=== PATIENT | male | born 1940 | race Caucasian/White ===

== ENCOUNTER 2017-11-29 20:28 | Emergency (ER) | payer MEDICARE ==
[2017-11-29 20:51] VITALS: O2SAT 98
[2017-11-29] MEDS ORDERED: Sodium Chloride 0.9% 1000 ML 1,000 ML IV SCH (21:15)
--- NOTE | 2017-11-29 21:23 | ERPHSYRPT ---
- History of Present Illness Time Seen by Provider: 11/29/17 20:55 Source: patient Exam Limitations: clinical condition Patient Subjective Stated Complaint: pt states he has been feeling weak for approx 2 weeks and gradually getting worse with time; pt seen family approx 12 days ago and dx with anemia; had second lab drawn after dx but has not heard from family dr the results nor treatment plan for anemia. Triage Nursing Assessment: pt a&o x3; skin p, w, & d; ambulated to room per self ; no obvious distess noted; family at bedside. Physician History: PATIENT WITH A HISTORY OF HYPERTENSION, TYPE 2 DIABETES, MYOCARDIAL INFARCTION , PACEMAKER INSERTION AND DEGENERATIVE DISC DISEASE, COMPLAINS OF GENERALIZED WEAKNESS FOR 2 WEEKS. RECENTLY DIAGNOSED WITH ANEMIA BY HIS PRIMARY CARE PROVIDER 2 WEEKS. PATIENT DENIES HEADACHE, DYSPNEA, CHEST PAIN, DYSPNEA, PALPITATIONS, NAUSEA EMESIS OR DIARRHEA. Timing/Duration: week(s) Severity: moderate Modifying Factors: Improves With: movement Associated Symptoms: denies symptoms Allergies/Adverse Reactions: doxazosin mesylate [From Cardura] Allergy (Verified 11/29/17 20:51) Itching prednisone Allergy (Verified 11/29/17 20:51) states "homicidal" Vyhdcqw-Ruc-Usw Reductase Inhibitor Allergy (Verified 11/29/17 20:51) Joint Aches duloxetine Adverse Reaction (Verified 11/29/17 20:51) milk Adverse Reaction (Verified 11/29/17 20:51) bananas Allergy (Uncoded 11/29/17 20:51) iv contrast Allergy (Uncoded 11/29/17 20:51) Hives Home Medications: Aspirin 81 gm Chew [Baby Aspirin 81 mg Chew] 81 mg PO DAILY 01/02/16 [ History] Clopidogrel Bisulfate 75 mg [PLAVIX 75 MG Tablet] 75 mg PO DAILY 01/02/16 [History] Diltiazem HCl 240 mg [Cardizem CD 240 MG] 240 mg PO DAILY 01/02/16 [ History] Guaifenesin/Dextromethorphan [Mucinex Dm ER 1,200-60 mg Tab] 1 each PO BID 01/01 [History] Lisinopril 20 mg [Zestril 20 MG] 20 mg PO DAILY 01/02/16 [History] Metformin HCl 500 mg [Glucophage 500 MG] 500 mg PO DAILY 01/02/16 [History ] PANTOPRAZOLE 40 mg Tablet [Protonix 40MG Tablet] 40 mg PO QAM 01/02/16 [ History] Doxycycline Hyclate 100 mg [Vibramycin 100 MG] 100 mg PO DAILY 02/09/16 [ History] Multivitamin [Daily Multivitamin] 1 each PO DAILY 02/09/16 [History] Zolpidem Tartrate [Ambien] 10 mg PO HS 02/09/16 [History] Hx Tetanus, Diphtheria Vaccination/Date Given: Yes Hx Influenza Vaccination/Date Given: Yes Hx Pneumococcal Vaccination/Date Given: Yes Immunizations Up to Date: Yes - Review of Systems Constitutional: Weakness Eyes: No Symptoms Ears, Nose, & Throat: No Symptoms Respiratory: No Symptoms, No Cough, No Dyspnea Cardiac: No Symptoms, No Chest Pain, No Edema, No Syncope Abdominal/Gastrointestinal: No Symptoms, No Abdominal Pain, No Nausea, No Vomiting, No Diarrhea Genitourinary Symptoms: No Symptoms, No Dysuria Musculoskeletal: No Symptoms, No Back Pain, No Neck Pain Skin: No Symptoms, No Rash Neurological: No Dizziness, No Focal Weakness, No Sensory Changes Psychological: No Symptoms Endocrine: No Symptoms All Other Systems: Reviewed and Negative - Past Medical History Pertinent Past Medical History: Yes Neurological History: TIA ENT History: No Pertinent History Cardiac History: Hypertension, Myocardial Infarction (DC), Other Respiratory History: No Pertinent History Endocrine Medical History: Diabetes Type II Musculoskeletal History: Degenerative Disk Disease, Osteoarthritis GI Medical History: GERD History: Other Psycho-Social History: No Pertinent History Male Reproductive Disorders: Prostate Cancer Other Medical History: heart stint in 2007, Pt has a pacemaker, past DC - Past Surgical History Past Surgical History: Yes Neuro Surgical History: No Pertinent History Cardiac: Angioplasty, Cardiac Stent Respiratory: Other Gastrointestinal: No Pertinent History Genitourinary: No Pertinent History Musculoskeletal: No Pertinent History Male Surgical History: Prostate Surgery, Vasectomy, Other Other Surgical History: states left lung collapsed, T&A, penile implant, pacemaker,back pain stimulator - Social History Smoking Status: Former smoker Exposure to second hand smoke: No Alcohol Use: None Drug Use: none Patient Lives Alone: No Significant Family History: no pertinent family hx - Nursing Vital Signs Nursing Vital Signs: Initial Vital Signs Temperature 97.8 F 09/23/18 20:43 Pulse Rate 62 11/29/17 20:43 Respiratory Rate 16 11/29/17 20:43 Blood Pressure 153/65 11/29/17 20:43 O2 Sat by Pulse Oximetry 98 11/29/17 20:43 Pain Scale Pain Intensity 2 - Physical Exam General Appearance: no apparent distress, alert Eye Exam: PERRL/EOMI, eyes nml inspection Ears, Nose, Throat Exam: normal ENT inspection, TMs normal, pharynx normal, moist mucous membranes Neck Exam: normal inspection, non-tender, supple, full range of motion Respiratory Exam: normal breath sounds, lungs clear, No respiratory distress Cardiovascular Exam: regular rate/rhythm, normal heart sounds, normal peripheral pulses Gastrointestinal/Abdomen Exam: soft, normal bowel sounds, No tenderness, No mass Back Exam: normal inspection, normal range of motion, No CVA tenderness, No vertebral tenderness Extremity Exam: normal inspection, normal range of motion, pelvis stable Neurologic Exam: alert, oriented x 3, cooperative, normal mood/affect, nml cerebellar function, nml station & gait, sensation nml, No motor deficits Skin Exam: normal color, warm, dry, No rash Lymphatic Exam: No adenopathy SpO2 Interpretation: normal SpO2: 98 Oxygen Delivery: Room Air Ordered Tests: Active Orders 24 hr Category Date Time Status Production Specialist STAT Care 11/29/17 21:12 Active EKG-ER Only STAT Care 11/29/17 21:11 Active Orthostatic Vital Signs STAT Care 11/29/17 21:13 Active CHEST 2 VIEWS (PA AND LAT) Stat Exams 11/29/17 21:12 Taken CBC W DIFF Stat Lab 11/29/17 21:41 Completed CMP Stat Lab 11/29/17 21:41 Completed TROPONIN Q3H Lab 11/29/17 21:41 Completed TROPONIN Q3H Lab 11/30/17 00:15 Ordered TROPONIN Q3H Lab 11/30/17 03:15 Ordered TROPONIN Q3H Lab 11/30/17 06:15 Ordered TROPONIN Q3H Lab 11/30/17 09:15 Ordered UA W/RFX UR CULTURE Stat Lab 11/29/17 22:22 Completed Medication Summary Generic Name Dose Route Start Last Admin Trade Name Freq PRN Reason Stop Dose Admin Sodium Chloride 1,000 mls @ 200 mls/hr 11/29/17 21:15 11/29/17 21:46 Sodium Chloride 0.9% 1000 Ml IV 12/29/17 21:14 200 mls/hr .Q5H VALERI Administration Lab/Rad Data: Laboratory Result Diagrams 11/29/17 21:41 11/29/17 21:41 Laboratory Results 11/29/17 11/29/17 11/29/17 Range/Units 22:22 21:41 21:41 WBC (4.0-10.5) K/mm3 RBC (4.1-5.6) M/mm3 Hgb (12.5-18.0) gm/dl Hct (42-50) % MCV (78-100) fl MCH (26-32) pg MCHC (32-36) g/dl RDW (11.5-14.0) % Plt Count (150-450) K/mm3 MPV (6-9.5) fl Gran % (36.0-66.0) % Eos # (Auto) (0-0.5) Absolute Lymphs (auto) (1.0-4.6) Absolute Monos (auto) (0.0-1.3) Lymphocytes % (24.0-44.0) % Monocytes % (0.0-12.0) % Eosinophils % (0.00-5.0) % Basophils % (0.0-0.4) % Absolute Granulocytes (1.4-6.9) Basophils # (0-0.4) Sodium 140 (137-145) mmol/L Potassium 3.9 (3.5-5.1) mmol/L Chloride 103 (98-107) mmol/L Carbon Dioxide 26 (22-30) mmol/L Anion Gap 14.6 (5-15) MEQ/L BUN 28 H (9-20) mg/dL Creatinine 1.79 H (0.66-1.25) mg/dL Estimated GFR 39.2 ML/MIN Glucose 119 H (74-106) mg/dL Calcium 9.9 (8.4-10.2) mg/dL Total Bilirubin 0.30 (0.2-1.3) mg/dL AST 19 (17-59) U/L ALT 16 (0-50) U/L Alkaline Phosphatase 84 (38-126) U/L Troponin I < 0.012 (0.000-0.034) ng/mL Serum Total Protein 6.8 (6.3-8.2) g/dL Albumin 4.3 (3.5-5.0) g/dL Ur Collection Type VOID Urine Color YELLOW (YELLOW) Urine Appearance CLEAR (CLEAR) Urine pH 5.0 (5-6) Ur Specific [place] 1.020 (1.005-1.025) Urine Protein NEGATIVE (Negative) Urine Ketones NEGATIVE (NEGATIVE) Urine Blood NEGATIVE (0-5) [place]/ul Urine Nitrite NEGATIVE (NEGATIVE) Urine Bilirubin NEGATIVE (NEGATIVE) Urine Urobilinogen NORMAL (0-1) mg/dL Ur Leukocyte Esterase NEGATIVE (NEGATIVE) Urine Culture Reflexed NO (NO) Urine Glucose NEGATIVE (NEGATIVE) mg/dL 11/29/17 Range/Units 21:41 WBC 7.1 (4.0-10.5) K/mm3 RBC 3.02 L (4.1-5.6) M/mm3 Hgb 10.2 L (12.5-18.0) gm/dl Hct 29.9 L (42-50) % MCV 99.0 (78-100) fl MCH 33.7 H (26-32) pg MCHC 34.1 (32-36) g/dl RDW 11.8 (11.5-14.0) % Plt Count 284 (150-450) K/mm3 MPV 9.5 (6-9.5) fl Gran % 62.2 (36.0-66.0) % Eos # (Auto) 0.25 (0-0.5) Absolute Lymphs (auto) 1.53 (1.0-4.6) Absolute Monos (auto) 0.85 (0.0-1.3) Lymphocytes % 21.5 L (24.0-44.0) % Monocytes % 12.0 (0.0-12.0) % Eosinophils % 3.5 (0.00-5.0) % Basophils % 0.8 (0.0-0.4) % Absolute Granulocytes 4.41 (1.4-6.9) Basophils # 0.06 (0-0.4) Sodium (137-145) mmol/L Potassium (3.5-5.1) mmol/L Chloride (98-107) mmol/L Carbon Dioxide (22-30) mmol/L Anion Gap (5-15) MEQ/L BUN (9-20) mg/dL Creatinine (0.66-1.25) mg/dL Estimated GFR ML/MIN Glucose (74-106) mg/dL Calcium (8.4-10.2) mg/dL Total Bilirubin (0.2-1.3) mg/dL AST (17-59) U/L ALT (0-50) U/L Alkaline Phosphatase (38-126) U/L Troponin I (0.000-0.034) ng/mL Serum Total Protein (6.3-8.2) g/dL Albumin (3.5-5.0) g/dL Ur Collection Type Urine Color (YELLOW) Urine Appearance (CLEAR) Urine pH (5-6) Ur Specific [place] (1.005-1.025) Urine Protein (Negative) Urine Ketones (NEGATIVE) Urine Blood (0-5) [place]/ul Urine Nitrite (NEGATIVE) Urine Bilirubin (NEGATIVE) Urine Urobilinogen (0-1) mg/dL Ur Leukocyte Esterase (NEGATIVE) Urine Culture Reflexed (NO) Urine Glucose (NEGATIVE) mg/dL - Progress Progress Note: 11/29/17 21:21 ADMINISTERED IV NORMAL SALINE 200ML/HR - Departure Time of Disposition: 23:50 Departure Disposition: Home Clinical Impression: DEHYDRATION Condition: Stable Critical Care Time: No Referrals: ARNOLD OLIVAS MD [Primary Care Provider] - Additional Instructions: DRINK PLENTY OF FLUIDS. CONTINUE ALL CURRENT MEDICATIONS DIRECTED. CONSULT YOUR PRIMARY CARE PROVIDER FOR EVALUATION AND REVIEW OF LABORATORY DATA.
[2017-11-29] MEDS ORDERED: Sodium Chloride 0.9% 1000 ML 1,000 ML ONE (21:44)
[2017-11-29 21:46] LABS: BASOPHIL % 0.8 % (0.0-0.4); Basophil (Absolute #) 0.06 (0-0.4); Eosinophil % 3.5 % (0.00-5.0); Eosinophil (Absolute #) 0.25 (0-0.5); Granulocyte Absolute (ANC) 4.41 (1.4-6.9); Granulocytes % 62.2 % (36.0-66.0); Hematocrit 29.9 % (42-50); Hemoglobin 10.2 gm/dl (12.5-18.0); Lymphocyte (Absolute #) 1.53 (1.0-4.6); Lymphocytes % 21.5 % (24.0-44.0); Mean Corpuscular Hgb Concent. 34.1 g/dl (32-36); Mean Platelet Volume 9.5 fl (6-9.5); Monocyte (Absolute #) 0.85 (0.0-1.3); Platelet Count 284 K/mm3 (150-450); Red Blood Count 3.02 M/mm3 (4.1-5.6); Red Cell Distribution Width 11.8 % (11.5-14.0); White Blood Count 7.1 K/mm3 (4.0-10.5)
[2017-11-29 21:48] LABS: Mean Corpuscular Hemoglobin 33.7 pg (26-32)
[2017-11-29 22:08] LABS: ALBUMIN 4.3 g/dL (3.5-5.0); ANION GAP 14.6 MEQ/L (5-15); BILIRUBIN,TOTAL 0.3 mg/dL (0.2-1.3); Calcium 9.9 mg/dL (8.4-10.2); Creatinine 1 1.79 mg/dL (0.66-1.25); Potassium 3.9 mmol/L (3.5-5.1); Total Protein 6.8 g/dL (6.3-8.2)
[2017-11-29 22:25] LABS: Appearance CLEAR (CLEAR); Bilirubin NEGATIVE (NEGATIVE); Blood NEGATIVE Ery/ul (0-5); Glucose NEGATIVE (NEGATIVE); Ketones NEGATIVE (NEGATIVE); Leukocyte Esterase NEGATIVE (NEGATIVE); Nitrite NEGATIVE (NEGATIVE); Protein,Urine Dip NEGATIVE (Negative); Urobilinogen NORMAL mg/dL (0-1)
[2017-11-29 23:51] VITALS: BP 138/65; PULSE 67
--- NOTE | 2017-11-30 08:44 | XRAY ---
Indication: Cough and weakness. Comparison: February 09, 2016. PA/lateral chest hyperinflated and clear again with incidental calcified granulomas. Heart and mediastinal structures within normal limits again with left-sided dual-lead pacemaker. Bony thorax intact again with spinal stimulator leads. Impression: Nonacute hyperinflated chest with chronic features.
== END 2017-11-30 00:01 | disposition home or self-care (01) ==
LOC: ED 20:28
DX: E86.0 Dehydration (principal); E11.9 Type 2 diabetes mellitus without complications; I10 Essential (primary) hypertension; Z79.01 Long term (current) use of anticoagulants; Z79.82 Long term (current) use of aspirin; Z79.899 Other long term (current) drug therapy; Z95.0 Presence of cardiac pacemaker; Z79.84 Long term (current) use of oral hypoglycemic drugs
CPT/HCPCS: 36415; 71046; 80053; 81003; 84484; 85025; 93005; 93041; 99284

== ENCOUNTER 2018-02-24 09:19 | Day surgery (SDC) | payer MEDICARE ==
[2012-01-16 01:09] VITALS: BP 143/73
[2018-02-24] MEDS ORDERED: DIPRIVAN 200 MG/20 ML IV ONE (09:20)
[2018-02-24] MEDS ORDERED: Xylocaine-Mpf 2% 5 Ml Vial IJ ONE (09:20)
[2018-02-24] MEDS ORDERED: Depo-Medrol 40 MG/ML IM ONE (09:20)
--- NOTE | 2018-02-24 12:40 | XRAY ---
Indication: Bilateral L4-S1 MBB. Intraoperative fluoroscopy was provided for 12 seconds. Single digital spot image submitted for interpretation demonstrates posterior spinal needle tips along the expected course of the left and right L4-S1 nerve roots. Correlate with intraoperative findings/report.
--- NOTE | 2018-02-24 12:48 | XRAY ---
12 seconds fluoroscopy time in surgery for bilateral L4-S1 MBB.
[2018-02-24] MEDS ORDERED: Lactated Ringers 1,000 ML IV ONE (14:46)
== END 2018-02-24 11:20 | disposition home or self-care (01) ==
LOC: SDC-PAIN 09:19
PROVIDERS: ATTEND Psychiatry & Neurology Pain Medicine
DX: M48.8X6 Other specified spondylopathies, lumbar region (principal)
CPT/HCPCS: 64493; 64494; 72020; 77003; 82962; 99100; J1030; J2704

== ENCOUNTER 2018-04-07 07:50 | Day surgery (SDC) | payer MEDICARE ==
[2012-01-16 01:09] VITALS: BP 143/73
[2018-04-07] MEDS ORDERED: DIPRIVAN 200 MG/20 ML IV ONE (07:51)
[2018-04-07] MEDS ORDERED: Depo-Medrol 40 MG/ML IM ONE (07:51)
[2018-04-07] MEDS ORDERED: Marcaine 0.5% SDV 10 ML IJ ONE (07:51)
[2018-04-07 08:47] LABS: Specific Gravity 1.019 (1.005-1.025)
[2018-04-07 10:01] LABS: Amphetamine,Urine NEGATIVE (NEGATIVE); Barbiturate,Urine NEGATIVE (NEGATIVE); Benzodiazepine,Urine NEGATIVE (NEGATIVE); Cocaine,Urine NEGATIVE (NEGATIVE); Methadone,Urine NEGATIVE (NEGATIVE); Opiate,Urine POSITIVE (NEGATIVE); PCP,Urine NEGATIVE (NEGATIVE); THC,Urine NEGATIVE (NEGATIVE)
[2018-04-07 10:05] LABS: CREATININE,URINE RANDOM 176.3 MG/DL
--- NOTE | 2018-04-07 14:54 | XRAY ---
Indication: Bilateral L4-S1 MBB. Intraoperative fluoroscopy was provided for 10 seconds. Single digital spot image submitted for interpretation demonstrates posterior spinal needle tips along the expected course of the left and right L4-S1 nerve roots. Correlate with intraoperative findings/report.
[2018-04-07] MEDS ORDERED: Lactated Ringers 1,000 ML IV ONE (14:57)
--- NOTE | 2018-04-12 08:36 | XRAY ---
10 seconds fluoroscopy time in surgery for bilateral L4-S1 MBB.
== END 2018-04-07 10:10 | disposition home or self-care (01) ==
LOC: SDC-PAIN 07:50
PROVIDERS: ATTEND Psychiatry & Neurology Pain Medicine
DX: M47.817 Spondylosis without myelopathy or radiculopathy, lumbosacral region (principal); M48.8X6 Other specified spondylopathies, lumbar region; E11.9 Type 2 diabetes mellitus without complications; Z86.73 Personal history of transient ischemic attack (TIA), and cerebral infarction without residual deficits; Z79.899 Other long term (current) drug therapy
CPT/HCPCS: 64493; 64494; 72020; 77002; 80307; 81002; 82570; 82962; 83986; 99100; J1030; J2704; Q9967

== ENCOUNTER 2018-05-26 07:43 | Day surgery (SDC) | payer MEDICARE ==
[2012-01-16 01:09] VITALS: BP 143/73
[2018-05-26] MEDS ORDERED: Marcaine 0.5% SDV 10 ML IJ ONE (07:44)
[2018-05-26] MEDS ORDERED: Ketamine HCl 50 MG/ML IJ ONE (07:44)
[2018-05-26] MEDS ORDERED: LIDOCAINE HCL 2% 100 MG/5 ML IJ ONE (07:44)
[2018-05-26] MEDS ORDERED: DIPRIVAN 200 MG/20 ML IV ONE (07:44)
[2018-05-26] MEDS ORDERED: Depo-Medrol 40 MG/ML IM ONE (07:44)
[2018-05-26] MEDS ORDERED: Xylocaine 1% Vial 30 ML PF IJ ONE (07:44)
[2018-05-26] MEDS ORDERED: Lactated Ringers 1,000 ML IV ONE (14:23)
--- NOTE | 2018-05-26 16:08 | XRAY ---
27 seconds of fluoroscopy was used in surgery for right L4-L5, L5-S1, and sacral ala RFA.
--- NOTE | 2018-05-26 16:12 | XRAY ---
Indication: Right L4-S1 and sacral RFA. Intraoperative fluoroscopy was provided for 27 seconds. 2 digital spot images submitted for interpretation demonstrates posterior needle tips in the expected region of the right L4-S1 nerve roots. Correlate with intraoperative findings/report.
== END 2018-05-26 10:07 | disposition home or self-care (01) ==
LOC: SDC-PAIN 07:43
PROVIDERS: ATTEND Psychiatry & Neurology Pain Medicine
DX: M47.816 Spondylosis without myelopathy or radiculopathy, lumbar region (principal); M48.8X6 Other specified spondylopathies, lumbar region; E11.9 Type 2 diabetes mellitus without complications; I10 Essential (primary) hypertension; J44.9 Chronic obstructive pulmonary disease, unspecified; C61 Malignant neoplasm of prostate; E78.00 Pure hypercholesterolemia, unspecified; D64.9 Anemia, unspecified; M19.90 Unspecified osteoarthritis, unspecified site; Z79.899 Other long term (current) drug therapy
CPT/HCPCS: 64635; 64636; 72100; 77002; 82962; 99100; J1030; J2001; J2704

== ENCOUNTER 2018-07-07 09:39 | Day surgery (SDC) | payer MEDICARE ==
[2012-01-16 01:09] VITALS: BP 143/73
[2018-07-07] MEDS ORDERED: Xylocaine 1% Vial 30 ML PF IJ ONE (09:40)
[2018-07-07] MEDS ORDERED: Ketamine HCl 50 MG/ML IJ ONE (09:40)
[2018-07-07] MEDS ORDERED: DIPRIVAN 200 MG/20 ML IV ONE (09:40)
[2018-07-07] MEDS ORDERED: Depo-Medrol 40 MG/ML IM ONE (09:40)
[2018-07-07] MEDS ORDERED: Marcaine 0.5% SDV 10 ML IJ ONE (09:40)
--- NOTE | 2018-07-07 13:28 | XRAY ---
19 seconds of fluoroscopy was used in surgery for a left L4-L5, L5-S1 RFA.
--- NOTE | 2018-07-07 13:38 | XRAY ---
Indication: Left L4-S1 RFA. Intraoperative fluoroscopy was provided for 19 seconds. 2 digital spot images submitted for interpretation demonstrates posterior needle tips projecting over the expected course of the left L4-S1 nerve roots. Correlate with intraoperative findings/report.
[2018-07-07] MEDS ORDERED: Lactated Ringers 1,000 ML IV ONE (14:53)
== END 2018-07-07 11:48 | disposition home or self-care (01) ==
LOC: SDC-PAIN 09:39
PROVIDERS: ATTEND Psychiatry & Neurology Pain Medicine
DX: M47.816 Spondylosis without myelopathy or radiculopathy, lumbar region (principal); E11.9 Type 2 diabetes mellitus without complications; E78.00 Pure hypercholesterolemia, unspecified; C61 Malignant neoplasm of prostate; D64.9 Anemia, unspecified; G47.00 Insomnia, unspecified; I10 Essential (primary) hypertension; J44.9 Chronic obstructive pulmonary disease, unspecified; I48.91 Unspecified atrial fibrillation; K21.9 Gastro-esophageal reflux disease without esophagitis; N18.3 Chronic kidney disease, stage 3 (moderate); G62.9 Polyneuropathy, unspecified; Z79.899 Other long term (current) drug therapy
CPT/HCPCS: 64635; 64636; 72100; 77002; 82962; 99100; J1030; J2001; J2704

== ENCOUNTER 2018-08-29 18:58 | Emergency (ER) | payer MEDICARE ==
[2018-08-29] MEDS ORDERED: Sodium Chloride 0.9% 500 ML 500 ML IV ONE ×2 (19:32→19:48)
[2018-08-29 20:01] LABS: Basophil (Absolute #) 0.06 (0-0.4); Eosinophil % 4.1 % (0.00-5.0); Eosinophil (Absolute #) 0.25 (0-0.5); Granulocyte Absolute (ANC) 3.59 (1.4-6.9); Granulocytes % 58.3 % (36.0-66.0); Hematocrit 28.3 % (42-50); Hemoglobin 9.6 gm/dl (12.5-18.0); Lymphocyte (Absolute #) 1.48 (1.0-4.6); Lymphocytes % 24.1 % (24.0-44.0); Mean Cell Volume 101.1 fl (78-100); Mean Corpuscular Hgb Concent. 33.9 g/dl (32-36); Mean Platelet Volume 9.3 fl (6-9.5); Monocytes % 12.5 % (0.0-12.0); Platelet Count 272 K/mm3 (150-450); Red Cell Distribution Width 12.6 % (11.5-14.0); White Blood Count 6.2 K/mm3 (4.0-10.5)
[2018-08-29 20:03] LABS: Mean Corpuscular Hemoglobin 34.2 pg (26-32)
[2018-08-29 20:13] LABS: ALBUMIN 3.8 g/dL (3.5-5.0); ANION GAP 12.9 MEQ/L (5-15); BILIRUBIN,TOTAL 0.3 mg/dL (0.2-1.3); Calcium 9.4 mg/dL (8.4-10.2); Creatinine 1 1.71 mg/dL (0.66-1.25); Potassium 4.4 mmol/L (3.5-5.1); Total Protein 6.3 g/dL (6.3-8.2)
--- NOTE | 2018-08-29 20:50 | ERPHSYRPT ---
- History of Present Illness Time Seen by Provider: 08/29/18 19:10 Source: patient, family Exam Limitations: no limitations Patient Subjective Stated Complaint: Hypotension Triage Nursing Assessment: Patient brought back to ED and transferred to bed with assist of 1. Patient A+O X 3. Patient complains of hypotension. Patient states he check his blood pressure at home with his automatic cuff at 1330 with results of 86/63 and pulse of 71, at 1830 blood pressure was 82/53 and pulse was 70. Patient complains of dizziness when first standing up. Patient denies pain of discomfort. Physician History: 77 y/o white male presents with low bp measurements at home. pt states maybe a little dizzy but not much. no cp, no soa, no abd pain. pt has a h/o htn. last bp meds last pm. no active bleeding. no new meds. pt does take asa and plavix. h /o mi, tia and diabetes. Timing/Duration: today Severity: mild Associated Symptoms: No nausea, No vomiting, No abdominal pain, No shortness of breath, No chest pain, No malaise, No weakness Allergies/Adverse Reactions: doxazosin mesylate [From Cardura] Allergy (Verified 08/29/18 19:07) Itching prednisone Allergy (Verified 08/29/18 19:07) states "homicidal" Miijmrd-Mjv-Ism Reductase Inhibitor Allergy (Verified 08/29/18 19:07) Joint Aches duloxetine Adverse Reaction (Verified 08/29/18 19:07) milk Adverse Reaction (Verified 08/29/18 19:07) bananas Allergy (Uncoded 08/29/18 19:07) iv contrast Allergy (Uncoded 08/29/18 19:07) Hives Home Medications: Aspirin 81 gm Chew [Baby Aspirin 81 mg Chew] 81 mg PO DAILY 01/02/16 [ History] Clopidogrel Bisulfate 75 mg [PLAVIX 75 MG Tablet] 75 mg PO DAILY 01/02/16 [History] Diltiazem HCl 240 mg [Cardizem CD 240 MG] 240 mg PO DAILY 01/02/16 [ History] Guaifenesin/Dextromethorphan [Mucinex Dm ER 1,200-60 mg Tab] 1 each PO BID 01/01 [History] Lisinopril 20 mg [Zestril 20 MG] 20 mg PO DAILY 01/02/16 [History] Metformin HCl 500 mg [Glucophage 500 MG] 500 mg PO DAILY 01/02/16 [History ] PANTOPRAZOLE 40 mg Tablet [Protonix 40MG Tablet] 40 mg PO QAM 01/02/16 [ History] Doxycycline Hyclate 100 mg [Vibramycin 100 MG] 100 mg PO DAILY 02/09/16 [ History] Multivitamin [Daily Multivitamin] 1 each PO DAILY 02/09/16 [History] Zolpidem Tartrate [Ambien] 10 mg PO HS 02/09/16 [History] Hx Tetanus, Diphtheria Vaccination/Date Given: Yes Hx Influenza Vaccination/Date Given: Yes Hx Pneumococcal Vaccination/Date Given: Yes Immunizations Up to Date: Yes - Review of Systems Constitutional: No Symptoms Eyes: No Symptoms Ears, Nose, & Throat: No Symptoms Respiratory: No Symptoms Cardiac: No Symptoms Abdominal/Gastrointestinal: No Symptoms Genitourinary Symptoms: No Symptoms Musculoskeletal: No Symptoms Skin: No Symptoms Neurological: No Symptoms Psychological: No Symptoms Endocrine: No Symptoms Hematologic/Lymphatic: No Symptoms Immunological/Allergic: No Symptoms All Other Systems: Reviewed and Negative - Past Medical History Pertinent Past Medical History: Yes Neurological History: TIA ENT History: No Pertinent History Cardiac History: Hypertension, Myocardial Infarction (MT), Other Respiratory History: No Pertinent History Endocrine Medical History: Diabetes Type II Musculoskeletal History: Degenerative Disk Disease GI Medical History: GERD History: Other Psycho-Social History: No Pertinent History Male Reproductive Disorders: Prostate Cancer Other Medical History: heart stint in 2007, Pt has a pacemaker, past [place] - Past Surgical History Past Surgical History: Yes Neuro Surgical History: No Pertinent History Cardiac: Angioplasty, Cardiac Stent Respiratory: Other Gastrointestinal: No Pertinent History Genitourinary: No Pertinent History Musculoskeletal: No Pertinent History Male Surgical History: Prostate Surgery, Vasectomy, Other Other Surgical History: states left lung collapsed, T&A, penile implant, pacemaker,back pain stimulator - Social History Smoking Status: Never smoker Exposure to second hand smoke: No Alcohol Use: None Drug Use: none Patient Lives Alone: No Significant Family History: no pertinent family hx - Nursing Vital Signs Nursing Vital Signs: Initial Vital Signs Temperature 98.0 F 08/29/18 19:08 Pulse Rate 61 08/29/18 19:08 Respiratory Rate 18 08/29/18 19:08 Blood Pressure 122/61 08/29/18 19:08 O2 Sat by Pulse Oximetry 96 08/29/18 19:08 Pain Scale Pain Intensity 0 - Physical Exam General Appearance: no apparent distress, alert Eye Exam: PERRL/EOMI, eyes nml inspection Ears, Nose, Throat Exam: normal ENT inspection, moist mucous membranes Neck Exam: normal inspection, non-tender, supple, full range of motion Respiratory Exam: normal breath sounds, lungs clear, airway intact, No chest tenderness, No respiratory distress Cardiovascular Exam: regular rate/rhythm, normal heart sounds, normal peripheral pulses Gastrointestinal/Abdomen Exam: soft, normal bowel sounds, No tenderness Back Exam: normal inspection, normal range of motion, No CVA tenderness, No vertebral tenderness Extremity Exam: normal inspection, normal range of motion, pelvis stable Neurologic Exam: alert, oriented x 3, cooperative, skip pitman II-XII nml as tested Skin Exam: normal color, warm, dry Lymphatic Exam: adenopathy SpO2 Interpretation: normal SpO2: 97 O2 Delivery: Room Air - Course EKG Interpreted by Me: RATE (62), NORMAL AXIS, NORMAL QRS, Other (atrial escape rhythm. no change comparison ekg dated 11/29/17) Ordered Tests: Active Orders 24 hr Category Date Time Status Relay Engineer STAT Care 08/29/18 19:32 Active EKG-ER Only STAT Care 08/29/18 19:31 Active IV Insertion STAT Care 08/29/18 19:31 Active Orthostatic Vital Signs STAT Care 08/29/18 19:32 Active CBC W DIFF Stat Lab 08/29/18 19:31 Completed CMP Stat Lab 08/29/18 20:17 Completed TROPONIN Q3H Lab 08/29/18 20:17 Completed TROPONIN Q3H Lab 08/29/18 22:45 Ordered TROPONIN Q3H Lab 08/30/18 01:45 Ordered TROPONIN Q3H Lab 08/30/18 04:45 Ordered TROPONIN Q3H Lab 08/30/18 07:45 Ordered Medication Summary Discontinued Medications Generic Name Dose Route Start Last Admin Trade Name Freq PRN Reason Stop Dose Admin Sodium Chloride 500 mls @ 500 mls/hr 08/29/18 19:32 08/29/18 20:12 Sodium Chloride 0.9% 500 Ml IV 08/29/18 20:31 500 mls/hr .Q1H ONE Administration Sodium Chloride Confirm 08/29/18 19:48 Sodium Chloride 0.9% 500 Ml Administered 08/29/18 19:49 Dose 500 mls @ ud IV .STK-MED ONE Lab/Rad Data: Laboratory Result Diagrams 08/29/18 19:31 08/29/18 20:17 Laboratory Results 08/29/18 08/29/18 08/29/18 Range/Units 20:17 20:17 19:31 WBC 6.2 (4.0-10.5) K/mm3 RBC 2.80 L (4.1-5.6) M/mm3 Hgb 9.6 L (12.5-18.0) gm/dl Hct 28.3 L (42-50) % MCV 101.1 H (78-100) fl MCH 34.2 H (26-32) pg MCHC 33.9 (32-36) g/dl RDW 12.6 (11.5-14.0) % Plt Count 272 (150-450) K/mm3 MPV 9.3 (6-9.5) fl Gran % 58.3 (36.0-66.0) % Eos # (Auto) 0.25 (0-0.5) Absolute Lymphs (auto) 1.48 (1.0-4.6) Absolute Monos (auto) 0.77 (0.0-1.3) Lymphocytes % 24.1 (24.0-44.0) % Monocytes % 12.5 H (0.0-12.0) % Eosinophils % 4.1 (0.00-5.0) % Basophils % 1.0 (0.0-0.4) % Absolute Granulocytes 3.59 (1.4-6.9) Basophils # 0.06 (0-0.4) Sodium 140 (137-145) mmol/L Potassium 4.4 (3.5-5.1) mmol/L Chloride 104 (98-107) mmol/L Carbon Dioxide 27 (22-30) mmol/L Anion Gap 12.9 (5-15) MEQ/L BUN 26 H (9-20) mg/dL Creatinine 1.71 H (0.66-1.25) mg/dL Estimated GFR 41.2 ML/MIN Glucose 89 (74-106) mg/dL Calcium 9.4 (8.4-10.2) mg/dL Total Bilirubin 0.30 (0.2-1.3) mg/dL AST 20 (17-59) U/L ALT 11 (0-50) U/L Alkaline Phosphatase 53 (38-126) U/L Troponin I < 0.012 (0.000-0.034) ng/mL Serum Total Protein 6.3 (6.3-8.2) g/dL Albumin 3.8 (3.5-5.0) g/dL - Progress Progress: unchanged Progress Note: 08/29/18 20:54 pt not orthostatic: lying 119/57, 61 sitting 114/58, 76 standing 112/56 Counseled pt/family regarding: lab results, diagnosis, need for follow-up - Departure Departure Disposition: Home Clinical Impression: Anemia Condition: Stable Critical Care Time: No Referrals: ARNOLD OLIVAS MD [Primary Care Provider] - Additional Instructions: stop all your blood pressure medications. stop your aspirin and plavix. call your primary doctor and all prescribing physicians tomorrow for further management. return to ED if symptoms occur.
[2018-08-29 21:22] VITALS: BP 127/68; PULSE 64; O2SAT 98
== END 2018-08-29 21:29 | disposition home or self-care (01) ==
LOC: ED 18:58
DX: D64.9 Anemia, unspecified (principal); I95.9 Hypotension, unspecified; Z79.899 Other long term (current) drug therapy; I10 Essential (primary) hypertension; I25.2 Old myocardial infarction; Z86.73 Personal history of transient ischemic attack (TIA), and cerebral infarction without residual deficits; E11.9 Type 2 diabetes mellitus without complications
CPT/HCPCS: 36000; 36415; 80053; 84484; 85025; 93005; 93041; 96360; 99284

== ENCOUNTER 2018-10-16 14:50 | Observation (INO) | payer MEDICARE ==
[2018-10-16] MEDS ORDERED: Sodium Chloride 0.9% 1000 ML 1,000 ML IV SCH (15:00)
--- NOTE | 2018-10-16 15:11 | ERPHSYRPT ---
- History of Present Illness Time Seen by Provider: 10/16/18 15:08 Source: patient Exam Limitations: no limitations Physician History: 77-year-old white male who is very hard of hearing with history of TIA, high blood pressure, myocardial infarction, diabetes type 2, degenerative disc disease, GERD, prostate cancer, heart stent in 2007, pacer, Brought by his family with complaint of the patient took multiple of his medications Patient's family states that he took his medications sometime between noon and 3 PM. the patient's family feels that he has been somewhat slow to respond otherwise is not having any problems. Past medical history includes TIA, high blood pressure, myocardial infarction, diabetes type 2, degenerative disc disease, GERD, prostate cancer, heart stent in 2007, pacer, myocardial infarction Past surgical history includes angioplasty, cardiac stent, prostate surgery, mastectomy, left lung collapse, tonsillectomy and adenoidectomy, penile implant , pacer, back pain stimulator Medications that patient possibly took includes As much as possible seven-day supply of Imdur 15 mg orally daily. Metformin 500 mg orally daily. Plavix 75 mg orally daily Fluvastatin 40 mg orally twice a day Protonix 40 mg orally daily Guaifenesin 1200 mg orally daily Hydrocodone 7.5 mg/325 mg orally daily Timing/Duration: today (somewhere between noon and 3 PM) Severity: moderate Modifying Factors: Improves With: medication (to 7 days worth of all of his medications) Associated Symptoms: No shortness of breath, No heartburn, No diaphoresis, No cough, No chills, No chest pain, No fever, No headaches, No loss of appetite, No malaise, No rash, No syncope, No seizure, No weakness Allergies/Adverse Reactions: doxazosin mesylate [From Cardura] Allergy (Verified 10/16/18 15:13) Itching prednisone Allergy (Verified 10/16/18 15:13) states "homicidal" Paczcig-Kvl-Dmi Reductase Inhibitor Allergy (Verified 10/16/18 15:13) Joint Aches duloxetine Adverse Reaction (Verified 10/16/18 15:13) milk Adverse Reaction (Verified 10/16/18 15:13) bananas Allergy (Uncoded 10/16/18 15:13) iv contrast Allergy (Uncoded 10/16/18 15:13) Hives Home Medications: Clopidogrel Bisulfate 75 mg [PLAVIX 75 MG Tablet] 75 mg PO DAILY 01/02/16 [History] Diltiazem HCl 240 mg [Cardizem CD 240 MG] 240 mg PO DAILY 01/02/16 [ History] Guaifenesin/Dextromethorphan [Mucinex Dm ER 1,200-60 mg Tab] 1 each PO BID 01/01 [History] Metformin HCl 500 mg [Glucophage 500 MG] 500 mg PO DAILY 01/02/16 [History ] PANTOPRAZOLE 40 mg Tablet [Protonix 40MG Tablet] 40 mg PO QAM 01/02/16 [ History] Multivitamin [Daily Multivitamin] 1 each PO DAILY 02/09/16 [History] Zolpidem Tartrate [Ambien] 10 mg PO HS 02/09/16 [History] Celecoxib 100 mg [celeBREX 100 MG] 200 mg PO BID 10/16/18 [History] Fluvastatin Sodium 40 mg PO BID 10/16/18 [History] Hydrocodone Bit/Acetaminophen [Hydrocodon-Acetaminoph 7.5-325] 1 each PO QID 12/25 [History] Isosorbide Mononitrate 30 mg [Imdur 30 MG] 15 mg PO DAILY 10/16/18 [History ] Timolol/Dorzolamide/Latanop/Pf [Sai 0.5%-Dorz 2%-Latan 0.005%] 5 ml OP DAILY [History] Zolpidem Tartrate 10 mg [Ambien 10 MG] 10 mg PO HS PRN 10/16/18 [History] Hx Tetanus, Diphtheria Vaccination/Date Given: Yes Hx Influenza Vaccination/Date Given: Yes Hx Pneumococcal Vaccination/Date Given: Yes - Review of Systems Constitutional: No Fever, No Chills Eyes: No Symptoms Ears, Nose, & Throat: No Symptoms Respiratory: No Cough, No Dyspnea Cardiac: No Chest Pain, No Edema, No Syncope Abdominal/Gastrointestinal: No Abdominal Pain, No Nausea, No Vomiting, No Diarrhea Genitourinary Symptoms: No Dysuria Musculoskeletal: No Back Pain, No Neck Pain Skin: No Rash Neurological: No Dizziness, No Focal Weakness, No Sensory Changes Psychological: No Symptoms Endocrine: No Symptoms All Other Systems: Reviewed and Negative - Past Medical History Pertinent Past Medical History: Yes Neurological History: TIA ENT History: No Pertinent History Cardiac History: Hypertension, Myocardial Infarction ([place]), Other Respiratory History: No Pertinent History Endocrine Medical History: Diabetes Type II Musculoskeletal History: Degenerative Disk Disease GI Medical History: GERD History: Other Psycho-Social History: No Pertinent History Male Reproductive Disorders: Prostate Cancer Other Medical History: heart stint in 2007, Pt has a pacemaker, past [place] - Past Surgical History Past Surgical History: Yes Neuro Surgical History: No Pertinent History Cardiac: Angioplasty, Cardiac Stent Respiratory: Other Gastrointestinal: No Pertinent History Genitourinary: No Pertinent History Musculoskeletal: No Pertinent History Male Surgical History: Prostate Surgery, Vasectomy, Other Other Surgical History: states left lung collapsed, T&A, penile implant, pacemaker,back pain stimulator - Social History Smoking Status: Never smoker Exposure to second hand smoke: No Alcohol Use: None Drug Use: none Patient Lives Alone: No Significant Family History: no pertinent family hx - Nursing Vital Signs Nursing Vital Signs: Initial Vital Signs Temperature 97.2 F 10/16/18 14:58 Pulse Rate 76 10/16/18 14:58 Respiratory Rate 16 10/16/18 14:58 Blood Pressure 173/102 10/16/18 14:58 O2 Sat by Pulse Oximetry 96 10/16/18 14:58 Pain Scale Pain Intensity 0 - Physical Exam General Appearance: no apparent distress, alert, other (very hard of hearing) Eye Exam: PERRL/EOMI, eyes nml inspection Ears, Nose, Throat Exam: normal ENT inspection, TMs normal, pharynx normal, moist mucous membranes Neck Exam: normal inspection, non-tender, supple, full range of motion Respiratory Exam: normal breath sounds, lungs clear, No respiratory distress Cardiovascular Exam: regular rate/rhythm, normal heart sounds, normal peripheral pulses, capillary refill <2 sec Gastrointestinal/Abdomen Exam: soft, normal bowel sounds, No tenderness, No mass Back Exam: normal inspection, normal range of motion, No CVA tenderness, No vertebral tenderness Extremity Exam: normal inspection, normal range of motion, pelvis stable Neurologic Exam: alert, oriented x 3, cooperative, senior 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 etl developer II-XII nml as tested, normal mood/affect, nml cerebellar function, nml station & gait, sensation nml, No motor deficits Skin Exam: normal color, warm, dry, No rash Lymphatic Exam: No adenopathy SpO2 Interpretation: normal - Course Nursing assessment & vital signs reviewed: Yes EKG Interpreted by Me: RATE (79 bpm), NORMAL AXIS, Other (EKG:, 79 beats per minute, normal axis, no acute ST or T wave changes, compared to August 29, 2018) Ordered Tests: Active Orders 24 hr Category Date Time Status Self Propelled Hot Mix Roller Operator STAT Care 10/16/18 15:50 Active EKG-ER Only STAT Care 10/16/18 14:59 Active Martinez [Catheter-[place] Martinez] STAT Care 10/16/18 15:35 Active IV Insertion STAT Care 10/16/18 14:59 Active IV Insertion-2nd Peripheral STAT Care 10/16/18 15:18 Active Pulse Oximetry (ED) STAT Care 10/16/18 14:59 Active ACETAMINOPHEN Stat Lab 10/16/18 15:16 Completed CBC W DIFF Stat Lab 10/16/18 15:16 Completed CMP Stat Lab 10/16/18 15:16 Completed CULTURE,URINE Stat Lab 10/16/18 15:30 Received ETHYL ALCOHOL Stat Lab 10/16/18 15:16 Completed Lactic Acid Stat Lab 10/16/18 15:07 Completed SALICYLATE Stat Lab 10/16/18 15:16 Completed UA W/RFX UR CULTURE Stat Lab 10/16/18 15:30 Completed Urine Triage Profile Stat Lab 10/16/18 15:30 Completed VENOUS BLOOD GAS Stat Lab 10/16/18 15:12 Completed Medication Summary Generic Name Dose Route Start Last Admin Trade Name Freq PRN Reason Stop Dose Admin Sodium Chloride 1,000 mls @ 100 mls/hr 10/16/18 15:00 10/16/18 15:46 Sodium Chloride 0.9% 1000 Ml IV 11/15/18 14:59 100 mls/hr .Q10H VALERI Administration Lab/Rad Data: Laboratory Result Diagrams 10/16/18 15:16 10/16/18 15:16 Laboratory Results 10/16/18 10/16/18 10/16/18 Range/Units 15:30 15:30 15:16 WBC (4.0-10.5) K/mm3 RBC (4.1-5.6) M/mm3 Hgb (12.5-18.0) gm/dl Hct (42-50) % MCV (78-100) fl MCH (26-32) pg MCHC (32-36) g/dl RDW (11.5-14.0) % Plt Count (150-450) K/mm3 MPV (6-9.5) fl Gran % (36.0-66.0) % Eos # (Auto) (0-0.5) Absolute Lymphs (auto) (1.0-4.6) Absolute Monos (auto) (0.0-1.3) Lymphocytes % (24.0-44.0) % Monocytes % (0.0-12.0) % Eosinophils % (0.00-5.0) % Basophils % (0.0-0.4) % Absolute Granulocytes (1.4-6.9) Basophils # (0-0.4) pO2/FiO2 Ratio % VBG pH (7.32-7.42) VBG pCO2 at Pat Temp (42-55) mm/Hg VBG pO2 at Pat Temp (25-40) mm/Hg VBG HCO3 (22-28) meq/L VBG O2 Sat (Karen) (95-100) VBG Base Excess (-2.0-2.0) VBG Hemoglobin VBG Carboxyhemoglobin (0.0-6.9) % T HGB POC Potassium (3.5-5.1) Sodium 145 (137-145) mmol/L Potassium 3.8 (3.5-5.1) mmol/L Chloride 109 H (98-107) mmol/L Carbon Dioxide 23 (22-30) mmol/L Anion Gap 16.9 H (5-15) MEQ/L BUN 23 H (9-20) mg/dL Creatinine 1.18 (0.66-1.25) mg/dL Estimated GFR > 60.0 ML/MIN Glucose 120 H (74-106) mg/dL Lactic Acid (0.4-2.0) Calcium 11.2 H (8.4-10.2) mg/dL Total Bilirubin 0.80 (0.2-1.3) mg/dL AST 38 (17-59) U/L ALT 16 (0-50) U/L Alkaline Phosphatase 80 (38-126) U/L Serum Total Protein 8.4 H (6.3-8.2) g/dL Albumin 5.0 (3.5-5.0) g/dL Urine Color DURGA (YELLOW) Urine Appearance CLOUDY (CLEAR) Urine pH 5.0 (5-6) Ur Specific [place] 1.025 (1.005-1.025) Urine Protein 100 (Negative) Urine Ketones TRACE (NEGATIVE) Urine Blood MODERATE (0-5) [place]/ul Urine Nitrite NEGATIVE (NEGATIVE) Urine Bilirubin NEGATIVE (NEGATIVE) Urine Urobilinogen NEGATIVE (0-1) mg/dL Ur Leukocyte Esterase NEGATIVE (NEGATIVE) Urine WBC (Auto) 11-15 (0-5) /HPF Urine RBC (Auto) 16-25 (0-2) /HPF U Hyaline Cast (Auto) 6-10 (0-2) /LPF U Epithel Cells (Auto) RARE (FEW) /HPF Urine Bacteria (Auto) MODERATE (NEGATIVE) /HPF Amorphous Crystals MODERATE (NEGATIVE) /HPF Urine Mucus (Auto) MANY (NEGATIVE) /HPF Urine Culture Reflexed YES (NO) Urine Glucose NEGATIVE (NEGATIVE) mg/dL Salicylates < 1.0 L (2-20) mg/dL Urine Opiates Level POSITIVE (NEGATIVE) Ur Methadone NEGATIVE (NEGATIVE) Acetaminophen < 10 L (10-30) ug/ml Urine Barbiturates NEGATIVE (NEGATIVE) Ur Phencyclidine (PCP) NEGATIVE (NEGATIVE) Urine Amphetamine NEGATIVE (NEGATIVE) U Benzodiazepine Level NEGATIVE (NEGATIVE) Urine Cocaine NEGATIVE (NEGATIVE) Urine Marijuana (THC) NEGATIVE (NEGATIVE) Ethyl Alcohol < 10 (0-10) mg/dL 10/16/18 10/16/18 10/16/18 Range/Units 15:16 15:12 15:07 WBC 12.7 H (4.0-10.5) K/mm3 RBC 3.85 L (4.1-5.6) M/mm3 Hgb 13.0 (12.5-18.0) gm/dl Hct 38.5 L (42-50) % MCV 100.0 (78-100) fl MCH 33.7 H (26-32) pg MCHC 33.8 (32-36) g/dl RDW 12.0 (11.5-14.0) % Plt Count 304 (150-450) K/mm3 MPV 10.4 H (6-9.5) fl Gran % 77.9 H (36.0-66.0) % Eos # (Auto) 0.02 (0-0.5) Absolute Lymphs (auto) 1.50 (1.0-4.6) Absolute Monos (auto) 1.26 (0.0-1.3) Lymphocytes % 11.8 L (24.0-44.0) % Monocytes % 9.9 (0.0-12.0) % Eosinophils % 0.2 (0.00-5.0) % Basophils % 0.2 (0.0-0.4) % Absolute Granulocytes 9.89 H (1.4-6.9) Basophils # 0.03 (0-0.4) pO2/FiO2 Ratio 21.0 % VBG pH 7.36 (7.32-7.42) VBG pCO2 at Pat Temp 39 L (42-55) mm/Hg VBG pO2 at Pat Temp 23 L (25-40) mm/Hg VBG HCO3 22.0 (22-28) meq/L VBG O2 Sat (Karen) 48.7 L (95-100) VBG Base Excess -3.2 L (-2.0-2.0) VBG Hemoglobin 12.7 VBG Carboxyhemoglobin 2.7 (0.0-6.9) % T HGB POC Potassium 3.6 (3.5-5.1) Sodium (137-145) mmol/L Potassium (3.5-5.1) mmol/L Chloride (98-107) mmol/L Carbon Dioxide (22-30) mmol/L Anion Gap (5-15) MEQ/L BUN (9-20) mg/dL Creatinine (0.66-1.25) mg/dL Estimated GFR ML/MIN Glucose (74-106) mg/dL Lactic Acid 1.7 (0.4-2.0) Calcium (8.4-10.2) mg/dL Total Bilirubin (0.2-1.3) mg/dL AST (17-59) U/L ALT (0-50) U/L Alkaline Phosphatase (38-126) U/L Serum Total Protein (6.3-8.2) g/dL Albumin (3.5-5.0) g/dL Urine Color (YELLOW) Urine Appearance (CLEAR) Urine pH (5-6) Ur Specific [place] (1.005-1.025) Urine Protein (Negative) Urine Ketones (NEGATIVE) Urine Blood (0-5) [place]/ul Urine Nitrite (NEGATIVE) Urine Bilirubin (NEGATIVE) Urine Urobilinogen (0-1) mg/dL Ur Leukocyte Esterase (NEGATIVE) Urine WBC (Auto) (0-5) /HPF Urine RBC (Auto) (0-2) /HPF U Hyaline Cast (Auto) (0-2) /LPF U Epithel Cells (Auto) (FEW) /HPF Urine Bacteria (Auto) (NEGATIVE) /HPF Amorphous Crystals (NEGATIVE) /HPF Urine Mucus (Auto) (NEGATIVE) /HPF Urine Culture Reflexed (NO) Urine Glucose (NEGATIVE) mg/dL Salicylates (2-20) mg/dL Urine Opiates Level (NEGATIVE) Ur Methadone (NEGATIVE) Acetaminophen (10-30) ug/ml Urine Barbiturates (NEGATIVE) Ur Phencyclidine (PCP) (NEGATIVE) Urine Amphetamine (NEGATIVE) U Benzodiazepine Level (NEGATIVE) Urine Cocaine (NEGATIVE) Urine Marijuana (THC) (NEGATIVE) Ethyl Alcohol (0-10) mg/dL - Progress Progress: improved Progress Note: 10/16/18 16:29 Poison control was contacted by the patient's nurse poison control recommended a repeat lactate level in 6 hours they recommended watching the patient's EKG for the QRS prolongation and bicarbonate if there is prolongation. They also recommended acetaminophen level at 4 hours. Patient was given normal saline 500 mg liter bolus followed by 100 mL per hour. I discussed the patient's case with Dr. Gutierrez. Will go ahead and place patient on observation telemetry. Will provide IV normal saline at 100 mL per hour. Continuous pulse oximetry. Will order a CBC CMP and lactate and EKG at 6 hours. Will order acetaminophen level at 4 hours. - Departure Departure Disposition: Observation Clinical Impression: Multiple drug overdose Qualifiers: Encounter type: initial encounter Injury intent: accidental or unintentional Qualified Code(s): T50.901A - Poisoning by unspecified drugs, medicaments and biological substances, accidental (unintentional), initial encounter Condition: Fair Critical Care Time: No Referrals: ARNOLD OLIVAS MD [Primary Care Provider] -
[2018-10-16 15:18] LABS: VBG BASE EXCESS -3.2 (-2.0-2.0); VBG CARBOXYHEMOGLOBIN 2.7 % T HGB (0.0-6.9); VBG HEMOGLOBIN 12.7; VBG O2 SATURATION 48.7 (95-100); VBG POTASSIUM 3.6 (3.5-5.1); VBG pH 7.36 (7.32-7.42)
[2018-10-16 15:37] LABS: BASOPHIL % 0.2 % (0.0-0.4); Basophil (Absolute #) 0.03 (0-0.4); Eosinophil % 0.2 % (0.00-5.0); Eosinophil (Absolute #) 0.02 (0-0.5); Granulocyte Absolute (ANC) 9.89 (1.4-6.9); Granulocytes % 77.9 % (36.0-66.0); Hematocrit 38.5 % (42-50); Lymphocytes % 11.8 % (24.0-44.0); Mean Corpuscular Hgb Concent. 33.8 g/dl (32-36); Mean Platelet Volume 10.4 fl (6-9.5); Monocyte (Absolute #) 1.26 (0.0-1.3); Monocytes % 9.9 % (0.0-12.0); Platelet Count 304 K/mm3 (150-450); Red Blood Count 3.85 M/mm3 (4.1-5.6); White Blood Count 12.7 K/mm3 (4.0-10.5)
[2018-10-16] MEDS ORDERED: Sodium Chloride 0.9% 1000 ML 1,000 ML ONE (15:37)
[2018-10-16 15:38] LABS: Mean Corpuscular Hemoglobin 33.7 pg (26-32)
[2018-10-16 15:39] LABS: ALKALINE PHOSPHATASE 80 U/L (38-126); ANION GAP 16.9 MEQ/L (5-15); BLOOD UREA NITROGEN 23 mg/dL (9-20); CHLORIDE 109 mmol/L (98-107); Calcium 11.2 mg/dL (8.4-10.2); Carbon Dioxide 23 mmol/L (22-30); Creatinine 1 1.18 mg/dL (0.66-1.25); Glucose 120 mg/dL (74-106); Potassium 3.8 mmol/L (3.5-5.1); SGOT/AST 38 U/L (17-59); SGPT/ALT 16 U/L (0-50); SODIUM 145 mmol/L (137-145); Total Protein 8.4 g/dL (6.3-8.2)
[2018-10-16 15:44] LABS: ACETAMINOPHEN < 10 ug/ml (10-30); ETHYL ALCOHOL < 10 mg/dL (0-10); SALICYLATE < 1.0 mg/dL (2-20)
[2018-10-16 15:47] LABS: Amourphous Crystal MODERATE /HPF (NEGATIVE); Appearance CLOUDY (CLEAR); Bilirubin NEGATIVE (NEGATIVE); Blood MODERATE Ery/ul (0-5); Glucose NEGATIVE (NEGATIVE); Ketones TRACE (NEGATIVE); Leukocyte Esterase NEGATIVE (NEGATIVE); Nitrite NEGATIVE (NEGATIVE); Protein,Urine Dip 100 (Negative); Specific Gravity 1.025 (1.005-1.025); Urobilinogen NEGATIVE mg/dL (0-1)
[2018-10-16 15:52] LABS: Bacteria MODERATE /HPF (NEGATIVE); Epithelial Cells RARE /HPF (FEW); Mucus MANY /HPF (NEGATIVE)
[2018-10-16 15:59] LABS: Amphetamine,Urine NEGATIVE (NEGATIVE); Barbiturate,Urine NEGATIVE (NEGATIVE); Benzodiazepine,Urine NEGATIVE (NEGATIVE); Cocaine,Urine NEGATIVE (NEGATIVE); Methadone,Urine NEGATIVE (NEGATIVE); Opiate,Urine POSITIVE (NEGATIVE); PCP,Urine NEGATIVE (NEGATIVE); THC,Urine NEGATIVE (NEGATIVE)
[2018-10-16] MEDS ORDERED: NovoLOG Insulin SQ PRN (17:18)
[2018-10-16] MEDS: ROCEPHIN 1 Gm-D5w 50 ml Bag** 1 G/50 ML IVPB IV SCH (17:56)
[2018-10-16] MEDS: APRESOLINE 20 MG/ML INJ IV PRN (20:03)
[2018-10-16] MEDS: Ativan 2 MG/1 ML VIAL IV PRN (21:04)
--- NOTE | 2018-10-16 21:49 | XRAY ---
Indication: Confusion. Multiple contiguous axial images obtained through the head without contrast. Comparison: September 20, 2018 Stable age-appropriate global atrophy and minimal periventricular degenerative micro-ischemia bilaterally. No acute intracranial hemorrhage, abnormal extra-axial fluid collection, or mass effect. Fourth ventricle is midline without hydrocephalus. Bony calvarium intact. Visualized paranasal sinuses and mastoid air cells are clear. Impression: Stable nonacute senile brain. Comment: Preliminary interpretation was made by [facility]. No critical discrepancy. CTDI 66.12
[2018-10-16 22:45] LABS: Hematocrit 36.4 % (42-50); Hemoglobin 12.3 gm/dl (12.5-18.0); Mean Cell Volume 100.3 fl (78-100); Mean Corpuscular Hgb Concent. 33.8 g/dl (32-36); Platelet Count 272 K/mm3 (150-450); Red Blood Count 3.63 M/mm3 (4.1-5.6); Red Cell Distribution Width 12.2 % (11.5-14.0)
[2018-10-16] MEDS ORDERED: Haldol 5 MG IM ONE (22:53)
[2018-10-16 22:54] LABS: Mean Corpuscular Hemoglobin 33.8 pg (26-32)
[2018-10-16] MEDS ORDERED: BENADRYL 50 MG/ML IV ONE (22:54)
[2018-10-16 22:58] LABS: ALBUMIN 4.6 g/dL (3.5-5.0); ALKALINE PHOSPHATASE 73 U/L (38-126); ANION GAP 15.4 MEQ/L (5-15); BLOOD UREA NITROGEN 25 mg/dL (9-20); CHLORIDE 113 mmol/L (98-107); Calcium 10.8 mg/dL (8.4-10.2); Carbon Dioxide 21 mmol/L (22-30); Creatinine 1 1.03 mg/dL (0.66-1.25); Glucose 107 mg/dL (74-106); Potassium 3.6 mmol/L (3.5-5.1); SGOT/AST 33 U/L (17-59); SGPT/ALT 14 U/L (0-50); SODIUM 146 mmol/L (137-145); Total Protein 7.7 g/dL (6.3-8.2)
[2018-10-16] MEDS: Sodium Chloride 0.9% 1000 ML 1,000 ML IV SCH (23:10)
[2018-10-17] MEDS: Ativan 2 MG/1 ML VIAL IV PRN (04:46)
[2018-10-17 06:24] LABS: BASOPHIL % 0.4 % (0.0-0.4); Basophil (Absolute #) 0.05 (0-0.4); Eosinophil % 0.2 % (0.00-5.0); Eosinophil (Absolute #) 0.03 (0-0.5); Granulocyte Absolute (ANC) 10.88 (1.4-6.9); Granulocytes % 76.3 % (36.0-66.0); Hematocrit 37.8 % (42-50); Hemoglobin 12.5 gm/dl (12.5-18.0); Lymphocyte (Absolute #) 1.66 (1.0-4.6); Lymphocytes % 11.6 % (24.0-44.0); Mean Cell Volume 100.8 fl (78-100); Mean Corpuscular Hemoglobin 33.3 pg (26-32); Mean Corpuscular Hgb Concent. 33.1 g/dl (32-36); Mean Platelet Volume 10.9 fl (6-9.5); Monocyte (Absolute #) 1.64 (0.0-1.3); Monocytes % 11.5 % (0.0-12.0); Platelet Count 255 K/mm3 (150-450); Red Blood Count 3.75 M/mm3 (4.1-5.6); Red Cell Distribution Width 12.3 % (11.5-14.0); White Blood Count 14.3 K/mm3 (4.0-10.5)
[2018-10-17 06:48] LABS: ALBUMIN 4.4 g/dL (3.5-5.0); ALKALINE PHOSPHATASE 68 U/L (38-126); ANION GAP 15.6 MEQ/L (5-15); BLOOD UREA NITROGEN 24 mg/dL (9-20); CHLORIDE 115 mmol/L (98-107); Calcium 10.7 mg/dL (8.4-10.2); Carbon Dioxide 19 mmol/L (22-30); Creatinine 1 0.95 mg/dL (0.66-1.25); Glucose 97 mg/dL (74-106); Potassium 3.7 mmol/L (3.5-5.1); SGOT/AST 44 U/L (17-59); SGPT/ALT 15 U/L (0-50); SODIUM 146 mmol/L (137-145); Total Protein 7.4 g/dL (6.3-8.2)
[2018-10-17 08:57] LABS: Slide Review 1 YES
[2018-10-17] MEDS: Sodium Chloride 0.9% 1000 ML 1,000 ML IV SCH (09:49)
[2018-10-17] MEDS: ROCEPHIN 1 Gm-D5w 50 ml Bag** 1 G/50 ML IVPB IV SCH (09:55)
[2018-10-17] MEDS ORDERED: Ativan 2 MG/1 ML VIAL IV PRN (12:07)
[2018-10-17] MEDS ORDERED: Sodium Chloride 0.9% 500 ML 500 ML IV ONE (12:14)
[2018-10-17] MEDS: APRESOLINE 20 MG/ML INJ IV PRN (12:18)
[2018-10-17] MEDS ORDERED: Ambien 10 MG PO PRN (14:39)
[2018-10-17 14:41] LABS: BLOOD UREA NITROGEN 24 mg/dL (9-20); CHLORIDE 116 mmol/L (98-107); Calcium 10.5 mg/dL (8.4-10.2); Carbon Dioxide 19 mmol/L (22-30); Creatinine 1 0.91 mg/dL (0.66-1.25); Glucose 164 mg/dL (74-106); Potassium 3.8 mmol/L (3.5-5.1); SODIUM 146 mmol/L (137-145)
[2018-10-17] MEDS ORDERED: Senokot-S Tablet PO SCH (15:00)
[2018-10-17] MEDS ORDERED: Cardizem CD 240 MG PO SCH (15:00)
--- NOTE | 2018-10-17 15:06 | PCM.HP ---
History of Present Illness - Chief Complaint Chief Complaint: multiple drug overdose History of Present Illness: is a 77 year old male pt of Dr. Baker with hx TIA, HTN, IN (with stent in ), pacemaker, DM II, GERD, dementia, and prostate ca (hx penile implant) who was admitted through ER with altered mental status and possible multi drug ingestion. I spoke with the pt's as the pt is still altered at the time of my interview. She is a poor historian. CT head without acute findings. Initial WBC 14.0, currently 14.3. UA with 11- 15 WBC and 16-25 RBC. UDS + opiates. Acetaminophen level neg x 2. LA neg x 2. Bicarb decreased from 21 at admission to 19 this morning. Poison control advised watch for QRS prolongation > 120 - his QRS segment has been around 80 since admission. Overnight he required ativan x 2 (for pulling on his lines) and hydralazine x 1 for BP > 180 systolic. Apparently the pt was slow to respond at home and he took up to 7d supply of the following pills at once: Imdur 15mg/d Metformin 500mg/d Plavix 75mg/d Fluvastatin 40mg po BID Protonix 40mg/d Guiafenasin 1200mg/d [place]y 7.5mg once daily However the pt's tells me that he had a bunch of pills in his mouth and his daughter scooped them out at home. said he had been feeling bad and sleeping a lot for the past 3d. He also had a worsening of his chronic lower back pain. On or Thu last week he worked on a large motorcycle then took it on a ride. initially denied any pre-existing memory loss for pt, but when I discussed the fact that Aricept is a memory drug and pt started it 2d ago (with Dr. Keating) , she did admit to some ongoing issues which have been worse lately. When I saw the pt he was quite somnolent; however now RN tells me he is awake and alert, very surprised that it's Thursday, still doesn't know where he is at, but would like to eat. - Review of Systems Constitutional: Fatigue, No No Symptoms (ROS from pt's ) Abdominal/Gastrointestinal: Diarrhea (started 2 d ago with mushy stools), Appetite Changes Musculoskeletal: Back Pain Neurological: Other (memory loss) Psychological: No Anxiety, No Depression, No Suicidal Ideations, No Homicidal Ideations Medications & Allergies Home Medications: Home Medication List Clopidogrel Bisulfate 75 mg [PLAVIX 75 MG Tablet] 75 mg PO DAILY 01/02/16 [History Confirmed 10/16/18] Diltiazem HCl 240 mg [Cardizem CD 240 MG] 240 mg PO DAILY 01/02/16 [ History Confirmed 10/16/18] Guaifenesin/Dextromethorphan [Mucinex Dm ER 1,200-60 mg Tab] 1 each PO BID 01/01 [History Confirmed 10/16/18] Metformin HCl 500 mg [Glucophage 500 MG] 500 mg PO DAILY 01/02/16 [ History Confirmed 10/16/18] PANTOPRAZOLE 40 mg Tablet [Protonix 40MG Tablet] 40 mg PO QAM 01/02/16 [ History Confirmed 10/16/18] Multivitamin [Daily Multivitamin] 1 each PO DAILY 02/09/16 [History Confirmed ] Celecoxib 100 mg [celeBREX 100 MG] 200 mg PO BID 10/16/18 [History Confirmed 10/16/18] Donepezil HCl [Aricept] 5 mg PO HS 10/16/18 [History Confirmed 10/16/18] Fluvastatin Sodium 40 mg PO BID 10/16/18 [History Confirmed 10/16/18] Hydrocodone Bit/Acetaminophen [Hydrocodon-Acetaminoph 7.5-325] 1 each PO QID 12/25 [History Confirmed 10/16/18] Isosorbide Mononitrate 30 mg [Imdur 30 MG] 15 mg PO DAILY 10/16/18 [ History Confirmed 10/16/18] Sennosides/Docusate Sodium [Stool Softener-Laxative Tablet] 1 each PO DAILY 12/25 [History Confirmed 10/16/18] Timolol/Dorzolamide/Latanop/Pf [Sai 0.5%-Dorz 2%-Latan 0.005%] 5 ml OP DAILY [History Confirmed 10/16/18] Zolpidem Tartrate 10 mg [Ambien 10 MG] 10 mg PO HS PRN 10/16/18 [History Confirmed 10/16/18] Allergies/Adverse Reactions: Allergies Allergy/AdvReac Type Severity Reaction Status Date / Time doxazosin mesylate Allergy Itching Verified 10/16/18 15:13 [From Radha] prednisone Allergy Verified 10/16/18 15:13 Fxmjiio-Pks-Fcx Reductase Allergy Joint Aches Verified 10/16/18 15:13 Inhibitor duloxetine AdvReac Verified 10/16/18 15:13 milk AdvReac Verified 10/16/18 15:13 bananas Allergy Uncoded 10/16/18 15:13 iv contrast Allergy Hives Uncoded 10/16/18 15:13 - Past Medical History Past Medical History: Yes Neurological History: TIA ENT History: No Pertinent History Cardiac History: Hypertension, Myocardial Infarction (IN), Other Respiratory History: No Pertinent History Endocrine Medical History: Diabetes Type II Musculoskelatal History: Degenerative Disk Disease GI Medical History: GERD History: Other Pyscho-Social History: No Pertinent History Male Reproductive Disorders: Prostate Cancer Comment: heart stint in 2007, Pt has a pacemaker, past IN - Past Surgical History Past Surgical History: Yes Neuro Surgical History: No Pertinent History Cardiac History: Angioplasty, Cardiac Stent Respiratory Surgery: Other GI Surgical History: No Pertinent History Genitourinary Surgical Hx: No Pertinent History Musculskeletal Surgical Hx: No Pertinent History Male Surgical History: Prostate Surgery, Vasectomy, Other Other Surgical History: states left lung collapsed, T&A, penile implant, pacemaker,back pain stimulator - Social History Smoking Status: Former smoker Exposure to second hand smoke: No Alcohol: None Drug Use: none Significant Family History: no pertinent family hx - Physical Exam Vital Signs: Vital Signs - 24 hr Temp Pulse Resp BP Pulse Ox 10/17/18 13:08 138/68 10/17/18 11:59 74 10/17/18 11:57 97.6 F 70 18 180/80 98 10/17/18 08:00 74 178/98 10/17/18 07:49 98.2 F 82 18 94 L 10/17/18 04:00 97.8 F 74 16 155/72 99 10/17/18 00:09 98.2 F 80 27 H 165/80 98 10/17/18 00:01 82 10/16/18 23:11 99 10/16/18 21:10 87 21 141/69 99 10/16/18 20:00 97.8 F 67 18 210/100 99 10/16/18 18:26 168/82 10/16/18 17:30 98 10/16/18 17:19 97.2 F 65 16 192/81 98 10/16/18 16:18 74 18 192/84 99 10/16/18 15:59 64 20 206/88 99 10/16/18 15:48 70 20 186/100 99 10/16/18 15:32 99 General Appearance: thin, other (somnolent; wakes fully to sternal rub. Cooperates only minimally. Does deny pain but won't say more than "no") Neurologic Exam: other (as above) Ears, Nose, Throat Exam: moist mucous membranes Neck Exam: normal inspection Respiratory Exam: lungs clear, diminished breath sounds, No crackles/rales, No rhonchi, No wheezing Cardiovascular Exam: normal heart sounds, irregular, No murmur Gastrointestinal/Abdomen Exam: soft, normal bowel sounds, tenderness ( generalized), No rebound Back Exam: normal inspection Extremity Exam: normal inspection, No pedal edema, No swelling Skin Exam: normal color, warm, dry Results - Labs Lab/Micro Results: Accuchecks Date 10/17/18 Date 10/17/18 Date 10/17/18 Date 10/16/18 Time 04:00 Time 00:00 Time 20:00 Accucheck Value: 88 Accucheck Value: 107 Accucheck Value: 103 Accucheck Value: 104 Lab Results-Last 24 Hours 10/16/18 10/16/18 10/16/18 Range/Units 15:07 15:12 15:16 WBC 12.7 H (4.0-10.5) K/mm3 RBC 3.85 L (4.1-5.6) M/mm3 Hgb 13.0 (12.5-18.0) gm/dl Hct 38.5 L (42-50) % MCV 100.0 (78-100) fl MCH 33.7 H (26-32) pg MCHC 33.8 (32-36) g/dl RDW 12.0 (11.5-14.0) % Plt Count 304 (150-450) K/mm3 MPV 10.4 H (6-9.5) fl Gran % 77.9 H (36.0-66.0) % Eos # (Auto) 0.02 (0-0.5) Absolute Lymphs (auto) 1.50 (1.0-4.6) Absolute Monos (auto) 1.26 (0.0-1.3) Lymphocytes % 11.8 L (24.0-44.0) % Monocytes % 9.9 (0.0-12.0) % Eosinophils % 0.2 (0.00-5.0) % Basophils % 0.2 (0.0-0.4) % Absolute Granulocytes 9.89 H (1.4-6.9) Basophils # 0.03 (0-0.4) pO2/FiO2 Ratio 21.0 % VBG pH 7.36 (7.32-7.42) VBG pCO2 at Pat Temp 39 L (42-55) mm/Hg VBG pO2 at Pat Temp 23 L (25-40) mm/Hg VBG HCO3 22.0 (22-28) meq/L VBG O2 Sat (Karen) 48.7 L (95-100) VBG Base Excess -3.2 L (-2.0-2.0) VBG Hemoglobin 12.7 VBG Carboxyhemoglobin 2.7 (0.0-6.9) % T HGB POC Potassium 3.6 (3.5-5.1) Sodium (137-145) mmol/L Potassium (3.5-5.1) mmol/L Chloride (98-107) mmol/L Carbon Dioxide (22-30) mmol/L Anion Gap (5-15) MEQ/L BUN (9-20) mg/dL Creatinine (0.66-1.25) mg/dL Estimated GFR ML/MIN Glucose (74-106) mg/dL Lactic Acid 1.7 (0.4-2.0) Calcium (8.4-10.2) mg/dL Total Bilirubin (0.2-1.3) mg/dL AST (17-59) U/L ALT (0-50) U/L Alkaline Phosphatase (38-126) U/L Serum Total Protein (6.3-8.2) g/dL Albumin (3.5-5.0) g/dL Urine Color (YELLOW) Urine Appearance (CLEAR) Urine pH (5-6) Ur Specific [employer] (1.005-1.025) Urine Protein (Negative) Urine Ketones (NEGATIVE) Urine Blood (0-5) Vernon/ul Urine Nitrite (NEGATIVE) Urine Bilirubin (NEGATIVE) Urine Urobilinogen (0-1) mg/dL Ur Leukocyte Esterase (NEGATIVE) Urine WBC (Auto) (0-5) /HPF Urine RBC (Auto) (0-2) /HPF U Hyaline Cast (Auto) (0-2) /LPF U Epithel Cells (Auto) (FEW) /HPF Urine Bacteria (Auto) (NEGATIVE) /HPF Amorphous Crystals (NEGATIVE) /HPF Urine Mucus (Auto) (NEGATIVE) /HPF Urine Culture Reflexed (NO) Urine Glucose (NEGATIVE) mg/dL Salicylates (2-20) mg/dL Urine Opiates Level (NEGATIVE) Ur Methadone (NEGATIVE) Acetaminophen (10-30) ug/ml Urine Barbiturates (NEGATIVE) Ur Phencyclidine (PCP) (NEGATIVE) Urine Amphetamine (NEGATIVE) U Benzodiazepine Level (NEGATIVE) Urine Cocaine (NEGATIVE) Urine Marijuana (THC) (NEGATIVE) Ethyl Alcohol (0-10) mg/dL Slides for Path Review 10/16/18 10/16/18 10/16/18 Range/Units 15:16 15:30 15:30 WBC (4.0-10.5) K/mm3 RBC (4.1-5.6) M/mm3 Hgb (12.5-18.0) gm/dl Hct (42-50) % MCV (78-100) fl MCH (26-32) pg MCHC (32-36) g/dl RDW (11.5-14.0) % Plt Count (150-450) K/mm3 MPV (6-9.5) fl Gran % (36.0-66.0) % Eos # (Auto) (0-0.5) Absolute Lymphs (auto) (1.0-4.6) Absolute Monos (auto) (0.0-1.3) Lymphocytes % (24.0-44.0) % Monocytes % (0.0-12.0) % Eosinophils % (0.00-5.0) % Basophils % (0.0-0.4) % Absolute Granulocytes (1.4-6.9) Basophils # (0-0.4) pO2/FiO2 Ratio % VBG pH (7.32-7.42) VBG pCO2 at Pat Temp (42-55) mm/Hg VBG pO2 at Pat Temp (25-40) mm/Hg VBG HCO3 (22-28) meq/L VBG O2 Sat (Karen) (95-100) VBG Base Excess (-2.0-2.0) VBG Hemoglobin VBG Carboxyhemoglobin (0.0-6.9) % T HGB POC Potassium (3.5-5.1) Sodium 145 (137-145) mmol/L Potassium 3.8 (3.5-5.1) mmol/L Chloride 109 H (98-107) mmol/L Carbon Dioxide 23 (22-30) mmol/L Anion Gap 16.9 H (5-15) MEQ/L BUN 23 H (9-20) mg/dL Creatinine 1.18 (0.66-1.25) mg/dL Estimated GFR > 60.0 ML/MIN Glucose 120 H (74-106) mg/dL Lactic Acid (0.4-2.0) Calcium 11.2 H (8.4-10.2) mg/dL Total Bilirubin 0.80 (0.2-1.3) mg/dL AST 38 (17-59) U/L ALT 16 (0-50) U/L Alkaline Phosphatase 80 (38-126) U/L Serum Total Protein 8.4 H (6.3-8.2) g/dL Albumin 5.0 (3.5-5.0) g/dL Urine Color DURGA (YELLOW) Urine Appearance CLOUDY (CLEAR) Urine pH 5.0 (5-6) Ur Specific [employer] 1.025 (1.005-1.025) Urine Protein 100 (Negative) Urine Ketones TRACE (NEGATIVE) Urine Blood MODERATE (0-5) Vernon/ul Urine Nitrite NEGATIVE (NEGATIVE) Urine Bilirubin NEGATIVE (NEGATIVE) Urine Urobilinogen NEGATIVE (0-1) mg/dL Ur Leukocyte Esterase NEGATIVE (NEGATIVE) Urine WBC (Auto) 11-15 (0-5) /HPF Urine RBC (Auto) 16-25 (0-2) /HPF U Hyaline Cast (Auto) 6-10 (0-2) /LPF U Epithel Cells (Auto) RARE (FEW) /HPF Urine Bacteria (Auto) MODERATE (NEGATIVE) /HPF Amorphous Crystals MODERATE (NEGATIVE) /HPF Urine Mucus (Auto) MANY (NEGATIVE) /HPF Urine Culture Reflexed YES (NO) Urine Glucose NEGATIVE (NEGATIVE) mg/dL Salicylates < 1.0 L (2-20) mg/dL Urine Opiates Level POSITIVE (NEGATIVE) Ur Methadone NEGATIVE (NEGATIVE) Acetaminophen < 10 L (10-30) ug/ml Urine Barbiturates NEGATIVE (NEGATIVE) Ur Phencyclidine (PCP) NEGATIVE (NEGATIVE) Urine Amphetamine NEGATIVE (NEGATIVE) U Benzodiazepine Level NEGATIVE (NEGATIVE) Urine Cocaine NEGATIVE (NEGATIVE) Urine Marijuana (THC) NEGATIVE (NEGATIVE) Ethyl Alcohol < 10 (0-10) mg/dL Slides for Path Review 10/16/18 10/16/18 10/16/18 Range/Units 22:40 22:42 22:42 WBC 14.0 H (4.0-10.5) K/mm3 RBC 3.63 L (4.1-5.6) M/mm3 Hgb 12.3 L (12.5-18.0) gm/dl Hct 36.4 L (42-50) % MCV 100.3 H (78-100) fl MCH 33.8 H (26-32) pg MCHC 33.8 (32-36) g/dl RDW 12.2 (11.5-14.0) % Plt Count 272 (150-450) K/mm3 MPV 10.0 H (6-9.5) fl Gran % (36.0-66.0) % Eos # (Auto) (0-0.5) Absolute Lymphs (auto) (1.0-4.6) Absolute Monos (auto) (0.0-1.3) Lymphocytes % (24.0-44.0) % Monocytes % (0.0-12.0) % Eosinophils % (0.00-5.0) % Basophils % (0.0-0.4) % Absolute Granulocytes (1.4-6.9) Basophils # (0-0.4) pO2/FiO2 Ratio % VBG pH (7.32-7.42) VBG pCO2 at Pat Temp (42-55) mm/Hg VBG pO2 at Pat Temp (25-40) mm/Hg VBG HCO3 (22-28) meq/L VBG O2 Sat (Karen) (95-100) VBG Base Excess (-2.0-2.0) VBG Hemoglobin VBG Carboxyhemoglobin (0.0-6.9) % T HGB POC Potassium (3.5-5.1) Sodium (137-145) mmol/L Potassium (3.5-5.1) mmol/L Chloride (98-107) mmol/L Carbon Dioxide (22-30) mmol/L Anion Gap (5-15) MEQ/L BUN (9-20) mg/dL Creatinine (0.66-1.25) mg/dL Estimated GFR ML/MIN Glucose (74-106) mg/dL Lactic Acid 1.5 (0.4-2.0) Calcium (8.4-10.2) mg/dL Total Bilirubin (0.2-1.3) mg/dL AST (17-59) U/L ALT (0-50) U/L Alkaline Phosphatase (38-126) U/L Serum Total Protein (6.3-8.2) g/dL Albumin (3.5-5.0) g/dL Urine Color (YELLOW) Urine Appearance (CLEAR) Urine pH (5-6) Ur Specific [employer] (1.005-1.025) Urine Protein (Negative) Urine Ketones (NEGATIVE) Urine Blood (0-5) Vernon/ul Urine Nitrite (NEGATIVE) Urine Bilirubin (NEGATIVE) Urine Urobilinogen (0-1) mg/dL Ur Leukocyte Esterase (NEGATIVE) Urine WBC (Auto) (0-5) /HPF Urine RBC (Auto) (0-2) /HPF U Hyaline Cast (Auto) (0-2) /LPF U Epithel Cells (Auto) (FEW) /HPF Urine Bacteria (Auto) (NEGATIVE) /HPF Amorphous Crystals (NEGATIVE) /HPF Urine Mucus (Auto) (NEGATIVE) /HPF Urine Culture Reflexed (NO) Urine Glucose (NEGATIVE) mg/dL Salicylates (2-20) mg/dL Urine Opiates Level (NEGATIVE) Ur Methadone (NEGATIVE) Acetaminophen < 10 L (10-30) ug/ml Urine Barbiturates (NEGATIVE) Ur Phencyclidine (PCP) (NEGATIVE) Urine Amphetamine (NEGATIVE) U Benzodiazepine Level (NEGATIVE) Urine Cocaine (NEGATIVE) Urine Marijuana (THC) (NEGATIVE) Ethyl Alcohol (0-10) mg/dL Slides for Path Review 10/16/18 10/17/18 10/17/18 Range/Units 22:42 05:33 05:33 WBC 14.3 H (4.0-10.5) K/mm3 RBC 3.75 L (4.1-5.6) M/mm3 Hgb 12.5 (12.5-18.0) gm/dl Hct 37.8 L (42-50) % MCV 100.8 H (78-100) fl MCH 33.3 H (26-32) pg MCHC 33.1 (32-36) g/dl RDW 12.3 (11.5-14.0) % Plt Count 255 (150-450) K/mm3 MPV 10.9 H (6-9.5) fl Gran % 76.3 H (36.0-66.0) % Eos # (Auto) 0.03 (0-0.5) Absolute Lymphs (auto) 1.66 (1.0-4.6) Absolute Monos (auto) 1.64 H (0.0-1.3) Lymphocytes % 11.6 L (24.0-44.0) % Monocytes % 11.5 (0.0-12.0) % Eosinophils % 0.2 (0.00-5.0) % Basophils % 0.4 (0.0-0.4) % Absolute Granulocytes 10.88 H (1.4-6.9) Basophils # 0.05 (0-0.4) pO2/FiO2 Ratio % VBG pH (7.32-7.42) VBG pCO2 at Pat Temp (42-55) mm/Hg VBG pO2 at Pat Temp (25-40) mm/Hg VBG HCO3 (22-28) meq/L VBG O2 Sat (Karen) (95-100) VBG Base Excess (-2.0-2.0) VBG Hemoglobin VBG Carboxyhemoglobin (0.0-6.9) % T HGB POC Potassium (3.5-5.1) Sodium 146 H 146 H (137-145) mmol/L Potassium 3.6 3.7 (3.5-5.1) mmol/L Chloride 113 H 115 H (98-107) mmol/L Carbon Dioxide 21 L 19 L (22-30) mmol/L Anion Gap 15.4 H 15.6 H (5-15) MEQ/L BUN 25 H 24 H (9-20) mg/dL Creatinine 1.03 0.95 (0.66-1.25) mg/dL Estimated GFR > 60.0 > 60.0 ML/MIN Glucose 107 H 97 (74-106) mg/dL Lactic Acid (0.4-2.0) Calcium 10.8 H 10.7 H (8.4-10.2) mg/dL Total Bilirubin 0.50 0.50 (0.2-1.3) mg/dL AST 33 44 (17-59) U/L ALT 14 15 (0-50) U/L Alkaline Phosphatase 73 68 (38-126) U/L Serum Total Protein 7.7 7.4 (6.3-8.2) g/dL Albumin 4.6 4.4 (3.5-5.0) g/dL Urine Color (YELLOW) Urine Appearance (CLEAR) Urine pH (5-6) Ur Specific [employer] (1.005-1.025) Urine Protein (Negative) Urine Ketones (NEGATIVE) Urine Blood (0-5) Vernon/ul Urine Nitrite (NEGATIVE) Urine Bilirubin (NEGATIVE) Urine Urobilinogen (0-1) mg/dL Ur Leukocyte Esterase (NEGATIVE) Urine WBC (Auto) (0-5) /HPF Urine RBC (Auto) (0-2) /HPF U Hyaline Cast (Auto) (0-2) /LPF U Epithel Cells (Auto) (FEW) /HPF Urine Bacteria (Auto) (NEGATIVE) /HPF Amorphous Crystals (NEGATIVE) /HPF Urine Mucus (Auto) (NEGATIVE) /HPF Urine Culture Reflexed (NO) Urine Glucose (NEGATIVE) mg/dL Salicylates (2-20) mg/dL Urine Opiates Level (NEGATIVE) Ur Methadone (NEGATIVE) Acetaminophen (10-30) ug/ml Urine Barbiturates (NEGATIVE) Ur Phencyclidine (PCP) (NEGATIVE) Urine Amphetamine (NEGATIVE) U Benzodiazepine Level (NEGATIVE) Urine Cocaine (NEGATIVE) Urine Marijuana (THC) (NEGATIVE) Ethyl Alcohol (0-10) mg/dL Slides for Path Review YES 10/17/18 Range/Units 14:07 WBC (4.0-10.5) K/mm3 RBC (4.1-5.6) M/mm3 Hgb (12.5-18.0) gm/dl Hct (42-50) % MCV (78-100) fl MCH (26-32) pg MCHC (32-36) g/dl RDW (11.5-14.0) % Plt Count (150-450) K/mm3 MPV (6-9.5) fl Gran % (36.0-66.0) % Eos # (Auto) (0-0.5) Absolute Lymphs (auto) (1.0-4.6) Absolute Monos (auto) (0.0-1.3) Lymphocytes % (24.0-44.0) % Monocytes % (0.0-12.0) % Eosinophils % (0.00-5.0) % Basophils % (0.0-0.4) % Absolute Granulocytes (1.4-6.9) Basophils # (0-0.4) pO2/FiO2 Ratio % VBG pH (7.32-7.42) VBG pCO2 at Pat Temp (42-55) mm/Hg VBG pO2 at Pat Temp (25-40) mm/Hg VBG HCO3 (22-28) meq/L VBG O2 Sat (Karen) (95-100) VBG Base Excess (-2.0-2.0) VBG Hemoglobin VBG Carboxyhemoglobin (0.0-6.9) % T HGB POC Potassium (3.5-5.1) Sodium 146 H (137-145) mmol/L Potassium 3.8 (3.5-5.1) mmol/L Chloride 116 H (98-107) mmol/L Carbon Dioxide 19 L (22-30) mmol/L Anion Gap 15.0 (5-15) MEQ/L BUN 24 H (9-20) mg/dL Creatinine 0.91 (0.66-1.25) mg/dL Estimated GFR > 60.0 ML/MIN Glucose 164 H (74-106) mg/dL Lactic Acid (0.4-2.0) Calcium 10.5 H (8.4-10.2) mg/dL Total Bilirubin (0.2-1.3) mg/dL AST (17-59) U/L ALT (0-50) U/L Alkaline Phosphatase (38-126) U/L Serum Total Protein (6.3-8.2) g/dL Albumin (3.5-5.0) g/dL Urine Color (YELLOW) Urine Appearance (CLEAR) Urine pH (5-6) Ur Specific [employer] (1.005-1.025) Urine Protein (Negative) Urine Ketones (NEGATIVE) Urine Blood (0-5) Vernon/ul Urine Nitrite (NEGATIVE) Urine Bilirubin (NEGATIVE) Urine Urobilinogen (0-1) mg/dL Ur Leukocyte Esterase (NEGATIVE) Urine WBC (Auto) (0-5) /HPF Urine RBC (Auto) (0-2) /HPF U Hyaline Cast (Auto) (0-2) /LPF U Epithel Cells (Auto) (FEW) /HPF Urine Bacteria (Auto) (NEGATIVE) /HPF Amorphous Crystals (NEGATIVE) /HPF Urine Mucus (Auto) (NEGATIVE) /HPF Urine Culture Reflexed (NO) Urine Glucose (NEGATIVE) mg/dL Salicylates (2-20) mg/dL Urine Opiates Level (NEGATIVE) Ur Methadone (NEGATIVE) Acetaminophen (10-30) ug/ml Urine Barbiturates (NEGATIVE) Ur Phencyclidine (PCP) (NEGATIVE) Urine Amphetamine (NEGATIVE) U Benzodiazepine Level (NEGATIVE) Urine Cocaine (NEGATIVE) Urine Marijuana (THC) (NEGATIVE) Ethyl Alcohol (0-10) mg/dL Slides for Path Review Microbiology 10/16/18 15:30 Urine Culture - Preliminary Catherized NO GROWTH TO DATE Accuchecks Date 10/17/18 Date 10/17/18 Date 10/17/18 Date 10/16/18 Time 04:00 Time 00:00 Time 20:00 Accucheck Value: 88 Accucheck Value: 107 Accucheck Value: 103 Accucheck Value: 104 - Radiology Impressions Radiology Exams & Impressions: Radiology Procedures Category Date Time Status HEAD WITHOUT CONTRAST [CT] Stat Exams 10/16/18 18:49 Completed Assessment/Plan (1) UTI (urinary tract infection) Current Visit: Yes Status: Acute Qualifiers: Urinary tract infection type: acute cystitis Hematuria presence: with hematuria Qualified Code(s): N30.01 - Acute cystitis with hematuria Assessment & Plan: started IV rocephin 1 g daily. Code(s): N39.0 - URINARY TRACT INFECTION, SITE NOT SPECIFIED (2) Multiple drug overdose Current Visit: Yes Status: Acute Qualifiers: Encounter type: initial encounter Injury intent: accidental or unintentional Qualified Code(s): T50.901A - Poisoning by unspecified drugs, medicaments and biological substances, accidental (unintentional), initial encounter Assessment & Plan: He is waking up. Will observe until at least tomorrow. Code(s): T50.901A - POISONING BY UNSP DRUG/MEDS/BIOL SUBST, ACCIDENTAL, INIT (3) Diarrhea Current Visit: No Status: Acute Qualifiers: Diarrhea type: unspecified type Qualified Code(s): R19.7 - Diarrhea, unspecified Assessment & Plan: GI panel to be collected. Code(s): R19.7 - DIARRHEA, UNSPECIFIED (4) HTN (hypertension) Current Visit: Yes Status: Acute Qualifiers: Hypertension type: essential hypertension Qualified Code(s): I10 - Essential (primary) hypertension Assessment & Plan: hydralazine prn; restarting his hydralazine and imdur as he has no signs of having overdosed on those! Code(s): I10 - ESSENTIAL (PRIMARY) HYPERTENSION
[2018-10-17] MEDS: Cardizem CD 120 MG PO SCH (15:24)
[2018-10-17] MEDS: Protonix 40MG Tablet PO SCH (15:25)
[2018-10-17] MEDS: Imdur 30 MG PO SCH (15:25)
[2018-10-17] MEDS: NORCO 7.5/325 MG TAB PO PRN (19:50)
[2018-10-17] MEDS: celeBREX 100 MG PO SCH ×2 (21:10→21:23)
[2018-10-18] MEDS: NORCO 7.5/325 MG TAB PO PRN ×2 (06:32→13:32)
--- NOTE | 2018-10-18 08:14 | PCM.NOTE ---
Date and Time: 10/18/18811 Subjective Assessment: patient is alert today, denies any complaints other than his chronic back pain. he does not remember specific events of taking too much medication etc Objective Exam General Appearance: no apparent distress Neurologic Exam: alert, oriented x 3, cooperative Skin Exam: normal color, warm, dry Respiratory Exam: normal breath sounds, lungs clear, No respiratory distress Cardiovascular Exam: regular rate/rhythm, normal heart sounds Gastrointestinal/Abdomen Exam: soft, No tenderness, No mass Extremity Exam: normal inspection, normal range of motion OBJECTIVE DATA Vital Signs: Vital Signs - 24 hr Temp Pulse Resp BP Pulse Ox 10/18/18 08:05 95 10/18/18 07:57 97.7 F 67 20 134/49 98 10/18/18 07:50 69 10/18/18 05:00 98.4 F 64 17 135/56 98 10/18/18 04:00 64 10/18/18 01:00 67 10/18/18 00:01 67 10/17/18 23:00 97 10/17/18 21:00 98.3 F 75 17 110/53 98 10/17/18 20:00 75 10/17/18 16:34 132/66 10/17/18 16:11 98.2 F 78 18 135/70 96 10/17/18 16:00 78 10/17/18 13:08 138/68 10/17/18 11:59 74 10/17/18 11:57 97.6 F 70 18 180/80 98 Pain Assessment - Last Documented Pain Intensity 7 Pain Scale Used 0-10 Pain Scale Intake and Output: Intake & Output 10/15/18 10/16/18 10/17/18 10/18/18 11:59 11:59 11:59 11:59 Intake Total 1145 2653 Output Total 10 300 Balance 1135 2353 Weight 52.9 kg 53.9 kg Lab Results: Accuchecks Date 10/18/18 Date 10/17/18 Time 07:55 Time 21:46 Accucheck Value: 100 Accucheck Value: 101 Accucheck Value: 100 Accucheck Value: 122 Accucheck Value: 88 Lab Results-Last 24 Hours 10/17/18 10/17/18 10/17/18 Range/Units 05:33 05:33 14:07 Sodium 146 H (137-145) mmol/L Potassium 3.8 (3.5-5.1) mmol/L Chloride 116 H (98-107) mmol/L Carbon Dioxide 19 L (22-30) mmol/L Anion Gap 15.0 (5-15) MEQ/L BUN 24 H (9-20) mg/dL Creatinine 0.91 (0.66-1.25) mg/dL Estimated GFR > 60.0 ML/MIN Glucose 164 H (74-106) mg/dL Hemoglobin A1c 5.02 (4.5-6.0) % Calcium 10.5 H (8.4-10.2) mg/dL Slides for Path Review YES Radiology Exams: Radiology Procedures Category Date Time Status CHEST 1 VIEW (PORTABLE) Urgent Exams 10/18/18 08:10 Ordered HEAD WITHOUT CONTRAST [CT] Stat Exams 10/16/18 18:49 Completed Assessment/Plan (1) Multiple drug overdose Current Visit: Yes Status: Acute Qualifiers: Encounter type: initial encounter Injury intent: accidental or unintentional Qualified Code(s): T50.901A - Poisoning by unspecified drugs, medicaments and biological substances, accidental (unintentional), initial encounter Code(s): T50.901A - POISONING BY UNSP DRUG/MEDS/BIOL SUBST, ACCIDENTAL, INIT (2) Altered mental status Current Visit: Yes Status: Acute Assessment & Plan: seeing Dr Keating for dementia, has had workup including brain imaging and b12/ folate etc to r/o metabolic causes Code(s): R41.82 - ALTERED MENTAL STATUS, UNSPECIFIED (3) HTN (hypertension) Current Visit: Yes Status: Acute Qualifiers: Hypertension type: essential hypertension Qualified Code(s): I10 - Essential (primary) hypertension Code(s): I10 - ESSENTIAL (PRIMARY) HYPERTENSION
[2018-10-18] MEDS: Sodium Chloride 0.9% 1000 ML 1,000 ML IV SCH ×3 (08:22→08:41)
[2018-10-18] MEDS: Cardizem CD 120 MG PO SCH (09:24)
[2018-10-18] MEDS: celeBREX 100 MG PO SCH ×2 (09:25→21:39)
[2018-10-18] MEDS: ROCEPHIN 1 Gm-D5w 50 ml Bag** 1 G/50 ML IVPB IV SCH (09:25)
[2018-10-18] MEDS: Protonix 40MG Tablet PO SCH (09:25)
[2018-10-18] MEDS: Imdur 30 MG PO SCH (09:27)
--- NOTE | 2018-10-18 09:34 | XRAY ---
Indication: Altered mental status. Possible pneumonia. Comparison: September 17, 2018. Portable chest less inflated and remains clear again with incidental calcified granulomas. Heart is not enlarged again with left pacemaker. Bony thorax intact. No new/acute findings.
[2018-10-18] MEDS ORDERED: TIMOLOL OP SCH (10:00)
[2018-10-18] MEDS ORDERED: [UNRECOGNIZED DRUG - OTHER] OP SCH (10:00)
[2018-10-18] MEDS ORDERED: DORZOLAMIDE OP SCH (10:00)
[2018-10-18] MEDS ORDERED: LATANOPROST OP SCH (10:00)
[2018-10-18 20:40] VITALS: BP 139/65; PULSE 60
--- NOTE | 2018-10-19 08:19 | PCM.DS ---
Discharge Summary Date of Admission: 10/16/18 17:10 Admitting Physician: CECILIA VILLAGOMEZ Primary Care Provider: ARNOLD OLIVAS VICENTE Allergies Allergies doxazosin mesylate [From Cardura] Allergy (Verified 10/16/18 15:13) Itching prednisone Allergy (Verified 10/16/18 15:13) states "homicidal" Qrljony-Jay-Qho Reductase Inhibitor Allergy (Verified 10/16/18 15:13) Joint Aches duloxetine Adverse Reaction (Verified 10/16/18 15:13) milk Adverse Reaction (Verified 10/16/18 15:13) bananas Allergy (Uncoded 10/16/18 15:13) iv contrast Allergy (Uncoded 10/16/18 15:13) [facility] Summary - Hospital Course Hospital Course: patient was admitted following uninentional overdose, apparently tried to take 1 week's worth of meds all at once, he has been stable since admission. has some underlying dementia and seeing neurologist for this. plan to return home, daughter is a nurse and lives nearby and plans to manage his meds for him at this time. discussed with his and she is comfortable taking him home to care for him at this time. - Vitals & Intake/Output Vital Signs: Vital Signs Temperature 98.7 F 10/18/18 20:00 Pulse Rate 60 10/18/18 20:00 Respiratory Rate 18 10/18/18 20:00 Blood Pressure 139/65 10/18/18 20:00 O2 Sat by Pulse Oximetry 98 10/18/18 20:00 Intake & Output: Intake & Output 10/16/18 10/17/18 10/18/18 10/19/18 11:59 11:59 11:59 11:59 Intake Total 1145 2893 360 Output Total 10 300 Balance 1131 6813 360 Weight 52.9 kg 53.9 kg 56.5 kg - Lab Result Diagrams: 10/17/18 05:33 10/17/18 14:07 Lab Results-Last 24 Hrs: Accuchecks Date 10/18/18 Date 10/18/18 Date 10/18/18 Time 21:36 Time 16:37 Time 12:00 Accucheck Value: 104 Accucheck Value: 139 Accucheck Value: 102 Micro Results-Entire Visit: Microbiology 10/16/18 15:30 Urine Culture - Final Catherized <10K NORMAL SKIN KELSEY PROBABLE SKIN CONTAMINANT Accuchecks Date 10/18/18 Date 10/18/18 Date 10/18/18 Time 21:36 Time 16:37 Time 12:00 Accucheck Value: 104 Accucheck Value: 139 Accucheck Value: 102 - Radiology Exams Ordered Rad Exams-Entire Visit: Radiology Procedures Category Date Time Status CHEST 1 VIEW (PORTABLE) Urgent Exams 10/18/18 08:10 Completed - Procedures and Test Procedures and Tests throughout Hospitalization: Therapy Orders & Screens 10/16/18 18:01 OT Screen per Nursing Assess Comment: Protocol Order Physician Instructions: Greater than 3 points order OT Admission Screening Reason For Exam: Triggered on Admission Diagnosis: multiple drug overdose Open Wound/Cellutlitis/Pressure Ulcers: No Acute Fx/ORIF/Change in wt bearing status: Yes Severe MUSCULOSKELETAL pain: No ADL Dysfunction: Yes Acute CVA w/Hemiparesis/Hemiplegia: No Decreased Functional Mobility/Strength: Yes Sprain/Strain: No Acute Post-op Mobility Dysfunction: No Total Points: 9 PT Screen per Nursing Assess ONCE Comment: Protocol Order Physician Instructions: Greater than 3 points order PT Admission Screenin Reason For Exam: Triggered on Admission Diagnosis: multiple drug overdose Open Wound/Cellutlitis/Pressure Ulcers: No Acute Fx/ORIF/Change in wt bearing status: Yes Severe MUSCULOSKELETAL pain: No ADL Dysfunction: Yes Acute CVA w/Hemiparesis/Hemiplegia: No Decreased Functional Mobility/Strength: Yes Sprain/Strain: No Acute Post-op Mobility Dysfunction: No Total Points: 9 10/16/18 22:30 EKG ROUTINE Comment: Diagnosis: multiple drug overdose 10/17/18 12:07 EKG ROUTINE Comment: Diagnosis: multiple drug overdose Discharge Exam General Appearance: no apparent distress, alert Neurologic Exam: alert, oriented x 3, cooperative, normal mood/affect, nml cerebellar function, sensation nml, No motor deficits Respiratory Exam: normal breath sounds, lungs clear, No respiratory distress Cardiovascular Exam: regular rate/rhythm, normal heart sounds Gastrointestinal/Abdomen Exam: soft, No tenderness, No mass Extremity Exam: normal inspection, normal range of motion Skin Exam: normal color, warm, dry Final Diagnosis/Problem List - Final Discharge Diagnosis/Problem (1) Multiple drug overdose Current Visit: Yes Status: Acute Code(s): T50.901A - POISONING BY UNSP DRUG/ MEDS/BIOL SUBST, ACCIDENTAL, INIT (2) Altered mental status Current Visit: Yes Status: Acute Code(s): R41.82 - ALTERED MENTAL STATUS, UNSPECIFIED (3) HTN (hypertension) Current Visit: Yes Status: Acute Code(s): I10 - ESSENTIAL (PRIMARY) HYPERTENSION - Discharge Disposition: Home, Self-Care Condition: Good Prescriptions: Continue PANTOPRAZOLE 40 mg Tablet [Protonix 40MG Tablet] 40 mg PO QAM Clopidogrel Bisulfate 75 mg [PLAVIX 75 MG Tablet] 75 mg PO DAILY Diltiazem HCl 240 mg [Cardizem CD 240 MG] 240 mg PO DAILY Metformin HCl 500 mg [Glucophage 500 MG] 500 mg PO DAILY Guaifenesin/Dextromethorphan [Mucinex Dm ER 1,200-60 mg Tab] 1 each PO BID Multivitamin [Daily Multivitamin] 1 each PO DAILY Fluvastatin Sodium 40 mg PO BID Isosorbide Mononitrate 30 mg [Imdur 30 MG] 15 mg PO DAILY Timolol/Dorzolamide/Latanop/Pf [Sai 0.5%-Dorz 2%-Latan 0.005%] 5 ml OP DAILY Hydrocodone Bit/Acetaminophen [Hydrocodon-Acetaminoph 7.5-325] 1 each PO QID Zolpidem Tartrate 10 mg [Ambien 10 MG] 10 mg PO HS PRN PRN Reason: Insomnia Celecoxib 100 mg [celeBREX 100 MG] 200 mg PO BID Sennosides/Docusate Sodium [Stool Softener-Laxative Tablet] 1 each PO DAILY Donepezil HCl [Aricept] 5 mg PO HS Follow up with: ARNOLD OLIVAS MD [Primary Care Provider] - 1 Week
[2018-10-19 08:48] VITALS: O2SAT 99
== END 2018-10-19 09:40 | disposition home or self-care (01) ==
LOC: ED 14:50 → ICU 17:10
PROVIDERS: ADMIT Family Medicine; ATTEND Family Medicine
DX: T50.901A Poisoning by unspecified drugs, medicaments and biological substances, accidental (unintentional), initial encounter (principal); R41.82 Altered mental status, unspecified; N39.0 Urinary tract infection, site not specified; I10 Essential (primary) hypertension; F03.90 Unspecified dementia, unspecified severity, without behavioral disturbance, psychotic disturbance, mood disturbance, and anxiety; Z79.01 Long term (current) use of anticoagulants; Z79.899 Other long term (current) drug therapy; Z86.73 Personal history of transient ischemic attack (TIA), and cerebral infarction without residual deficits; E11.9 Type 2 diabetes mellitus without complications; K21.9 Gastro-esophageal reflux disease without esophagitis; Z85.46 Personal history of malignant neoplasm of prostate; R19.7 Diarrhea, unspecified; M54.9 Dorsalgia, unspecified; G89.29 Other chronic pain
CPT/HCPCS: 36000; 36415; 51702; 70450; 71045; 80048; 80053; 80307; 81001; 82805; 82962; 83036; 83605; 85025; 85027; 87086; 93005; 93041; 93268; 94760; 94762; 96360; 96361; 99285; G0378; G0480; G0481; 96374; J0360; J0696; J1200; J1630; J2060; A9270-GY

== ENCOUNTER 2018-10-20 18:39 | Emergency (ER) | payer MEDICARE ==
--- NOTE | 2018-10-20 19:21 | ERPHSYRPT ---
- History of Present Illness Time Seen by Provider: 10/20/18 19:05 Source: family (Spouse shows medication list - pt alternates between Ultram and Harrison - patient is not able to elaborate why he is here other than (chronic) back pain) Exam Limitations: other (Rambling slurred speach; has apparent dementia and difficult to understand the history of his request tonight other than needs medicine for back pain; "no injury" is confirmed by .) Patient Subjective Stated Complaint: WORSENING BACK PAIN SINCE THIS AFTERNOON. CHRONIC PAIN, WORSE THIS EVENING, COULD NOT GET INTO DR OFFICE TODAY. Triage Nursing Assessment: ABLE TO AMBULATE TO ROOM WITHOUT DIFFICULTY. ABLET TO STATE NAME AND YEAR. FORGETFUL. Physician History: Apparently out of pain medication - either Ultram or Harrison for chronic Low back pain. Patient shows area of lower back with pain patch in place; denies radiation Method of Injury: other (Nop injury - chronic LBP - out of RX) Back Pain Location: lumbar spine Severity of Pain-Max: moderate Severity of Pain-Current: moderate (resting apparently comfortably Left lateral) Associated Symptoms: denies symptoms Previous symptoms: other (Out of meds) Allergies/Adverse Reactions: doxazosin mesylate [From Cardura] Allergy (Verified 10/16/18 15:13) Itching iodine Allergy (Verified 10/20/18 18:58) Hives prednisone Allergy (Verified 10/16/18 15:13) states "homicidal" Aizxycs-Agt-Xjv Reductase Inhibitor Allergy (Verified 10/16/18 15:13) Joint Aches duloxetine Adverse Reaction (Verified 10/16/18 15:13) milk Adverse Reaction (Verified 10/16/18 15:13) bananas Allergy (Uncoded 10/16/18 15:13) iv contrast Allergy (Uncoded 10/16/18 15:13) Hives Home Medications: Clopidogrel Bisulfate 75 mg [PLAVIX 75 MG Tablet] 75 mg PO DAILY 01/02/16 [History] Diltiazem HCl 240 mg [Cardizem CD 240 MG] 240 mg PO DAILY 01/02/16 [ History] Guaifenesin/Dextromethorphan [Mucinex Dm ER 1,200-60 mg Tab] 1 each PO BID 01/01 [History] Metformin HCl 500 mg [Glucophage 500 MG] 500 mg PO DAILY 01/02/16 [History ] PANTOPRAZOLE 40 mg Tablet [Protonix 40MG Tablet] 40 mg PO QAM 01/02/16 [ History] Multivitamin [Daily Multivitamin] 1 each PO DAILY 02/09/16 [History] Celecoxib 100 mg [celeBREX 100 MG] 200 mg PO BID 10/16/18 [History] Donepezil HCl [Aricept] 5 mg PO HS 10/16/18 [History] Fluvastatin Sodium 40 mg PO BID 10/16/18 [History] Hydrocodone Bit/Acetaminophen [Hydrocodon-Acetaminoph 7.5-325] 1 each PO QID 12/25 [History] Isosorbide Mononitrate 30 mg [Imdur 30 MG] 15 mg PO DAILY 10/16/18 [History ] Sennosides/Docusate Sodium [Stool Softener-Laxative Tablet] 1 each PO DAILY 12/25 [History] Timolol/Dorzolamide/Latanop/Pf [Sai 0.5%-Dorz 2%-Latan 0.005%] 5 ml OP DAILY [History] Zolpidem Tartrate 10 mg [Ambien 10 MG] 10 mg PO HS PRN 10/16/18 [History] Hx Tetanus, Diphtheria Vaccination/Date Given: Yes Hx Influenza Vaccination/Date Given: Yes Hx Pneumococcal Vaccination/Date Given: Yes - Review of Systems Constitutional: No Symptoms Respiratory: No Symptoms Cardiac: No Symptoms Musculoskeletal: Back Pain (No recent injury - chronic LBP) Skin: No Symptoms All Other Systems: Reviewed and Negative - Past Medical History Pertinent Past Medical History: Yes Neurological History: TIA ENT History: No Pertinent History Cardiac History: Hypertension, Myocardial Infarction ([place]), Other Respiratory History: No Pertinent History Endocrine Medical History: Diabetes Type II Musculoskeletal History: Degenerative Disk Disease GI Medical History: GERD History: Other Psycho-Social History: No Pertinent History Male Reproductive Disorders: Prostate Cancer Other Medical History: heart stint in 2007, Pt has a pacemaker, past [place] - Past Surgical History Past Surgical History: Yes Neuro Surgical History: No Pertinent History Cardiac: Angioplasty, Cardiac Stent Respiratory: Other Gastrointestinal: No Pertinent History Genitourinary: No Pertinent History Musculoskeletal: No Pertinent History Male Surgical History: Prostate Surgery, Vasectomy, Other Other Surgical History: states left lung collapsed, T&A, penile implant, pacemaker,back pain stimulator AND REMOVAL 2017 - Social History Smoking Status: Former smoker Exposure to second hand smoke: No Alcohol Use: None Drug Use: none Patient Lives Alone: No Significant Family History: no pertinent family hx - Nursing Vital Signs Nursing Vital Signs: Initial Vital Signs Temperature 98.7 F 10/20/18 18:53 Pulse Rate 83 10/20/18 18:53 Respiratory Rate 20 10/20/18 18:53 Blood Pressure 176/91 10/20/18 18:53 O2 Sat by Pulse Oximetry 99 10/20/18 18:53 Pain Scale Pain Intensity [Posterior Back 10 ] Pain Intensity 5 - Physical Exam General Appearance: no apparent distress (Laying apparently comfortable Left lateral) Respiratory Exam: normal breath sounds, airway intact Cardiovascular Exam: regular rate/rhythm, normal heart sounds, No edema Back Exam: normal inspection (Has pain patch in place centerline lower back) Extremity Exam: normal inspection, No pedal edema, No swelling Neurologic Exam: alert (Rambling speech), slurred speech (Rambling speech - has to help out explaining why he is in (apparently out of Harrison or Ultram) ) Skin Exam: normal color, warm, dry SpO2 Interpretation: normal SpO2: 99 O2 Delivery: Room Air - Course Nursing assessment & vital signs reviewed: Yes - Progress Progress Note: 10/20/18 19:27 Per discussion with spouse patient is out of one or both of the pain medications for chronic back pain -either Ultram of Harrison. Apparently dr contacted for refil today was not the prescribing doctor. - Departure Departure Disposition: Home Clinical Impression: Chronic low back pain Qualifiers: Back pain laterality: midline Sciatica presence: without sciatica Qualified Code(s): M54.5 - Low back pain Condition: Stable Critical Care Time: No Referrals: ARNOLD OLIVAS MD [Primary Care Provider] - Instructions: Low Back Pain (DC) Additional Instructions: Use Ultram; must follow up with primary care for further refils of chronic pain medications. Referral to Pain Management is preferred for future management. Prescriptions: Tramadol HCl 50 mg [Ultram 50 mg] 50 mg PO Q6H PRN PRN #10 tablet PRN Reason: Pain
[2018-10-20 19:41] VITALS: BP 178/73; PULSE 79
[2018-10-21 02:22] VITALS: O2SAT 99
== END 2018-10-20 19:54 | disposition home or self-care (01) ==
LOC: ED 18:39
DX: M54.5 Low back pain (principal)
CPT/HCPCS: 99283

== ENCOUNTER 2018-10-22 20:34 | Observation (INO) | payer MEDICARE | END 2018-10-23 17:10 | disposition home or self-care (01) | LOC: MED SURG 10-23 02:20 → ED 20:34 ==

== ENCOUNTER 2018-11-07 06:19 | Emergency (ER) | payer MEDICARE ==
--- NOTE | 2018-11-07 06:56 | ERPHSYRPT ---
- History of Present Illness Source: patient, family Exam Limitations: no limitations Patient Subjective Stated Complaint: pt states, "I was in the hospital 3 weeks ago for UTI but I feel like I still have it". Triage Nursing Assessment: pt awake but confused, Pt states, "I have a uti but informs me that he hasn't been urinating very much". Obtained u/a. lungs clear , heart tones reg, abd soft with active bs x4 quad, lbm 11/06/18 very small amt. Timing/Duration: hour(s) Activites at Onset: none Quality: aching, burning Onset Location: urethral, scrotal Pain Radiation: groin, scrotal Severity of Pain-Max: moderate Severity of Pain-Current: moderate Modifying Factors: Improves With: nothing Associated Symptoms: diaphoresis, dysuria, urinary frequency Prior abdominal problems: none Sexual intercourse history: non-contributory Hx Tetanus, Diphtheria Vaccination/Date Given: Yes Hx Influenza Vaccination/Date Given: Yes Hx Pneumococcal Vaccination/Date Given: Yes Immunizations Up to Date: Yes <ANA BENITEZ - Last Filed: 11/07/18 07:04> <ANH RAY - Last Filed: 11/07/18 08:30> - History of Present Illness Time Seen by Provider: 11/07/18 06:51 Physician History: pt is 77 year old male SP prostate cancer with also some dementia chronically, requiring caregivers, now with urinary symptoms - denies abd pain , has erythematous indurated scrotum but nontender and some penile edema - no hx trauma - hx of penile implant; abd nontender; (ANA BENITEZ) Allergies/Adverse Reactions: doxazosin mesylate [From Cardura] Allergy (Verified 10/22/18 22:15) Itching iodine Allergy (Verified 10/22/18 22:15) Hives prednisone Allergy (Verified 10/22/18 22:15) states "homicidal" Kpghisk-Huy-Jce Reductase Inhibitor Allergy (Verified 10/22/18 22:15) Joint Aches duloxetine Adverse Reaction (Verified 10/22/18 22:15) milk Adverse Reaction (Verified 10/22/18 22:15) bananas Allergy (Uncoded 10/22/18 22:15) iv contrast Allergy (Uncoded 10/22/18 22:15) Hives Home Medications: Clopidogrel Bisulfate 75 mg [PLAVIX 75 MG Tablet] 75 mg PO DAILY 01/02/16 [History] Diltiazem HCl 240 mg [Cardizem CD 240 MG] 240 mg PO DAILY 01/02/16 [ History] Guaifenesin/Dextromethorphan [Mucinex Dm ER 1,200-60 mg Tab] 1 each PO DAILY PRN PRN 01/02/16 [History] Metformin HCl 500 mg [Glucophage 500 MG] 500 mg PO DAILY 01/02/16 [History ] PANTOPRAZOLE 40 mg Tablet [Protonix 40MG Tablet] 40 mg PO QAM 01/02/16 [ History] Multivitamin [Daily Multivitamin] 1 each PO DAILY 02/09/16 [History] Fluvastatin Sodium 40 mg PO BID 10/16/18 [History] Isosorbide Mononitrate 30 mg [Imdur 30 MG] 30 mg PO DAILY 10/16/18 [History ] Sennosides/Docusate Sodium [Stool Softener-Laxative Tablet] 1 each PO DAILY PRN PRN 10/16/18 [History] Timolol/Dorzolamide/Latanop/Pf [Sai 0.5%-Dorz 2%-Latan 0.005%] 5 ml OP DAILY [History] Zolpidem Tartrate 10 mg [Ambien 10 MG] 10 mg PO HS PRN 10/16/18 [History] Hydrocodone/Acetaminophen [Hydrocodone-Acetamin 10-300 mg] 1 tab PO Q4HPRN PRN 10/22/18 [History] Tramadol HCl 50 mg [Ultram 50 mg] 50 mg PO TID PRN 10/22/18 [History] Aspirin 81 gm Chew [Baby Aspirin 81 mg Chew] 81 mg PO DAILY 11/07/18 [ History] Lisinopril 10 mg [Zestril 10 MG] 10 mg PO DAILY 11/07/18 [History] - Past Medical History Pertinent Past Medical History: Yes Neurological History: TIA ENT History: No Pertinent History Cardiac History: Coronary Artery Disease, Hypertension, Myocardial Infarction ( [place]), Other Respiratory History: No Pertinent History Endocrine Medical History: Diabetes Type II Musculoskeletal History: Degenerative Disk Disease GI Medical History: GERD History: Other Psycho-Social History: No Pertinent History Male Reproductive Disorders: Prostate Cancer Other Medical History: heart stent in 2007, Pt has a pacemaker, past [place] - Past Surgical History Past Surgical History: Yes Neuro Surgical History: No Pertinent History Cardiac: Angioplasty, Cardiac Stent, Pacemaker Respiratory: Other Gastrointestinal: No Pertinent History Genitourinary: No Pertinent History Musculoskeletal: No Pertinent History Male Surgical History: Prostate Surgery, Vasectomy, Other Other Surgical History: states left lung collapsed, penile implant, back pain stimulator AND REMOVAL 2018 - Social History Smoking Status: Former smoker Exposure to second hand smoke: No Alcohol Use: None Drug Use: none Patient Lives Alone: No Significant Family History: no pertinent family hx <ANA BENITEZ - Last Filed: 11/07/18 07:04> - Review of Systems Constitutional: No Fever, No Chills Eyes: No Symptoms Ears, Nose, & Throat: No Symptoms Respiratory: No Cough, No Dyspnea Cardiac: No Chest Pain, No Edema, No Syncope Abdominal/Gastrointestinal: No Abdominal Pain, No Nausea, No Vomiting, No Diarrhea Genitourinary Symptoms: Dysuria, Frequency, Hesitancy, Other (penile swelling) Musculoskeletal: No Back Pain, No Neck Pain Skin: No Rash Neurological: No Dizziness, No Focal Weakness, No Sensory Changes Psychological: No Symptoms Endocrine: No Symptoms All Other Systems: Reviewed and Negative <ANA BENITEZ - Last Filed: 11/07/18 07:04> - Physical Exam General Appearance: no apparent distress, alert Eye Exam: PERRL/EOMI Ears, Nose, Throat Exam: pharynx normal, moist mucous membranes Neck Exam: normal inspection, supple Respiratory Exam: normal breath sounds, lungs clear Cardiovascular Exam: regular rate/rhythm, No edema Gastrointestinal/Abdomen Exam: soft, No tenderness Male Genital Exam: scrotum tenderness (R), scrotum tenderness (L), scrotal swellling Back Exam: normal inspection, No CVA tenderness Extremity Exam: normal inspection, normal range of motion, No pedal edema Neurologic Exam: alert, oriented x 3, cooperative, sensation nml, No motor deficits Skin Exam: normal color, warm, dry, No rash SpO2 Interpretation: normal SpO2: 99 <ANA BENITEZ - Last Filed: 11/07/18 07:04> - Nursing Vital Signs Nursing Vital Signs: Initial Vital Signs Temperature 98.1 F 11/07/18 06:32 Pulse Rate 90 11/07/18 06:32 Respiratory Rate 18 11/07/18 06:32 Blood Pressure 155/98 11/07/18 06:32 O2 Sat by Pulse Oximetry 99 11/07/18 06:32 Pain Scale Pain Intensity 0 - Course Nursing assessment & vital signs reviewed: Yes <BENITEZAGAANA VERONICA - Last Filed: 11/07/18 07:04> - Course EKG Interpreted by Me: RATE (60), Sinus Rhythm, NORMAL AXIS, NORMAL INTERVALS, NORMAL QRS, Other (comparison ekg 10/22/[address] segment changes. ) <ANH RAY - Last Filed: 11/07/18 08:30> Ordered Tests: Active Orders 24 hr Category Date Time Status EKG-ER Only STAT Care 11/07/18 07:00 Active IV Insertion STAT Care 11/07/18 07:00 Active ABDOMEN AND PELVIS W/0 CONTRAS [CT] Stat Exams 11/07/18 07:00 Ordered CBC W DIFF Stat Lab 11/07/18 07:15 Completed CMP Stat Lab 11/07/18 07:15 Completed Lactic Acid Stat Lab 11/07/18 07:00 Completed UA W/RFX UR CULTURE Stat Lab 11/07/18 07:15 Completed Medication Summary Generic Name Dose Route Start Last Admin Trade Name Freq PRN Reason Stop Dose Admin Sodium Chloride 1,000 mls @ 50 mls/hr 11/07/18 07:00 11/07/18 08:23 Sodium Chloride 0.9% 1000 Ml IV 12/07/18 06:59 500 mls/hr .Q20H VALERI Infusion Discontinued Medications Generic Name Dose Route Start Last Admin Trade Name Freq PRN Reason Stop Dose Admin Ceftriaxone Sodium/Dextrose 1 g in 50 mls @ 100 mls/hr 11/07/18 07:02 07:47 Rocephin 1 Gm-D5w 50 Ml Bag IV 11/07/18 07:31 Infused STAT STA Infusion Ceftriaxone Sodium/Dextrose Confirm 11/07/18 07:04 Rocephin 1 Gm-D5w 50 Ml Bag Administered 11/07/18 07:05 Dose 1 g in 50 mls @ ud IV .STK-MED ONE Lab/Rad Data: Laboratory Result Diagrams 11/07/18 07:15 11/07/18 07:15 Laboratory Results 11/07/18 11/07/18 11/07/18 Range/Units 07:15 07:15 07:15 WBC 7.6 (4.0-10.5) K/mm3 RBC 2.71 L (4.1-5.6) M/mm3 Hgb 9.0 L (12.5-18.0) gm/dl Hct 28.2 L (42-50) % MCV 104.1 H (78-100) fl MCH 33.2 H (26-32) pg MCHC 31.9 L (32-36) g/dl RDW 12.1 (11.5-14.0) % Plt Count 247 (150-450) K/mm3 MPV 11.2 H (6-9.5) fl Gran % 56.1 (36.0-66.0) % Eos # (Auto) 0.33 (0-0.5) Absolute Lymphs (auto) 2.04 (1.0-4.6) Absolute Monos (auto) 0.92 (0.0-1.3) Lymphocytes % 26.8 (24.0-44.0) % Monocytes % 12.1 H (0.0-12.0) % Eosinophils % 4.3 (0.00-5.0) % Basophils % 0.7 (0.0-0.4) % Absolute Granulocytes 4.26 (1.4-6.9) Basophils # 0.05 (0-0.4) Sodium 140 (137-145) mmol/L Potassium 3.7 (3.5-5.1) mmol/L Chloride 104 (98-107) mmol/L Carbon Dioxide 26 (22-30) mmol/L Anion Gap 13.1 (5-15) MEQ/L BUN 35 H (9-20) mg/dL Creatinine 1.75 H (0.66-1.25) mg/dL Estimated GFR 40.2 ML/MIN Glucose 88 (74-106) mg/dL Lactic Acid (0.4-2.0) Calcium 9.2 (8.4-10.2) mg/dL Total Bilirubin 0.20 (0.2-1.3) mg/dL AST 24 (17-59) U/L ALT 14 (0-50) U/L Alkaline Phosphatase 111 (38-126) U/L Serum Total Protein 6.0 L (6.3-8.2) g/dL Albumin 3.6 (3.5-5.0) g/dL Urine Color STRAW (YELLOW) Urine Appearance CLEAR (CLEAR) Urine pH 5.0 (5-6) Ur Specific [place] 1.008 (1.005-1.025) Urine Protein NEGATIVE (Negative) Urine Ketones NEGATIVE (NEGATIVE) Urine Blood NEGATIVE (0-5) Vernon/ul Urine Nitrite NEGATIVE (NEGATIVE) Urine Bilirubin NEGATIVE (NEGATIVE) Urine Urobilinogen NEGATIVE (0-1) mg/dL Ur Leukocyte Esterase NEGATIVE (NEGATIVE) Urine WBC (Auto) NONE (0-5) /HPF Urine RBC (Auto) Not Reportable U Epithel Cells (Auto) NONE (FEW) /HPF Urine Mucus (Auto) SLIGHT (NEGATIVE) /HPF Urine Culture Reflexed NO (NO) Urine Glucose NEGATIVE (NEGATIVE) mg/dL 11/07/18 Range/Units 07:00 WBC (4.0-10.5) K/mm3 RBC (4.1-5.6) M/mm3 Hgb (12.5-18.0) gm/dl Hct (42-50) % MCV (78-100) fl MCH (26-32) pg MCHC (32-36) g/dl RDW (11.5-14.0) % Plt Count (150-450) K/mm3 MPV (6-9.5) fl Gran % (36.0-66.0) % Eos # (Auto) (0-0.5) Absolute Lymphs (auto) (1.0-4.6) Absolute Monos (auto) (0.0-1.3) Lymphocytes % (24.0-44.0) % Monocytes % (0.0-12.0) % Eosinophils % (0.00-5.0) % Basophils % (0.0-0.4) % Absolute Granulocytes (1.4-6.9) Basophils # (0-0.4) Sodium (137-145) mmol/L Potassium (3.5-5.1) mmol/L Chloride (98-107) mmol/L Carbon Dioxide (22-30) mmol/L Anion Gap (5-15) MEQ/L BUN (9-20) mg/dL Creatinine (0.66-1.25) mg/dL Estimated GFR ML/MIN Glucose (74-106) mg/dL Lactic Acid 1.5 (0.4-2.0) Calcium (8.4-10.2) mg/dL Total Bilirubin (0.2-1.3) mg/dL AST (17-59) U/L ALT (0-50) U/L Alkaline Phosphatase (38-126) U/L Serum Total Protein (6.3-8.2) g/dL Albumin (3.5-5.0) g/dL Urine Color (YELLOW) Urine Appearance (CLEAR) Urine pH (5-6) Ur Specific Dr[place] (1.005-1.025) Urine Protein (Negative) Urine Ketones (NEGATIVE) Urine Blood (0-5) Vernon/ul Urine Nitrite (NEGATIVE) Urine Bilirubin (NEGATIVE) Urine Urobilinogen (0-1) mg/dL Ur Leukocyte Esterase (NEGATIVE) Urine WBC (Auto) (0-5) /HPF Urine RBC (Auto) U Epithel Cells (Auto) (FEW) /HPF Urine Mucus (Auto) (NEGATIVE) /HPF Urine Culture Reflexed (NO) Urine Glucose (NEGATIVE) mg/dL - Progress Counseled pt/family regarding: lab results, diagnosis, need for follow-up, rad results <ANA BENITEZ - Last Filed: 11/07/18 07:04> - Progress Progress: unchanged <ANH RAY - Last Filed: 11/07/18 08:30> - Progress Progress Note: 11/07/18 06:[address] Ray at 0700 after discussion of pending studies and explanation to pt; he will interpret and make final disposition and treatment. (ANA BENITEZ) 11/07/18 08:17 ct abd/pelvis-no acute intra abd/intra pelvic process. (ANH RAY) <ANA BENITEZ - Last Filed: 11/07/18 07:04> - Departure Departure Disposition: Home Critical Care Time: No <ANH RAY - Last Filed: 11/07/18 08:30> - Departure Clinical Impression: Scrotal edema, Edema of penis Condition: Stable Referrals: ARNOLD OLIVAS MD [Primary Care Provider] - Additional Instructions: drink plenty of fluids. folllow up with urologist ThursdayNov 09 for further management Prescriptions: Ciprofloxacin [Cipro 500 MG] 500 mg PO BID #14 tablet
[2018-11-07] MEDS ORDERED: Sodium Chloride 0.9% 1000 ML 1,000 ML IV SCH (07:00)
[2018-11-07] MEDS ORDERED: ROCEPHIN 1 Gm-D5w 50 ml Bag** 1 G/50 ML IVPB IV STA (07:02)
[2018-11-07] MEDS ORDERED: Sodium Chloride 0.9% 1000 ML 1,000 ML ONE (07:04)
[2018-11-07] MEDS ORDERED: ROCEPHIN 1 Gm-D5w 50 ml Bag** 1 G/50 ML IVPB IV ONE (07:04)
[2018-11-07 07:51] LABS: BASOPHIL % 0.7 % (0.0-0.4); Basophil (Absolute #) 0.05 (0-0.4); Eosinophil % 4.3 % (0.00-5.0); Eosinophil (Absolute #) 0.33 (0-0.5); Granulocyte Absolute (ANC) 4.26 (1.4-6.9); Granulocytes % 56.1 % (36.0-66.0); Hematocrit 28.2 % (42-50); Lymphocyte (Absolute #) 2.04 (1.0-4.6); Lymphocytes % 26.8 % (24.0-44.0); Mean Cell Volume 104.1 fl (78-100); Mean Corpuscular Hemoglobin 33.2 pg (26-32); Mean Corpuscular Hgb Concent. 31.9 g/dl (32-36); Mean Platelet Volume 11.2 fl (6-9.5); Monocyte (Absolute #) 0.92 (0.0-1.3); Monocytes % 12.1 % (0.0-12.0); Platelet Count 247 K/mm3 (150-450); Red Blood Count 2.71 M/mm3 (4.1-5.6); Red Cell Distribution Width 12.1 % (11.5-14.0); White Blood Count 7.6 K/mm3 (4.0-10.5)
[2018-11-07 07:54] LABS: Appearance CLEAR (CLEAR); Bilirubin NEGATIVE (NEGATIVE); Blood NEGATIVE Ery/ul (0-5); Glucose NEGATIVE (NEGATIVE); Ketones NEGATIVE (NEGATIVE); Leukocyte Esterase NEGATIVE (NEGATIVE); Mucus SLIGHT /HPF (NEGATIVE); Nitrite NEGATIVE (NEGATIVE); Protein,Urine Dip NEGATIVE (Negative); Specific Gravity 1.008 (1.005-1.025); Urobilinogen NEGATIVE mg/dL (0-1)
[2018-11-07 08:02] LABS: ALBUMIN 3.6 g/dL (3.5-5.0); ANION GAP 13.1 MEQ/L (5-15); BILIRUBIN,TOTAL 0.2 mg/dL (0.2-1.3); Calcium 9.2 mg/dL (8.4-10.2); Creatinine 1 1.75 mg/dL (0.66-1.25); Potassium 3.7 mmol/L (3.5-5.1)
[2018-11-07 09:29] VITALS: BP 134/65; PULSE 56; O2SAT 97
--- NOTE | 2018-11-09 15:15 | XRAY ---
Indication: Scrotal swelling. UTI. History of prostate cancer. Multiple contiguous axial images obtained through the abdomen and pelvis without contrast as ordered. Comparison: January 12, 2018. Lung bases demonstrates new left lower lobe calcified granuloma not previously imaged. No infiltrate or effusion. Heart is not enlarged. Noncontrasted stomach and bowel loops appear nonobstructed. Again mild diffuse scattered colonic fecal debris throughout including rectum. Stable minimal sigmoid diverticulosis, prostatectomy, and penile implant with reservoir. No free fluid/air. Remaining liver, gallbladder, pancreas, spleen, adrenal glands, kidneys, ureters, and bladder appear unremarkable for noncontrast exam. Stable moderate aortoiliac calcifications without AAA. Osseous structures intact again with mild/moderate degenerative changes throughout the spine and mild levorotoscoliosis. No suspicious bony lesions. Impression: 1. Again mild fecal stasis without obstruction, sigmoid diverticulosis, and postsurgical changes. 2. Remaining CT abdomen/pelvis without contrast exam is negative. 3. Scrotal sonogram may yield further information if there remains further clinical concern. Comment: Preliminary interpretation was made by C. No critical discrepancy. CTDI 12.98
== END 2018-11-07 09:41 | disposition home or self-care (01) ==
LOC: ED 06:19
DX: N50.89 Other specified disorders of the male genital organs (principal); N48.89 Other specified disorders of penis
CPT/HCPCS: 36000; 36415; 74176; 80053; 81001; 83605; 85025; 93005; 96360; 96361; 96365; 99284; J0696

== ENCOUNTER 2018-12-28 14:03 | Observation (INO) | payer MEDICARE ==
--- NOTE | 2018-12-28 14:20 | ERPHSYRPT ---
- History of Present Illness Time Seen by Provider: 12/28/18 14:10 Source: patient, family Exam Limitations: no limitations Physician History: 78 y/o white male presents with weakness that began this am. pt went to bed normal per spouse. pt denies pain of any kind. no new meds. pts daughter came by to check in on them. father was very weak. pt denies any other sx. has been dehydrated in the past. Timing/Duration: today Severity: mild Modifying Factors: Improves With: movement Associated Symptoms: weakness, No nausea, No vomiting, No abdominal pain, No shortness of breath, No chest pain Allergies/Adverse Reactions: doxazosin mesylate [From Cardura] Allergy (Verified 12/28/18 14:08) Itching iodine Allergy (Verified 12/28/18 14:08) Hives prednisone Allergy (Verified 12/28/18 14:08) states "homicidal" Mqaychq-Jvc-Eug Reductase Inhibitor Allergy (Verified 12/28/18 14:08) Joint Aches duloxetine Adverse Reaction (Verified 12/28/18 14:08) milk Adverse Reaction (Verified 12/28/18 14:08) bananas Allergy (Uncoded 12/28/18 14:08) iv contrast Allergy (Uncoded 12/28/18 14:08) Hives Home Medications: Clopidogrel Bisulfate 75 mg [PLAVIX 75 MG Tablet] 75 mg PO DAILY 01/02/16 [History] Diltiazem HCl 240 mg [Cardizem CD 240 MG] 240 mg PO DAILY 01/02/16 [ History] Metformin HCl 500 mg [Glucophage 500 MG] 500 mg PO DAILY 01/02/16 [History ] PANTOPRAZOLE 40 mg Tablet [Protonix 40MG Tablet] 40 mg PO QAM 01/02/16 [ History] Multivitamin [Daily Multivitamin] 1 each PO DAILY 02/09/16 [History] Fluvastatin Sodium 40 mg PO BID 10/16/18 [History] Isosorbide Mononitrate 30 mg [Imdur 30 MG] 60 mg PO DAILY 10/16/18 [History ] Sennosides/Docusate Sodium [Stool Softener-Laxative Tablet] 1 each PO DAILY PRN PRN 10/16/18 [History] Timolol/Dorzolamide/Latanop/Pf [Sai 0.5%-Dorz 2%-Latan 0.005%] 5 ml OP DAILY [History] Zolpidem Tartrate 10 mg [Ambien 10 MG] 10 mg PO HS PRN 10/16/18 [History] Hydrocodone/Acetaminophen [Hydrocodone-Acetamin 10-300 mg] 1 tab PO Q4HPRN PRN 10/22/18 [History] Tramadol HCl 50 mg [Ultram 50 mg] 100 mg PO TID PRN 10/22/18 [History] Aspirin 81 gm Chew [Baby Aspirin 81 mg Chew] 81 mg PO DAILY 11/07/18 [ History] Lisinopril 10 mg [Zestril 10 MG] 20 mg PO DAILY 11/07/18 [History] Guaifenesin [Humibid] 1,200 mg PO DAILY 12/28/18 [History] Hx Tetanus, Diphtheria Vaccination/Date Given: Yes Hx Influenza Vaccination/Date Given: Yes Hx Pneumococcal Vaccination/Date Given: Yes - Review of Systems Constitutional: Weakness Eyes: No Symptoms Ears, Nose, & Throat: No Symptoms Respiratory: No Symptoms Cardiac: No Symptoms Abdominal/Gastrointestinal: No Symptoms Genitourinary Symptoms: No Symptoms Musculoskeletal: No Symptoms Skin: No Symptoms Neurological: No Symptoms Psychological: No Symptoms Endocrine: No Symptoms Hematologic/Lymphatic: No Symptoms Immunological/Allergic: No Symptoms All Other Systems: Reviewed and Negative - Past Medical History Pertinent Past Medical History: Yes Neurological History: TIA ENT History: No Pertinent History Cardiac History: Coronary Artery Disease, Hypertension, Myocardial Infarction ( [place]), Other Respiratory History: No Pertinent History Endocrine Medical History: Diabetes Type II Musculoskeletal History: Degenerative Disk Disease GI Medical History: GERD History: Other Psycho-Social History: No Pertinent History Male Reproductive Disorders: Prostate Cancer Other Medical History: heart stent in 2007, Pt has a pacemaker, past IA - Past Surgical History Past Surgical History: Yes Neuro Surgical History: No Pertinent History Cardiac: Angioplasty, Cardiac Stent, Pacemaker Respiratory: Other Gastrointestinal: No Pertinent History Genitourinary: No Pertinent History Musculoskeletal: No Pertinent History Male Surgical History: Prostate Surgery, Vasectomy, Other Other Surgical History: states left lung collapsed, penile implant, back pain stimulator AND REMOVAL 2018 - Social History Smoking Status: Former smoker Exposure to second hand smoke: No Alcohol Use: None Drug Use: none Patient Lives Alone: No Significant Family History: no pertinent family hx - Nursing Vital Signs Nursing Vital Signs: Initial Vital Signs Temperature 97.5 F 12/28/18 14:11 Pulse Rate 65 12/28/18 14:11 Respiratory Rate 16 12/28/18 14:11 Blood Pressure 194/79 12/28/18 14:11 O2 Sat by Pulse Oximetry 98 12/28/18 14:11 Pain Scale Pain Intensity 0 - Physical Exam General Appearance: no apparent distress, alert, other (weakness) Eye Exam: PERRL/EOMI, eyes nml inspection Ears, Nose, Throat Exam: normal ENT inspection, moist mucous membranes Neck Exam: normal inspection, non-tender, supple, full range of motion Respiratory Exam: normal breath sounds, lungs clear, airway intact, No chest tenderness, No respiratory distress Cardiovascular Exam: regular rate/rhythm, normal heart sounds, normal peripheral pulses Gastrointestinal/Abdomen Exam: soft, normal bowel sounds, No tenderness, No guarding Rectal Exam: not done Back Exam: normal inspection, normal range of motion, No CVA tenderness, No vertebral tenderness Extremity Exam: normal inspection, normal range of motion, pelvis stable Neurologic Exam: alert, oriented x 3, cooperative, motivational speaker II-XII nml as tested, nml station & gait (moves slowly), No slurred speech, No aphasia Skin Exam: normal color, warm, dry Lymphatic Exam: No adenopathy SpO2 Interpretation: normal O2 Delivery: Room Air - Course Nursing assessment & vital signs reviewed: Yes EKG Interpreted by Me: RATE (61), Sinus Rhythm, NORMAL AXIS, NORMAL INTERVALS, NORMAL QRS, Other (no change from comparison ekg dated 11/07/18. no acute ischemic changes. ) Ordered Tests: Active Orders 24 hr Category Date Time Status EKG-ER Only STAT Care 12/28/18 14:20 Active IV Insertion STAT Care 12/28/18 14:20 Active HEAD WITHOUT CONTRAST [CT] Stat Exams 12/28/18 16:50 Taken CBC W DIFF Stat Lab 12/28/18 14:28 Completed CMP Stat Lab 12/28/18 14:28 Completed NT PRO BNP Stat Lab 12/28/18 14:28 Completed TROPONIN Q3H Lab 12/28/18 14:28 Completed TROPONIN Q3H Lab 12/28/18 17:35 Completed TROPONIN Q3H Lab 12/28/18 20:30 Ordered TROPONIN Q3H Lab 12/28/18 23:30 Ordered TROPONIN Q3H Lab 12/29/18 02:30 Ordered UA W/RFX UR CULTURE Stat Lab 12/28/18 16:01 Completed Transfer Order Routine Transfer 12/28/18 Ordered Medication Summary Generic Name Dose Route Start Last Admin Trade Name Freq PRN Reason Stop Dose Admin Sodium Chloride 1,000 mls @ 100 mls/hr 12/28/18 15:15 12/28/18 15:41 Sodium Chloride 0.9% 1000 Ml IV 01/27/19 15:14 100 mls/hr .Q10H VALERI Administration Discontinued Medications Generic Name Dose Route Start Last Admin Trade Name Freq PRN Reason Stop Dose Admin Enalaprilat 1.25 mg 12/28/18 17:05 12/28/18 17:12 Vasotec I.V. 2.5 Mg IV 12/28/18 17:06 Not Given STAT ONE Enalaprilat Confirm 12/28/18 17:07 Vasotec I.V. 2.5 Mg Administered 12/28/18 17:08 Dose 2.5 mg IV .STK-MED ONE Enalaprilat 0.625 mg 12/28/18 17:16 12/28/18 17:18 Vasotec I.V. 2.5 Mg IV 12/28/18 17:17 0.625 mg STAT ONE Administration Enalaprilat 0.625 mg 12/28/18 19:11 12/28/18 19:15 Vasotec I.V. 2.5 Mg IV 12/28/18 19:12 0.625 mg STAT ONE Administration Enalaprilat Confirm 12/28/18 19:12 Vasotec I.V. 2.5 Mg Administered 12/28/18 19:13 Dose 2.5 mg IV .STK-MED ONE Sodium Chloride 500 mls @ 500 mls/hr 12/28/18 14:21 12/28/18 15:32 Sodium Chloride 0.9% 500 Ml IV 12/28/18 15:20 Infused .Q1H ONE Infusion Sodium Chloride Confirm 12/28/18 14:25 Sodium Chloride 0.9% 500 Ml Administered 12/28/18 14:26 Dose 500 mls @ ud IV .STK-MED ONE Lab/Rad Data: Laboratory Result Diagrams 12/28/18 14:28 12/28/18 14:28 Laboratory Results 12/28/18 12/28/18 12/28/18 Range/Units 17:35 16:01 14:28 WBC (4.0-10.5) K/mm3 RBC (4.1-5.6) M/mm3 Hgb (12.5-18.0) gm/dl Hct (42-50) % MCV (78-100) fl MCH (26-32) pg MCHC (32-36) g/dl RDW (11.5-14.0) % Plt Count (150-450) K/mm3 MPV (6-9.5) fl Gran % (36.0-66.0) % Eos # (Auto) (0-0.5) Absolute Lymphs (auto) (1.0-4.6) Absolute Monos (auto) (0.0-1.3) Lymphocytes % (24.0-44.0) % Monocytes % (0.0-12.0) % Eosinophils % (0.00-5.0) % Basophils % (0.0-0.4) % Absolute Granulocytes (1.4-6.9) Basophils # (0-0.4) Sodium (137-145) mmol/L Potassium (3.5-5.1) mmol/L Chloride (98-107) mmol/L Carbon Dioxide (22-30) mmol/L Anion Gap (5-15) MEQ/L BUN (9-20) mg/dL Creatinine (0.66-1.25) mg/dL Estimated GFR ML/MIN Glucose (74-106) mg/dL Calcium (8.4-10.2) mg/dL Total Bilirubin (0.2-1.3) mg/dL AST (17-59) U/L ALT (0-50) U/L Alkaline Phosphatase (38-126) U/L Troponin I < 0.012 < 0.012 (0.000-0.034) ng/mL NT-Pro-B Natriuret Pep (0-1800) pg/mL Serum Total Protein (6.3-8.2) g/dL Albumin (3.5-5.0) g/dL Urine Color YELLOW (YELLOW) Urine Appearance CLEAR (CLEAR) Urine pH 7.0 (5-6) Ur Specific [place] 1.017 (1.005-1.025) Urine Protein NEGATIVE (Negative) Urine Ketones NEGATIVE (NEGATIVE) Urine Blood NEGATIVE (0-5) [place]/ul Urine Nitrite NEGATIVE (NEGATIVE) Urine Bilirubin NEGATIVE (NEGATIVE) Urine Urobilinogen NEGATIVE (0-1) mg/dL Ur Leukocyte Esterase NEGATIVE (NEGATIVE) Urine WBC (Auto) NONE (0-5) /HPF Urine RBC (Auto) NONE (0-2) /HPF U Epithel Cells (Auto) NONE (FEW) /HPF Urine Bacteria (Auto) NONE (NEGATIVE) /HPF Urine Mucus (Auto) SLIGHT (NEGATIVE) /HPF Urine Culture Reflexed NO (NO) Urine Glucose NEGATIVE (NEGATIVE) mg/dL 12/28/18 12/28/18 Range/Units 14:28 14:28 WBC 7.0 (4.0-10.5) K/mm3 RBC 3.27 L (4.1-5.6) M/mm3 Hgb 10.7 L (12.5-18.0) gm/dl Hct 32.5 L (42-50) % MCV 99.4 (78-100) fl MCH 32.7 H (26-32) pg MCHC 32.9 (32-36) g/dl RDW 12.4 (11.5-14.0) % Plt Count 267 (150-450) K/mm3 MPV 9.9 H (6-9.5) fl Gran % 70.6 H (36.0-66.0) % Eos # (Auto) 0.16 (0-0.5) Absolute Lymphs (auto) 1.11 (1.0-4.6) Absolute Monos (auto) 0.69 (0.0-1.3) Lymphocytes % 16.0 L (24.0-44.0) % Monocytes % 9.9 (0.0-12.0) % Eosinophils % 2.3 (0.00-5.0) % Basophils % 1.2 (0.0-0.4) % Absolute Granulocytes 4.91 (1.4-6.9) Basophils # 0.08 (0-0.4) Sodium 147 H (137-145) mmol/L Potassium 4.4 (3.5-5.1) mmol/L Chloride 108 H (98-107) mmol/L Carbon Dioxide 29 (22-30) mmol/L Anion Gap 13.3 (5-15) MEQ/L BUN 26 H (9-20) mg/dL Creatinine 1.29 H (0.66-1.25) mg/dL Estimated GFR 57.0 ML/MIN Glucose 137 H (74-106) mg/dL Calcium 10.0 (8.4-10.2) mg/dL Total Bilirubin 0.30 (0.2-1.3) mg/dL AST 22 (17-59) U/L ALT 12 (0-50) U/L Alkaline Phosphatase 72 (38-126) U/L Troponin I (0.000-0.034) ng/mL NT-Pro-B Natriuret Pep 659 (0-1800) pg/mL Serum Total Protein 7.3 (6.3-8.2) g/dL Albumin 4.3 (3.5-5.0) g/dL Urine Color (YELLOW) Urine Appearance (CLEAR) Urine pH (5-6) Ur Specific [place] (1.005-1.025) Urine Protein (Negative) Urine Ketones (NEGATIVE) Urine Blood (0-5) [place]/ul Urine Nitrite (NEGATIVE) Urine Bilirubin (NEGATIVE) Urine Urobilinogen (0-1) mg/dL Ur Leukocyte Esterase (NEGATIVE) Urine WBC (Auto) (0-5) /HPF Urine RBC (Auto) (0-2) /HPF U Epithel Cells (Auto) (FEW) /HPF Urine Bacteria (Auto) (NEGATIVE) /HPF Urine Mucus (Auto) (NEGATIVE) /HPF Urine Culture Reflexed (NO) Urine Glucose (NEGATIVE) mg/dL - Progress Progress: improved Progress Note: 12/28/18 19:00 ct head-no acute process Counseled pt/family regarding: lab results, diagnosis, need for follow-up, rad results - Departure Departure Disposition: Observation Clinical Impression: Hypertensive urgency, Confusion Condition: Fair Critical Care Time: Yes Critical Care Time(excluding separately billable procedures): Critical 30-74 mins Referrals: ARNOLD OLIVAS MD [Primary Care Provider] -
[2018-12-28] MEDS ORDERED: Sodium Chloride 0.9% 500 ML 500 ML IV ONE ×2 (14:21→14:25)
[2018-12-28 14:38] LABS: Absolute Neutrophil Ct (ANC) 4.91 (1.4-6.9); BASOPHIL % 1.2 % (0.0-0.4); Basophil (Absolute #) 0.08 (0-0.4); Eosinophil % 2.3 % (0.00-5.0); Eosinophil (Absolute #) 0.16 (0-0.5); Hematocrit 32.5 % (42-50); Hemoglobin 10.7 gm/dl (12.5-18.0); Lymphocyte (Absolute #) 1.11 (1.0-4.6); Mean Cell Volume 99.4 fl (78-100); Mean Corpuscular Hemoglobin 32.7 pg (26-32); Mean Corpuscular Hgb Concent. 32.9 g/dl (32-36); Mean Platelet Volume 9.9 fl (6-9.5); Monocyte (Absolute #) 0.69 (0.0-1.3); Monocytes % 9.9 % (0.0-12.0); Neutrophil % 70.6 % (36.0-66.0); Platelet Count 267 K/mm3 (150-450); Red Blood Count 3.27 M/mm3 (4.1-5.6); Red Cell Distribution Width 12.4 % (11.5-14.0)
[2018-12-28 14:55] LABS: ALBUMIN 4.3 g/dL (3.5-5.0); ANION GAP 13.3 MEQ/L (5-15); BILIRUBIN,TOTAL 0.3 mg/dL (0.2-1.3); Creatinine 1 1.29 mg/dL (0.66-1.25); Potassium 4.4 mmol/L (3.5-5.1); Total Protein 7.3 g/dL (6.3-8.2)
[2018-12-28] MEDS ORDERED: Sodium Chloride 0.9% 1000 ML 1,000 ML IV SCH ×2 (15:15→20:42)
[2018-12-28] MEDS ORDERED: Sodium Chloride 0.9% 1000 ML 1,000 ML ONE (15:41)
[2018-12-28 16:13] LABS: Appearance CLEAR (CLEAR); Bilirubin NEGATIVE (NEGATIVE); Blood NEGATIVE Ery/ul (0-5); Glucose NEGATIVE (NEGATIVE); Ketones NEGATIVE (NEGATIVE); Leukocyte Esterase NEGATIVE (NEGATIVE); Mucus SLIGHT /HPF (NEGATIVE); Nitrite NEGATIVE (NEGATIVE); Protein,Urine Dip NEGATIVE (Negative); Specific Gravity 1.017 (1.005-1.025); Urobilinogen NEGATIVE mg/dL (0-1)
[2018-12-28] MEDS ORDERED: VASOTEC I.V. 2.5 MG IV ONE ×5 (17:05→19:12)
[2018-12-28] MEDS ORDERED: TYLENOL 325 MG PO PRN (20:42)
[2018-12-28] MEDS ORDERED: Zofran 4 MG/2 ML VIAL IV PRN (20:42)
[2018-12-28] MEDS: VASOTEC I.V. 2.5 MG IV SCH (21:29)
[2018-12-29] MEDS: VASOTEC I.V. 2.5 MG IV SCH ×2 (02:07→09:47)
[2018-12-29 02:50] LABS: Absolute Neutrophil Ct (ANC) 4.93 (1.4-6.9); BASOPHIL % 0.8 % (0.0-0.4); Basophil (Absolute #) 0.06 (0-0.4); Eosinophil % 3.1 % (0.00-5.0); Eosinophil (Absolute #) 0.23 (0-0.5); Hematocrit 29.5 % (42-50); Lymphocyte (Absolute #) 1.24 (1.0-4.6); Lymphocytes % 16.9 % (24.0-44.0); Mean Corpuscular Hgb Concent. 33.9 g/dl (32-36); Mean Platelet Volume 9.5 fl (6-9.5); Monocyte (Absolute #) 0.87 (0.0-1.3); Monocytes % 11.9 % (0.0-12.0); Neutrophil % 67.3 % (36.0-66.0); Platelet Count 247 K/mm3 (150-450); Red Blood Count 2.98 M/mm3 (4.1-5.6); Red Cell Distribution Width 12.5 % (11.5-14.0); White Blood Count 7.3 K/mm3 (4.0-10.5)
[2018-12-29 02:54] LABS: Mean Corpuscular Hemoglobin 33.5 pg (26-32)
[2018-12-29 03:23] LABS: ALBUMIN 3.6 g/dL (3.5-5.0); ALKALINE PHOSPHATASE 65 U/L (38-126); ANION GAP 12.1 MEQ/L (5-15); BLOOD UREA NITROGEN 18 mg/dL (9-20); CHLORIDE 112 mmol/L (98-107); Calcium 9.8 mg/dL (8.4-10.2); Carbon Dioxide 24 mmol/L (22-30); Creatinine 1 0.94 mg/dL (0.66-1.25); Glucose 90 mg/dL (74-106); SGOT/AST 21 U/L (17-59); SGPT/ALT 12 U/L (0-50); SODIUM 144 mmol/L (137-145); Total Protein 6.1 g/dL (6.3-8.2)
[2018-12-29 07:40] VITALS: BP 193/86; PULSE 60; O2SAT 94
--- NOTE | 2018-12-29 08:48 | XRAY ---
Indication: Weakness and confusion. Multiple contiguous axial images obtained through the head without contrast. Comparison: October 22, 2018. Stable age-appropriate global atrophy, minimal periventricular degenerative micro-ischemia bilaterally, and tiny left caudate head/right basal ganglia remote lacunar infarcts. No acute intracranial hemorrhage, abnormal extra-axial fluid collection, or mass effect. Fourth ventricle is midline without hydrocephalus. Bony calvarium intact. Visualized paranasal sinuses and mastoid air cells are clear. Impression: Stable nonacute senile brain with remote lacunar infarcts as detailed. No new/acute findings. CT DI 57.98
--- NOTE | 2018-12-29 09:48 | PCM.SSS ---
History of Present Illness - Chief Complaint Chief Complaint: hypertensive emergency, confusion History of Present Illness: is a 78 year old male with underlying dementia, he is a very poor historian and when I ask what made him come to the hospital yesterday he tells me he expects me to tell him what is wrong with him, he talks at length about his back pain and his being in the process of getting a stimulator for his back pain in [place], according to his he was very confused and weak feeling yesterday but seems to be back to his baseline today, he requests to return home at this time and states he has back pain which is chronic but denies any other symptoms at present. - Review of Systems Constitutional: Weakness (resolved), No Fever, No Chills Respiratory: No Cough, No Short Of Breath Cardiac: No Chest Pain, No Edema, No Syncope Abdominal/Gastrointestinal: No Abdominal Pain, No Nausea, No Vomiting, No Diarrhea Genitourinary Symptoms: No Dysuria Skin: No Rash All Other Systems: Reviewed and Negative Medications & Allergies Home Medications: Home Medication List Clopidogrel Bisulfate 75 mg [PLAVIX 75 MG Tablet] 75 mg PO DAILY 01/02/16 [History Confirmed 12/28/18] Diltiazem HCl 240 mg [Cardizem CD 240 MG] 240 mg PO DAILY 01/02/16 [ History Confirmed 12/28/18] Metformin HCl 500 mg [Glucophage 500 MG] 500 mg PO DAILY 01/02/16 [ History Confirmed 12/28/18] PANTOPRAZOLE 40 mg Tablet [Protonix 40MG Tablet] 40 mg PO QAM 01/02/16 [ History Confirmed 12/28/18] Multivitamin [Daily Multivitamin] 1 each PO DAILY 02/09/16 [History Confirmed ] Fluvastatin Sodium 40 mg PO BID 10/16/18 [History Confirmed 12/28/18] Isosorbide Mononitrate 30 mg [Imdur 30 MG] 60 mg PO DAILY 10/16/18 [ History Confirmed 12/28/18] Sennosides/Docusate Sodium [Stool Softener-Laxative Tablet] 1 each PO DAILY PRN PRN 10/16/18 [History Confirmed 12/28/18] Timolol/Dorzolamide/Latanop/Pf [Sai 0.5%-Dorz 2%-Latan 0.005%] 5 ml OP DAILY [History Confirmed 12/28/18] Zolpidem Tartrate 10 mg [Ambien 10 MG] 10 mg PO HS PRN 10/16/18 [History Confirmed 12/28/18] Hydrocodone/Acetaminophen [Hydrocodone-Acetamin 10-300 mg] 1 tab PO Q4HPRN PRN 10/22/18 [History Confirmed 12/28/18] Tramadol HCl 50 mg [Ultram 50 mg] 100 mg PO TID PRN 10/22/18 [History Confirmed 12/28/18] Aspirin 81 gm Chew [Baby Aspirin 81 mg Chew] 81 mg PO DAILY 11/07/18 [ History Confirmed 12/28/18] Guaifenesin [Humibid] 1,200 mg PO DAILY 12/28/18 [History Confirmed 12/28/18] Lisinopril 20 mg [Zestril 20 MG] 20 mg PO BID #60 tablet 12/29/18 [Rx] Allergies/Adverse Reactions: Allergies Allergy/AdvReac Type Severity Reaction Status Date / Time doxazosin mesylate Allergy Itching Verified 12/28/18 14:08 [From Radha] iodine Allergy Hives Verified 12/28/18 14:08 prednisone Allergy Verified 12/28/18 14:08 Byleagb-Lel-Moo Reductase Allergy Joint Aches Verified 12/28/18 14:08 Inhibitor duloxetine AdvReac Verified 12/28/18 14:08 milk AdvReac Verified 12/28/18 14:08 bananas Allergy Uncoded 12/28/18 14:08 iv contrast Allergy Hives Uncoded 12/28/18 14:08 - Past Medical History Past Medical History: Yes Neurological History: TIA ENT History: No Pertinent History Cardiac History: Coronary Artery Disease, Hypertension, Myocardial Infarction ( [place]), Other Respiratory History: No Pertinent History Endocrine Medical History: Diabetes Type II Musculoskelatal History: Degenerative Disk Disease GI Medical History: GERD History: Other Pyscho-Social History: No Pertinent History Male Reproductive Disorders: Prostate Cancer Comment: heart stent in 2007, Pt has a pacemaker, past [place] - Past Surgical History Past Surgical History: Yes Neuro Surgical History: No Pertinent History Cardiac History: Angioplasty, Cardiac Stent, Pacemaker Respiratory Surgery: Other GI Surgical History: No Pertinent History Genitourinary Surgical Hx: No Pertinent History Musculskeletal Surgical Hx: No Pertinent History Male Surgical History: Prostate Surgery, Vasectomy, Other Other Surgical History: states left lung collapsed, penile implant, back pain stimulator AND REMOVAL 2017 - Social History Smoking Status: Former smoker Exposure to second hand smoke: No Alcohol: None Drug Use: none Significant Family History: no pertinent family hx - Physical Exam Vital Signs: Vital Signs - 24 hr Temp Pulse Resp BP Pulse Ox 12/29/18 07:40 98.3 F 60 17 193/86 94 L 12/29/18 04:00 97.7 F 62 18 180/85 97 12/29/18 00:00 97.6 F 62 18 178/78 96 12/28/18 20:54 98.7 F 64 16 12/28/18 17:59 65 16 195/99 98 12/28/18 17:19 62 18 196/94 95 12/28/18 16:08 61 16 192/117 99 12/28/18 15:44 63 16 167/88 98 12/28/18 14:11 97.5 F 65 16 194/79 98 General Appearance: no apparent distress Neurologic Exam: alert, cooperative, touch up edger II-XII nml as tested, normal mood/ affect, confusion (does not answer questions directly and relates most things back to his back pain), No motor deficits, No sensory deficit Respiratory Exam: normal breath sounds, lungs clear, No respiratory distress Cardiovascular Exam: regular rate/rhythm, normal heart sounds, normal peripheral pulses Gastrointestinal/Abdomen Exam: soft, normal bowel sounds, No tenderness, No mass Extremity Exam: normal inspection, normal range of motion, pelvis stable Skin Exam: normal color, warm, dry, No rash Results - Labs Lab/Micro Results: Lab Results-Last 24 Hours 12/28/18 12/28/18 12/28/18 Range/Units 14:28 14:28 14:28 WBC 7.0 (4.0-10.5) K/mm3 RBC 3.27 L (4.1-5.6) M/mm3 Hgb 10.7 L (12.5-18.0) gm/dl Hct 32.5 L (42-50) % MCV 99.4 (78-100) fl MCH 32.7 H (26-32) pg MCHC 32.9 (32-36) g/dl RDW 12.4 (11.5-14.0) % Plt Count 267 (150-450) K/mm3 MPV 9.9 H (6-9.5) fl Gran % 70.6 H (36.0-66.0) % Eos # (Auto) 0.16 (0-0.5) Absolute Lymphs (auto) 1.11 (1.0-4.6) Absolute Monos (auto) 0.69 (0.0-1.3) Lymphocytes % 16.0 L (24.0-44.0) % Monocytes % 9.9 (0.0-12.0) % Eosinophils % 2.3 (0.00-5.0) % Basophils % 1.2 (0.0-0.4) % Absolute Granulocytes 4.91 (1.4-6.9) Basophils # 0.08 (0-0.4) Sodium 147 H (137-145) mmol/L Potassium 4.4 (3.5-5.1) mmol/L Chloride 108 H (98-107) mmol/L Carbon Dioxide 29 (22-30) mmol/L Anion Gap 13.3 (5-15) MEQ/L BUN 26 H (9-20) mg/dL Creatinine 1.29 H (0.66-1.25) mg/dL Estimated GFR 57.0 ML/MIN Glucose 137 H (74-106) mg/dL Calcium 10.0 (8.4-10.2) mg/dL Total Bilirubin 0.30 (0.2-1.3) mg/dL AST 22 (17-59) U/L ALT 12 (0-50) U/L Alkaline Phosphatase 72 (38-126) U/L Troponin I < 0.012 (0.000-0.034) ng/mL NT-Pro-B Natriuret Pep 659 (0-1800) pg/mL Serum Total Protein 7.3 (6.3-8.2) g/dL Albumin 4.3 (3.5-5.0) g/dL Urine Color (YELLOW) Urine Appearance (CLEAR) Urine pH (5-6) Ur Specific Lena (1.005-1.025) Urine Protein (Negative) Urine Ketones (NEGATIVE) Urine Blood (0-5) Vernon/ul Urine Nitrite (NEGATIVE) Urine Bilirubin (NEGATIVE) Urine Urobilinogen (0-1) mg/dL Ur Leukocyte Esterase (NEGATIVE) Urine WBC (Auto) (0-5) /HPF Urine RBC (Auto) (0-2) /HPF U Epithel Cells (Auto) (FEW) /HPF Urine Bacteria (Auto) (NEGATIVE) /HPF Urine Mucus (Auto) (NEGATIVE) /HPF Urine Culture Reflexed (NO) Urine Glucose (NEGATIVE) mg/dL 12/28/18 12/28/18 12/28/18 Range/Units 16:01 17:35 20:53 WBC (4.0-10.5) K/mm3 RBC (4.1-5.6) M/mm3 Hgb (12.5-18.0) gm/dl Hct (42-50) % MCV (78-100) fl MCH (26-32) pg MCHC (32-36) g/dl RDW (11.5-14.0) % Plt Count (150-450) K/mm3 MPV (6-9.5) fl Gran % (36.0-66.0) % Eos # (Auto) (0-0.5) Absolute Lymphs (auto) (1.0-4.6) Absolute Monos (auto) (0.0-1.3) Lymphocytes % (24.0-44.0) % Monocytes % (0.0-12.0) % Eosinophils % (0.00-5.0) % Basophils % (0.0-0.4) % Absolute Granulocytes (1.4-6.9) Basophils # (0-0.4) Sodium (137-145) mmol/L Potassium (3.5-5.1) mmol/L Chloride (98-107) mmol/L Carbon Dioxide (22-30) mmol/L Anion Gap (5-15) MEQ/L BUN (9-20) mg/dL Creatinine (0.66-1.25) mg/dL Estimated GFR ML/MIN Glucose (74-106) mg/dL Calcium (8.4-10.2) mg/dL Total Bilirubin (0.2-1.3) mg/dL AST (17-59) U/L ALT (0-50) U/L Alkaline Phosphatase (38-126) U/L Troponin I < 0.012 < 0.012 (0.000-0.034) ng/mL NT-Pro-B Natriuret Pep (0-1800) pg/mL Serum Total Protein (6.3-8.2) g/dL Albumin (3.5-5.0) g/dL Urine Color YELLOW (YELLOW) Urine Appearance CLEAR (CLEAR) Urine pH 7.0 (5-6) Ur Specific Lena 1.017 (1.005-1.025) Urine Protein NEGATIVE (Negative) Urine Ketones NEGATIVE (NEGATIVE) Urine Blood NEGATIVE (0-5) Vernon/ul Urine Nitrite NEGATIVE (NEGATIVE) Urine Bilirubin NEGATIVE (NEGATIVE) Urine Urobilinogen NEGATIVE (0-1) mg/dL Ur Leukocyte Esterase NEGATIVE (NEGATIVE) Urine WBC (Auto) NONE (0-5) /HPF Urine RBC (Auto) NONE (0-2) /HPF U Epithel Cells (Auto) NONE (FEW) /HPF Urine Bacteria (Auto) NONE (NEGATIVE) /HPF Urine Mucus (Auto) SLIGHT (NEGATIVE) /HPF Urine Culture Reflexed NO (NO) Urine Glucose NEGATIVE (NEGATIVE) mg/dL 12/28/18 12/29/18 12/29/18 Range/Units 23:29 02:47 02:47 WBC 7.3 (4.0-10.5) K/mm3 RBC 2.98 L (4.1-5.6) M/mm3 Hgb 10.0 L (12.5-18.0) gm/dl Hct 29.5 L (42-50) % MCV 99.0 (78-100) fl MCH 33.5 H (26-32) pg MCHC 33.9 (32-36) g/dl RDW 12.5 (11.5-14.0) % Plt Count 247 (150-450) K/mm3 MPV 9.5 (6-9.5) fl Gran % 67.3 H (36.0-66.0) % Eos # (Auto) 0.23 (0-0.5) Absolute Lymphs (auto) 1.24 (1.0-4.6) Absolute Monos (auto) 0.87 (0.0-1.3) Lymphocytes % 16.9 L (24.0-44.0) % Monocytes % 11.9 (0.0-12.0) % Eosinophils % 3.1 (0.00-5.0) % Basophils % 0.8 (0.0-0.4) % Absolute Granulocytes 4.93 (1.4-6.9) Basophils # 0.06 (0-0.4) Sodium (137-145) mmol/L Potassium (3.5-5.1) mmol/L Chloride (98-107) mmol/L Carbon Dioxide (22-30) mmol/L Anion Gap (5-15) MEQ/L BUN (9-20) mg/dL Creatinine (0.66-1.25) mg/dL Estimated GFR ML/MIN Glucose (74-106) mg/dL Calcium (8.4-10.2) mg/dL Total Bilirubin (0.2-1.3) mg/dL AST (17-59) U/L ALT (0-50) U/L Alkaline Phosphatase (38-126) U/L Troponin I < 0.012 < 0.012 (0.000-0.034) ng/mL NT-Pro-B Natriuret Pep (0-1800) pg/mL Serum Total Protein (6.3-8.2) g/dL Albumin (3.5-5.0) g/dL Urine Color (YELLOW) Urine Appearance (CLEAR) Urine pH (5-6) Ur Specific Lena (1.005-1.025) Urine Protein (Negative) Urine Ketones (NEGATIVE) Urine Blood (0-5) Vernon/ul Urine Nitrite (NEGATIVE) Urine Bilirubin (NEGATIVE) Urine Urobilinogen (0-1) mg/dL Ur Leukocyte Esterase (NEGATIVE) Urine WBC (Auto) (0-5) /HPF Urine RBC (Auto) (0-2) /HPF U Epithel Cells (Auto) (FEW) /HPF Urine Bacteria (Auto) (NEGATIVE) /HPF Urine Mucus (Auto) (NEGATIVE) /HPF Urine Culture Reflexed (NO) Urine Glucose (NEGATIVE) mg/dL 12/29/18 Range/Units 02:47 WBC (4.0-10.5) K/mm3 RBC (4.1-5.6) M/mm3 Hgb (12.5-18.0) gm/dl Hct (42-50) % MCV (78-100) fl MCH (26-32) pg MCHC (32-36) g/dl RDW (11.5-14.0) % Plt Count (150-450) K/mm3 MPV (6-9.5) fl Gran % (36.0-66.0) % Eos # (Auto) (0-0.5) Absolute Lymphs (auto) (1.0-4.6) Absolute Monos (auto) (0.0-1.3) Lymphocytes % (24.0-44.0) % Monocytes % (0.0-12.0) % Eosinophils % (0.00-5.0) % Basophils % (0.0-0.4) % Absolute Granulocytes (1.4-6.9) Basophils # (0-0.4) Sodium 144 (137-145) mmol/L Potassium 4.0 (3.5-5.1) mmol/L Chloride 112 H (98-107) mmol/L Carbon Dioxide 24 (22-30) mmol/L Anion Gap 12.1 (5-15) MEQ/L BUN 18 (9-20) mg/dL Creatinine 0.94 (0.66-1.25) mg/dL Estimated GFR > 60.0 ML/MIN Glucose 90 (74-106) mg/dL Calcium 9.8 (8.4-10.2) mg/dL Total Bilirubin 0.40 (0.2-1.3) mg/dL AST 21 (17-59) U/L ALT 12 (0-50) U/L Alkaline Phosphatase 65 (38-126) U/L Troponin I (0.000-0.034) ng/mL NT-Pro-B Natriuret Pep (0-1800) pg/mL Serum Total Protein 6.1 L (6.3-8.2) g/dL Albumin 3.6 (3.5-5.0) g/dL Urine Color (YELLOW) Urine Appearance (CLEAR) Urine pH (5-6) Ur Specific Lena (1.005-1.025) Urine Protein (Negative) Urine Ketones (NEGATIVE) Urine Blood (0-5) Vernon/ul Urine Nitrite (NEGATIVE) Urine Bilirubin (NEGATIVE) Urine Urobilinogen (0-1) mg/dL Ur Leukocyte Esterase (NEGATIVE) Urine WBC (Auto) (0-5) /HPF Urine RBC (Auto) (0-2) /HPF U Epithel Cells (Auto) (FEW) /HPF Urine Bacteria (Auto) (NEGATIVE) /HPF Urine Mucus (Auto) (NEGATIVE) /HPF Urine Culture Reflexed (NO) Urine Glucose (NEGATIVE) mg/dL - Radiology Impressions Radiology Exams & Impressions: Radiology Procedures Category Date Time Status HEAD WITHOUT CONTRAST [CT] Stat Exams 12/28/18 16:50 Completed - Other Procedures and Tests Respiratory Therapy 12/28/18 20:42 EKG REPEAT IN AM Assessment/Plan (1) Dementia Current Visit: Yes Status: Acute Assessment & Plan: patient is very argumentative and resistent to this diagnosis, he has been evaluated by Dr Rishabh Villalta but has refused to return to see him, states I told him I did not agree with his evaluation which I did not do. 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 I advised he and his that he should not be driving a car and that he needs to see a neurologist, they agree to be referred for another opinion. Code(s): F03.90 - UNSPECIFIED DEMENTIA WITHOUT BEHAVIORAL DISTURBANCE (2) Confusion Current Visit: Yes Status: Acute Assessment & Plan: labs are stable, no evidence of infectious etiology etc. seems to be at his mental baseline today Code(s): R41.0 - DISORIENTATION, UNSPECIFIED (3) Hypertensive urgency Current Visit: Yes Status: Acute Assessment & Plan: nothing new on CT scan, hx of CVA and has no focal neurological deficits etc. will increase lisinopril upon discharge and have him f/u in 1 week Code(s): I16.0 - HYPERTENSIVE URGENCY (4) Anemia Current Visit: No Status: Acute Code(s): D64.9 - ANEMIA, UNSPECIFIED (5) Chronic low back pain Current Visit: No Status: Acute Qualifiers: Back pain laterality: midline Sciatica presence: without sciatica Qualified Code(s): M54.5 - Low back pain; G89.29 - Other chronic pain Assessment & Plan: will follow with pain management at Code(s): M54.5 - LOW BACK PAIN; G89.29 - OTHER CHRONIC PAIN Hospital Summary - Vitals & Intake/Output Vital Signs: Vital Signs Temperature 98.3 F 12/29/18 07:40 Pulse Rate 60 12/29/18 07:40 Respiratory Rate 17 12/29/18 07:40 Blood Pressure 193/86 12/29/18 07:40 O2 Sat by Pulse Oximetry 94 L 12/29/18 07:40 Intake & Output: Intake & Output 12/26/18 12/27/18 12/28/18 12/29/18 11:59 11:59 11:59 11:59 Intake Total 1047 Output Total 325 Balance 722 Weight 59.8 kg - Lab Result Diagrams: 12/29/18 02:47 12/29/18 02:47 Lab Results-Last 24 Hrs: Lab Results-Last 24 Hours 12/28/18 12/28/18 12/28/18 Range/Units 14:28 14:28 14:28 WBC 7.0 (4.0-10.5) K/mm3 RBC 3.27 L (4.1-5.6) M/mm3 Hgb 10.7 L (12.5-18.0) gm/dl Hct 32.5 L (42-50) % MCV 99.4 (78-100) fl MCH 32.7 H (26-32) pg MCHC 32.9 (32-36) g/dl RDW 12.4 (11.5-14.0) % Plt Count 267 (150-450) K/mm3 MPV 9.9 H (6-9.5) fl Gran % 70.6 H (36.0-66.0) % Eos # (Auto) 0.16 (0-0.5) Absolute Lymphs (auto) 1.11 (1.0-4.6) Absolute Monos (auto) 0.69 (0.0-1.3) Lymphocytes % 16.0 L (24.0-44.0) % Monocytes % 9.9 (0.0-12.0) % Eosinophils % 2.3 (0.00-5.0) % Basophils % 1.2 (0.0-0.4) % Absolute Granulocytes 4.91 (1.4-6.9) Basophils # 0.08 (0-0.4) Sodium 147 H (137-145) mmol/L Potassium 4.4 (3.5-5.1) mmol/L Chloride 108 H (98-107) mmol/L Carbon Dioxide 29 (22-30) mmol/L Anion Gap 13.3 (5-15) MEQ/L BUN 26 H (9-20) mg/dL Creatinine 1.29 H (0.66-1.25) mg/dL Estimated GFR 57.0 ML/MIN Glucose 137 H (74-106) mg/dL Calcium 10.0 (8.4-10.2) mg/dL Total Bilirubin 0.30 (0.2-1.3) mg/dL AST 22 (17-59) U/L ALT 12 (0-50) U/L Alkaline Phosphatase 72 (38-126) U/L Troponin I < 0.012 (0.000-0.034) ng/mL NT-Pro-B Natriuret Pep 659 (0-1800) pg/mL Serum Total Protein 7.3 (6.3-8.2) g/dL Albumin 4.3 (3.5-5.0) g/dL Urine Color (YELLOW) Urine Appearance (CLEAR) Urine pH (5-6) Ur Specific Lena (1.005-1.025) Urine Protein (Negative) Urine Ketones (NEGATIVE) Urine Blood (0-5) Vernon/ul Urine Nitrite (NEGATIVE) Urine Bilirubin (NEGATIVE) Urine Urobilinogen (0-1) mg/dL Ur Leukocyte Esterase (NEGATIVE) Urine WBC (Auto) (0-5) /HPF Urine RBC (Auto) (0-2) /HPF U Epithel Cells (Auto) (FEW) /HPF Urine Bacteria (Auto) (NEGATIVE) /HPF Urine Mucus (Auto) (NEGATIVE) /HPF Urine Culture Reflexed (NO) Urine Glucose (NEGATIVE) mg/dL 12/28/18 12/28/18 12/28/18 Range/Units 16:01 17:35 20:53 WBC (4.0-10.5) K/mm3 RBC (4.1-5.6) M/mm3 Hgb (12.5-18.0) gm/dl Hct (42-50) % MCV (78-100) fl MCH (26-32) pg MCHC (32-36) g/dl RDW (11.5-14.0) % Plt Count (150-450) K/mm3 MPV (6-9.5) fl Gran % (36.0-66.0) % Eos # (Auto) (0-0.5) Absolute Lymphs (auto) (1.0-4.6) Absolute Monos (auto) (0.0-1.3) Lymphocytes % (24.0-44.0) % Monocytes % (0.0-12.0) % Eosinophils % (0.00-5.0) % Basophils % (0.0-0.4) % Absolute Granulocytes (1.4-6.9) Basophils # (0-0.4) Sodium (137-145) mmol/L Potassium (3.5-5.1) mmol/L Chloride (98-107) mmol/L Carbon Dioxide (22-30) mmol/L Anion Gap (5-15) MEQ/L BUN (9-20) mg/dL Creatinine (0.66-1.25) mg/dL Estimated GFR ML/MIN Glucose (74-106) mg/dL Calcium (8.4-10.2) mg/dL Total Bilirubin (0.2-1.3) mg/dL AST (17-59) U/L ALT (0-50) U/L Alkaline Phosphatase (38-126) U/L Troponin I < 0.012 < 0.012 (0.000-0.034) ng/mL NT-Pro-B Natriuret Pep (0-1800) pg/mL Serum Total Protein (6.3-8.2) g/dL Albumin (3.5-5.0) g/dL Urine Color YELLOW (YELLOW) Urine Appearance CLEAR (CLEAR) Urine pH 7.0 (5-6) Ur Specific Lena 1.017 (1.005-1.025) Urine Protein NEGATIVE (Negative) Urine Ketones NEGATIVE (NEGATIVE) Urine Blood NEGATIVE (0-5) Vernon/ul Urine Nitrite NEGATIVE (NEGATIVE) Urine Bilirubin NEGATIVE (NEGATIVE) Urine Urobilinogen NEGATIVE (0-1) mg/dL Ur Leukocyte Esterase NEGATIVE (NEGATIVE) Urine WBC (Auto) NONE (0-5) /HPF Urine RBC (Auto) NONE (0-2) /HPF U Epithel Cells (Auto) NONE (FEW) /HPF Urine Bacteria (Auto) NONE (NEGATIVE) /HPF Urine Mucus (Auto) SLIGHT (NEGATIVE) /HPF Urine Culture Reflexed NO (NO) Urine Glucose NEGATIVE (NEGATIVE) mg/dL 12/28/18 12/29/18 12/29/18 Range/Units 23:29 02:47 02:47 WBC 7.3 (4.0-10.5) K/mm3 RBC 2.98 L (4.1-5.6) M/mm3 Hgb 10.0 L (12.5-18.0) gm/dl Hct 29.5 L (42-50) % MCV 99.0 (78-100) fl MCH 33.5 H (26-32) pg MCHC 33.9 (32-36) g/dl RDW 12.5 (11.5-14.0) % Plt Count 247 (150-450) K/mm3 MPV 9.5 (6-9.5) fl Gran % 67.3 H (36.0-66.0) % Eos # (Auto) 0.23 (0-0.5) Absolute Lymphs (auto) 1.24 (1.0-4.6) Absolute Monos (auto) 0.87 (0.0-1.3) Lymphocytes % 16.9 L (24.0-44.0) % Monocytes % 11.9 (0.0-12.0) % Eosinophils % 3.1 (0.00-5.0) % Basophils % 0.8 (0.0-0.4) % Absolute Granulocytes 4.93 (1.4-6.9) Basophils # 0.06 (0-0.4) Sodium (137-145) mmol/L Potassium (3.5-5.1) mmol/L Chloride (98-107) mmol/L Carbon Dioxide (22-30) mmol/L Anion Gap (5-15) MEQ/L BUN (9-20) mg/dL Creatinine (0.66-1.25) mg/dL Estimated GFR ML/MIN Glucose (74-106) mg/dL Calcium (8.4-10.2) mg/dL Total Bilirubin (0.2-1.3) mg/dL AST (17-59) U/L ALT (0-50) U/L Alkaline Phosphatase (38-126) U/L Troponin I < 0.012 < 0.012 (0.000-0.034) ng/mL NT-Pro-B Natriuret Pep (0-1800) pg/mL Serum Total Protein (6.3-8.2) g/dL Albumin (3.5-5.0) g/dL Urine Color (YELLOW) Urine Appearance (CLEAR) Urine pH (5-6) Ur Specific Lena (1.005-1.025) Urine Protein (Negative) Urine Ketones (NEGATIVE) Urine Blood (0-5) Vernon/ul Urine Nitrite (NEGATIVE) Urine Bilirubin (NEGATIVE) Urine Urobilinogen (0-1) mg/dL Ur Leukocyte Esterase (NEGATIVE) Urine WBC (Auto) (0-5) /HPF Urine RBC (Auto) (0-2) /HPF U Epithel Cells (Auto) (FEW) /HPF Urine Bacteria (Auto) (NEGATIVE) /HPF Urine Mucus (Auto) (NEGATIVE) /HPF Urine Culture Reflexed (NO) Urine Glucose (NEGATIVE) mg/dL 12/29/18 Range/Units 02:47 WBC (4.0-10.5) K/mm3 RBC (4.1-5.6) M/mm3 Hgb (12.5-18.0) gm/dl Hct (42-50) % MCV (78-100) fl MCH (26-32) pg MCHC (32-36) g/dl RDW (11.5-14.0) % Plt Count (150-450) K/mm3 MPV (6-9.5) fl Gran % (36.0-66.0) % Eos # (Auto) (0-0.5) Absolute Lymphs (auto) (1.0-4.6) Absolute Monos (auto) (0.0-1.3) Lymphocytes % (24.0-44.0) % Monocytes % (0.0-12.0) % Eosinophils % (0.00-5.0) % Basophils % (0.0-0.4) % Absolute Granulocytes (1.4-6.9) Basophils # (0-0.4) Sodium 144 (137-145) mmol/L Potassium 4.0 (3.5-5.1) mmol/L Chloride 112 H (98-107) mmol/L Carbon Dioxide 24 (22-30) mmol/L Anion Gap 12.1 (5-15) MEQ/L BUN 18 (9-20) mg/dL Creatinine 0.94 (0.66-1.25) mg/dL Estimated GFR > 60.0 ML/MIN Glucose 90 (74-106) mg/dL Calcium 9.8 (8.4-10.2) mg/dL Total Bilirubin 0.40 (0.2-1.3) mg/dL AST 21 (17-59) U/L ALT 12 (0-50) U/L Alkaline Phosphatase 65 (38-126) U/L Troponin I (0.000-0.034) ng/mL NT-Pro-B Natriuret Pep (0-1800) pg/mL Serum Total Protein 6.1 L (6.3-8.2) g/dL Albumin 3.6 (3.5-5.0) g/dL Urine Color (YELLOW) Urine Appearance (CLEAR) Urine pH (5-6) Ur Specific Lena (1.005-1.025) Urine Protein (Negative) Urine Ketones (NEGATIVE) Urine Blood (0-5) Vernon/ul Urine Nitrite (NEGATIVE) Urine Bilirubin (NEGATIVE) Urine Urobilinogen (0-1) mg/dL Ur Leukocyte Esterase (NEGATIVE) Urine WBC (Auto) (0-5) /HPF Urine RBC (Auto) (0-2) /HPF U Epithel Cells (Auto) (FEW) /HPF Urine Bacteria (Auto) (NEGATIVE) /HPF Urine Mucus (Auto) (NEGATIVE) /HPF Urine Culture Reflexed (NO) Urine Glucose (NEGATIVE) mg/dL - Radiology Exams Ordered Rad Exams-Entire Visit: Radiology Procedures Category Date Time Status HEAD WITHOUT CONTRAST [CT] Stat Exams 12/28/18 16:50 Completed - Procedures and Test Procedures and Tests throughout Hospitalization: Therapy Orders & Screens 12/28/18 20:42 EKG REPEAT IN AM Comment: - Discharge Disposition: Home, Self-Care Condition: Fair Prescriptions: New Lisinopril 20 mg [Zestril 20 MG] 20 mg PO BID #60 tablet Continue PANTOPRAZOLE 40 mg Tablet [Protonix 40MG Tablet] 40 mg PO QAM Clopidogrel Bisulfate 75 mg [PLAVIX 75 MG Tablet] 75 mg PO DAILY Diltiazem HCl 240 mg [Cardizem CD 240 MG] 240 mg PO DAILY Metformin HCl 500 mg [Glucophage 500 MG] 500 mg PO DAILY Multivitamin [Daily Multivitamin] 1 each PO DAILY Fluvastatin Sodium 40 mg PO BID Isosorbide Mononitrate 30 mg [Imdur 30 MG] 60 mg PO DAILY Timolol/Dorzolamide/Latanop/Pf [Sai 0.5%-Dorz 2%-Latan 0.005%] 5 ml OP DAILY Zolpidem Tartrate 10 mg [Ambien 10 MG] 10 mg PO HS PRN PRN Reason: Insomnia Sennosides/Docusate Sodium [Stool Softener-Laxative Tablet] 1 each PO DAILY PRN PRN PRN Reason: Constipation Tramadol HCl 50 mg [Ultram 50 mg] 100 mg PO TID PRN PRN Reason: Pain And/Or Fever Hydrocodone/Acetaminophen [Hydrocodone-Acetamin 10-300 mg] 1 tab PO Q4HPRN PRN PRN Reason: Pain Aspirin 81 gm Chew [Baby Aspirin 81 mg Chew] 81 mg PO DAILY Guaifenesin [Humibid] 1,200 mg PO DAILY Discontinued Lisinopril 10 mg [Zestril 10 MG] 20 mg PO DAILY Additional Instructions: do not drive a motor vehicle, take medications as prescribed and follow up with Dr Baker in 1 week and for new neurology evaluation as advised Follow up with: ARNOLD BAKER MD [Primary Care Provider] - 1 Week MARCOS NAVARRO [CONSULTING PHYSICIAN] - 1 Week (patient will be a new patient , needs evaluation for dementia and history of CVA. he has seen Dr Keating x 1 but family is requesting a second opinion from [facility] neurology, ok to schedule with first available provider)
[2018-12-29] MEDS ORDERED: FLUZONE HIGH-DOSE 2019-20 SYR IM ONE (10:00)
[2018-12-29] MEDS ORDERED: ZOCOR 20MG PO SCH ×2 (10:00→22:00)
[2018-12-29] MEDS ORDERED: Norco 10/325 MG Tablet PO PRN (10:40)
[2018-12-29] MEDS ORDERED: Ambien 10 MG PO PRN (11:12)
[2018-12-29] MEDS ORDERED: ACETAMINOPHEN PO PRN (11:12)
[2018-12-29] MEDS ORDERED: HYDROCODONE PO PRN (11:12)
[2018-12-29] MEDS ORDERED: Senokot-S Tablet PO PRN (11:12)
[2018-12-29] MEDS ORDERED: ULTRAM 50 MG PO PRN (11:12)
[2018-12-29] MEDS ORDERED: Glucophage 500 MG PO SCH (12:00)
[2018-12-29] MEDS ORDERED: Imdur 60MG PO SCH (12:00)
[2018-12-29] MEDS ORDERED: PLAVIX 75 MG Tablet PO SCH (12:00)
[2018-12-29] MEDS ORDERED: ECOTRIN 81 MG PO SCH (12:00)
[2018-12-29] MEDS ORDERED: Protonix 40MG Tablet PO SCH (12:00)
[2018-12-30] MEDS ORDERED: [UNRECOGNIZED DRUG - OTHER] OP SCH (10:00)
[2018-12-30] MEDS ORDERED: TIMOLOL OP SCH (10:00)
[2018-12-30] MEDS ORDERED: LATANOPROST OP SCH (10:00)
[2018-12-30] MEDS ORDERED: DORZOLAMIDE OP SCH (10:00)
[2018-12-30] MEDS ORDERED: NON-FORMULARY ITEM (Multivitamin [Daily Multivitamin] 1 EACH) PO SCH (10:00)
[2018-12-30] MEDS ORDERED: DILTIAZEM HCL 240 MG PO SCH (10:00)
== END 2018-12-29 10:40 | disposition home or self-care (01) ==
LOC: ED 14:03 → MED SURG 20:38
PROVIDERS: ADMIT Family Medicine; ATTEND Family Medicine
DX: F03.90 Unspecified dementia, unspecified severity, without behavioral disturbance, psychotic disturbance, mood disturbance, and anxiety (principal); I16.0 Hypertensive urgency; R41.0 Disorientation, unspecified; E11.9 Type 2 diabetes mellitus without complications; D64.9 Anemia, unspecified; M54.5 Low back pain; G89.29 Other chronic pain; I25.10 Atherosclerotic heart disease of native coronary artery without angina pectoris; Z95.0 Presence of cardiac pacemaker; Z79.01 Long term (current) use of anticoagulants; Z79.899 Other long term (current) drug therapy
CPT/HCPCS: 36415; 70450; 80053; 81001; 83880; 84484; 85025; 93005; 96374; 96376; 99291; G0378; 36000; 90662; 99285; A9270-GY

== ENCOUNTER 2019-01-14 16:57 | Emergency (ER) | payer MEDICARE ==
[2019-01-14 17:19] LABS: Absolute Neutrophil Ct (ANC) 5.93 (1.4-6.9); BASOPHIL % 0.6 % (0.0-0.4); Basophil (Absolute #) 0.05 (0-0.4); Eosinophil % 2.1 % (0.00-5.0); Eosinophil (Absolute #) 0.18 (0-0.5); Hematocrit 31.9 % (42-50); Hemoglobin 10.5 gm/dl (12.5-18.0); Lymphocyte (Absolute #) 1.58 (1.0-4.6); Lymphocytes % 18.4 % (24.0-44.0); Mean Cell Volume 100.3 fl (78-100); Mean Corpuscular Hgb Concent. 32.9 g/dl (32-36); Monocyte (Absolute #) 0.83 (0.0-1.3); Monocytes % 9.7 % (0.0-12.0); Neutrophil % 69.2 % (36.0-66.0); Platelet Count 315 K/mm3 (150-450); Red Blood Count 3.18 M/mm3 (4.1-5.6); White Blood Count 8.6 K/mm3 (4.0-10.5)
[2019-01-14 17:22] LABS: INR 1.05 (0.8-3.0); PROTIME 11.9 SECONDS (8.83-12.87)
[2019-01-14 17:24] LABS: PTT 30.9 SECONDS (24.1-36.1)
[2019-01-14 17:25] LABS: VBG BASE EXCESS -0.6 (-2.0-2.0); VBG CARBOXYHEMOGLOBIN 3.2 % T HGB (0.0-6.9); VBG HCO3- 27.1 meq/L (22-28); VBG HEMOGLOBIN 10.8; VBG O2 SATURATION 40.8 (95-100); VBG POTASSIUM 4.3 (3.5-5.1); VBG pH 7.27 (7.32-7.42)
[2019-01-14 17:26] LABS: ALBUMIN 4.5 g/dL (3.5-5.0); ANION GAP 15.3 MEQ/L (5-15); BILIRUBIN,TOTAL 0.4 mg/dL (0.2-1.3); Calcium 10.2 mg/dL (8.4-10.2); Creatinine 1 1.67 mg/dL (0.66-1.25); Direct Bilirubin 0.4 mg/dL (0.0-0.4); Potassium 4.7 mmol/L (3.5-5.1); Total Protein 7.6 g/dL (6.3-8.2)
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
[2019-01-14 18:57] LABS: Appearance SLIGHTLY CLOUDY (CLEAR); Bacteria FEW /HPF (NEGATIVE); Bilirubin NEGATIVE (NEGATIVE); Blood NEGATIVE Ery/ul (0-5); Glucose NEGATIVE (NEGATIVE); Hyaline Casts >50 /LPF (0-2); Ketones TRACE (NEGATIVE); Leukocyte Esterase NEGATIVE (NEGATIVE); Mucus SLIGHT /HPF (NEGATIVE); Nitrite NEGATIVE (NEGATIVE); Protein,Urine Dip NEGATIVE (Negative); Urobilinogen NEGATIVE mg/dL (0-1)
[2019-01-14] MEDS ORDERED: ROCEPHIN 1 Gm-D5w 50 ml Bag** 1 G/50 ML IVPB IV ONE (19:15)
[2019-01-14] MEDS: ROCEPHIN 1 Gm-D5w 50 ml Bag** 1 G/50 ML IVPB IV STA (19:19)
[2019-01-14 21:15] VITALS: O2SAT 96
[2019-01-14 21:27] VITALS: BP 165/79; PULSE 74
--- NOTE | 2019-01-14 22:46 | XRAY ---
Indication: Possible stroke. Comparison: October 22, 2018. Portable chest remains clear again with left base calcified granuloma. Heart is not enlarged again with left sided pacemaker. Bony thorax intact. No new/acute findings. Impression: Stable nonacute chest with chronic features.
--- NOTE | 2019-01-14 22:46 | XRAY ---
Indication: Aphasia and weakness. Possible stroke. Multiple contiguous axial images obtained through the head without contrast. Comparison: December 28, 2018. Stable age-appropriate global atrophy, mild periventricular degenerative micro-ischemia bilaterally, and remote appearing right basal ganglia/left caudate head lacunar infarcts. No acute intracranial hemorrhage, abnormal extra-axial fluid collection, or mass effect. Fourth ventricle is midline without hydrocephalus. Bony calvarium remains intact. Visualized paranasal sinuses and mastoid air cells are clear. Impression: Stable nonacute senile brain including remote lacunar infarcts. Comment: Preliminary interpretation was made by [facility]. No critical discrepancy. CTDI 61.64
== END 2019-01-14 21:18 | disposition home or self-care (01) ==
LOC: ED 16:57
DX: R41.0 Disorientation, unspecified (principal); I25.10 Atherosclerotic heart disease of native coronary artery without angina pectoris; I10 Essential (primary) hypertension; I25.2 Old myocardial infarction; E11.9 Type 2 diabetes mellitus without complications; R41.82 Altered mental status, unspecified; K21.9 Gastro-esophageal reflux disease without esophagitis; Z79.4 Long term (current) use of insulin; Z95.0 Presence of cardiac pacemaker
CPT/HCPCS: 36000; 36415; 70450; 71045; 80048; 80076; 81001; 82805; 82962; 83605; 84484; 85025; 85610; 85730; 87086; 93005; 93041; 96365; 99284; Q3014; 96374; J0696

== ENCOUNTER 2019-02-26 15:50 | Emergency (ER) | payer MEDICARE ==
[2019-02-26] MEDS ORDERED: Zofran 4 MG/2 ML VIAL IV ONE (16:13)
[2019-02-26] MEDS ORDERED: TORAdol 30 mg Injection IV ONE (16:13)
[2019-02-26] MEDS ORDERED: Zofran 4 MG/2 ML VIAL ONE (16:24)
[2019-02-26] MEDS ORDERED: Sodium Chloride 0.9% 1000 ML 1,000 ML ONE (16:24)
[2019-02-26] MEDS ORDERED: TORAdol 30 mg Injection ONE (16:24)
--- NOTE | 2019-02-26 16:24 | ERPHSYRPT ---
- History of Present Illness Time Seen by Provider: 02/26/19 16:05 Historian: patient Exam Limitations: no limitations Patient Subjective Stated Complaint: Pt states "I am having trouble urinating and when I do pee, it lazo like crazy" Triage Nursing Assessment: Pt presentd alert and oriented X 3, skin pwd Pt ambulates with an uprigth steady gait, able to speak in clear full sentences. PT in no apparent respiratory distress. Physician History: Patient states he having UTI like symptoms for several days. Patient states he' s having dysuria, discomfort, and frequency over several days. He has no falls or trauma. Patient has a h/o prostate cancer, penile implant, and testicle removal. He also has DM. Patient denies any falls or traumas. Location: lower abdomen, genital area radiation: none type: sharp, dysuria, discomfort duration: several days frequency: constant modifying symptoms: none tried Allergies/Adverse Reactions: doxazosin mesylate [From Cardura] Allergy (Verified 12/28/18 14:08) Itching iodine Allergy (Verified 12/28/18 14:08) Hives prednisone Allergy (Verified 12/28/18 14:08) states "homicidal" [id number] Reductase Inhibitor Allergy (Verified 12/28/18 14:08) Joint Aches duloxetine Adverse Reaction (Verified 12/28/18 14:08) milk Adverse Reaction (Verified 12/28/18 14:08) bananas Allergy (Uncoded 12/28/18 14:08) iv contrast Allergy (Uncoded 12/28/18 14:08) Hives Home Medications: Diltiazem HCl 240 mg [Cardizem CD 240 MG] 240 mg PO DAILY 01/02/16 [ History] Metformin HCl 500 mg [Glucophage 500 MG] 500 mg PO DAILY 01/02/16 [History ] PANTOPRAZOLE 40 mg Tablet [Protonix 40MG Tablet] 40 mg PO QAM 01/02/16 [ History] Multivitamin [Daily Multivitamin] 1 each PO DAILY 02/09/16 [History] Fluvastatin Sodium 40 mg PO BID 10/16/18 [History] Isosorbide Mononitrate 30 mg [Imdur 30 MG] 60 mg PO DAILY 10/16/18 [History ] Sennosides/Docusate Sodium [Stool Softener-Laxative Tablet] 1 each PO DAILY PRN PRN 10/16/18 [History] Timolol/Dorzolamide/Latanop/Pf [Sai 0.5%-Dorz 2%-Latan 0.005%] 5 ml OP DAILY [History] Zolpidem Tartrate 10 mg [Ambien 10 MG] 10 mg PO HS PRN 10/16/18 [History] Guaifenesin [Humibid] 1,200 mg PO DAILY 12/28/18 [History] Hx Tetanus, Diphtheria Vaccination/Date Given: No Hx Influenza Vaccination/Date Given: Yes Hx Pneumococcal Vaccination/Date Given: No Immunizations Up to Date: Yes - Review of Systems Constitutional: No Fever, No Chills Eyes: No Symptoms Ears, Nose, & Throat: No Symptoms Respiratory: No Cough, No Dyspnea Cardiac: No Chest Pain, No Edema, No Syncope Abdominal/Gastrointestinal: No Abdominal Pain, No Nausea, No Vomiting, No Diarrhea Genitourinary Symptoms: Dysuria, Frequency, Other (reddeness and inflmmation around penis and testicles ) Musculoskeletal: No Back Pain, No Neck Pain Skin: No Rash Neurological: No Dizziness, No Focal Weakness, No Sensory Changes Psychological: No Symptoms Endocrine: No Symptoms All Other Systems: Reviewed and Negative - Past Medical History Pertinent Past Medical History: Yes Neurological History: TIA ENT History: No Pertinent History Cardiac History: Coronary Artery Disease, Hypertension, Myocardial Infarction ( [place]), Other Respiratory History: No Pertinent History Endocrine Medical History: Diabetes Type II Musculoskeletal History: Degenerative Disk Disease GI Medical History: GERD History: Other Psycho-Social History: No Pertinent History Male Reproductive Disorders: Prostate Cancer Other Medical History: heart stent in 2007, Pt has a pacemaker, past [place] - Past Surgical History Past Surgical History: Yes Neuro Surgical History: No Pertinent History Cardiac: Angioplasty, Cardiac Stent, Pacemaker Respiratory: Other Gastrointestinal: No Pertinent History Genitourinary: No Pertinent History Musculoskeletal: No Pertinent History Male Surgical History: Prostate Surgery, Vasectomy, Other Other Surgical History: states left lung collapsed, penile implant, back pain stimulator AND REMOVAL 2018 - Social History Smoking Status: Former smoker Exposure to second hand smoke: Yes Alcohol Use: None Drug Use: none Patient Lives Alone: No Significant Family History: no pertinent family hx - Nursing Vital Signs Nursing Vital Signs: Initial Vital Signs Temperature 97.7 F 02/26/19 15:56 Pulse Rate 60 02/26/19 15:56 Respiratory Rate 16 02/26/19 15:56 Blood Pressure 225/85 02/26/19 15:56 O2 Sat by Pulse Oximetry 100 02/26/19 15:56 Pain Scale Pain Intensity 4 - Physical Exam General Appearance: no apparent distress, alert Eye Exam: PERRL/EOMI, eyes nml inspection Ears, Nose, Throat Exam: normal ENT inspection, pharynx normal, moist mucous membranes Neck Exam: normal inspection, non-tender, supple, full range of motion Respiratory Exam: normal breath sounds, lungs clear, No respiratory distress Cardiovascular Exam: regular rate/rhythm, normal heart sounds Gastrointestinal/Abdomen Exam: soft, No tenderness, No mass Male Genitalia Exam: other (Penis shows some reddness around lower shaft, testicles also have some reddness without swelling or definite abscess. ) Back Exam: normal inspection, normal range of motion, No CVA tenderness, No vertebral tenderness Extremity Exam: normal inspection, normal range of motion, pelvis stable Neurologic Exam: alert, oriented x 3, cooperative, normal mood/affect, nml cerebellar function, sensation nml, No motor deficits Skin Exam: normal color, warm, dry SpO2: 100 - Course Nursing assessment & vital signs reviewed: Yes Ordered Tests: Active Orders 24 hr Category Date Time Status IV Insertion STAT Care 02/26/19 16:13 Active ABDOMEN AND PELVIS W/0 CONTRAS [CT] Stat Exams 02/26/19 16:13 Taken CBC W DIFF Stat Lab 02/26/19 16:20 Completed CMP Stat Lab 02/26/19 16:20 Completed LIPASE Stat Lab 02/26/19 16:20 Completed Lactic Acid Stat Lab 02/26/19 16:13 Completed UA W/RFX UR CULTURE Stat Lab 02/26/19 16:58 Completed Medication Summary Discontinued Medications Generic Name Dose Route Start Last Admin Trade Name Freq PRN Reason Stop Dose Admin Sodium Chloride 500 mls @ 999 mls/hr 02/26/19 16:13 02/26/19 17:16 Sodium Chloride 0.9% 1000 Ml IV 02/26/19 16:43 Infused .Q31M STA Infusion Sodium Chloride Confirm 02/26/19 16:24 Sodium Chloride 0.9% 1000 Ml Administered 02/26/19 16:25 Dose 1,000 mls @ ud .ROUTE .STK-MED ONE Ketorolac Tromethamine 30 mg 02/26/19 16:13 02/26/19 16:27 Toradol 30 Mg Injection IV 02/26/19 16:14 30 mg STAT ONE Administration Ketorolac Tromethamine Confirm 02/26/19 16:24 Toradol 30 Mg Injection Administered 02/26/19 16:25 Dose 30 mg .ROUTE .STK-MED ONE Ondansetron HCl 4 mg 02/26/19 16:13 02/26/19 16:27 Zofran 4 Mg/2 Ml Vial IV 02/26/19 16:14 4 mg STAT ONE Administration Ondansetron HCl Confirm 02/26/19 16:24 Zofran 4 Mg/2 Ml Vial Administered 02/26/19 16:25 Dose 4 mg .ROUTE .STK-MED ONE Lab/Rad Data: Laboratory Result Diagrams 02/26/19 16:20 02/26/19 16:20 Laboratory Results 02/26/19 02/26/19 02/26/19 Range/Units 16:58 16:20 16:20 WBC 12.3 H (4.0-10.5) K/mm3 RBC 3.15 L (4.1-5.6) M/mm3 Hgb 10.5 L (12.5-18.0) gm/dl Hct 31.6 L (42-50) % MCV 100.3 H (78-100) fl MCH 33.3 H (26-32) pg MCHC 33.2 (32-36) g/dl RDW 13.5 (11.5-14.0) % Plt Count 302 (150-450) K/mm3 MPV 10.3 H (6-9.5) fl Gran % 75.9 H (36.0-66.0) % Eos # (Auto) 0.18 (0-0.5) Absolute Lymphs (auto) 1.73 (1.0-4.6) Absolute Monos (auto) 0.99 (0.0-1.3) Lymphocytes % 14.0 L (24.0-44.0) % Monocytes % 8.0 (0.0-12.0) % Eosinophils % 1.5 (0.00-5.0) % Basophils % 0.6 (0.0-0.4) % Absolute Granulocytes 9.37 H (1.4-6.9) Basophils # 0.07 (0-0.4) Sodium 143 (137-145) mmol/L Potassium 3.6 (3.5-5.1) mmol/L Chloride 108 H (98-107) mmol/L Carbon Dioxide 26 (22-30) mmol/L Anion Gap 12.0 (5-15) MEQ/L BUN 24 H (9-20) mg/dL Creatinine 1.10 (0.66-1.25) mg/dL Estimated GFR > 60.0 ML/MIN Glucose 107 H (74-106) mg/dL Lactic Acid (0.4-2.0) Calcium 10.2 (8.4-10.2) mg/dL Total Bilirubin 0.30 (0.2-1.3) mg/dL AST 21 (17-59) U/L ALT 10 (0-50) U/L Alkaline Phosphatase 106 (38-126) U/L Serum Total Protein 8.0 (6.3-8.2) g/dL Albumin 4.5 (3.5-5.0) g/dL Lipase 257 (23-300) U/L Urine Color YELLOW (YELLOW) Urine Appearance CLEAR (CLEAR) Urine pH 5.0 (5-6) Ur Specific [place] 1.013 (1.005-1.025) Urine Protein NEGATIVE (Negative) Urine Ketones NEGATIVE (NEGATIVE) Urine Blood SMALL (0-5) [place]/ul Urine Nitrite NEGATIVE (NEGATIVE) Urine Bilirubin NEGATIVE (NEGATIVE) Urine Urobilinogen NEGATIVE (0-1) mg/dL Ur Leukocyte Esterase NEGATIVE (NEGATIVE) Urine WBC (Auto) NONE (0-5) /HPF Urine RBC (Auto) 0-2 (0-2) /HPF U Epithel Cells (Auto) NONE (FEW) /HPF Urine Bacteria (Auto) NONE (NEGATIVE) /HPF Urine Mucus (Auto) SLIGHT (NEGATIVE) /HPF Urine Culture Reflexed NO (NO) Urine Glucose NEGATIVE (NEGATIVE) mg/dL 02/26/19 Range/Units 16:13 WBC (4.0-10.5) K/mm3 RBC (4.1-5.6) M/mm3 Hgb (12.5-18.0) gm/dl Hct (42-50) % MCV (78-100) fl MCH (26-32) pg MCHC (32-36) g/dl RDW (11.5-14.0) % Plt Count (150-450) K/mm3 MPV (6-9.5) fl Gran % (36.0-66.0) % Eos # (Auto) (0-0.5) Absolute Lymphs (auto) (1.0-4.6) Absolute Monos (auto) (0.0-1.3) Lymphocytes % (24.0-44.0) % Monocytes % (0.0-12.0) % Eosinophils % (0.00-5.0) % Basophils % (0.0-0.4) % Absolute Granulocytes (1.4-6.9) Basophils # (0-0.4) Sodium (137-145) mmol/L Potassium (3.5-5.1) mmol/L Chloride (98-107) mmol/L Carbon Dioxide (22-30) mmol/L Anion Gap (5-15) MEQ/L BUN (9-20) mg/dL Creatinine (0.66-1.25) mg/dL Estimated GFR ML/MIN Glucose (74-106) mg/dL Lactic Acid 1.3 (0.4-2.0) Calcium (8.4-10.2) mg/dL Total Bilirubin (0.2-1.3) mg/dL AST (17-59) U/L ALT (0-50) U/L Alkaline Phosphatase (38-126) U/L Serum Total Protein (6.3-8.2) g/dL Albumin (3.5-5.0) g/dL Lipase (23-300) U/L Urine Color (YELLOW) Urine Appearance (CLEAR) Urine pH (5-6) Ur Specific [place] (1.005-1.025) Urine Protein (Negative) Urine Ketones (NEGATIVE) Urine Blood (0-5) [place]/ul Urine Nitrite (NEGATIVE) Urine Bilirubin (NEGATIVE) Urine Urobilinogen (0-1) mg/dL Ur Leukocyte Esterase (NEGATIVE) Urine WBC (Auto) (0-5) /HPF Urine RBC (Auto) (0-2) /HPF U Epithel Cells (Auto) (FEW) /HPF Urine Bacteria (Auto) (NEGATIVE) /HPF Urine Mucus (Auto) (NEGATIVE) /HPF Urine Culture Reflexed (NO) Urine Glucose (NEGATIVE) mg/dL - Progress Progress Note: 02/26/19 16:25 differential diagnosis includes kidney stone, compression fracture, infection, UTI, triple AAA - basic labs including: CBC, lipase, CMP, UA - insert IV for fluids, pain meds, nausea control - consider imaging: CT ab/pelvis Patient feels improved with medication. 02/26/19 19:25 Work up largely unremarkable. The patient's rash on his penis appears to be balanitis/yeast infection. I do not believe patient has Fourier's gangrene or cellulitis on exam. We will treat with diflucan for yeast infection at this point in time. But, they will need to keep a close eye on it for secondary infection. He will need a reexam with his PCP in 24-48 hours. He should return here immediately should anything change. I discussed this with the patient's adult daughter. She states her understanding. Counseled pt/family regarding: lab results, diagnosis, need for follow-up - Departure Departure Disposition: Home Clinical Impression: Yeast infection of the skin Condition: Good Critical Care Time: No Referrals: ARNOLD OLIVAS MD [Primary Care Provider] - Instructions: Urinary Tract Infection, Adult (DC) Additional Instructions: Reexam in 24-48 hours with PCP. return here immediately for new or different changes. Prescriptions: Fluconazole 100 mg [Diflucan 100 MG] 100 mg PO DAILY 3 Days #3 tablet
[2019-02-26 16:27] LABS: Absolute Neutrophil Ct (ANC) 9.37 (1.4-6.9); BASOPHIL % 0.6 % (0.0-0.4); Basophil (Absolute #) 0.07 (0-0.4); Eosinophil % 1.5 % (0.00-5.0); Eosinophil (Absolute #) 0.18 (0-0.5); Hematocrit 31.6 % (42-50); Hemoglobin 10.5 gm/dl (12.5-18.0); Lymphocyte (Absolute #) 1.73 (1.0-4.6); Mean Cell Volume 100.3 fl (78-100); Mean Corpuscular Hemoglobin 33.3 pg (26-32); Mean Corpuscular Hgb Concent. 33.2 g/dl (32-36); Mean Platelet Volume 10.3 fl (6-9.5); Monocyte (Absolute #) 0.99 (0.0-1.3); Neutrophil % 75.9 % (36.0-66.0); Platelet Count 302 K/mm3 (150-450); Red Blood Count 3.15 M/mm3 (4.1-5.6); Red Cell Distribution Width 13.5 % (11.5-14.0); White Blood Count 12.3 K/mm3 (4.0-10.5)
[2019-02-26 16:37] LABS: ALBUMIN 4.5 g/dL (3.5-5.0); ALKALINE PHOSPHATASE 106 U/L (38-126); BLOOD UREA NITROGEN 24 mg/dL (9-20); CHLORIDE 108 mmol/L (98-107); Calcium 10.2 mg/dL (8.4-10.2); Carbon Dioxide 26 mmol/L (22-30); Glucose 107 mg/dL (74-106); LIPASE 257 U/L (23-300); Potassium 3.6 mmol/L (3.5-5.1); SGOT/AST 21 U/L (17-59); SGPT/ALT 10 U/L (0-50); SODIUM 143 mmol/L (137-145)
[2019-02-26 17:02] LABS: Appearance CLEAR (CLEAR); Bilirubin NEGATIVE (NEGATIVE); Blood SMALL Ery/ul (0-5); Glucose NEGATIVE (NEGATIVE); Ketones NEGATIVE (NEGATIVE); Leukocyte Esterase NEGATIVE (NEGATIVE); Mucus SLIGHT /HPF (NEGATIVE); Nitrite NEGATIVE (NEGATIVE); Protein,Urine Dip NEGATIVE (Negative); RBC 0-2 /HPF (0-2); Specific Gravity 1.013 (1.005-1.025); Urobilinogen NEGATIVE mg/dL (0-1)
[2019-02-26 17:44] VITALS: BP 174/64; PULSE 80
[2019-02-26 18:29] VITALS: O2SAT 100
--- NOTE | 2019-02-26 20:51 | XRAY ---
Indication: Lower abdominal/testicular pain. Multiple contiguous axial images obtained through the abdomen and pelvis without contrast as ordered. Comparison: November 07, 2018. Lung bases demonstrate minimal bilateral dependent atelectasis. No infiltrate or effusion. Heart is not enlarged. New left mid abdomen pain pump produces beam artifact. Noncontrasted stomach and bowel loops appear nonobstructed. Stable minimal sigmoid diverticulosis, prostatectomy, and penile implant with reservoir. No free fluid/air. Remaining liver, gallbladder, pancreas, spleen, adrenal glands, kidneys, ureters, and bladder appear unremarkable for noncontrast exam. Stable scattered aortoiliac calcifications without AAA. Osseous structures intact again with degenerative changes throughout the spine and mild levoscoliosis. New subacute to chronic appearing T12 superior endplate fracture with less than 25% height loss. Impression: 1. Stable sigmoid diverticulosis, chronic bony findings, and postsurgical changes. 2. New subacute to chronic-appearing T12 superior endplate fracture. Comment: Preliminary interpretation was made by [facility]. No critical discrepancy. CTDI 3.95
== END 2019-02-26 18:50 | disposition home or self-care (01) ==
LOC: ED 15:50
DX: B37.2 Candidiasis of skin and nail (principal)
CPT/HCPCS: 36000; 36415; 74176; 80053; 81001; 83605; 83690; 85025; 96374; 96375; 99284; J1885; J2405

== ENCOUNTER 2020-02-09 20:41 | Emergency (ER) | payer MEDICARE ==
--- NOTE | 2020-02-09 20:47 | ERPHSYRPT ---
- History of Present Illness Time Seen by Provider: 02/09/20 20:43 Source: patient, family, EMS Exam Limitations: clinical condition Physician History: This is an 79-year-old white male with dementia and hypertension who was brought in by EMS service from home because of urinary retention. The patient lives alone during the day but his children alternate nights to stay with him at night. Patient has a penile implant. Patient had a Martinez catheter in place but the family removed the catheter because he felt that the Martinez catheter was causing muscle spasms/bladder spasms. In the last 6 hours or so the patient has not urinated and needs the Martinez catheter replaced. Patient has a urologist in [facility]. Patient has taken and completed Bactrim recently and started on Cipro 2 days ago. Timing/Duration: today Activites at Onset: none Quality: pressure (Pubic), tightness Onset Location: suprapubic Pain Radiation: none Severity of Pain-Max: moderate Severity of Pain-Current: moderate Prior abdominal problems: none Allergies/Adverse Reactions: doxazosin mesylate [From Cardura] Allergy (Verified 02/09/20 21:20) Itching iodine Allergy (Verified 02/09/20 21:20) Hives prednisone Allergy (Verified 02/09/20 21:20) states "homicidal" Sfnnjhc-Msj-Zho Reductase Inhibitor Allergy (Verified 02/09/20 21:20) Joint Aches duloxetine Adverse Reaction (Verified 02/09/20 21:20) milk Adverse Reaction (Verified 02/09/20 21:20) bananas Allergy (Uncoded 02/09/20 21:20) iv contrast Allergy (Uncoded 12/28/18 14:08) Hives Home Medications: Diltiazem HCl 240 mg [Cardizem CD 240 MG] 240 mg PO DAILY 01/02/16 [History] Metformin HCl 500 mg [Glucophage 500 MG] 500 mg PO DAILY 01/02/16 [History] Isosorbide Mononitrate 30 mg [Imdur 30 MG] 30 mg PO DAILY 10/16/18 [History] Sennosides/Docusate Sodium [Stool Softener-Laxative Tablet] 1 each PO DAILY PRN PRN 10/16/18 [History] Timolol/Dorzolamide/Latanop/Pf [Sai 0.5%-Dorz 2%-Latan 0.005%] 5 ml OP DAILY 10/16/18 [History] Guaifenesin [Humibid] 1,200 mg PO DAILY PRN PRN 12/28/18 [History] Aspirin 81 gm Chew [Baby Aspirin 81 mg Chew] 81 mg PO DAILY 02/09/20 [History] Ciprofloxacin [Cipro 500 MG] 500 mg PO BID 02/09/20 [History] Omeprazole 40 mg PO DAILY 02/09/20 [History] Trazodone HCl 100 mg PO HS PRN PRN 02/09/20 [History] Hx Tetanus, Diphtheria Vaccination/Date Given: No Hx Influenza Vaccination/Date Given: Yes Hx Pneumococcal Vaccination/Date Given: No Travel Risk - International Travel Have you traveled outside of the country in past 3 weeks: No - Coronavirus Screening Are you exhibiting any of the following symptoms?: No Close contact with a COVID-19 positive Pt in past 14-21 Days: No - Past Medical History Pertinent Past Medical History: Yes Neurological History: TIA ENT History: No Pertinent History Cardiac History: Coronary Artery Disease, Hypertension, Myocardial Infarction ([place]), Other Respiratory History: No Pertinent History Endocrine Medical History: Diabetes Type II Musculoskeletal History: Degenerative Disk Disease GI Medical History: GERD History: Other Psycho-Social History: No Pertinent History Male Reproductive Disorders: Prostate Cancer Other Medical History: heart stent in 2007, Pt has a pacemaker, past [place] - Past Surgical History Past Surgical History: Yes Neuro Surgical History: No Pertinent History Cardiac: Angioplasty, Cardiac Stent, Pacemaker Respiratory: Other Gastrointestinal: No Pertinent History Genitourinary: No Pertinent History Musculoskeletal: No Pertinent History Male Surgical History: Prostate Surgery, Vasectomy, Other Other Surgical History: states left lung collapsed, penile implant, back pain stimulator AND REMOVAL 2018 - Social History Smoking Status: Former smoker Exposure to second hand smoke: Yes Alcohol Use: None Drug Use: none Patient Lives Alone: No Significant Family History: no pertinent family hx - Review of Systems Constitutional: No Symptoms Eyes: No Symptoms Ears, Nose, & Throat: No Symptoms Respiratory: No Symptoms Cardiac: No Symptoms Abdominal/Gastrointestinal: Abdominal Pain (Pubic pressure) Genitourinary Symptoms: Urinary Retention Musculoskeletal: No Symptoms Skin: No Symptoms Psychological: No Symptoms Endocrine: No Symptoms Hematologic/Lymphatic: No Symptoms Immunological/Allergic: No Symptoms All Other Systems: Reviewed and Negative - Nursing Vital Signs Nursing Vital Signs: Initial Vital Signs Temperature 98.5 F 02/09/20 20:43 Pulse Rate 95 H 02/09/20 20:43 Respiratory Rate 18 02/09/20 20:43 Blood Pressure 150/83 02/09/20 20:43 O2 Sat by Pulse Oximetry 94 L 02/09/20 20:43 Pain Scale Pain Intensity 10 - Physical Exam General Appearance: mild distress, alert, anxiety Eye Exam: PERRL/EOMI, eyes nml inspection Ears, Nose, Throat Exam: normal ENT inspection, moist mucous membranes Neck Exam: normal inspection, non-tender, supple, full range of motion Respiratory Exam: normal breath sounds, lungs clear, airway intact, No chest tenderness, No respiratory distress Cardiovascular Exam: regular rate/rhythm, normal heart sounds, normal peripheral pulses Gastrointestinal/Abdomen Exam: soft, normal bowel sounds, tenderness (Mild suprapubic), distention (Mild suprapubic), No guarding Rectal Exam: not done Back Exam: normal inspection, normal range of motion, No CVA tenderness, No vertebral tenderness Extremity Exam: normal inspection, normal range of motion, pelvis stable Neurologic Exam: alert, oriented x 3, cooperative, executive casino host II-XII nml as tested, normal mood/affect Skin Exam: normal color, warm, dry Lymphatic Exam: No adenopathy SpO2 Interpretation: normal O2 Delivery: Room Air - Course Nursing assessment & vital signs reviewed: Yes Ordered Tests: Active Orders 24 hr Category Date Time Status Bladder Irrigation STAT Care 02/09/20 22:13 Active Martinez [Catheter-Pavillion Martinez] STAT Care 02/09/20 20:47 Active BMP Stat Lab 02/09/20 21:20 Completed CBC W DIFF Stat Lab 02/09/20 21:20 Completed Manual Differential NC Stat Lab 02/09/20 21:20 Completed Medication Summary Discontinued Medications Generic Name Dose Route Start Last Admin Trade Name Freq PRN Reason Stop Dose Admin Sodium Chloride 500 mls @ 500 mls/hr 02/09/20 21:17 02/09/20 22:50 Sodium Chloride 0.9% 500 Ml IV 02/09/20 22:16 Infused .Q1H ONE Infusion Ceftriaxone Sodium/Dextrose 1 g in 50 mls @ 100 mls/hr 02/09/20 21:29 02/09/20 22:49 Rocephin 1 Gm-D5w 50 Ml Bag IV 02/09/20 21:58 Infused STAT STA Infusion Ceftriaxone Sodium/Dextrose Confirm 02/09/20 21:43 Rocephin 1 Gm-D5w 50 Ml Bag Administered 02/09/20 21:44 Dose 1 g in 50 mls @ ud IV .STK-MED ONE Sodium Chloride Confirm 02/09/20 21:43 Sodium Chloride 0.9% 500 Ml Administered 02/09/20 21:44 Dose 500 mls @ ud IV .STK-MED ONE Morphine Sulfate 2 mg 02/09/20 21:33 02/09/20 21:49 Morphine Sulfate 2 Mg Inj IV 02/09/20 21:34 2 mg STAT ONE Administration Morphine Sulfate Confirm 02/09/20 21:43 Morphine Sulfate 2 Mg Inj Administered 02/09/20 21:44 Dose 2 mg .ROUTE .STK-MED ONE Ondansetron HCl 4 mg 02/09/20 21:33 02/09/20 21:49 Zofran 4 Mg/2 Ml Vial IV 02/09/20 21:34 4 mg STAT ONE Administration Ondansetron HCl Confirm 02/09/20 21:43 Zofran 4 Mg/2 Ml Vial Administered 02/09/20 21:44 Dose 4 mg .ROUTE .STK-MED ONE Lab/Rad Data: Laboratory Result Diagrams 02/09/20 21:20 02/09/20 21:20 Laboratory Results 02/09/20 02/09/20 Range/Units 21:20 21:20 WBC 14.1 H (4.0-10.5) K/mm3 RBC 1.90 L (4.1-5.6) M/mm3 Hgb 6.3 L* (12.5-18.0) gm/dl Hct 20.4 L (42-50) % MCV 107.4 H (78-100) fl MCH 33.2 H (26-32) pg MCHC 30.9 L (32-36) g/dl RDW 14.0 (11.5-14.0) % Plt Count 444 (150-450) K/mm3 MPV 8.4 (7.5-11.0) fl Sodium 131 L (137-145) mmol/L Potassium 4.8 (3.5-5.1) mmol/L Chloride 98 (98-107) mmol/L Carbon Dioxide 22 (22-30) mmol/L Anion Gap 15.9 H (5-15) MEQ/L BUN 31 H (9-20) mg/dL Creatinine 1.66 H (0.66-1.25) mg/dL Estimated GFR 42.5 ML/MIN Glucose 123 H (74-106) mg/dL Calcium 9.5 (8.4-10.2) mg/dL - Progress Progress: improved, re-examined Progress Note: 02/09/20 22:24 Medical decision making: I spoke with Dr. Berry who is covering for the patient's primary care doctor, Dr. Baker. Dr. Berry recommends that we transfer the patient to [facility] in [facility]. Patient's urologist is at that facility. Dr. White is the patient's urologist. I agree with Dr. Berry in that the patient would be best served where his urologist can perform an intervention if necessary. We will start packed red blood cell transfusions here in the emergency department. Since hemoglobin on 01/30/2020 was 11.6 02/09/20 22:33 02/09/20 22:53 I discussed the patient condition, history, laboratory results, and physical findings with Dr. Yeny Moore. He is the hospitalist on-call for [facility] in [facility]. He accepts the patient in transfer. He wanted to make sure that the patient and family were aware that he might not see a urologist until 02/13/2020. We discussed these issues with the patient's daughter Karli who is a nurse. She is now aware and she feels this is an acceptable plan for the patient. We will begin transfusion of packed red blood cells in transfer port the patient to [facility]. Discussed with : Liliya Counseled pt/family regarding: lab results, diagnosis - Departure Departure Disposition: Transfer Clinical Impression: Anemia, Hematuria, Urinary retention Condition: Fair Critical Care Time: Yes Critical Care Time(excluding separately billable procedures): Critical 30-74 mins Referrals: ARNOLD BAKER MD [Primary Care Provider] -
[2020-02-09] MEDS ORDERED: Sodium Chloride 0.9% 500 ML 500 ML IV ONE ×3 (21:17→23:46)
[2020-02-09 21:28] LABS: Hematocrit 20.4 % (42-50); Mean Cell Volume 107.4 fl (78-100); Mean Corpuscular Hemoglobin 33.2 pg (26-32); Mean Corpuscular Hgb Concent. 30.9 g/dl (32-36); Mean Platelet Volume 8.4 fl (7.5-11.0); Platelet Count 444 K/mm3 (150-450); White Blood Count 14.1 K/mm3 (4.0-10.5)
[2020-02-09] MEDS ORDERED: ROCEPHIN 1 Gm-D5w 50 ml Bag** 1 G/50 ML IVPB IV STA (21:29)
[2020-02-09] MEDS ORDERED: Zofran 4 MG/2 ML VIAL IV ONE (21:33)
[2020-02-09] MEDS ORDERED: MORPHINE SULFATE 2 MG INJ IV ONE (21:33)
[2020-02-09 21:40] LABS: Hemoglobin 6.3 gm/dl (12.5-18.0)
[2020-02-09 21:42] LABS: ANION GAP 15.9 MEQ/L (5-15); Calcium 9.5 mg/dL (8.4-10.2); Creatinine 1 1.66 mg/dL (0.66-1.25); EST GLOMERULAR FILTRATION RATE 42.5 ML/MIN; Potassium 4.8 mmol/L (3.5-5.1)
[2020-02-09] MEDS ORDERED: MORPHINE SULFATE 2 MG INJ ONE (21:43)
[2020-02-09] MEDS ORDERED: ROCEPHIN 1 Gm-D5w 50 ml Bag** 1 G/50 ML IVPB IV ONE (21:43)
[2020-02-09] MEDS ORDERED: Zofran 4 MG/2 ML VIAL ONE (21:43)
[2020-02-09 23:31] LABS: ABO TYPING O; Antibody Screen NEGATIVE (NEGATIVE); RH TYPING POSITIVE
[2020-02-09 23:33] LABS: CROSS MATCH (PRBC) COMPATIBLE (COMPATIBLE)
[2020-02-09] MEDS ORDERED: Sodium Chloride 0.9% 500 ML 500 ML IV SCH (23:45)
[2020-02-09 23:55] LABS: BAND 2 % (0.0-2.0); Eosinophil 2 % (0.00-3.0); Lymphocytes 13 % (24-44); Monocyte 10 % (0.0-12.0); Neutrophils 73 % (36.-66.); Total Cells Counted 100
[2020-02-09 23:56] LABS: Platelet Estimate NORMAL (NORMAL); Polychromasia 1+
[2020-02-10] MEDS ORDERED: TYLENOL 325 MG PO STA (00:49)
[2020-02-10] MEDS ORDERED: TYLENOL 325 MG ONE (00:58)
[2020-02-10 02:11] VITALS: BP 117/76; PULSE 72; O2SAT 95
== END 2020-02-10 02:45 | disposition short-term general hospital (02) ==
LOC: ED 20:41
DX: D64.9 Anemia, unspecified (principal); R31.9 Hematuria, unspecified; R33.9 Retention of urine, unspecified; I10 Essential (primary) hypertension; F03.90 Unspecified dementia, unspecified severity, without behavioral disturbance, psychotic disturbance, mood disturbance, and anxiety; Z79.899 Other long term (current) drug therapy; Z86.73 Personal history of transient ischemic attack (TIA), and cerebral infarction without residual deficits; I25.10 Atherosclerotic heart disease of native coronary artery without angina pectoris; E11.9 Type 2 diabetes mellitus without complications; I25.2 Old myocardial infarction; Z85.46 Personal history of malignant neoplasm of prostate; K21.9 Gastro-esophageal reflux disease without esophagitis; Z95.0 Presence of cardiac pacemaker
CPT/HCPCS: 36415; 36430; 51702; 80048; 85025; 86850; 86900; 86901; 86922; 96360; 96365; 96374; 96375; 99285; 99291; P9016; J0696; J2270; J2405; A9270-GY

== ENCOUNTER 2020-02-25 15:45 | Observation (INO) | payer MEDICARE ==
[2020-02-25 16:45] LABS: Absolute Neutrophil Ct (ANC) 9.33 (1.4-6.9); BASOPHIL % 0.6 % (0.0-0.4); Basophil (Absolute #) 0.07 (0-0.4); Eosinophil (Absolute #) 0.36 (0-0.5); Hematocrit 26.9 % (42-50); Hemoglobin 8.3 gm/dl (12.5-18.0); Lymphocyte (Absolute #) 1.14 (1.0-4.6); Lymphocytes % 9.6 % (24.0-44.0); Mean Cell Volume 103.9 fl (78-100); Mean Corpuscular Hgb Concent. 30.9 g/dl (32-36); Mean Platelet Volume 8.8 fl (7.5-11.0); Monocyte (Absolute #) 0.96 (0.0-1.3); Monocytes % 8.1 % (0.0-12.0); Neutrophil % 78.7 % (36.0-66.0); Platelet Count 450 K/mm3 (150-450); Red Blood Count 2.59 M/mm3 (4.1-5.6); Red Cell Distribution Width 14.8 % (11.5-14.0); White Blood Count 11.9 K/mm3 (4.0-10.5)
[2020-02-25 16:57] LABS: INR 1.22 (0.8-3.0); PROTIME 13.8 SECONDS (8.83-12.87)
[2020-02-25 17:00] LABS: PTT 32.1 SECONDS (24.1-36.1)
[2020-02-25 17:03] LABS: ALBUMIN 3.5 g/dL (3.5-5.0); ANION GAP 11.2 MEQ/L (5-15); BILIRUBIN,TOTAL 0.3 mg/dL (0.2-1.3); Calcium 9.4 mg/dL (8.4-10.2); Creatinine 1 2.09 mg/dL (0.66-1.25); EST GLOMERULAR FILTRATION RATE 32.6 ML/MIN; Potassium 4.7 mmol/L (3.5-5.1); Total Protein 6.5 g/dL (6.3-8.2)
[2020-02-25 17:48] LABS: Amourphous Crystal FEW /HPF (NEGATIVE); Appearance CLOUDY (CLEAR); Bilirubin NEGATIVE (NEGATIVE); Blood LARGE Ery/ul (0-5); Glucose NEGATIVE (NEGATIVE); Ketones NEGATIVE (NEGATIVE); Leukocyte Esterase MODERATE (NEGATIVE); Mucus SLIGHT /HPF (NEGATIVE); Nitrite NEGATIVE (NEGATIVE); Protein,Urine Dip 100 (Negative); Specific Gravity 1.011 (1.005-1.025); Urobilinogen NEGATIVE mg/dL (0-1); WBC >100 /HPF (0-5)
[2020-02-25 17:55] LABS: RBC >101 /HPF (0-2)
[2020-02-25] MEDS ORDERED: ROCEPHIN 1 Gm-D5w 50 ml Bag** 1 G/50 ML IVPB IV STA (18:36)
[2020-02-25] MEDS ORDERED: Sodium Chloride 0.9% 1000 ML 1,000 ML IV STA (18:37)
--- NOTE | 2020-02-25 19:22 | ERPHSYRPT ---
- History of Present Illness Time Seen by Provider: 02/25/20 16:02 Source: patient, family Exam Limitations: no limitations Patient Subjective Stated Complaint: Hematuria Triage Nursing Assessment: Patient brought back to ED via w/c and transferred to bed with assist of 1. Patient A+O X3. Patient complains of hematuria in his orozco bag. Patient has penile implant with orozco cath placed. Patient has been having this issue of bloody urine with clots for the past month. Patient complains of penile discomfort 5/10. Orozco bag noted to have dark, red blood Physician History: 79 years old male with history of penile implant, Orozco catheter placed by [facility] as patient is having off-and-on hematuria complaint for almost 1 month presented in the ER with worsening hematuria since morning. Patient report he was admitted initially at [facility] and later was transferred to [facility] last month where he stayed for 2 weeks and was discharged few days ago after getting catheter placement and blood transfusion as his hemoglobin was dropping. Patient also was positive for COVID-19 and does not have any cystoscopy or intervention done over there. Patient reports dull aching pain in the suprapubic area but no flank pain. Patient is not sure what is the cause of his hematuria. Does not want to go back to [facility] or [facility]. Baseline hemoglobin around 8. Timing/Duration: today, sudden, worse Activites at Onset: none Quality: burning Onset Location: suprapubic Pain Radiation: none Severity of Pain-Max: mild Severity of Pain-Current: mild Modifying Factors: Improves With: nothing Associated Symptoms: denies symptoms Prior abdominal problems: similar symptoms Sexual intercourse history: non-contributory Allergies/Adverse Reactions: doxazosin mesylate [From Cardura] Allergy (Verified 02/25/20 15:56) Itching iodine Allergy (Verified 02/25/20 15:56) Hives latex Allergy (Verified 02/25/20 20:58) prednisone Allergy (Verified 02/25/20 15:56) states "homicidal" Wychkvk-Pbo-Szi Reductase Inhibitor Allergy (Verified 02/25/20 15:56) Joint Aches duloxetine Adverse Reaction (Verified 02/25/20 15:56) milk Adverse Reaction (Verified 02/25/20 15:56) bananas Allergy (Uncoded 02/25/20 15:56) iv contrast Allergy (Uncoded 02/25/20 15:56) Hives Home Medications: Diltiazem HCl 240 mg [Cardizem CD 240 MG] 240 mg PO DAILY 01/02/16 [ History] Metformin HCl 500 mg [Glucophage 500 MG] 500 mg PO DAILY 01/02/16 [History] Isosorbide Mononitrate 30 mg [Imdur 30 MG] 30 mg PO DAILY 10/16/18 [History] Sennosides/Docusate Sodium [Stool Softener-Laxative Tablet] 1 each PO DAILY PRN PRN 10/16/18 [History] Timolol/Dorzolamide/Latanop/Pf [Sai 0.5%-Dorz 2%-Latan 0.005%] 5 ml OP DAILY 10/16/18 [History] Guaifenesin [Humibid] 1,200 mg PO DAILY PRN PRN 12/28/18 [History] Aspirin 81 gm Chew [Baby Aspirin 81 mg Chew] 81 mg PO DAILY 02/09/20 [History] Ciprofloxacin [Cipro 500 MG] 500 mg PO BID 02/09/20 [History] Omeprazole 40 mg PO DAILY 02/09/20 [History] Trazodone HCl 100 mg PO HS PRN PRN 02/09/20 [History] Hx Tetanus, Diphtheria Vaccination/Date Given: No Hx Influenza Vaccination/Date Given: Yes Hx Pneumococcal Vaccination/Date Given: No Immunizations Up to Date: Yes Travel Risk - International Travel Have you traveled outside of the country in past 3 weeks: No - Coronavirus Screening Are you exhibiting any of the following symptoms?: No Close contact with a COVID-19 positive Pt in past 14-21 Days: No - Past Medical History Pertinent Past Medical History: Yes Neurological History: TIA ENT History: No Pertinent History Cardiac History: Coronary Artery Disease, Hypertension, Myocardial Infarction ([place]), Other Respiratory History: No Pertinent History Endocrine Medical History: Diabetes Type II Musculoskeletal History: Degenerative Disk Disease GI Medical History: GERD History: Other Psycho-Social History: No Pertinent History Male Reproductive Disorders: Prostate Cancer Other Medical History: heart stent in 2007, Pt has a pacemaker, past [place] - Past Surgical History Past Surgical History: Yes Neuro Surgical History: No Pertinent History Cardiac: Angioplasty, Cardiac Stent, Pacemaker Respiratory: Other Gastrointestinal: No Pertinent History Genitourinary: No Pertinent History Musculoskeletal: No Pertinent History Male Surgical History: Prostate Surgery, Vasectomy, Other Other Surgical History: states left lung collapsed, penile implant, back pain stimulator AND REMOVAL 2017 - Social History Smoking Status: Former smoker Exposure to second hand smoke: Yes Alcohol Use: None Drug Use: none Patient Lives Alone: No Significant Family History: no pertinent family hx - Review of Systems Constitutional: Weakness Eyes: No Symptoms Ears, Nose, & Throat: No Symptoms Respiratory: No Symptoms Cardiac: No Symptoms Abdominal/Gastrointestinal: Abdominal Pain Genitourinary Symptoms: Hematuria Musculoskeletal: No Symptoms Skin: No Symptoms Neurological: No Symptoms Psychological: No Symptoms Endocrine: No Symptoms Hematologic/Lymphatic: No Symptoms - Nursing Vital Signs Nursing Vital Signs: Initial Vital Signs Temperature 97.6 F 02/25/20 15:56 Pulse Rate 71 02/25/20 15:56 Respiratory Rate 18 02/25/20 15:56 Blood Pressure 149/83 02/25/20 15:56 O2 Sat by Pulse Oximetry 96 02/25/20 15:56 Pain Scale Pain Intensity 5 - Physical Exam General Appearance: no apparent distress Eye Exam: eyes nml inspection Ears, Nose, Throat Exam: normal ENT inspection, pharynx normal Neck Exam: normal inspection, supple, full range of motion Respiratory Exam: normal breath sounds, lungs clear Cardiovascular Exam: regular rate/rhythm, normal heart sounds Gastrointestinal/Abdomen Exam: soft, normal bowel sounds, No tenderness Male Genital Exam: normal genitalia (Orozco catheter in place. Penile implant in place. No swelling of penis/scrotum) Back Exam: normal inspection, normal range of motion Extremity Exam: normal inspection, normal range of motion, pelvis stable Neurologic Exam: alert, oriented x 3, cooperative Skin Exam: normal color, warm SpO2 Interpretation: normal SpO2: 97 O2 Delivery: Room Air Ordered Tests: Active Orders 24 hr Category Date Time Status Bedrest ROUTINE Activity 02/25/20 20:20 Active Up With Assistance Q1H Activity 02/25/20 20:20 Active Code Status Order ROUTINE Care 02/25/20 20:20 Active Fall Protocol ROUTINE Care 02/25/20 20:20 Active IV Care Q6H Care 02/25/20 20:20 Active POCT Glucose Check ACHS Care 02/25/20 20:[address] in Observation ROUTINE Care 02/25/20 20:20 Active Christiane Blandon ROUTINE Care 02/25/20 20:20 Active Weight,Daily 0600 Care 02/25/20 20:20 Active ABDOMEN AND PELVIS W/0 CONTRAS [CT] Stat Exams 02/25/20 19:01 Taken CBC W DIFF AM.LAB Lab 02/26/20 04:00 Ordered CBC W DIFF Stat Lab 02/25/20 16:30 Completed CMP AM.LAB Lab 02/26/20 04:00 Ordered CMP Stat Lab 02/25/20 16:30 Completed CULTURE,URINE Stat Lab 02/25/20 17:32 Received PROTIME WITH INR Stat Lab 02/25/20 16:30 Completed PTT Stat Lab 02/25/20 16:30 Completed UA W/RFX UR CULTURE Stat Lab 02/25/20 17:32 Completed Transfer Order Routine Transfer 02/25/20 Completed Medication Summary Generic Name Dose Route Start Last Admin Trade Name Freq PRN Reason Stop Dose Admin Acetaminophen 650 mg 02/25/20 20:20 Tylenol 325 Mg PO 03/26/20 20:19 Q4H PRN PRN PAIN AND/OR FEVER Hydrocodone Bitart/Acetaminophen 1 tab 02/25/20 21:06 [place] 5/325 Mg PO 03/01/20 21:05 Q6H PRN PAIN Famotidine 20 mg 02/25/20 22:00 Pepcid 20 Mg Vial IV 03/26/20 21:59 Q12HT VALERI Sodium Chloride 1,000 mls @ 75 mls/hr 02/25/20 20:20 Sodium Chloride 0.9% 1000 Ml IV 03/26/20 20:19 .[id number] VALERI Ceftriaxone Sodium/Dextrose 1 g in 50 mls @ 100 mls/hr 02/26/20 10:00 Rocephin 1 Gm-D5w 50 Ml Bag IV 03/27/20 09:59 Q24H10 VALERI Insulin Human Lispro 0 unit 02/25/20 20:20 Humalog SQ 03/26/20 20:19 UD PRN HYPERGLYCEMIA Ondansetron HCl 4 mg 02/25/20 20:20 Zofran 4 Mg/2 Ml Vial IV 03/26/20 20:19 Q6H PRN PRN NAUSEA/VOMITING Trazodone HCl 100 mg 02/25/20 22:00 Desyrel 50 Mg PO 03/26/20 21:59 QHS VALERI Discontinued Medications Generic Name Dose Route Start Last Admin Trade Name Artur PRN Reason Stop Dose Admin Hydrocodone Bitart/Acetaminophen Confirm 02/25/20 21:06 [place] 5/325 Mg Administered 02/25/20 21:07 Dose 1 tab .ROUTE .STK-MED ONE Ceftriaxone Sodium/Dextrose 1 g in 50 mls @ 100 mls/hr 02/25/20 18:36 02/25/20 19:52 Rocephin 1 Gm-D5w 50 Ml Bag IV 02/25/20 19:05 100 ml/hr STAT STA 100 mls/hr Administration Sodium Chloride 1,000 mls @ 499 mls/hr 02/25/20 18:37 02/25/20 19:49 Sodium Chloride 0.9% 1000 Ml IV 02/25/20 20:37 499 mls/hr .Q2H1M STA Administration Sodium Chloride Confirm 02/25/20 19:45 Sodium Chloride 0.9% 1000 Ml Administered 02/25/20 19:46 Dose 1,000 mls @ ud .ROUTE .STK-MED ONE Ceftriaxone Sodium/Dextrose Confirm 02/25/20 19:45 Rocephin 1 Gm-D5w 50 Ml Bag Administered 02/25/20 19:46 Dose 1 g in 50 mls @ ud IV .STK-MED ONE Trazodone HCl Confirm 02/25/20 21:05 Desyrel 50 Mg Administered 02/25/20 21:06 Dose 100 mg .ROUTE .STK-MED ONE Lab/Rad Data: Laboratory Result Diagrams 02/25/20 16:30 02/25/20 16:30 Laboratory Results 02/25/20 02/25/20 02/25/20 Range/Units 17:32 16:30 16:30 WBC (4.0-10.5) K/mm3 RBC (4.1-5.6) M/mm3 Hgb (12.5-18.0) gm/dl Hct (42-50) % MCV (78-100) fl MCH (26-32) pg MCHC (32-36) g/dl RDW (11.5-14.0) % Plt Count (150-450) K/mm3 MPV (7.5-11.0) fl Gran % (36.0-66.0) % Eos # (Auto) (0-0.5) Absolute Lymphs (auto) (1.0-4.6) Absolute Monos (auto) (0.0-1.3) Lymphocytes % (24.0-44.0) % Monocytes % (0.0-12.0) % Eosinophils % (0.00-5.0) % Basophils % (0.0-0.4) % Absolute Granulocytes (1.4-6.9) Basophils # (0-0.4) PT 13.8 H (8.83-12.87) SECONDS INR 1.22 (0.8-3.0) APTT 32.1 (24.1-36.1) SECONDS Sodium 133 L (137-145) mmol/L Potassium 4.7 (3.5-5.1) mmol/L Chloride 103 (98-107) mmol/L Carbon Dioxide 24 (22-30) mmol/L Anion Gap 11.2 (5-15) MEQ/L BUN 30 H (9-20) mg/dL Creatinine 2.09 H (0.66-1.25) mg/dL Estimated GFR 32.6 ML/MIN Glucose 113 H (74-106) mg/dL Calcium 9.4 (8.4-10.2) mg/dL Total Bilirubin 0.30 (0.2-1.3) mg/dL AST 25 (17-59) U/L ALT 14 (0-50) U/L Alkaline Phosphatase 72 (38-126) U/L Serum Total Protein 6.5 (6.3-8.2) g/dL Albumin 3.5 (3.5-5.0) g/dL Urine Color RED (YELLOW) Urine Appearance CLOUDY (CLEAR) Urine pH 6.0 (5-6) Ur Specific [place] 1.011 (1.005-1.025) Urine Protein 100 (Negative) Urine Ketones NEGATIVE (NEGATIVE) Urine Blood LARGE (0-5) [place]/ul Urine Nitrite NEGATIVE (NEGATIVE) Urine Bilirubin NEGATIVE (NEGATIVE) Urine Urobilinogen NEGATIVE (0-1) mg/dL Ur Leukocyte Esterase MODERATE (NEGATIVE) Urine WBC (Auto) >100 (0-5) /HPF Urine RBC (Auto) >101 (0-2) /HPF U Epithel Cells (Auto) NONE (FEW) /HPF Urine Bacteria (Auto) NONE (NEGATIVE) /HPF Amorphous Crystals FEW (NEGATIVE) /HPF Urine Mucus (Auto) SLIGHT (NEGATIVE) /HPF Urine Culture Reflexed YES (NO) Urine Glucose NEGATIVE (NEGATIVE) mg/dL 02/25/20 Range/Units 16:30 WBC 11.9 H (4.0-10.5) K/mm3 RBC 2.59 L (4.1-5.6) M/mm3 Hgb 8.3 L (12.5-18.0) gm/dl Hct 26.9 L (42-50) % MCV 103.9 H (78-100) fl MCH 32.0 (26-32) pg MCHC 30.9 L (32-36) g/dl RDW 14.8 H (11.5-14.0) % Plt Count 450 (150-450) K/mm3 MPV 8.8 (7.5-11.0) fl Gran % 78.7 H (36.0-66.0) % Eos # (Auto) 0.36 (0-0.5) Absolute Lymphs (auto) 1.14 (1.0-4.6) Absolute Monos (auto) 0.96 (0.0-1.3) Lymphocytes % 9.6 L (24.0-44.0) % Monocytes % 8.1 (0.0-12.0) % Eosinophils % 3.0 (0.00-5.0) % Basophils % 0.6 (0.0-0.4) % Absolute Granulocytes 9.33 H (1.4-6.9) Basophils # 0.07 (0-0.4) PT (8.83-12.87) SECONDS INR (0.8-3.0) APTT (24.1-36.1) SECONDS Sodium (137-145) mmol/L Potassium (3.5-5.1) mmol/L Chloride (98-107) mmol/L Carbon Dioxide (22-30) mmol/L Anion Gap (5-15) MEQ/L BUN (9-20) mg/dL Creatinine (0.66-1.25) mg/dL Estimated GFR ML/MIN Glucose (74-106) mg/dL Calcium (8.4-10.2) mg/dL Total Bilirubin (0.2-1.3) mg/dL AST (17-59) U/L ALT (0-50) U/L Alkaline Phosphatase (38-126) U/L Serum Total Protein (6.3-8.2) g/dL Albumin (3.5-5.0) g/dL Urine Color (YELLOW) Urine Appearance (CLEAR) Urine pH (5-6) Ur Specific [place] (1.005-1.025) Urine Protein (Negative) Urine Ketones (NEGATIVE) Urine Blood (0-5) [place]/ul Urine Nitrite (NEGATIVE) Urine Bilirubin (NEGATIVE) Urine Urobilinogen (0-1) mg/dL Ur Leukocyte Esterase (NEGATIVE) Urine WBC (Auto) (0-5) /HPF Urine RBC (Auto) (0-2) /HPF U Epithel Cells (Auto) (FEW) /HPF Urine Bacteria (Auto) (NEGATIVE) /HPF Amorphous Crystals (NEGATIVE) /HPF Urine Mucus (Auto) (NEGATIVE) /HPF Urine Culture Reflexed (NO) Urine Glucose (NEGATIVE) mg/dL - Progress Progress: improved Progress Note: 02/25/20 19:31 79 years old is evaluated for hematuria. He is given a small fluid bolus and is urine is gradually clearing up. Work-up showed normal white count, hemoglobin of 8.3 and a creatinine of 2.0. I have obtained records from [facility] and patient hemoglobin is stable but his renal functions are getting worse at his creatinine it was 1.1 upon discharge. Patient does have history of decreased oral intake recently. Does have UTI and given a dose of Rocephin. I have discussed with Dr. Baker and patient is being admitted here to monitor his hemoglobin/hematuria/UTI. Recommended obtaining a CT without contrast to rule out any obstruction. CT abdomen pelvis without contrast is grossly negative. Plan discussed with patient and family who understand and agree with admission and here keeping in mind the fact that we do not have urology services and no intervention can be done over here. Discussed with : Jose A Will see patient in: hospital (observation) Counseled pt/family regarding: lab results, diagnosis, rad results, smoking cessation - Departure Departure Disposition: Observation Clinical Impression: Hemorrhagic cystitis, Blood loss anemia, Dehydration Acute renal failure Qualifiers: Acute renal failure type: unspecified Qualified Code(s): N17.9 - Acute kidney failure, unspecified Condition: Good Critical Care Time: Yes Critical Care Time(excluding separately billable procedures): Critical 30-74 mins
[2020-02-25] MEDS ORDERED: Sodium Chloride 0.9% 1000 ML 1,000 ML ONE (19:45)
[2020-02-25] MEDS ORDERED: ROCEPHIN 1 Gm-D5w 50 ml Bag** 1 G/50 ML IVPB IV ONE (19:45)
[2020-02-25] MEDS ORDERED: HUMALOG SQ PRN (20:20)
[2020-02-25] MEDS ORDERED: TYLENOL 325 MG PO PRN (20:20)
[2020-02-25] MEDS ORDERED: Sodium Chloride 0.9% 1000 ML 1,000 ML IV SCH (20:20)
[2020-02-25] MEDS ORDERED: Zofran 4 MG/2 ML VIAL IV PRN (20:20)
[2020-02-25] MEDS ORDERED: DESYREL 50 MG ONE (21:05)
[2020-02-25] MEDS ORDERED: NORCO 5/325 MG ONE (21:06)
[2020-02-25] MEDS: NORCO 5/325 MG PO PRN (21:11)
--- NOTE | 2020-02-25 21:30 | XRAY ---
Indication: Gross hematuria. Abdomen pain. Elevated WBC. Multiple contiguous axial images obtained through the abdomen and pelvis without contrast as ordered. Comparison: February 26, 2019. Lung bases demonstrates new posterior medial right lower lobe subsegmental atelectasis/scarring. No infiltrate or effusion. Heart is not enlarged. Left abdomen pain pump again produces beam artifact. Noncontrast stomach and bowel loops remain nonobstructed. Stable sigmoid diverticulosis, prostatectomy, and penile implants with reservoir. New [place] balloon catheter empties the urinary bladder. No free fluid/air. Remaining liver, gallbladder, pancreas, spleen, adrenal glands, kidneys, and ureters appear unremarkable for noncontrast exam. Stable moderate aortoiliac calcifications without AAA. 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 Impression: 1. New [place] balloon catheter in situ. 2. Stable sigmoid diverticulosis, chronic bony findings, and postsurgical changes. 3. Remaining CT abdomen/pelvis without contrast exam is negative. Comment: Preliminary interpretation was made by [facility]. No critical discrepancy.
[2020-02-25] MEDS ORDERED: DESYREL 50 MG PO SCH (22:00)
[2020-02-25] MEDS: Pepcid 20 MG VIAL IV SCH (22:51)
[2020-02-26] MEDS: NORCO 5/325 MG PO PRN (03:54)
[2020-02-26 07:10] LABS: Absolute Neutrophil Ct (ANC) 6.44 (1.4-6.9); BASOPHIL % 0.5 % (0.0-0.4); Basophil (Absolute #) 0.04 (0-0.4); Eosinophil % 4.5 % (0.00-5.0); Eosinophil (Absolute #) 0.39 (0-0.5); Hematocrit 25.3 % (42-50); Hemoglobin 7.7 gm/dl (12.5-18.0); Lymphocytes % 11.7 % (24.0-44.0); Mean Corpuscular Hgb Concent. 30.4 g/dl (32-36); Mean Platelet Volume 9.2 fl (7.5-11.0); Monocyte (Absolute #) 0.71 (0.0-1.3); Monocytes % 8.3 % (0.0-12.0); Platelet Count 394 K/mm3 (150-450); Red Blood Count 2.41 M/mm3 (4.1-5.6); Red Cell Distribution Width 14.7 % (11.5-14.0); White Blood Count 8.6 K/mm3 (4.0-10.5)
[2020-02-26 07:19] LABS: ALBUMIN 3.1 g/dL (3.5-5.0); ANION GAP 8.4 MEQ/L (5-15); BILIRUBIN,TOTAL 0.3 mg/dL (0.2-1.3); Calcium 9.2 mg/dL (8.4-10.2); Creatinine 1 1.62 mg/dL (0.66-1.25); EST GLOMERULAR FILTRATION RATE 43.7 ML/MIN; Potassium 4.5 mmol/L (3.5-5.1)
[2020-02-26] MEDS ORDERED: AFRIN NASAL SPRAY NS PRN (07:20)
[2020-02-26] MEDS ORDERED: [UNRECOGNIZED DRUG - OTHER] PO PRN (07:20)
[2020-02-26] MEDS ORDERED: Mylicon 80MG PO PRN (07:20)
[2020-02-26] MEDS ORDERED: Senokot-S Tablet PO PRN (07:20)
[2020-02-26] MEDS ORDERED: TYLENOL EXTRA STRENGTH 500 MG PO PRN (07:20)
[2020-02-26] MEDS ORDERED: NORCO 5/325 MG PO PRN (07:30)
[2020-02-26] MEDS ORDERED: Nitrostat 0.4 MG Tablet SL PRN (07:30)
--- NOTE | 2020-02-26 07:51 | PCM.HP ---
History of Present Illness - Chief Complaint Chief Complaint: blood in urine for 2-3 days History of Present Illness: is a 79 years old male with history of penile implant, Martinez catheter placed by [facility] as patient is having off-and-on hematuria complaint for almost 1 month presented in the ER with worsening hematuria since morning. Patient report he was admitted initially at [facility] and later was transferred to [facility] last month where he stayed for 2 weeks and was discharged few days ago after getting catheter placement and blood transfusion as his hemoglobin was dropping. Patient also was positive for COVID-19 and does not have any cystoscopy or intervention done over there. Patient reports dull aching pain in the suprapubic area but no flank pain. Patient is not sure what is the cause of his hematuria. Does not want to go back to [facility] or [facility]. Baseline hemoglobin around 8. Timing/Duration: today, sudden, worse Activites at Onset: none Quality: burning Onset Location: suprapubic Pain Radiation: none Severity of Pain-Max: mild Severity of Pain-Current: mild Modifying Factors: Improves With: nothing Associated Symptoms: denies symptoms Prior abdominal problems: similar symptoms Sexual intercourse history: non-contributory Is not showing any sign or symptoms of Covid related disease - Review of Systems Constitutional: No Fever, No Chills Eyes: No Symptoms Ears, Nose, & Throat: No Symptoms Respiratory: No Cough, No Short Of Breath Cardiac: No Chest Pain, No Edema, No Syncope Abdominal/Gastrointestinal: No Abdominal Pain, No Nausea, No Vomiting, No Diarrhea Genitourinary Symptoms: Dysuria, Hematuria Musculoskeletal: No Back Pain, No Neck Pain Skin: No Rash Neurological: No Dizziness, No Focal Weakness, No Sensory Changes Psychological: No Symptoms Endocrine: No Symptoms Hematologic/Lymphatic: No Symptoms Immunological/Allergic: No Symptoms Medications & Allergies Home Medications: Home Medication List Diltiazem HCl 240 mg [Cardizem CD 240 MG] 240 mg PO DAILY 01/02/16 [History Confirmed 02/25/20] Metformin HCl 500 mg [Glucophage 500 MG] 500 mg PO DAILY 01/02/16 [History Confirmed 02/25/20] Sennosides/Docusate Sodium [Stool Softener-Laxative Tablet] 25 mg PO BID PRN 10/16/18 [History Confirmed 02/25/20] Lisinopril 20 mg [Zestril 20 MG] 20 mg PO BID #60 tablet 12/29/18 [Rx Confirmed 02/25/20] Trazodone HCl 100 mg PO QHS 02/09/20 [History Confirmed 02/25/20] Acetaminophen 1,000 mg PO Q6H PRN 02/25/20 [History Confirmed 02/25/20] Cyanocobalamin (Vitamin B-12) [Vitamin B-12] 1 tablet PO DAILY 02/25/20 [History Confirmed 02/25/20] Docusate Sodium 100 mg PO BID 02/25/20 [History Confirmed 02/25/20] Guaifenesin 600 mg ER [Mucinex 600MG ER Tabs] 600 mg PO QHS 02/25/20 [History Confirmed 02/25/20] Hydrocodone/Acetaminophen [Hydrocodone-Acetamin 5-325 mg] 1 tab PO Q6H PRN 02/25/20 [History Confirmed 02/25/20] Isosorbide Mononitrate 30 mg [Imdur 30 MG] 30 mg PO DAILY 02/25/20 [History Confirmed 02/25/20] Multivitamin 1 tab PO DAILY 02/25/20 [History Confirmed 02/25/20] Nitroglycerin 0.4 mg Tablet [Nitrostat 0.4 MG Tablet] 1 tab SL UD 02/25/20 [History Confirmed 02/25/20] Omeprazole 20 mg PO DAILY 02/25/20 [History Confirmed 02/25/20] Oxybutynin Chloride Xl 5 mg [Ditropan XL 5 MG] 1 tab PO TID 02/25/20 [History Confirmed 02/25/20] Oxymetazoline HCl Nasal [Afrin Nasal [place]] 2 spray NS BID PRN 02/25/20 [History Confirmed 02/25/20] Phenylephrine/Dm/Acetaminop/GG [Mucinex Fast-Max Cold-Flu Liq] 20 ml PO Q4H PRN 02/25/20 [History Confirmed 02/25/20] Simethicone 80 mg [Mylicon 80MG] 80 mg PO QID PRN 02/25/20 [History Confirmed 02/25/20] Timolol [Betimol] 1 drop OP BID 02/25/20 [History Confirmed 02/25/20] Allergies/Adverse Reactions: Allergies Allergy/AdvReac Type Severity Reaction Status Date / Time doxazosin mesylate Allergy Itching Verified 02/25/20 15:56 [From Cardura] iodine Allergy Hives Verified 02/25/20 15:56 latex Allergy Verified 02/25/20 20:58 prednisone Allergy Verified 02/25/20 15:56 Kurbzda-Fva-Seq Reductase Allergy Joint Aches Verified 02/25/20 15:56 Inhibitor duloxetine AdvReac Verified 02/25/20 15:56 milk AdvReac Verified 02/25/20 15:56 bananas Allergy Uncoded 02/25/20 15:56 iv contrast Allergy Hives Uncoded 02/25/20 15:56 - Past Medical History Past Medical History: Yes Neurological History: TIA ENT History: No Pertinent History Cardiac History: Coronary Artery Disease, Hypertension, Myocardial Infarction ([place]), Other Respiratory History: No Pertinent History Endocrine Medical History: Diabetes Type II Musculoskelatal History: Degenerative Disk Disease GI Medical History: GERD History: Other Pyscho-Social History: No Pertinent History Male Reproductive Disorders: Prostate Cancer Comment: heart stent in 2007, Pt has a pacemaker, past [place], COVID-19 DX February 2020 - Past Surgical History Past Surgical History: Yes Neuro Surgical History: No Pertinent History Cardiac History: Angioplasty, Cardiac Stent, Pacemaker Respiratory Surgery: Other GI Surgical History: No Pertinent History Genitourinary Surgical Hx: No Pertinent History Musculskeletal Surgical Hx: No Pertinent History Male Surgical History: Prostate Surgery, Vasectomy, Other Other Surgical History: states left lung collapsed, penile implant, back pain stimulator AND REMOVAL 2017 - Social History Smoking Status: Former smoker Exposure to second hand smoke: Yes Alcohol: None Drug Use: none Significant Family History: no pertinent family hx - Physical Exam Vital Signs: Vital Signs - 24 hr Temp Pulse Resp BP Pulse Ox 02/26/20 03:51 96.7 F 79 16 159/66 94 L 02/25/20 23:24 98.2 F 73 18 173/97 95 02/25/20 21:35 97 02/25/20 19:07 77 18 159/79 96 02/25/20 18:20 78 18 133/67 97 02/25/20 15:56 97.6 F 71 18 149/83 96 General Appearance: no apparent distress, alert Neurologic Exam: alert, oriented x 3, cooperative, normal mood/affect, nml cerebellar function, nml station & gait, sensation nml, No motor deficits Eye Exam: PERRL/EOMI, eyes nml inspection Ears, Nose, Throat Exam: normal ENT inspection, TMs normal, pharynx normal, moist mucous membranes Neck Exam: normal inspection, non-tender, supple, full range of motion Respiratory Exam: normal breath sounds, lungs clear, No respiratory distress Cardiovascular Exam: regular rate/rhythm, normal heart sounds, normal peripheral pulses Gastrointestinal/Abdomen Exam: soft, normal bowel sounds, No tenderness, No mass Male Genitalia Exam: normal genitalia, No prostate tenderness, No penile discharge Rectal Exam: deferred Back Exam: normal inspection, normal range of motion, No CVA tenderness, No vertebral tenderness Extremity Exam: normal inspection, normal range of motion, pelvis stable Skin Exam: normal color, warm, dry, No rash Wound Assessment: Skin/Wound Assessment Wound/Incision Assessment Start: 02/25/20 23:50 Text: Status: Active Freq: Q6H Protocol: Document 02/26/20 06:00 MS (Rec: 02/26/20 06:59 MS [id number]) Wound/Incision Assessment Right Index Finger Wound Assessment Shift Assessment Wound Type reddened Drainage Amount None General Appearance Reddened Surrounding Tissue [place] Wound Photo Photo Taken No Lymphatic Exam: No adenopathy Results - Labs Lab/Micro Results: Lab Results-Last 24 Hours 02/25/20 02/25/20 02/25/20 Range/Units 16:30 16:30 16:30 WBC 11.9 H (4.0-10.5) K/mm3 RBC 2.59 L (4.1-5.6) M/mm3 Hgb 8.3 L (12.5-18.0) gm/dl Hct 26.9 L (42-50) % MCV 103.9 H (78-100) fl MCH 32.0 (26-32) pg MCHC 30.9 L (32-36) g/dl RDW 14.8 H (11.5-14.0) % Plt Count 450 (150-450) K/mm3 MPV 8.8 (7.5-11.0) fl Gran % 78.7 H (36.0-66.0) % Eos # (Auto) 0.36 (0-0.5) Absolute Lymphs (auto) 1.14 (1.0-4.6) Absolute Monos (auto) 0.96 (0.0-1.3) Lymphocytes % 9.6 L (24.0-44.0) % Monocytes % 8.1 (0.0-12.0) % Eosinophils % 3.0 (0.00-5.0) % Basophils % 0.6 (0.0-0.4) % Absolute Granulocytes 9.33 H (1.4-6.9) Basophils # 0.07 (0-0.4) PT 13.8 H (8.83-12.87) SECONDS INR 1.22 (0.8-3.0) APTT 32.1 (24.1-36.1) SECONDS Sodium 133 L (137-145) mmol/L Potassium 4.7 (3.5-5.1) mmol/L Chloride 103 (98-107) mmol/L Carbon Dioxide 24 (22-30) mmol/L Anion Gap 11.2 (5-15) MEQ/L BUN 30 H (9-20) mg/dL Creatinine 2.09 H (0.66-1.25) mg/dL Estimated GFR 32.6 ML/MIN Glucose 113 H (74-106) mg/dL POC Glucometer (74 to 106) mg/dL Calcium 9.4 (8.4-10.2) mg/dL Total Bilirubin 0.30 (0.2-1.3) mg/dL AST 25 (17-59) U/L ALT 14 (0-50) U/L Alkaline Phosphatase 72 (38-126) U/L Serum Total Protein 6.5 (6.3-8.2) g/dL Albumin 3.5 (3.5-5.0) g/dL Urine Color (YELLOW) Urine Appearance (CLEAR) Urine pH (5-6) Ur Specific [place] (1.005-1.025) Urine Protein (Negative) Urine Ketones (NEGATIVE) Urine Blood (0-5) [place]/ul Urine Nitrite (NEGATIVE) Urine Bilirubin (NEGATIVE) Urine Urobilinogen (0-1) mg/dL Ur Leukocyte Esterase (NEGATIVE) Urine WBC (Auto) (0-5) /HPF Urine RBC (Auto) (0-2) /HPF U Epithel Cells (Auto) (FEW) /HPF Urine Bacteria (Auto) (NEGATIVE) /HPF Amorphous Crystals (NEGATIVE) /HPF Urine Mucus (Auto) (NEGATIVE) /HPF Urine Culture Reflexed (NO) Urine Glucose (NEGATIVE) mg/dL 02/25/20 02/25/20 02/26/20 Range/Units 17:32 21:19 06:25 WBC 8.6 (4.0-10.5) K/mm3 RBC 2.41 L (4.1-5.6) M/mm3 Hgb 7.7 L (12.5-18.0) gm/dl Hct 25.3 L (42-50) % MCV 105.0 H (78-100) fl MCH 32.0 (26-32) pg MCHC 30.4 L (32-36) g/dl RDW 14.7 H (11.5-14.0) % Plt Count 394 (150-450) K/mm3 MPV 9.2 (7.5-11.0) fl Gran % 75.0 H (36.0-66.0) % Eos # (Auto) 0.39 (0-0.5) Absolute Lymphs (auto) 1.00 (1.0-4.6) Absolute Monos (auto) 0.71 (0.0-1.3) Lymphocytes % 11.7 L (24.0-44.0) % Monocytes % 8.3 (0.0-12.0) % Eosinophils % 4.5 (0.00-5.0) % Basophils % 0.5 (0.0-0.4) % Absolute Granulocytes 6.44 (1.4-6.9) Basophils # 0.04 (0-0.4) PT (8.83-12.87) SECONDS INR (0.8-3.0) APTT (24.1-36.1) SECONDS Sodium (137-145) mmol/L Potassium (3.5-5.1) mmol/L Chloride (98-107) mmol/L Carbon Dioxide (22-30) mmol/L Anion Gap (5-15) MEQ/L BUN (9-20) mg/dL Creatinine (0.66-1.25) mg/dL Estimated GFR ML/MIN Glucose (74-106) mg/dL POC Glucometer 97 (74 to 106) mg/dL Calcium (8.4-10.2) mg/dL Total Bilirubin (0.2-1.3) mg/dL AST (17-59) U/L ALT (0-50) U/L Alkaline Phosphatase (38-126) U/L Serum Total Protein (6.3-8.2) g/dL Albumin (3.5-5.0) g/dL Urine Color RED (YELLOW) Urine Appearance CLOUDY (CLEAR) Urine pH 6.0 (5-6) Ur Specific [place] 1.011 (1.005-1.025) Urine Protein 100 (Negative) Urine Ketones NEGATIVE (NEGATIVE) Urine Blood LARGE (0-5) [place]/ul Urine Nitrite NEGATIVE (NEGATIVE) Urine Bilirubin NEGATIVE (NEGATIVE) Urine Urobilinogen NEGATIVE (0-1) mg/dL Ur Leukocyte Esterase MODERATE (NEGATIVE) Urine WBC (Auto) >100 (0-5) /HPF Urine RBC (Auto) >101 (0-2) /HPF U Epithel Cells (Auto) NONE (FEW) /HPF Urine Bacteria (Auto) NONE (NEGATIVE) /HPF Amorphous Crystals FEW (NEGATIVE) /HPF Urine Mucus (Auto) SLIGHT (NEGATIVE) /HPF Urine Culture Reflexed YES (NO) Urine Glucose NEGATIVE (NEGATIVE) mg/dL 02/26/20 02/26/20 Range/Units 06:25 07:32 WBC (4.0-10.5) K/mm3 RBC (4.1-5.6) M/mm3 Hgb (12.5-18.0) gm/dl Hct (42-50) % MCV (78-100) fl MCH (26-32) pg MCHC (32-36) g/dl RDW (11.5-14.0) % Plt Count (150-450) K/mm3 MPV (7.5-11.0) fl Gran % (36.0-66.0) % Eos # (Auto) (0-0.5) Absolute Lymphs (auto) (1.0-4.6) Absolute Monos (auto) (0.0-1.3) Lymphocytes % (24.0-44.0) % Monocytes % (0.0-12.0) % Eosinophils % (0.00-5.0) % Basophils % (0.0-0.4) % Absolute Granulocytes (1.4-6.9) Basophils # (0-0.4) PT (8.83-12.87) SECONDS INR (0.8-3.0) APTT (24.1-36.1) SECONDS Sodium 135 L (137-145) mmol/L Potassium 4.5 (3.5-5.1) mmol/L Chloride 106 (98-107) mmol/L Carbon Dioxide 25 (22-30) mmol/L Anion Gap 8.4 (5-15) MEQ/L BUN 25 H (9-20) mg/dL Creatinine 1.62 H (0.66-1.25) mg/dL Estimated GFR 43.7 ML/MIN Glucose 105 (74-106) mg/dL POC Glucometer 95 (74 to 106) mg/dL Calcium 9.2 (8.4-10.2) mg/dL Total Bilirubin 0.30 (0.2-1.3) mg/dL AST 21 (17-59) U/L ALT 10 (0-50) U/L Alkaline Phosphatase 61 (38-126) U/L Serum Total Protein 6.0 L (6.3-8.2) g/dL Albumin 3.1 L (3.5-5.0) g/dL Urine Color (YELLOW) Urine Appearance (CLEAR) Urine pH (5-6) Ur Specific [place] (1.005-1.025) Urine Protein (Negative) Urine Ketones (NEGATIVE) Urine Blood (0-5) [place]/ul Urine Nitrite (NEGATIVE) Urine Bilirubin (NEGATIVE) Urine Urobilinogen (0-1) mg/dL Ur Leukocyte Esterase (NEGATIVE) Urine WBC (Auto) (0-5) /HPF Urine RBC (Auto) (0-2) /HPF U Epithel Cells (Auto) (FEW) /HPF Urine Bacteria (Auto) (NEGATIVE) /HPF Amorphous Crystals (NEGATIVE) /HPF Urine Mucus (Auto) (NEGATIVE) /HPF Urine Culture Reflexed (NO) Urine Glucose (NEGATIVE) mg/dL - Radiology Impressions Radiology Exams & Impressions: Radiology Procedures Category Date Time Status ABDOMEN AND PELVIS W/0 CONTRAS [CT] Stat Exams 02/25/20 19:01 Completed Assessment/Plan (1) COVID-19 virus detected Current Visit: Yes Status: Acute Assessment & Plan: Chief Complaint Diagnosis HEMORRHAGIC CYSTITIS Allergies Allergy/AdvReac Type Severity Reaction Status Date / Time doxazosin mesylate Allergy Itching Verified 02/25/20 15:56 [From Radha] iodine Allergy Hives Verified 02/25/20 15:56 latex Allergy Verified 02/25/20 20:58 prednisone Allergy Verified 02/25/20 15:56 [id number] Reductase Allergy Joint Aches Verified 02/25/20 15:56 Inhibitor duloxetine AdvReac Verified 02/25/20 15:56 milk AdvReac Verified 02/25/20 15:56 bananas Allergy Uncoded 02/25/20 15:56 iv contrast Allergy Hives Uncoded 02/25/20 15:56 Vital Signs (Last 24 hours) Temp Pulse Resp BP Pulse Ox 02/26/20 03:51 96.7 F 79 16 159/66 94 L 02/25/20 23:24 98.2 F 73 18 173/97 95 02/25/20 21:35 97 02/25/20 19:07 77 18 159/79 96 02/25/20 18:20 78 18 133/67 97 02/25/20 15:56 97.6 F 71 18 149/83 96 Home Medications Medication Instructions Recorded Confirmed Last Taken Type Acetaminophen 1,000 mg PO Q6H PRN 02/25/20 02/25/20 Unknown History Cyanocobalamin (Vitamin B-12) 1 tablet PO DAILY 02/25/20 02/25/20 02/25/20 History [Vitamin B-12] Docusate Sodium 100 mg PO BID 02/25/20 02/25/20 02/25/20 History Guaifenesin 600 mg ER [Mucinex 600 mg PO QHS 02/25/20 02/25/20 02/25/20 History 600MG ER Tabs] Hydrocodone/Acetaminophen 1 tab PO Q6H PRN 02/25/20 02/25/20 Unknown History [Hydrocodone-Acetamin 5-325 mg] Isosorbide Mononitrate 30 mg 30 mg PO DAILY 02/25/20 02/25/20 02/25/20 10:00 History [Imdur 30 MG] Multivitamin 1 tab PO DAILY 02/25/20 02/25/20 02/25/20 History Nitroglycerin 0.4 mg Tablet 1 tab SL UD 02/25/20 02/25/20 Unknown History [Nitrostat 0.4 MG Tablet] Omeprazole 20 mg PO DAILY 02/25/20 02/25/20 02/25/20 History Oxybutynin Chloride Xl 5 mg 1 tab PO TID 02/25/20 02/25/20 Unknown History [Ditropan XL 5 MG] Oxymetazoline HCl Nasal [Afrin 2 spray NS BID PRN 02/25/20 02/25/20 Unknown History Nasal [place]] Phenylephrine/Dm/Acetaminop/GG 20 ml PO Q4H PRN 02/25/20 02/25/20 Unknown History [Mucinex Fast-Max Cold-Flu Liq] Simethicone 80 mg [Mylicon 80 mg PO QID PRN 02/25/20 02/25/20 Unknown History 80MG] Timolol [Betimol] 1 drop OP BID 02/25/20 02/25/20 Unknown History Current Medications Generic Name Dose Route Start Last Admin Trade Name Freq PRN Reason Stop Dose Admin Acetaminophen 1,000 mg 02/26/20 07:20 Tylenol Extra Strength 500 Mg PO 03/27/20 07:19 Q6H/PRN PRN FEVER Hydrocodone Bitart/Acetaminophen 1 tab 02/26/20 07:30 [place] 5/325 Mg PO 03/01/20 21:05 Q6H/PRN PRN MODERATE TO SEVERE PAIN Cyanocobalamin 2,500 mcg 02/26/20 10:00 Vitamin B-12 500 Mcg PO 03/27/20 09:59 DAILY VALERI Diltiazem HCl 240 mg 02/26/20 10:00 Cardizem Cd 120 Mg PO 03/27/20 09:59 DAILY VALERI Docusate Sodium 100 mg 02/26/20 10:00 Colace 100 Mg PO 03/27/20 09:59 BID VALERI Famotidine 20 mg 02/25/20 22:00 02/25/20 22:51 Pepcid 20 Mg Vial IV 03/26/20 21:59 20 mg Q12HT VALERI Administration Guaifenesin 600 mg 02/26/20 22:00 Mucinex 600mg Er Tabs PO 03/27/20 21:59 QHS [facility] Sodium Chloride 1,000 mls @ 75 mls/hr 02/25/20 20:20 02/25/20 22:50 Sodium Chloride 0.9% 1000 Ml IV 03/26/20 20:19 Not Given .[id number] [facility] Ceftriaxone Sodium/Dextrose 1 g in 50 mls @ 100 mls/hr 02/26/20 22:00 Rocephin 1 Gm-D5w 50 Ml Bag IV 03/27/20 21:59 QPM [facility] Insulin Human Lispro 0 unit 02/25/20 20:20 Humalog SQ 03/26/20 20:19 UD PRN HYPERGLYCEMIA Isosorbide Mononitrate 30 mg 02/26/20 10:00 Imdur 30 Mg PO 03/27/20 09:59 DAILY [facility] Lisinopril 20 mg 02/26/20 10:00 Zestril 20 Mg PO 03/27/20 09:59 BID [facility] Metformin HCl 500 mg 02/26/20 10:00 Glucophage 500 Mg PO 03/27/20 09:59 DAILY [facility] Multivitamins Therapeutic 1 tab 02/26/20 10:00 Theragran Multivitamin PO 03/27/20 09:59 DAILY [facility] Nitroglycerin 0.4 mg 02/26/20 07:30 Nitrostat 0.4 Mg Tablet SL 03/27/20 07:29 UD PRN Non-Formulary Medication 1 drop 02/26/20 10:00 Timolol [Betimol] OP 03/27/20 09:59 BID [facility] Ondansetron HCl 4 mg 02/25/20 20:20 Zofran 4 Mg/2 Ml Vial IV 03/26/20 20:19 Q6H PRN PRN NAUSEA/VOMITING Oxybutynin Chloride 5 mg 02/26/20 10:00 Ditropan Xl 5 Mg PO 03/27/20 09:59 TID [facility] Oxymetazoline HCl 0 ml 02/26/20 07:20 Afrin Nasal [place] NS 03/27/20 07:19 BID PRN PRN SINUS CONGESTION Pantoprazole Sodium 40 mg 02/26/20 10:00 Protonix 40mg Tablet PO 03/27/20 09:59 DAILY VALERI Senna/Docusate Sodium 1 udtab 02/26/20 07:20 Senokot-S Tablet PO 03/27/20 07:19 BID PRN PRN CONSTIPATION Simethicone 80 mg 02/26/20 07:20 Mylicon 80mg PO 03/27/20 07:19 QID PRN PRN GAS Trazodone HCl 100 mg 02/25/20 22:00 02/25/20 21:11 Desyrel 50 Mg PO 03/26/20 21:59 100 mg QHS VALERI Administration Discontinued Medications Generic Name Dose Route Start Last Admin Trade Name Freq PRN Reason Stop Dose Admin Acetaminophen 650 mg 02/25/20 20:20 Tylenol 325 Mg PO 03/26/20 20:19 Q4H PRN PRN PAIN AND/OR FEVER Hydrocodone Bitart/Acetaminophen Confirm 02/25/20 21:06 [place] 5/325 Mg Administered 02/25/20 21:07 Dose 1 tab .ROUTE .STK-MED ONE Hydrocodone Bitart/Acetaminophen 1 tab 02/25/20 21:06 02/26/20 03:54 [place] 5/325 Mg PO 03/01/20 21:05 1 tab Q6H PRN Administration PAIN Ceftriaxone Sodium/Dextrose 1 g in 50 mls @ 100 mls/hr 02/25/20 18:36 02/25/20 19:52 Rocephin 1 Gm-D5w 50 Ml Bag IV 02/25/20 19:05 100 ml/hr STAT STA 100 mls/hr Administration Sodium Chloride 1,000 mls @ 499 mls/hr 02/25/20 18:37 02/25/20 19:49 Sodium Chloride 0.9% 1000 Ml IV 02/25/20 20:37 499 mls/hr .Q2H1M STA Administration Sodium Chloride Confirm 02/25/20 19:45 Sodium Chloride 0.9% 1000 Ml Administered 02/25/20 19:46 Dose 1,000 mls @ ud .ROUTE .STK-MED ONE Ceftriaxone Sodium/Dextrose Confirm 02/25/20 19:45 Rocephin 1 Gm-D5w 50 Ml Bag Administered 02/25/20 19:46 Dose 1 g in 50 mls @ ud IV .STK-MED ONE Trazodone HCl Confirm 02/25/20 21:05 Desyrel 50 Mg Administered 02/25/20 21:06 Dose 100 mg .ROUTE .STK-MED ONE Intake & Output (Last 24 hours) 02/23/20 02/24/20 02/25/20 02/26/20 11:59 11:59 11:59 11:59 Intake Total 567 Output Total 1200 Balance -633 Weight 64 kg Microbiology Results (Last 24 hours) 02/25/20 17:32 Urine, Void Urine Culture - Pending Laboratory Results (Last 24 hours) 02/26/20 02/26/20 02/26/20 07:32 06:25 06:25 WBC 8.6 RBC 2.41 L Hgb 7.7 L Hct 25.3 L MCV 105.0 H MCH 32.0 MCHC 30.4 L RDW 14.7 H Plt Count 394 MPV 9.2 Gran % 75.0 H Eos # (Auto) 0.39 Absolute Lymphs (auto) 1.00 Absolute Monos (auto) 0.71 Lymphocytes % 11.7 L Monocytes % 8.3 Eosinophils % 4.5 Basophils % 0.5 Absolute Granulocytes 6.44 Basophils # 0.04 PT INR APTT Sodium 135 L Potassium 4.5 Chloride 106 Carbon Dioxide 25 Anion Gap 8.4 BUN 25 H Creatinine 1.62 H Estimated GFR 43.7 Glucose 105 POC Glucometer 95 Calcium 9.2 Total Bilirubin 0.30 AST 21 ALT 10 Alkaline Phosphatase 61 Serum Total Protein 6.0 L Albumin 3.1 L Urine Color Urine Appearance Urine pH Ur Specific [place] Urine Protein Urine Ketones Urine Blood Urine Nitrite Urine Bilirubin Urine Urobilinogen Ur Leukocyte Esterase Urine WBC (Auto) Urine RBC (Auto) U Epithel Cells (Auto) Urine Bacteria (Auto) Amorphous Crystals Urine Mucus (Auto) Urine Culture Reflexed Urine Glucose 02/25/20 02/25/20 02/25/20 21:19 17:32 16:30 WBC RBC Hgb Hct MCV MCH MCHC RDW Plt Count MPV Gran % Eos # (Auto) Absolute Lymphs (auto) Absolute Monos (auto) Lymphocytes % Monocytes % Eosinophils % Basophils % Absolute Granulocytes Basophils # PT 13.8 H INR 1.22 APTT 32.1 Sodium Potassium Chloride Carbon Dioxide Anion Gap BUN Creatinine Estimated GFR Glucose POC Glucometer 97 Calcium Total Bilirubin AST ALT Alkaline Phosphatase Serum Total Protein Albumin Urine Color RED Urine Appearance CLOUDY Urine pH 6.0 Ur Specific [place] 1.011 Urine Protein 100 Urine Ketones NEGATIVE Urine Blood LARGE Urine Nitrite NEGATIVE Urine Bilirubin NEGATIVE Urine Urobilinogen NEGATIVE Ur Leukocyte Esterase MODERATE Urine WBC (Auto) >100 Urine RBC (Auto) >101 U Epithel Cells (Auto) NONE Urine Bacteria (Auto) NONE Amorphous Crystals FEW Urine Mucus (Auto) SLIGHT Urine Culture Reflexed YES Urine Glucose NEGATIVE 02/25/20 02/25/20 16:30 16:30 WBC 11.9 H RBC 2.59 L Hgb 8.3 L Hct 26.9 L MCV 103.9 H MCH 32.0 MCHC 30.9 L RDW 14.8 H Plt Count 450 MPV 8.8 Gran % 78.7 H Eos # (Auto) 0.36 Absolute Lymphs (auto) 1.14 Absolute Monos (auto) 0.96 Lymphocytes % 9.6 L Monocytes % 8.1 Eosinophils % 3.0 Basophils % 0.6 Absolute Granulocytes 9.33 H Basophils # 0.07 PT INR APTT Sodium 133 L Potassium 4.7 Chloride 103 Carbon Dioxide 24 Anion Gap 11.2 BUN 30 H Creatinine 2.09 H Estimated GFR 32.6 Glucose 113 H POC Glucometer Calcium 9.4 Total Bilirubin 0.30 AST 25 ALT 14 Alkaline Phosphatase 72 Serum Total Protein 6.5 Albumin 3.5 Urine Color Urine Appearance Urine pH Ur Specific [place] Urine Protein Urine Ketones Urine Blood Urine Nitrite Urine Bilirubin Urine Urobilinogen Ur Leukocyte Esterase Urine WBC (Auto) Urine RBC (Auto) U Epithel Cells (Auto) Urine Bacteria (Auto) Amorphous Crystals Urine Mucus (Auto) Urine Culture Reflexed Urine Glucose Orders (Last 24 hours) Category Date Time Status Bedrest ROUTINE Activity 02/25/20 20:20 Active Up With Assistance Q1H Activity 02/25/20 20:20 Active Code Status Order ROUTINE Care 02/25/20 20:20 Active Fall Protocol ROUTINE Care 02/25/20 20:20 Active IV Care Q6H Care 02/25/20 20:20 Active POCT Glucose Check ACHS Care 02/25/20 20:[address] in Observation ROUTINE Care 02/25/20 20:20 Active [place], Apply ROUTINE Care 02/25/20 20:20 Active Weight,Daily 0600 Care 02/25/20 20:20 Active Heart-Healthy Diet Diet 02/26/20 Breakfast Active ABDOMEN AND PELVIS W/0 CONTRAS [CT] Stat Exams 02/25/20 19:01 Completed CBC W DIFF AM.LAB Lab 02/26/20 06:25 Completed CBC W DIFF Stat Lab 02/25/20 16:30 Completed CMP AM.LAB Lab 02/26/20 06:25 Completed CMP Stat Lab 02/25/20 16:30 Completed CULTURE,URINE Stat Lab 02/25/20 17:32 Received POCT GLUCOSE Stat Lab 02/25/20 21:19 Completed POCT GLUCOSE Stat Lab 02/26/20 07:32 Completed PROTIME WITH INR Stat Lab 02/25/20 16:30 Completed PTT Stat Lab 02/25/20 16:30 Completed UA W/RFX UR CULTURE Stat Lab 02/25/20 17:32 Completed Acetaminophen 325 mg [Tylenol 325 mg] Med 02/25/20 20:20 Discontinued 650 mg PO Q4H PRN PRN Acetaminophen 500 mg [Tylenol Extra Strength 500 mg* Med 02/26/20 07:20 Active ] 1,000 mg PO Q6H/PRN PRN Ceftriaxone 1 GM/50 ML PREMIX* [ROCEPHIN 1 Gm-D5w 50 ml Med 02/26/20 22:00 Active Bag] 1 g in 50 ml IV QPM Ceftriaxone 1 GM/50 ML PREMIX* [ROCEPHIN 1 Gm-D5w 50 ml Med 02/25/20 18:36 Discontinued Bag] 1 g in 50 ml IV STAT Ceftriaxone 1 GM/50 ML PREMIX* [ROCEPHIN 1 Gm-D5w 50 ml Med 02/25/20 19:45 Discontinued Bag] 1 g in 50 ml IV UD Cyanocobalamin 500 Mcg [Vitamin B-12 500 MCG] Med 02/26/20 10:00 Active 2,500 mcg PO DAILY Diltiazem HCl 120 mg [Cardizem CD 120 MG] Med 02/26/20 10:00 Active 240 mg PO DAILY Docusate Sodium 100 mg [Colace 100 MG] Med 02/26/20 10:00 Active 100 mg PO BID Famotidine 20 mg Vial [Pepcid 20 MG VIAL] Med 02/25/20 22:00 Active 20 mg IV Q12HT Guaifenesin 600 mg ER [Mucinex 600MG ER Tabs] Med 02/26/20 22:00 Active 600 mg PO QHS Hydrocodone/APAP 5/325 [[place] 5/325 mg] Med 02/25/20 21:06 Discontinued 1 tab .ROUTE .STK-MED ONE Hydrocodone/APAP 5/325 [[place] 5/325 mg] Med 02/25/20 21:06 Discontinued 1 tab PO Q6H PRN Hydrocodone/APAP 5/325 [[place] 5/325 mg] Med 02/26/20 07:30 Active 1 tab PO Q6H/PRN PRN Insulin Lispro [Humalog] Med 02/25/20 20:20 Active See Dose Instructions SQ UD PRN Isosorbide Mononitrate 30 mg [Imdur 30 MG] Med 02/26/20 10:00 Active 30 mg PO DAILY Lisinopril 20 mg [Zestril 20 MG] Med 02/26/20 10:00 Active 20 mg PO BID Metformin HCl 500 mg [Glucophage 500 MG] Med 02/26/20 10:00 Active 500 mg PO DAILY Multivitamins,Therapeutic Tab* [Theragran Multivitamin* Med 02/26/20 10:00 Active ] 1 tab PO DAILY NaCl 0.9% 1000 ml [Sodium Chloride 0.9% 1000 ML] 1,000 Med 02/25/20 19:45 Discontinued ml .ROUTE UD NaCl 0.9% 1000 ml [Sodium Chloride 0.9% 1000 ML] 1,000 Med 02/25/20 18:37 Discontinued ml IV 499 mls/hr NaCl 0.9% 1000 ml [Sodium Chloride 0.9% 1000 ML] ,000 Med 02/25/20 20:20 Active ml IV 75 mls/hr Nitroglycerin 0.4 mg Tablet [Nitrostat 0.4 MG Tablet Med 02/26/20 07:30 Active ] 0.4 mg SL UD PRN Ondansetron HCl 4 mg/2 ml [Zofran 4 MG/2 ML VIAL] Med 02/25/20 20:20 Active 4 mg IV Q6H PRN PRN Oxybutynin Chloride Xl 5 mg [Ditropan XL 5 MG] Med 02/26/20 10:00 Active 5 mg PO TID Oxymetazoline HCl Nasal [Afrin Nasal [place]] Med 02/26/20 07:20 Active 0 ml NS BID PRN PRN PANTOPRAZOLE 40 mg Tablet [Protonix 40MG Tablet] Med 02/26/20 10:00 Active 40 mg PO DAILY Senna/Docusate Sodium Tab [Senokot-S Tablet] Med 02/26/20 07:20 Active 1 udtab PO BID PRN PRN Simethicone 80 mg [Mylicon 80MG] Med 02/26/20 07:20 Active 80 mg PO QID PRN PRN Timolol [Betimol] Med 02/26/20 10:00 Ordered 1 drop OP BID Trazodone HCl 50 mg [Desyrel 50 mg] Med 02/25/20 21:05 Discontinued 100 mg .ROUTE .STK-MED ONE Trazodone HCl 50 mg [Desyrel 50 mg] Med 02/25/20 22:00 Active 100 mg PO QHS Patient Care Notes (Last 24 hours) 02/25/20 21:29 SBAR Note by Trinity White SITUATION I am calling about CARLEY MCCOLLUM the patient's code status is Full Code The problem I am calling about is: Patient reported having covid about 2 weeks ago. Daughter states he never had any symptoms. Pt transferred to covid unit under the care of Dr. Shay. Dr. Shay notified at this time of admission. ASSESSMENT RECOMMENDATION Physician notified at 2028 New Orders received: Ok for admission to [facility] under observation. Continue current orders. May continue home medications. Vital Signs (Last 4 hours) Pulse Resp BP Pulse Ox 02/25/20 19:29 97 02/25/20 19:07 77 18 159/79 96 02/25/20 18:20 78 18 133/67 97 Ray, Code Status Diagnosis hemorrhagic cystitis Resucitation Status Full Code Intake and Output 24 Hours 02/25/20 02/26/20 06:59 06:59 Weight 65.771 kg Physical Assessment Date Martinez Cath Inserted 02/09/20 Urine Appearance Hematuria Urine Color Dark Red Skin Temperature Warm Pain Scale (Last 24 Hours) Pain Intensity 5 Pain Intensity 5 Pain Intensity 5 Pain Intensity 5 Pain Intensity 5 Pain Intensity 5 PAST MEDICAL HISTORY Neurological History TIA ENT History No Pertinent History Endocrine Medical History Diabetes Type II Respiratory History No Pertinent History Cardiac History Coronary Artery Disease,Hypertension,Myocardial Infarction ([facility],Other GI Medical History GERD History Other Pyscho-Social History No Pertinent History Communicable Disease No Pertinent History Comment heart stent in 2007, Pt has a pacemaker, past [facility] Lab Results (Last 24 Hours) 02/25/20 02/25/20 02/25/20 Range/Units 21:19 17:32 16:30 WBC (4.0-10.5) K/mm3 RBC (4.1-5.6) M/mm3 Hgb (12.5-18.0) gm/dl Hct (42-50) % MCV (78-100) fl MCH (26-32) pg MCHC (32-36) g/dl RDW (11.5-14.0) % Plt Count (150-450) K/mm3 MPV (7.5-11.0) fl Gran % (36.0-66.0) % Eos # (Auto) (0-0.5) Absolute Lymphs (auto) (1.0-4.6) Absolute Monos (auto) (0.0-1.3) Lymphocytes % (24.0-44.0) % Monocytes % (0.0-12.0) % Eosinophils % (0.00-5.0) % Basophils % (0.0-0.4) % Absolute Granulocytes (1.4-6.9) Basophils # (0-0.4) PT 13.8 H (8.83-12.87) SECONDS INR 1.22 (0.8-3.0) APTT 32.1 (24.1-36.1) SECONDS Sodium (137-145) mmol/L Potassium (3.5-5.1) mmol/L Chloride (98-107) mmol/L Carbon Dioxide (22-30) mmol/L Anion Gap (5-15) MEQ/L BUN (9-20) mg/dL Creatinine (0.66-1.25) mg/dL Estimated GFR ML/MIN Glucose (74-106) mg/dL POC Glucometer 97 (74 to 106) mg/dL Calcium (8.4-10.2) mg/dL Total Bilirubin (0.2-1.3) mg/dL AST (17-59) U/L ALT (0-50) U/L Alkaline Phosphatase (38-126) U/L Serum Total Protein (6.3-8.2) g/dL Albumin (3.5-5.0) g/dL Urine Color RED (YELLOW) Urine Appearance CLOUDY (CLEAR) Urine pH 6.0 (5-6) Ur Specific [place] 1.011 (1.005-1.025) Urine Protein 100 (Negative) Urine Ketones NEGATIVE (NEGATIVE) Urine Blood LARGE (0-5) [place]/ul Urine Nitrite NEGATIVE (NEGATIVE) Urine Bilirubin NEGATIVE (NEGATIVE) Urine Urobilinogen NEGATIVE (0-1) mg/dL Ur Leukocyte Esterase MODERATE (NEGATIVE) Urine WBC (Auto) >100 (0-5) /HPF Urine RBC (Auto) >101 (0-2) /HPF U Epithel Cells (Auto) NONE (FEW) /HPF Urine Bacteria (Auto) NONE (NEGATIVE) /HPF Amorphous Crystals FEW (NEGATIVE) /HPF Urine Mucus (Auto) SLIGHT (NEGATIVE) /HPF Urine Culture Reflexed YES (NO) Urine Glucose NEGATIVE (NEGATIVE) mg/dL 02/25/20 02/25/20 Range/Units 16:30 16:30 WBC 11.9 H (4.0-10.5) K/mm3 RBC 2.59 L (4.1-5.6) M/mm3 Hgb 8.3 L (12.5-18.0) gm/dl Hct 26.9 L (42-50) % MCV 103.9 H (78-100) fl MCH 32.0 (26-32) pg MCHC 30.9 L (32-36) g/dl RDW 14.8 H (11.5-14.0) % Plt Count 450 (150-450) K/mm3 MPV 8.8 (7.5-11.0) fl Gran % 78.7 H (36.0-66.0) % Eos # (Auto) 0.36 (0-0.5) Absolute Lymphs (auto) 1.14 (1.0-4.6) Absolute Monos (auto) 0.96 (0.0-1.3) Lymphocytes % 9.6 L (24.0-44.0) % Monocytes % 8.1 (0.0-12.0) % Eosinophils % 3.0 (0.00-5.0) % Basophils % 0.6 (0.0-0.4) % Absolute Granulocytes 9.33 H (1.4-6.9) Basophils # 0.07 (0-0.4) PT (8.83-12.87) SECONDS INR (0.8-3.0) APTT (24.1-36.1) SECONDS Sodium 133 L (137-145) mmol/L Potassium 4.7 (3.5-5.1) mmol/L Chloride 103 (98-107) mmol/L Carbon Dioxide 24 (22-30) mmol/L Anion Gap 11.2 (5-15) MEQ/L BUN 30 H (9-20) mg/dL Creatinine 2.09 H (0.66-1.25) mg/dL Estimated GFR 32.6 ML/MIN Glucose 113 H (74-106) mg/dL POC Glucometer (74 to 106) mg/dL Calcium 9.4 (8.4-10.2) mg/dL Total Bilirubin 0.30 (0.2-1.3) mg/dL AST 25 (17-59) U/L ALT 14 (0-50) U/L Alkaline Phosphatase 72 (38-126) U/L Serum Total Protein 6.5 (6.3-8.2) g/dL Albumin 3.5 (3.5-5.0) g/dL Urine Color (YELLOW) Urine Appearance (CLEAR) Urine pH (5-6) Ur Specific [place] (1.005-1.025) Urine Protein (Negative) Urine Ketones (NEGATIVE) Urine Blood (0-5) [place]/ul Urine Nitrite (NEGATIVE) Urine Bilirubin (NEGATIVE) Urine Urobilinogen (0-1) mg/dL Ur Leukocyte Esterase (NEGATIVE) Urine WBC (Auto) (0-5) /HPF Urine RBC (Auto) (0-2) /HPF U Epithel Cells (Auto) (FEW) /HPF Urine Bacteria (Auto) (NEGATIVE) /HPF Amorphous Crystals (NEGATIVE) /HPF Urine Mucus (Auto) (NEGATIVE) /HPF Urine Culture Reflexed (NO) Urine Glucose (NEGATIVE) mg/dL Microbiology Results (Last 24 Hours) 02/25/20 17:32 Urine Culture - Pending Urine, Void Orders (Last 24 Hours) Category Date Time Status Bedrest ROUTINE Activity 02/25/20 20:20 Active Up With Assistance Q1H Activity 02/25/20 20:20 Active Code Status Order ROUTINE Care 02/25/20 20:20 Active Fall Protocol ROUTINE Care 02/25/20 20:20 Active IV Care Q6H Care 02/25/20 20:20 Active POCT Glucose Check ACHS Care 02/25/20 20:[address] in Observation ROUTINE Care 02/25/20 20:20 Active [place], Apply ROUTINE Care 02/25/20 20:20 Active Weight,Daily 0600 Care 02/25/20 20:20 Active ABDOMEN AND PELVIS W/0 CONTRAS [CT] Stat Exams 02/25/20 19:01 Taken CBC W DIFF AM.LAB Lab 02/26/20 04:00 Ordered CMP AM.LAB Lab 02/26/20 04:00 Ordered CULTURE,URINE Stat Lab 02/25/20 17:32 Received Acetaminophen 325 mg [Tylenol 325 mg] Med 02/25/20 20:20 Ordered 650 mg PO Q4H PRN PRN Ceftriaxone 1 GM/50 ML PREMIX* [ROCEPHIN 1 Gm-D5w 50 ml Med 02/26/20 10:00 Ordered Bag] 1 g in 50 ml IV Q24H10 Famotidine 20 mg Vial [Pepcid 20 MG VIAL] Med 02/25/20 22:00 Ordered 20 mg IV Q12HT Hydrocodone/APAP 5/325 [[place] 5/325 mg] Med 02/25/20 21:06 Ordered 1 tab PO Q6H PRN Insulin Lispro [Humalog] Med 02/25/20 20:20 Ordered See Dose Instructions SQ UD PRN NaCl 0.9% 1000 ml [Sodium Chloride 0.9% 1000 ML] 1,000 Med 02/25/20 20:20 Ordered ml IV 75 mls/hr Ondansetron HCl 4 mg/2 ml [Zofran 4 MG/2 ML VIAL] Med 02/25/20 20:20 Ordered 4 mg IV Q6H PRN PRN Trazodone HCl 50 mg [Desyrel 50 mg] Med 02/25/20 22:00 Ordered 100 mg PO QHS Active Visit Medications Generic Name Dose Route Start Last Admin Trade Name Freq PRN Reason Stop Dose Admin Acetaminophen 650 mg 02/25/20 20:20 Tylenol 325 Mg PO 03/26/20 20:19 Q4H PRN PRN PAIN AND/OR FEVER Hydrocodone Bitart/Acetaminophen 1 tab 02/25/20 21:06 [place] 5/325 Mg PO 03/01/20 21:05 Q6H PRN PAIN Famotidine 20 mg 02/25/20 22:00 Pepcid 20 Mg Vial IV 03/26/20 21:59 Q12HT [facility] Sodium Chloride 1,000 mls @ 75 mls/hr 02/25/20 20:20 Sodium Chloride 0.9% 1000 Ml IV 03/26/20 20:19 .[id number] [facility] Ceftriaxone Sodium/Dextrose 1 g in 50 mls @ 100 mls/hr 02/26/20 10:00 Rocephin 1 Gm-D5w 50 Ml Bag IV 03/27/20 09:59 Q24H10 [facility] Insulin Human Lispro 0 unit 02/25/20 20:20 Humalog SQ 03/26/20 20:19 UD PRN HYPERGLYCEMIA Ondansetron HCl 4 mg 02/25/20 20:20 Zofran 4 Mg/2 Ml Vial IV 03/26/20 20:19 Q6H PRN PRN NAUSEA/VOMITING Trazodone HCl 100 mg 02/25/20 22:00 Desyrel 50 Mg PO 03/26/20 21:59 QHS VALERI Initialized on 02/25/20 21:29 - END OF NOTE Code(s): U07.1 - COVID-19 (2) Hemorrhagic cystitis Current Visit: Yes Status: Acute Code(s): N30.91 - CYSTITIS, UNSPECIFIED WITH HEMATURIA (3) Blood loss anemia Current Visit: Yes Status: Acute Code(s): D50.0 - IRON DEFICIENCY ANEMIA SECONDARY TO BLOOD LOSS (CHRONIC) (4) Hematuria Current Visit: Yes Status: Acute Qualifiers: Hematuria type: gross Qualified Code(s): R31.0 - Gross hematuria Code(s): R31.9 - HEMATURIA, UNSPECIFIED (5) Diabetes Current Visit: Yes Status: Chronic Qualifiers: Diabetes mellitus type: type 2 Diabetes mellitus complication status: with hyperglycemia Code(s): E11.9 - TYPE 2 DIABETES MELLITUS WITHOUT COMPLICATIONS (6) HTN (hypertension) Current Visit: Yes Status: Chronic Qualifiers: Hypertension type: essential hypertension Qualified Code(s): I10 - Essential (primary) hypertension Code(s): I10 - ESSENTIAL (PRIMARY) HYPERTENSION
[2020-02-26 08:06] VITALS: BP 143/65; PULSE 68; O2SAT 93
[2020-02-26] MEDS ORDERED: MEDICATION INTERVENTION PO SCH (08:15)
[2020-02-26] MEDS ORDERED: Colace 100 MG PO SCH (10:00)
[2020-02-26] MEDS ORDERED: NON-FORMULARY ITEM (Omeprazole [Omeprazole] 20 MG) PO SCH (10:00)
[2020-02-26] MEDS ORDERED: NON-FORMULARY ITEM (Docusate Sodium 100 MG) PO SCH (10:00)
[2020-02-26] MEDS ORDERED: Imdur 30 MG PO SCH (10:00)
[2020-02-26] MEDS ORDERED: Glucophage 500 MG PO SCH (10:00)
[2020-02-26] MEDS ORDERED: Zestril 20 MG PO SCH (10:00)
[2020-02-26] MEDS ORDERED: NON-FORMULARY ITEM (Multivitamin [Multivitamin] 1 TAB) PO SCH (10:00)
[2020-02-26] MEDS ORDERED: Protonix 40MG Tablet PO SCH (10:00)
[2020-02-26] MEDS ORDERED: Ditropan XL 5 MG PO SCH (10:00)
[2020-02-26] MEDS ORDERED: CYANOCOBALAMIN PO SCH (10:00)
[2020-02-26] MEDS ORDERED: Vitamin B-12 500 MCG PO SCH (10:00)
[2020-02-26] MEDS ORDERED: THERAGRAN MULTIVITAMIN PO SCH (10:00)
[2020-02-26] MEDS ORDERED: Cardizem CD 120 MG PO SCH (10:00)
[2020-02-26] MEDS ORDERED: NON-FORMULARY ITEM (Timolol [Betimol] 1 DROP) OP SCH (10:00)
[2020-02-26] MEDS ORDERED: DILTIAZEM HCL 240 MG PO SCH (10:00)
--- NOTE | 2020-02-26 10:15 | PCM.DS ---
Discharge Summary Date of Admission: 02/25/20 20:10 Admitting Physician: ARNOLD OLIVAS Primary Care Provider: ARNOLD OLIVAS Allergies Allergies doxazosin mesylate [From Cardura] Allergy (Verified 02/25/20 15:56) Itching iodine Allergy (Verified 02/25/20 15:56) Hives latex Allergy (Verified 02/25/20 20:58) prednisone Allergy (Verified 02/25/20 15:56) states "homicidal" [id number]-[id number] Reductase Inhibitor Allergy (Verified 02/25/20 15:56) Joint Aches duloxetine Adverse Reaction (Verified 02/25/20 15:56) milk Adverse Reaction (Verified 02/25/20 15:56) bananas Allergy (Uncoded 02/25/20 15:56) iv contrast Allergy (Uncoded 02/25/20 15:56) [facility] Summary - Hospital Course Hospital Course: And has a persistence hematuria and hemoglobin dropped to 7.2 which was 8.2 yesterday. Urology service at [facility] was contacted they advised us to admit patient under hospitalist service at their hospital. I talked to hospitalist Dr. Guerra and she accepted patient. - Vitals & Intake/Output Vital Signs: Vital Signs Temperature 98.9 F 02/26/20 08:00 Pulse Rate 68 02/26/20 08:00 Respiratory Rate 18 02/26/20 08:00 Blood Pressure 143/65 02/26/20 08:00 O2 Sat by Pulse Oximetry 93 L 02/26/20 08:00 Intake & Output: Intake & Output 02/23/20 02/24/20 02/25/20 02/26/20 11:59 11:59 11:59 11:59 Intake Total 567 Output Total 1200 Balance -633 Weight 64 kg - Lab Result Diagrams: 02/26/20 06:25 02/26/20 06:25 Lab Results-Last 24 Hrs: Lab Results-Last 24 Hours 02/25/20 02/25/20 02/25/20 Range/Units 16:30 16:30 16:30 WBC 11.9 H (4.0-10.5) K/mm3 RBC 2.59 L (4.1-5.6) M/mm3 Hgb 8.3 L (12.5-18.0) gm/dl Hct 26.9 L (42-50) % MCV 103.9 H (78-100) fl MCH 32.0 (26-32) pg MCHC 30.9 L (32-36) g/dl RDW 14.8 H (11.5-14.0) % Plt Count 450 (150-450) K/mm3 MPV 8.8 (7.5-11.0) fl Gran % 78.7 H (36.0-66.0) % Eos # (Auto) 0.36 (0-0.5) Absolute Lymphs (auto) 1.14 (1.0-4.6) Absolute Monos (auto) 0.96 (0.0-1.3) Lymphocytes % 9.6 L (24.0-44.0) % Monocytes % 8.1 (0.0-12.0) % Eosinophils % 3.0 (0.00-5.0) % Basophils % 0.6 (0.0-0.4) % Absolute Granulocytes 9.33 H (1.4-6.9) Basophils # 0.07 (0-0.4) PT 13.8 H (8.83-12.87) SECONDS INR 1.22 (0.8-3.0) APTT 32.1 (24.1-36.1) SECONDS Sodium 133 L (137-145) mmol/L Potassium 4.7 (3.5-5.1) mmol/L Chloride 103 (98-107) mmol/L Carbon Dioxide 24 (22-30) mmol/L Anion Gap 11.2 (5-15) MEQ/L BUN 30 H (9-20) mg/dL Creatinine 2.09 H (0.66-1.25) mg/dL Estimated GFR 32.6 ML/MIN Glucose 113 H (74-106) mg/dL POC Glucometer (74 to 106) mg/dL Hemoglobin A1c (4.5-6.0) % Calcium 9.4 (8.4-10.2) mg/dL Total Bilirubin 0.30 (0.2-1.3) mg/dL AST 25 (17-59) U/L ALT 14 (0-50) U/L Alkaline Phosphatase 72 (38-126) U/L Serum Total Protein 6.5 (6.3-8.2) g/dL Albumin 3.5 (3.5-5.0) g/dL Urine Color (YELLOW) Urine Appearance (CLEAR) Urine pH (5-6) Ur Specific [place] (1.005-1.025) Urine Protein (Negative) Urine Ketones (NEGATIVE) Urine Blood (0-5) [place]/ul Urine Nitrite (NEGATIVE) Urine Bilirubin (NEGATIVE) Urine Urobilinogen (0-1) mg/dL Ur Leukocyte Esterase (NEGATIVE) Urine WBC (Auto) (0-5) /HPF Urine RBC (Auto) (0-2) /HPF U Epithel Cells (Auto) (FEW) /HPF Urine Bacteria (Auto) (NEGATIVE) /HPF Amorphous Crystals (NEGATIVE) /HPF Urine Mucus (Auto) (NEGATIVE) /HPF Urine Culture Reflexed (NO) Urine Glucose (NEGATIVE) mg/dL 02/25/20 02/25/20 02/26/20 Range/Units 17:32 21:19 05:50 WBC (4.0-10.5) K/mm3 RBC (4.1-5.6) M/mm3 Hgb (12.5-18.0) gm/dl Hct (42-50) % MCV (78-100) fl MCH (26-32) pg MCHC (32-36) g/dl RDW (11.5-14.0) % Plt Count (150-450) K/mm3 MPV (7.5-11.0) fl Gran % (36.0-66.0) % Eos # (Auto) (0-0.5) Absolute Lymphs (auto) (1.0-4.6) Absolute Monos (auto) (0.0-1.3) Lymphocytes % (24.0-44.0) % Monocytes % (0.0-12.0) % Eosinophils % (0.00-5.0) % Basophils % (0.0-0.4) % Absolute Granulocytes (1.4-6.9) Basophils # (0-0.4) PT (8.83-12.87) SECONDS INR (0.8-3.0) APTT (24.1-36.1) SECONDS Sodium (137-145) mmol/L Potassium (3.5-5.1) mmol/L Chloride (98-107) mmol/L Carbon Dioxide (22-30) mmol/L Anion Gap (5-15) MEQ/L BUN (9-20) mg/dL Creatinine (0.66-1.25) mg/dL Estimated GFR ML/MIN Glucose (74-106) mg/dL POC Glucometer 97 (74 to 106) mg/dL Hemoglobin A1c 4.33 L (4.5-6.0) % Calcium (8.4-10.2) mg/dL Total Bilirubin (0.2-1.3) mg/dL AST (17-59) U/L ALT (0-50) U/L Alkaline Phosphatase (38-126) U/L Serum Total Protein (6.3-8.2) g/dL Albumin (3.5-5.0) g/dL Urine Color RED (YELLOW) Urine Appearance CLOUDY (CLEAR) Urine pH 6.0 (5-6) Ur Specific [place] 1.011 (1.005-1.025) Urine Protein 100 (Negative) Urine Ketones NEGATIVE (NEGATIVE) Urine Blood LARGE (0-5) [place]/ul Urine Nitrite NEGATIVE (NEGATIVE) Urine Bilirubin NEGATIVE (NEGATIVE) Urine Urobilinogen NEGATIVE (0-1) mg/dL Ur Leukocyte Esterase MODERATE (NEGATIVE) Urine WBC (Auto) >100 (0-5) /HPF Urine RBC (Auto) >101 (0-2) /HPF U Epithel Cells (Auto) NONE (FEW) /HPF Urine Bacteria (Auto) NONE (NEGATIVE) /HPF Amorphous Crystals FEW (NEGATIVE) /HPF Urine Mucus (Auto) SLIGHT (NEGATIVE) /HPF Urine Culture Reflexed YES (NO) Urine Glucose NEGATIVE (NEGATIVE) mg/dL 02/26/20 02/26/20 02/26/20 Range/Units 06:25 06:25 07:32 WBC 8.6 (4.0-10.5) K/mm3 RBC 2.41 L (4.1-5.6) M/mm3 Hgb 7.7 L (12.5-18.0) gm/dl Hct 25.3 L (42-50) % MCV 105.0 H (78-100) fl MCH 32.0 (26-32) pg MCHC 30.4 L (32-36) g/dl RDW 14.7 H (11.5-14.0) % Plt Count 394 (150-450) K/mm3 MPV 9.2 (7.5-11.0) fl Gran % 75.0 H (36.0-66.0) % Eos # (Auto) 0.39 (0-0.5) Absolute Lymphs (auto) 1.00 (1.0-4.6) Absolute Monos (auto) 0.71 (0.0-1.3) Lymphocytes % 11.7 L (24.0-44.0) % Monocytes % 8.3 (0.0-12.0) % Eosinophils % 4.5 (0.00-5.0) % Basophils % 0.5 (0.0-0.4) % Absolute Granulocytes 6.44 (1.4-6.9) Basophils # 0.04 (0-0.4) PT (8.83-12.87) SECONDS INR (0.8-3.0) APTT (24.1-36.1) SECONDS Sodium 135 L (137-145) mmol/L Potassium 4.5 (3.5-5.1) mmol/L Chloride 106 (98-107) mmol/L Carbon Dioxide 25 (22-30) mmol/L Anion Gap 8.4 (5-15) MEQ/L BUN 25 H (9-20) mg/dL Creatinine 1.62 H (0.66-1.25) mg/dL Estimated GFR 43.7 ML/MIN Glucose 105 (74-106) mg/dL POC Glucometer 95 (74 to 106) mg/dL Hemoglobin A1c (4.5-6.0) % Calcium 9.2 (8.4-10.2) mg/dL Total Bilirubin 0.30 (0.2-1.3) mg/dL AST 21 (17-59) U/L ALT 10 (0-50) U/L Alkaline Phosphatase 61 (38-126) U/L Serum Total Protein 6.0 L (6.3-8.2) g/dL Albumin 3.1 L (3.5-5.0) g/dL Urine Color (YELLOW) Urine Appearance (CLEAR) Urine pH (5-6) Ur Specific [place] (1.005-1.025) Urine Protein (Negative) Urine Ketones (NEGATIVE) Urine Blood (0-5) [place]/ul Urine Nitrite (NEGATIVE) Urine Bilirubin (NEGATIVE) Urine Urobilinogen (0-1) mg/dL Ur Leukocyte Esterase (NEGATIVE) Urine WBC (Auto) (0-5) /HPF Urine RBC (Auto) (0-2) /HPF U Epithel Cells (Auto) (FEW) /HPF Urine Bacteria (Auto) (NEGATIVE) /HPF Amorphous Crystals (NEGATIVE) /HPF Urine Mucus (Auto) (NEGATIVE) /HPF Urine Culture Reflexed (NO) Urine Glucose (NEGATIVE) mg/dL Micro Results-Entire Visit: Microbiology 02/25/20 17:32 Urine Culture - Preliminary Urine, Void NO GROWTH TO DATE Accuchecks Date 02/26/20 - Radiology Exams Ordered Rad Exams-Entire Visit: Radiology Procedures Category Date Time Status ABDOMEN AND PELVIS W/0 CONTRAS [CT] Stat Exams 02/25/20 19:01 Completed Discharge Exam General Appearance: no apparent distress, alert Neurologic Exam: alert, oriented x 3, cooperative, normal mood/affect, nml cerebellar function, sensation nml, No motor deficits Eye Exam: PERRL, EOMI, eyes nml inspection Ears, Nose, Throat Exam: normal ENT inspection, pharynx normal, moist mucous membranes Neck Exam: normal inspection, non-tender, supple, full range of motion Respiratory Exam: normal breath sounds, lungs clear, No respiratory distress Cardiovascular Exam: regular rate/rhythm, normal heart sounds Gastrointestinal/Abdomen Exam: soft, No tenderness, No mass Male Genitalia Exam: deferred Rectal Exam: deferred Back Exam: normal inspection, normal range of motion, No CVA tenderness, No vertebral tenderness Extremity Exam: normal inspection, normal range of motion Skin Exam: normal color, warm, dry Wound Assessment: Skin/Wound Assessment Wound/Incision Assessment Start: 02/25/20 23:50 Text: Status: Active Freq: Q6H Protocol: Document 02/26/20 06:00 MS (Rec: 02/26/20 06:59 MS [id number]) Wound/Incision Assessment Right Index Finger Wound Assessment Shift Assessment Wound Type reddened Drainage Amount None General Appearance Reddened Surrounding Tissue [place] Wound Photo Photo Taken No Final Diagnosis/Problem List - Final Discharge Diagnosis/Problem (1) Hemorrhagic cystitis Current Visit: Yes Status: Acute Assessment & Plan: Is being transferred to [facility]. Code(s): N30.91 - CYSTITIS, UNSPECIFIED WITH HEMATURIA (2) COVID-19 virus detected Current Visit: Yes Status: Acute Code(s): U07.1 - COVID-19 (3) Blood loss anemia Current Visit: Yes Status: Acute Code(s): D50.0 - IRON DEFICIENCY ANEMIA SECONDARY TO BLOOD LOSS (CHRONIC) (4) Hematuria Current Visit: Yes Status: Acute Code(s): R31.9 - HEMATURIA, UNSPECIFIED (5) Diabetes Current Visit: Yes Status: Chronic Code(s): E11.9 - TYPE 2 DIABETES MELLITUS WITHOUT COMPLICATIONS (6) HTN (hypertension) Current Visit: Yes Status: Chronic Code(s): I10 - ESSENTIAL (PRIMARY) HYPERTENSION - Discharge Discharge Date: 02/26/20 Disposition: XFER OTHER Condition: Stable Prescriptions: No Action Diltiazem HCl 240 mg [Cardizem CD 240 MG] 240 mg PO DAILY Metformin HCl 500 mg [Glucophage 500 MG] 500 mg PO DAILY Sennosides/Docusate Sodium [Stool Softener-Laxative Tablet] 25 mg PO BID PRN PRN Reason: Constipation Lisinopril 20 mg [Zestril 20 MG] 20 mg PO BID #60 tablet Trazodone HCl 100 mg PO QHS Oxybutynin Chloride Xl 5 mg [Ditropan XL 5 MG] 1 tab PO TID Omeprazole 20 mg PO DAILY Nitroglycerin 0.4 mg Tablet [Nitrostat 0.4 MG Tablet] 1 tab SL UD Multivitamin 1 tab PO DAILY Phenylephrine/Dm/Acetaminop/GG [Mucinex Fast-Max Cold-Flu Liq] 20 ml PO Q4H PRN PRN Reason: Cough Guaifenesin 600 mg ER [Mucinex 600MG ER Tabs] 600 mg PO QHS Isosorbide Mononitrate 30 mg [Imdur 30 MG] 30 mg PO DAILY Hydrocodone/Acetaminophen [Hydrocodone-Acetamin 5-325 mg] 1 tab PO Q6H PRN PRN Reason: Moderate To Severe Pain Simethicone 80 mg [Mylicon 80MG] 80 mg PO QID PRN PRN Reason: Gas Docusate Sodium 100 mg PO BID Timolol [Betimol] 1 drop OP BID Oxymetazoline HCl Nasal [Afrin Nasal [place]] 2 spray NS BID PRN PRN Reason: Sinus Congestion Acetaminophen 1,000 mg PO Q6H PRN PRN Reason: Fever Cyanocobalamin (Vitamin B-12) [Vitamin B-12] 1 tablet PO DAILY Additional Instructions: Transfer to [facility] Follow up with: ARNOLD OLIVAS MD [Primary Care Provider] -
[2020-02-26] MEDS: Pepcid 20 MG VIAL IV SCH (10:21)
[2020-02-26] MEDS ORDERED: ROCEPHIN 1 Gm-D5w 50 ml Bag** 1 G/50 ML IVPB IV SCH (22:00)
[2020-02-26] MEDS ORDERED: Mucinex 600MG ER Tabs PO SCH (22:00)
== END 2020-02-26 12:05 ==
LOC: ED 15:45 → MED SURG 20:10
PROVIDERS: ADMIT Family Medicine; ATTEND General Practice
DX: N30.91 Cystitis, unspecified with hematuria (principal); U07.1 COVID-19; D50.0 Iron deficiency anemia secondary to blood loss (chronic); N17.9 Acute kidney failure, unspecified; R31.9 Hematuria, unspecified; E11.9 Type 2 diabetes mellitus without complications; Z79.899 Other long term (current) drug therapy; I10 Essential (primary) hypertension; I25.10 Atherosclerotic heart disease of native coronary artery without angina pectoris
CPT/HCPCS: 36000; 36415; 74176; 80053; 81001; 82947; 83036; 85025; 85610; 85730; 87086; 93268; 96360; 96361; 96365; 99284; 99291; G0378; 96374; J0696; A9270-GY

== ENCOUNTER 2020-03-01 15:26 | Emergency (ER) | payer MEDICARE ==
[2020-03-01 15:58] LABS: Absolute Neutrophil Ct (ANC) 16.59 (1.4-6.9); BASOPHIL % 0.3 % (0.0-0.4); Basophil (Absolute #) 0.05 (0-0.4); Eosinophil % 0.1 % (0.00-5.0); Eosinophil (Absolute #) 0.01 (0-0.5); Hematocrit 25.3 % (42-50); Hemoglobin 7.9 gm/dl (12.5-18.0); Lymphocyte (Absolute #) 1.06 (1.0-4.6); Lymphocytes % 5.6 % (24.0-44.0); Mean Cell Volume 103.7 fl (78-100); Mean Corpuscular Hemoglobin 32.4 pg (26-32); Mean Corpuscular Hgb Concent. 31.2 g/dl (32-36); Monocyte (Absolute #) 1.21 (0.0-1.3); Monocytes % 6.4 % (0.0-12.0); Neutrophil % 87.6 % (36.0-66.0); Platelet Count 387 K/mm3 (150-450); Red Blood Count 2.44 M/mm3 (4.1-5.6); Red Cell Distribution Width 14.5 % (11.5-14.0); White Blood Count 18.9 K/mm3 (4.0-10.5)
[2020-03-01 16:03] LABS: ALBUMIN 3.3 g/dL (3.5-5.0); BILIRUBIN,TOTAL 0.3 mg/dL (0.2-1.3); Calcium 9.3 mg/dL (8.4-10.2); Creatinine 1 2.97 mg/dL (0.66-1.25); EST GLOMERULAR FILTRATION RATE 21.7 ML/MIN; Potassium 5.1 mmol/L (3.5-5.1); Total Protein 6.3 g/dL (6.3-8.2)
[2020-03-01 17:02] LABS: Appearance TURBID (CLEAR); Bacteria MODERATE /HPF (NEGATIVE); Bilirubin NEGATIVE (NEGATIVE); Blood LARGE Ery/ul (0-5); Glucose NEGATIVE (NEGATIVE); Ketones NEGATIVE (NEGATIVE); Leukocyte Esterase SMALL (NEGATIVE); Mucus SLIGHT /HPF (NEGATIVE); Nitrite NEGATIVE (NEGATIVE); Protein,Urine Dip 100 (Negative); RBC >101 /HPF (0-2); Specific Gravity 1.024 (1.005-1.025); Urobilinogen NEGATIVE mg/dL (0-1); WBC >100 /HPF (0-5)
[2020-03-01] MEDS ORDERED: MORPHINE SULFATE 4 MG INJ IV ONE (17:20)
[2020-03-01] MEDS ORDERED: Zofran 4 MG/2 ML VIAL IV ONE (17:20)
[2020-03-01] MEDS ORDERED: Sodium Chloride 0.9% 1000 ML 1,000 ML IV STA (17:21)
[2020-03-01] MEDS ORDERED: ROCEPHIN 1 Gm-D5w 50 ml Bag** 1 G/50 ML IVPB IV STA (17:23)
[2020-03-01] MEDS ORDERED: MORPHINE SULFATE 4 MG INJ ONE (17:42)
[2020-03-01] MEDS ORDERED: Zofran 4 MG/2 ML VIAL ONE (17:42)
[2020-03-01] MEDS ORDERED: Sodium Chloride 0.9% 1000 ML 0 ML ONE (17:43)
[2020-03-01] MEDS ORDERED: ROCEPHIN 1 Gm-D5w 50 ml Bag** 1 G/50 ML IVPB IV ONE (17:43)
--- NOTE | 2020-03-01 18:28 | ERPHSYRPT ---
<ANH RAY - Last Filed: 03/01/20 20:57> - History of Present Illness Source: patient Exam Limitations: other (Hearing impairment) Patient Subjective Stated Complaint: penile pain, hematuria, "lethargy" Triage Nursing Assessment: pt to ED by EMS c/o penile pain 10/16, hematuria and lethargic at home today. pt has hematuria often and for some time now, unusre of onset. pt daughter reports to EMS that pt was more confused than normal today and lethargic. pt more alert on arrival to ED per EMS. hematuria noted in FC that is from home. pt is extremely RINCON and does not want to turn on hearing aids making communication more difficult. Timing/Duration: day(s) (1) Activites at Onset: rest Quality: sharpness Onset Location: suprapubic, generalized flank Pain Radiation: none Severity of Pain-Max: severe Severity of Pain-Current: moderate Modifying Factors: Improves With: lying down, rest. Worsens With: movement Associated Symptoms: denies symptoms Prior abdominal problems: similar symptoms Sexual intercourse history: non-contributory Hx Tetanus, Diphtheria Vaccination/Date Given: No Hx Influenza Vaccination/Date Given: Yes Hx Pneumococcal Vaccination/Date Given: No <SHAKIR BAUER - Last Filed: 03/02/20 15:47> - History of Present Illness Time Seen by Provider: 03/01/20 15:43 Physician History: 79 years old male with multiple medical problems who has penile implant, indwelling catheter placed in by [facility] on last month admission having intermittent hematuria presented in the ER with decreased urine output and suprapubic/flank pain moderate to severe intensity sharp in nature. Patient denies any nausea vomiting or fever/chills associated with it. On his previous admission at [facility] patient contracted COVID-19 so would not have any procedure done. Patient was admitted last week with similar symptoms with worsening of renal functions and hematuria. Had UTI but urine culture did not grow any specific organisms. (SHAKIR BAUER) Allergies/Adverse Reactions: doxazosin mesylate [From Cardura] Allergy (Verified 03/01/20 15:41) Itching iodine Allergy (Verified 03/01/20 15:41) Hives latex Allergy (Verified 03/01/20 15:41) prednisone Allergy (Verified 12/24/20 15:41) states "homicidal" [id number] Reductase Inhibitor Allergy (Verified 03/01/20 15:41) Joint Aches duloxetine Adverse Reaction (Verified 03/01/20 15:41) milk Adverse Reaction (Verified 03/01/20 15:41) bananas Allergy (Uncoded 03/01/20 15:41) iv contrast Allergy (Uncoded 03/01/20 15:41) Hives Home Medications: Diltiazem HCl 240 mg [Cardizem CD 240 MG] 240 mg PO DAILY 01/02/16 [History] Metformin HCl 500 mg [Glucophage 500 MG] 500 mg PO DAILY 01/02/16 [History] Sennosides/Docusate Sodium [Stool Softener-Laxative Tablet] 25 mg PO BID PRN 10/16/18 [History] Trazodone HCl 100 mg PO QHS 02/09/20 [History] Acetaminophen 1,000 mg PO Q6H PRN 02/25/20 [History] Cyanocobalamin (Vitamin B-12) [Vitamin B-12] 1 tablet PO DAILY 02/25/20 [History] Docusate Sodium 100 mg PO BID 02/25/20 [History] Guaifenesin 600 mg ER [Mucinex 600MG ER Tabs] 600 mg PO QHS 02/25/20 [History] Hydrocodone/Acetaminophen [Hydrocodone-Acetamin 5-325 mg] 1 tab PO Q6H PRN 02/25/20 [History] Isosorbide Mononitrate 30 mg [Imdur 30 MG] 30 mg PO DAILY 02/25/20 [History] Multivitamin 1 tab PO DAILY 02/25/20 [History] Nitroglycerin 0.4 mg Tablet [Nitrostat 0.4 MG Tablet] 1 tab SL UD 02/25/20 [History] Omeprazole 20 mg PO DAILY 02/25/20 [History] Oxybutynin Chloride Xl 5 mg [Ditropan XL 5 MG] 1 tab PO TID 02/25/20 [History] Oxymetazoline HCl Nasal [Afrin Nasal [place]] 2 spray NS BID PRN 02/25/20 [History] Phenylephrine/Dm/Acetaminop/GG [Mucinex Fast-Max Cold-Flu Liq] 20 ml PO Q4H PRN 02/25/20 [History] Simethicone 80 mg [Mylicon 80MG] 80 mg PO QID PRN 02/25/20 [History] Timolol [Betimol] 1 drop OP BID 02/25/20 [History] Travel Risk - International Travel Have you traveled outside of the country in past 3 weeks: No - Coronavirus Screening Are you exhibiting any of the following symptoms?: No Close contact with a COVID-19 positive Pt in past 14-21 Days: No <SHAKIR BAUER - Last Filed: 03/02/20 15:47> - Past Medical History Pertinent Past Medical History: Yes Neurological History: TIA ENT History: No Pertinent History Cardiac History: Coronary Artery Disease, Hypertension, Myocardial Infarction (PA), Other Respiratory History: No Pertinent History Endocrine Medical History: Diabetes Type II Musculoskeletal History: Degenerative Disk Disease GI Medical History: GERD History: Other Psycho-Social History: No Pertinent History Male Reproductive Disorders: Prostate Cancer Other Medical History: heart stent in 2007, Pt has a pacemaker, past PA, COVID- 19 DX February 2020 - Past Surgical History Past Surgical History: Yes Neuro Surgical History: No Pertinent History Cardiac: Angioplasty, Cardiac Stent, Pacemaker Respiratory: Other Gastrointestinal: No Pertinent History Genitourinary: No Pertinent History Musculoskeletal: No Pertinent History Male Surgical History: Prostate Surgery, Vasectomy, Other Other Surgical History: states left lung collapsed, penile implant, back pain stimulator AND REMOVAL 2017 - Social History Smoking Status: Former smoker Exposure to second hand smoke: Yes Alcohol Use: None Drug Use: none Patient Lives Alone: Yes Significant Family History: no pertinent family hx <SHAKIR BAUER - Last Filed: 03/02/20 15:47> - Review of Systems Constitutional: Fatigue Eyes: No Symptoms Ears, Nose, & Throat: No Symptoms Respiratory: No Symptoms Cardiac: No Symptoms Abdominal/Gastrointestinal: Abdominal Pain Genitourinary Symptoms: Dysuria, Hematuria Musculoskeletal: No Symptoms Skin: No Symptoms Neurological: No Symptoms Psychological: Anxiety Endocrine: No Symptoms Immunological/Allergic: No Symptoms <SHAKIR BAUER Last Filed: 03/02/20 15:47> - Physical Exam General Appearance: no apparent distress Eye Exam: eyes nml inspection Ears, Nose, Throat Exam: normal ENT inspection, pharynx normal Neck Exam: normal inspection, supple, full range of motion Respiratory Exam: normal breath sounds, lungs clear Cardiovascular Exam: regular rate/rhythm, normal heart sounds Gastrointestinal/Abdomen Exam: soft, tenderness (Suprapubic area) Male Genital Exam: circumcised (Minimal tenderness penis), No scrotum tenderness (R), No scrotum tenderness (L) Back Exam: normal inspection, normal range of motion Extremity Exam: normal inspection, normal range of motion Neurologic Exam: alert, oriented x 3, cooperative Skin Exam: normal color SpO2 Interpretation: normal SpO2: 96 O2 Delivery: Room Air <SHAKIR BAUER - Last Filed: 03/02/20 15:47> - Nursing Vital Signs Nursing Vital Signs: Initial Vital Signs Temperature 98.5 F 03/01/20 15:29 Pulse Rate 78 03/01/20 15:29 Respiratory Rate 18 03/01/20 15:29 Blood Pressure 97/68 03/01/20 15:29 O2 Sat by Pulse Oximetry 93 L 03/01/20 15:29 Pain Scale Pain Intensity 0 Ordered Tests: Active Orders 24 hr Category Date Time Status AMA [Release AMA] OM.NOW Care 03/01/20 21:03 Completed ABDOMEN AND PELVIS W/0 CONTRAS [CT] Stat Exams 03/01/20 17:20 Completed CBC W DIFF Stat Lab 03/01/20 15:50 Completed CMP Stat Lab 03/01/20 15:50 Completed CULTURE,URINE Stat Lab 03/01/20 16:50 Results UA W/RFX UR CULTURE Stat Lab 03/01/20 15:44 Completed Medication Summary Discontinued Medications Generic Name Dose Route Start Last Admin Trade Name Freq PRN Reason Stop Dose Admin Sodium Chloride 1,000 mls @ 500 mls/hr 03/01/20 17:21 03/01/20 20:51 Sodium Chloride 0.9% 1000 Ml IV 03/01/20 19:20 Infused .Q2H STA Infusion Ceftriaxone Sodium/Dextrose 1 g in 50 mls @ 100 mls/hr 03/01/20 17:23 03/01/20 19:34 Rocephin 1 Gm-D5w 50 Ml Bag IV 03/01/20 17:52 Infused STAT STA Infusion Sodium Chloride Confirm 03/01/20 17:43 Sodium Chloride 0.9% 1000 Ml Administered 03/01/20 17:44 Dose 1,000 mls @ ud .ROUTE .STK-MED ONE Ceftriaxone Sodium/Dextrose Confirm 03/01/20 17:43 Rocephin 1 Gm-D5w 50 Ml Bag Administered 03/01/20 17:44 Dose 1 g in 50 mls @ ud IV .STK-MED ONE Morphine Sulfate 4 mg 03/01/20 17:20 03/01/20 17:48 Morphine Sulfate 4 Mg Inj IV 03/01/20 17:21 4 mg STAT ONE Administration Morphine Sulfate Confirm 03/01/20 17:42 Morphine Sulfate 4 Mg Inj Administered 03/01/20 17:43 Dose 4 mg .ROUTE .STK-MED ONE Ondansetron HCl 4 mg 03/01/20 17:20 03/01/20 18:08 Zofran 4 Mg/2 Ml Vial IV 03/01/20 17:21 4 mg STAT ONE Administration Ondansetron HCl Confirm 03/01/20 17:42 Zofran 4 Mg/2 Ml Vial Administered 03/01/20 17:43 Dose 4 mg .ROUTE .STK-MED ONE Lab/Rad Data: Laboratory Result Diagrams 03/01/20 15:50 03/01/20 15:50 Laboratory Results 03/01/20 03/01/20 03/01/20 Range/Units 15:50 15:50 15:44 WBC 18.9 H (4.0-10.5) K/mm3 RBC 2.44 L (4.1-5.6) M/mm3 Hgb 7.9 L (12.5-18.0) gm/dl Hct 25.3 L (42-50) % MCV 103.7 H (78-100) fl MCH 32.4 H (26-32) pg MCHC 31.2 L (32-36) g/dl RDW 14.5 H (11.5-14.0) % Plt Count 387 (150-450) K/mm3 MPV 10.0 (7.5-11.0) fl Gran % 87.6 H (36.0-66.0) % Eos # (Auto) 0.01 (0-0.5) Absolute Lymphs (auto) 1.06 (1.0-4.6) Absolute Monos (auto) 1.21 (0.0-1.3) Lymphocytes % 5.6 L (24.0-44.0) % Monocytes % 6.4 (0.0-12.0) % Eosinophils % 0.1 (0.00-5.0) % Basophils % 0.3 (0.0-0.4) % Absolute Granulocytes 16.59 H (1.4-6.9) Basophils # 0.05 (0-0.4) Sodium 130 L (137-145) mmol/L Potassium 5.1 (3.5-5.1) mmol/L Chloride 101 (98-107) mmol/L Carbon Dioxide 19 L (22-30) mmol/L Anion Gap 15.0 (5-15) MEQ/L BUN 26 H (9-20) mg/dL Creatinine 2.97 H (0.66-1.25) mg/dL Estimated GFR 21.7 ML/MIN Glucose 128 H (74-106) mg/dL Calcium 9.3 (8.4-10.2) mg/dL Total Bilirubin 0.30 (0.2-1.3) mg/dL AST 291 H (17-59) U/L ALT 215 H (0-50) U/L Alkaline Phosphatase 70 (38-126) U/L Serum Total Protein 6.3 (6.3-8.2) g/dL Albumin 3.3 L (3.5-5.0) g/dL Urine Color BROWN (YELLOW) Urine Appearance TURBID (CLEAR) Urine pH 6.0 (5-6) Ur Specific [place] 1.024 (1.005-1.025) Urine Protein 100 (Negative) Urine Ketones NEGATIVE (NEGATIVE) Urine Blood LARGE (0-5) Vernon/ul Urine Nitrite NEGATIVE (NEGATIVE) Urine Bilirubin NEGATIVE (NEGATIVE) Urine Urobilinogen NEGATIVE (0-1) mg/dL Ur Leukocyte Esterase SMALL (NEGATIVE) Urine WBC (Auto) >100 (0-5) /HPF Urine RBC (Auto) >101 (0-2) /HPF U Epithel Cells (Auto) NONE (FEW) /HPF Urine Bacteria (Auto) MODERATE (NEGATIVE) /HPF Urine Mucus (Auto) SLIGHT (NEGATIVE) /HPF Urine Culture Reflexed ORDERED SEPARATELY (NO) Urine Glucose NEGATIVE (NEGATIVE) mg/dL <ANH RAY Filed: 03/01/20 20:57> - Progress Progress: improved, pain not gone completely, re-examined Discussed with Dr.: Liliya Counseled pt/family regarding: lab results, diagnosis, need for follow-up, rad results <SHAKIR BAUER - Last Filed: 03/02/20 15:47> - Progress Progress Note: 03/01/20 19:35 I reviewed this patient's chart. I reexamined and interviewed the patient myself. The patient is not wanting to be admitted to any hospital or transferred to any hospital at this time. He absolutely refuses to be transferred to [facility]. Patient is alert and oriented x4. He is answering questions appropriately. He states that all his children know what his wishes are. I reviewed, with the patient, his results. I told him that he was anemic, he has hematuria, and he also has evidence of acute cholecystitis and elevated liver function test. I told him that these latter diagnoses are new when compared to his last work-up here. He states he does not have as much pain in the right upper quadrant as he does in the suprapubic region. He states that the suprapubic region pain is there often. Patient's daughter is to arrive here and have a discussion with this patient regarding the disposition. I did discuss with the patient his options in terms of hospitalization at that is still open in terms of finding him the inpatient beds. We recommended that he allow us to transfer him to an inpatient facility. I told him that his si tuation could get worse and he could from this. He told me this was fine from his standpoint and all his kids understand. He will sign an AMA form. However, I will have him speak with his daughter first. 03/01/20 20:57 Medical decision making: The patient is adamant he does not want to be tra nsferred to an inpatient facility or to be admitted into any hospital. He spoke with his daughter and son. The plan is for him to stop his Keflex and we will change his antibiotics to cefdinir. He is to stop his hydrocodone medication and I will change him to Dilaudid short-term for 2 days. I will write a prescription for repeat CBC and CMP to be performed on 02/22/2020. If those labs are worse or the patient becomes more symptomatic they will take him to the emergency department and most likely where there is urology and gastroenterology services available. (ANH RAY) 03/01/20 18:46 79 years old is evaluated for abdominal pain with hematuria. He is given fluids and pain medication. Patient work-up showed hemoglobin 7.9 which is around his baseline but has marked elevation in white count of 18. He also has a worsening of transaminases and renal functions with a creatinine of 2.9. I have obtained another CT abdomen pelvis without contrast. Showed some hyperdense material within the bladder which I believe is some hemorrhage or hematoma but it also showed gallbladder wall thickening with pericholecystic edema suggesting acute cholecystitis. Patient does have tenderness in the right upper quadrant as well. I have discussed with Dr. Constance Salguero, recommended transfer to facility with ERCP services. Since patient was seen in the [facility] before, will call [facility] I have called patient's daughter who is the POA, informed that patient does not want to go to [facility] but would rather prefer to leave AMA. Discussed with daughter about the risk of leaving without full work-up and treatment which could be life-threatening which he understands and also discussed with patient who understands as well but still wants to leave AGAINST MEDICAL ADVICE. Daughter reported that she is on her way to the hospital and will talk to father and will try to convince him to go for further treatment. At this point care is transferred to Dr. Ray at shift change. (SHAKIR BAUER) - Departure Departure Disposition: AMA Critical Care Time: No <ANH RAY - Last Filed: 03/01/20 20:57> <SHAKIR BAUER - Last Filed: 03/02/20 15:47> - Departure Clinical Impression: Hematuria, Acute cholecystitis, Anemia Condition: Stable Referrals: ARNOLD OLIVAS MD [Primary Care Provider] - Instructions: Blood in the Urine (Hematuria) in Adults Additional Instructions: Drink plenty of fluids. Stop Keflex medication. Stop the hydrocodone while taking the Dilaudid pain medication. Start the cefdinir antibiotic. Return to the hospital to repeat labs on 03/03/2020. Return to emergency department if symptoms worsen. Prescriptions: Cefdinir 300 mg PO BID 7 Days #14 capsule
[2020-03-01 21:03] VITALS: BP 150/86; PULSE 92
--- NOTE | 2020-03-02 08:41 | XRAY ---
Indication: Hematuria. Stone. Multiple contiguous axial images obtained through the abdomen and pelvis without contrast using renal stone protocol. Comparison: February 25, 2020. Lung bases demonstrates improving posterior right lower lobe subsegmental atelectasis/scarring with incidental left lower lobe calcified granuloma. No infiltrate or effusion. Heart is not enlarged. Left abdomen pain pump again produces beam artifact. Again no renal calculus or evidence for obstructive uropathy in either system. Stable Martinez catheter, penile implant with reservoir, and prostatectomy. Urinary bladder demonstrates new intraluminal contrast like radiopacity. Gallbladder is now moderately distended with abnormal wall thickening and mild biliary prominence. No gallstones. Noncontrasted stomach and bowel loops remain nonobstructed with stable sigmoid diverticulosis. No free fluid/air. Remaining liver, pancreas, spleen, adrenal glands, kidneys, and ureters are unremarkable for noncontrast exam. Stable moderate aortoiliac calcifications without AAA. Impression: 1. Continued negative for renal calculus or evidence for obstructive uropathy. 2. New distended gallbladder with wall thickening and biliary prominence. Rule out cholecystitis. 3. New urinary bladder intraluminal contrast like opacity versus blood. 4. Stable sigmoid diverticulosis and postsurgical changes. Comment: Preliminary interpretation was made by C. No critical discrepancy.
[2020-03-02 15:48] VITALS: O2SAT 96
== END 2020-03-01 21:23 | disposition home or self-care (01) ==
LOC: ED 15:26
DX: R31.9 Hematuria, unspecified (principal); K81.9 Cholecystitis, unspecified; D64.9 Anemia, unspecified; N48.89 Other specified disorders of penis; Z79.899 Other long term (current) drug therapy; Z79.84 Long term (current) use of oral hypoglycemic drugs; Z79.891 Long term (current) use of opiate analgesic; I25.10 Atherosclerotic heart disease of native coronary artery without angina pectoris; I10 Essential (primary) hypertension; I25.2 Old myocardial infarction; E11.9 Type 2 diabetes mellitus without complications
CPT/HCPCS: 36415; 74176; 80053; 81001; 85025; 87077; 87086; 96360; 96361; 96365; 96374; 96375; 99284; J0696; J2270; J2405

== ENCOUNTER 2020-03-05 13:56 | Inpatient (IN) | payer MEDICARE ==
[2020-03-05] MEDS ORDERED: Sodium Chloride 0.9% 1000 ML 1,000 ML IV SCH ×2 (14:30→23:30)
[2020-03-05] MEDS ORDERED: HUMALOG SQ PRN (14:45)
[2020-03-05] MEDS ORDERED: BENADRYL 25 MG CAPSULE PO SCH (14:45)
[2020-03-05] MEDS: Hydromorphone 1 mg/ml Injection IV PRN (14:45)
[2020-03-05] MEDS: Ditropan 5 MG PO SCH ×2 (14:48→22:51)
[2020-03-05] MEDS: Diflucan 100 MG PO SCH (14:48)
[2020-03-05] MEDS ORDERED: Diflucan 100 MG PO SCH (15:00)
[2020-03-05 15:13] LABS: Hematocrit 24.5 % (42-50); Hemoglobin 7.4 gm/dl (12.5-18.0); Mean Cell Volume 104.3 fl (78-100); Mean Corpuscular Hemoglobin 31.5 pg (26-32); Mean Corpuscular Hgb Concent. 30.2 g/dl (32-36); Mean Platelet Volume 10.2 fl (7.5-11.0); Platelet Count 411 K/mm3 (150-450); Red Blood Count 2.35 M/mm3 (4.1-5.6); Red Cell Distribution Width 15.1 % (11.5-14.0); White Blood Count 15.2 K/mm3 (4.0-10.5)
[2020-03-05 15:43] LABS: ALBUMIN 3.3 g/dL (3.5-5.0); ANION GAP 19.2 MEQ/L (5-15); BILIRUBIN,TOTAL 0.7 mg/dL (0.2-1.3); Calcium 9.7 mg/dL (8.4-10.2); Creatinine 1 2.67 mg/dL (0.66-1.25); EST GLOMERULAR FILTRATION RATE 24.5 ML/MIN; MAGNESIUM 1.8 mg/dL (1.6-2.3); Potassium 5.3 mmol/L (3.5-5.1); Total Protein 6.3 g/dL (6.3-8.2)
[2020-03-05 16:03] LABS: ABO TYPING O; Antibody Screen NEGATIVE (NEGATIVE); RH TYPING POSITIVE
[2020-03-05 16:06] LABS: CROSS MATCH (PRBC) COMPATIBLE (COMPATIBLE)
[2020-03-05] MEDS ORDERED: Ativan 2 MG/1 ML VIAL IV PRN (16:21)
[2020-03-05] MEDS ORDERED: Zestril 20 MG PO SCH (22:00)
[2020-03-05] MEDS ORDERED: NON-FORMULARY ITEM (Docusate Sodium 100 MG) PO SCH (22:00)
[2020-03-05] MEDS ORDERED: NON-FORMULARY ITEM (Timolol [Betimol] 1 DROP) OP SCH (22:00)
[2020-03-05] MEDS: Colace 100 MG PO SCH (22:52)
[2020-03-05] MEDS: TIMOPTIC 0.5% 5 ML OPHTHALMIC OP SCH (22:55)
[2020-03-05] MEDS ORDERED: Dextrose 5%/Water IV Soln. 1000 ML 1,000 ML IV ONE (22:57)
[2020-03-05] MEDS ORDERED: Sodium Bicarbonate 50 MEQ/50 ML VIAL ONE (23:06)
[2020-03-06 01:41] LABS: Appearance CLOUDY (CLEAR); Bacteria FEW /HPF (NEGATIVE); Bilirubin NEGATIVE (NEGATIVE); Blood LARGE Ery/ul (0-5); Glucose 50 mg/dL (NEGATIVE); Ketones TRACE (NEGATIVE); Leukocyte Esterase SMALL (NEGATIVE); Mucus SLIGHT /HPF (NEGATIVE); Nitrite NEGATIVE (NEGATIVE); Protein,Urine Dip 100 (Negative); RBC >101 /HPF (0-2); Specific Gravity 1.016 (1.005-1.025); Urobilinogen NEGATIVE mg/dL (0-1); WBC >100 /HPF (0-5)
[2020-03-06] MEDS: ROCEPHIN 1 Gm-D5w 50 ml Bag** 1 G/50 ML IVPB IV SCH ×2 (01:56→10:31)
[2020-03-06 03:18] LABS: Hematocrit 30.5 % (42-50); Hemoglobin 9.5 gm/dl (12.5-18.0)
[2020-03-06] MEDS: Sodium Bicarbonate 50 MEQ/50 ML VIAL*** 150 MEQ in Dextrose 5%/Water IV Soln. 1000 ML 1... IV SCH ×3 (03:38→23:26)
[2020-03-06 05:40] LABS: Hematocrit 29.3 % (42-50); Hemoglobin 9.3 gm/dl (12.5-18.0); Mean Cell Volume 98.7 fl (78-100); Mean Corpuscular Hemoglobin 31.3 pg (26-32); Mean Corpuscular Hgb Concent. 31.7 g/dl (32-36); Mean Platelet Volume 9.4 fl (7.5-11.0); Platelet Count 340 K/mm3 (150-450); Red Blood Count 2.97 M/mm3 (4.1-5.6); White Blood Count 13.6 K/mm3 (4.0-10.5)
[2020-03-06 05:59] LABS: ALBUMIN 2.7 g/dL (3.5-5.0); ANION GAP 17.1 MEQ/L (5-15); BILIRUBIN,TOTAL 0.6 mg/dL (0.2-1.3); Calcium 9.4 mg/dL (8.4-10.2); Creatinine 1 2.54 mg/dL (0.66-1.25); MAGNESIUM 1.9 mg/dL (1.6-2.3); Potassium 5.8 mmol/L (3.5-5.1); Total Protein 5.4 g/dL (6.3-8.2)
[2020-03-06] MEDS ORDERED: Sodium Chloride 0.9% 1000 ML 1,000 ML IV PRN (07:15)
[2020-03-06] MEDS: Hydromorphone 1 mg/ml Injection IV PRN ×3 (07:48→23:00)
--- NOTE | 2020-03-06 09:35 | XRAY ---
Indication: Hematuria. Two-dimensional renal sonogram performed. Comparison: None Both kidneys normal in reniform shape with normal color perfusion. Right kidney measures 10.1 x 5.7 x 5.3 cm and the left measures 11.2 x 5.4 x 4.6 cm. No focal solid/cystic renal mass or hydronephrosis. Cortical medullary differentiation preserved. Images of the minimally distended urinary bladder demonstrates Martinez balloon catheter in situ with echogenic intraluminal debris. [employer] notes a fluid collection right of the urinary bladder felt to correspond to CT proven penile implant reservoir. Impression: 1. Urinary bladder intraluminal echogenic debris and Martinez balloon catheter. 2. Remaining renal sonogram is negative.
[2020-03-06] MEDS ORDERED: NON-FORMULARY ITEM (Omeprazole [Omeprazole] 20 MG) PO SCH (10:00)
[2020-03-06] MEDS ORDERED: NON-FORMULARY ITEM (Multivitamin [Multivitamin] 1 TAB) PO SCH (10:00)
[2020-03-06] MEDS ORDERED: CYANOCOBALAMIN PO SCH (10:00)
--- NOTE | 2020-03-06 10:15 | CONS ---
CONSULT DATE: 03/05/2020 REASON FOR CONSULT: Acute kidney disease. HISTORY: The patient is an 79 year old gentleman who apparently has a known history of prostate cancer. The patient apparently was having large blood clots in the Martinez catheter which he has a chronic Martinez indwelling catheter in place. He was trying to pull it out. He has been complaining of some discomfort. He was in Dr. Baker' office and was admitted to the hospital for evaluation and management. On evaluation he was suspected to have urinary tract infection, blood in the urine, hemorrhagic cystitis, and was also noted to have increased BUN and creatinine so nephrology service was consulted. The patient apparently has been confused, has not been acting himself for the last week or so. He has been on pain medications. He has not been sleeping much. He has been complaining of some constipation. It is unclear how long the patient has had the indwelling catheter or how long his history of prostate cancer is. It is unclear if he has ever seen nephrology. I checked our office records and he did not have any baseline labs and he had not seen anybody in our office. REVIEW OF SYSTEMS: As per records in history, the patient has not been having any active vomiting or diarrhea, no fever. The patient is confused. Review of systems otherwise unobtainable except listed above. PAST MEDICAL HISTORY: Diabetes mellitus type II, hyperlipidemia, chronic anemia, insomnia, neuropathy, peripheral vascular disease, hypertension, coronary artery disease with stent placement, atrial fibrillation, transient ischemic attack, chronic obstructive pulmonary disease, gastroesophageal reflux disease, chronic kidney disease unspecified stage, osteoarthritis, spinal stenosis, degenerative disc disease. PAST SURGICAL HISTORY: Pacemaker placement. Prostate surgery. TURP. Tonsillectomy. MEDICATIONS: Home medications and medicines in the hospital were reviewed per the medication sheet. His home medicines included metformin. ALLERGIES: DULOXETINE. CARDURA. PREDNISONE. STATIN. RED DYE. LATEX. IODINATED CONTRAST. BANANA. SOCIAL HISTORY: As per record, no history of tobacco, alcohol or substance abuse. FAMILY HISTORY: Hypertension in father. Urinary bladder tumor in brother. Lung cancer in sister. PHYSICAL EXAMINATION: The patient is awake, alert but confused, not in any acute distress. VITAL SIGNS: Temperature 98.9F, pulse rate 70, blood pressure 138/70, height of 5' 6". HEENT: Head atraumatic, normocephalic. Eyes nonicteric, positive pallor. ENT mucosa moist. NECK: No JVD. Trachea midline. CHEST: Bilateral clear to auscultation bilaterally. No respiratory distress. CVS: Appears regular. EXTREMITIES: No peripheral edema. ABDOMEN: Soft, nontender, positive bowel sounds. No palpable edema. NEUROLOGIC: The patient is confused, is awake and alert, trying to answer questions, trying to follow commands. PSYCHIATRIC: Unable to assess patient as he is confused. SKIN: Warm and dry. LAB DATA AND TESTS: Sodium 130, potassium 5.3, bicarb 15, BUN 47, creatinine 2.6. Hemoglobin 7.4, white blood cells 15.2. UA and x-ray are not available to me right now. ASSESSMENT AND PLAN: An 79 year old gentleman with medical problems: 1) Acute kidney injury likely secondary to dehydration, unclear baseline renal function. He may have chronic kidney disease stage III related to underlying chronic medical problems. His baseline labs in the hospital system are not available. At this time I will order IV fluids. I agree with indwelling Martinez. He may need bladder irrigation but for right now just try IV fluids, monitor input and output, bladder ultrasound to rule out obstructive process, will avoid nephrotoxic agents, recommend continuation of all medications, will continue to follow his fluids, electrolytes closely. 2) Anion gap metabolic acidosis likely secondary to poor renal function from metformin use likely possibility. I recommend stopping and avoiding Metformin. I will check lactic acid level, will order bicarb drip. Will monitor input and output status closely. 3) Hyponatremia likely secondary to dehydration. Will add IV fluids and monitor. 4) Anemia could be related to acute and chronic medical problems, possible contribution from blood loss, hemorrhagic cystitis. I will order iron, B12, folic acid, monitor hemoglobin as he has had 2 units of blood transfusion as per the nurses. Get hemoglobin and hematocrit, use alternative agents as needed. 5) Hypertension. Continue medications, stop Lisinopril. 6) Diabetes mellitus type II. I recommend avoiding Metformin and using alternative agents. Further management per primary team. 7) Urinary tract infection. I will order ceftriaxone and repeat the urine culture. 8) Atrial fibrillation. 9) Transient ischemic attack. 10) Coronary artery disease. 11) Pain related issues per primary team. 12) History of prostate cancer. Chronic indwelling Martinez at this time. I recommend IV fluids. He may need bladder irrigation, will treat the urinary tract infection. I will follow him closely. Thank you for this consultation.
[2020-03-06 10:21] LABS: Ferritin 155 ng/mL (17.9-464); Folate (Folic Acid) 10.5 ng/mL (2.76 - >20)
[2020-03-06 10:22] LABS: Vitamin B12 > 1000 pg/mL (239-931)
[2020-03-06] MEDS: Diflucan 100 MG PO SCH (10:30)
[2020-03-06] MEDS: Protonix 40MG Tablet PO SCH (10:30)
[2020-03-06] MEDS: Imdur 30 MG PO SCH (10:30)
[2020-03-06] MEDS: Ditropan 5 MG PO SCH ×3 (10:30→22:59)
[2020-03-06] MEDS: Colace 100 MG PO SCH ×2 (10:30→23:00)
[2020-03-06] MEDS: THERAGRAN MULTIVITAMIN PO SCH (10:30)
[2020-03-06] MEDS: TIMOPTIC 0.5% 5 ML OPHTHALMIC OP SCH ×2 (10:31→23:00)
[2020-03-06] MEDS: Vitamin B-12 500 MCG PO SCH (10:31)
--- NOTE | 2020-03-06 10:47 | PCM.NOTE ---
Date and Time: 03/06/20 1044 Subjective Assessment: patient seen, resting comfortably and asleep upon my arrival but awakens easily, agrees he is feeling a little better. no new complaints Objective Exam General Appearance: no apparent distress, alert, other (very hard of hearing) Respiratory Exam: normal breath sounds, lungs clear, No respiratory distress Cardiovascular Exam: regular rate/rhythm, normal heart sounds Gastrointestinal/Abdomen Exam: soft, No tenderness, No mass Extremity Exam: normal inspection, normal range of motion OBJECTIVE DATA Vital Signs: Vital Signs - 24 hr Temp Pulse Resp BP Pulse Ox 03/06/20 07:23 97.8 F 103 H 18 177/77 98 03/06/20 04:00 98.5 F 77 18 151/82 96 03/06/20 00:00 98.2 F 83 20 165/88 98 03/05/20 20:00 99.3 F 107 H 24 183/92 98 03/05/20 14:47 98.4 F 105 H 170/81 98 03/05/20 14:44 98.4 F 105 H 170/81 98 Pain Assessment - Last Documented Pain Intensity 0 Pain Scale Used 0-10 Pain Scale Intake and Output: Intake & Output 03/03/20 03/04/20 03/05/20 03/06/20 11:59 11:59 11:59 11:59 Intake Total 1080 Output Total 560 Balance 520 Weight 94.9 kg Lab Results: Lab Results-Last 24 Hours 03/05/20 03/05/20 03/05/20 Range/Units 00:44 14:40 14:41 WBC (4.0-10.5) K/mm3 RBC (4.1-5.6) M/mm3 Hgb (12.5-18.0) gm/dl Hct (42-50) % MCV (78-100) fl MCH (26-32) pg MCHC (32-36) g/dl RDW (11.5-14.0) % Plt Count (150-450) K/mm3 MPV (7.5-11.0) fl Sodium (137-145) mmol/L Potassium (3.5-5.1) mmol/L Chloride (98-107) mmol/L Carbon Dioxide (22-30) mmol/L Anion Gap (5-15) MEQ/L BUN (9-20) mg/dL Creatinine (0.66-1.25) mg/dL Estimated GFR ML/MIN Glucose (74-106) mg/dL POC Glucometer (74 to 106) mg/dL Calcium (8.4-10.2) mg/dL Magnesium (1.6-2.3) mg/dL Iron (49-181) ug/dL Ferritin (17.9-464) ng/mL Total Bilirubin (0.2-1.3) mg/dL AST (17-59) U/L ALT (0-50) U/L Alkaline Phosphatase (38-126) U/L Serum Total Protein (6.3-8.2) g/dL Albumin (3.5-5.0) g/dL Vitamin B12 (239-931) pg/mL Folic Acid (2.76 - >20) ng/mL Urine Color BROWN (YELLOW) Urine Appearance CLOUDY (CLEAR) Urine pH 6.0 (5-6) Ur Specific [place] 1.016 (1.005-1.025) Urine Protein 100 (Negative) Urine Ketones TRACE (NEGATIVE) Urine Blood LARGE (0-5) Vernon/ul Urine Nitrite NEGATIVE (NEGATIVE) Urine Bilirubin NEGATIVE (NEGATIVE) Urine Urobilinogen NEGATIVE (0-1) mg/dL Ur Leukocyte Esterase SMALL (NEGATIVE) Urine WBC (Auto) >100 (0-5) /HPF Urine RBC (Auto) >101 (0-2) /HPF U Epithel Cells (Auto) NONE (FEW) /HPF Urine Bacteria (Auto) FEW (NEGATIVE) /HPF Urine Mucus (Auto) SLIGHT (NEGATIVE) /HPF Urine Culture Reflexed ORDERED SEPARATELY (NO) Urine Glucose 50 (NEGATIVE) mg/dL ABO Group O Rh Factor POSITIVE Antibody Screen NEGATIVE (NEGATIVE) Crossmatch COMPATIBLE COMPATIBLE (COMPATIBLE) 03/05/20 03/05/20 03/05/20 Range/Units 15:00 15:00 22:51 WBC 15.2 H (4.0-10.5) K/mm3 RBC 2.35 L (4.1-5.6) M/mm3 Hgb 7.4 L (12.5-18.0) gm/dl Hct 24.5 L (42-50) % MCV 104.3 H (78-100) fl MCH 31.5 (26-32) pg MCHC 30.2 L (32-36) g/dl RDW 15.1 H (11.5-14.0) % Plt Count 411 (150-450) K/mm3 MPV 10.2 (7.5-11.0) fl Sodium 130 L (137-145) mmol/L Potassium 5.3 H (3.5-5.1) mmol/L Chloride 101 (98-107) mmol/L Carbon Dioxide 15 L* (22-30) mmol/L Anion Gap 19.2 H (5-15) MEQ/L BUN 47 H (9-20) mg/dL Creatinine 2.67 H (0.66-1.25) mg/dL Estimated GFR 24.5 ML/MIN Glucose 125 H (74-106) mg/dL POC Glucometer 112 H (74 to 106) mg/dL Calcium 9.7 (8.4-10.2) mg/dL Magnesium 1.8 (1.6-2.3) mg/dL Iron (49-181) ug/dL Ferritin (17.9-464) ng/mL Total Bilirubin 0.70 (0.2-1.3) mg/dL AST 74 H (17-59) U/L ALT 199 H (0-50) U/L Alkaline Phosphatase 103 (38-126) U/L Serum Total Protein 6.3 (6.3-8.2) g/dL Albumin 3.3 L (3.5-5.0) g/dL Vitamin B12 (239-931) pg/mL Folic Acid (2.76 - >20) ng/mL Urine Color (YELLOW) Urine Appearance (CLEAR) Urine pH (5-6) Ur Specific [place] (1.005-1.025) Urine Protein (Negative) Urine Ketones (NEGATIVE) Urine Blood (0-5) Vernon/ul Urine Nitrite (NEGATIVE) Urine Bilirubin (NEGATIVE) Urine Urobilinogen (0-1) mg/dL Ur Leukocyte Esterase (NEGATIVE) Urine WBC (Auto) (0-5) /HPF Urine RBC (Auto) (0-2) /HPF U Epithel Cells (Auto) (FEW) /HPF Urine Bacteria (Auto) (NEGATIVE) /HPF Urine Mucus (Auto) (NEGATIVE) /HPF Urine Culture Reflexed (NO) Urine Glucose (NEGATIVE) mg/dL ABO Group Rh Factor Antibody Screen (NEGATIVE) Crossmatch (COMPATIBLE) 1203/06/20 03/06/20 Range/Units 03:00 05:10 05:10 WBC 13.6 H (4.0-10.5) K/mm3 RBC 2.97 L (4.1-5.6) M/mm3 Hgb 9.5 L D 9.3 L (12.5-18.0) gm/dl Hct 30.5 L 29.3 L (42-50) % MCV 98.7 (78-100) fl MCH 31.3 (26-32) pg MCHC 31.7 L (32-36) g/dl RDW 16.0 H (11.5-14.0) % Plt Count 340 (150-450) K/mm3 MPV 9.4 (7.5-11.0) fl Sodium 131 L (137-145) mmol/L Potassium 5.8 H (3.5-5.1) mmol/L Chloride 103 (98-107) mmol/L Carbon Dioxide 16 L* (22-30) mmol/L Anion Gap 17.1 H (5-15) MEQ/L BUN 50 H (9-20) mg/dL Creatinine 2.54 H (0.66-1.25) mg/dL Estimated GFR 26.0 ML/MIN Glucose 134 H (74-106) mg/dL POC Glucometer (74 to 106) mg/dL Calcium 9.4 (8.4-10.2) mg/dL Magnesium 1.9 (1.6-2.3) mg/dL Iron (49-181) ug/dL Ferritin (17.9-464) ng/mL Total Bilirubin 0.60 (0.2-1.3) mg/dL AST 46 (17-59) U/L ALT 141 H (0-50) U/L Alkaline Phosphatase 80 (38-126) U/L Serum Total Protein 5.4 L (6.3-8.2) g/dL Albumin 2.7 L (3.5-5.0) g/dL Vitamin B12 (239-931) pg/mL Folic Acid (2.76 - >20) ng/mL Urine Color (YELLOW) Urine Appearance (CLEAR) Urine pH (5-6) Ur Specific [place] (1.005-1.025) Urine Protein (Negative) Urine Ketones (NEGATIVE) Urine Blood (0-5) Vernon/ul Urine Nitrite (NEGATIVE) Urine Bilirubin (NEGATIVE) Urine Urobilinogen (0-1) mg/dL Ur Leukocyte Esterase (NEGATIVE) Urine WBC (Auto) (0-5) /HPF Urine RBC (Auto) (0-2) /HPF U Epithel Cells (Auto) (FEW) /HPF Urine Bacteria (Auto) (NEGATIVE) /HPF Urine Mucus (Auto) (NEGATIVE) /HPF Urine Culture Reflexed (NO) Urine Glucose (NEGATIVE) mg/dL ABO Group Rh Factor Antibody Screen (NEGATIVE) Crossmatch (COMPATIBLE) 03/06/20 03/06/20 Range/Units 05:10 05:10 WBC (4.0-10.5) K/mm3 RBC (4.1-5.6) M/mm3 Hgb (12.5-18.0) gm/dl Hct (42-50) % MCV (78-100) fl MCH (26-32) pg MCHC (32-36) g/dl RDW (11.5-14.0) % Plt Count (150-450) K/mm3 MPV (7.5-11.0) fl Sodium (137-145) mmol/L Potassium (3.5-5.1) mmol/L Chloride (98-107) mmol/L Carbon Dioxide (22-30) mmol/L Anion Gap (5-15) MEQ/L BUN (9-20) mg/dL Creatinine (0.66-1.25) mg/dL Estimated GFR ML/MIN Glucose (74-106) mg/dL POC Glucometer (74 to 106) mg/dL Calcium (8.4-10.2) mg/dL Magnesium (1.6-2.3) mg/dL Iron 76 (49-181) ug/dL Ferritin 155 (17.9-464) ng/mL Total Bilirubin (0.2-1.3) mg/dL AST (17-59) U/L ALT (0-50) U/L Alkaline Phosphatase (38-126) U/L Serum Total Protein (6.3-8.2) g/dL Albumin (3.5-5.0) g/dL Vitamin B12 > 1000 H (239-931) pg/mL Folic Acid 10.5 (2.76 - >20) ng/mL Urine Color (YELLOW) Urine Appearance (CLEAR) Urine pH (5-6) Ur Specific [place] (1.005-1.025) Urine Protein (Negative) Urine Ketones (NEGATIVE) Urine Blood (0-5) Vernon/ul Urine Nitrite (NEGATIVE) Urine Bilirubin (NEGATIVE) Urine Urobilinogen (0-1) mg/dL Ur Leukocyte Esterase (NEGATIVE) Urine WBC (Auto) (0-5) /HPF Urine RBC (Auto) (0-2) /HPF U Epithel Cells (Auto) (FEW) /HPF Urine Bacteria (Auto) (NEGATIVE) /HPF Urine Mucus (Auto) (NEGATIVE) /HPF Urine Culture Reflexed (NO) Urine Glucose (NEGATIVE) mg/dL ABO Group Rh Factor Antibody Screen (NEGATIVE) Crossmatch (COMPATIBLE) Radiology Exams: Radiology Procedures Category Date Time Status KIDNEY [US] Routine Exams 03/06/20 08:00 Completed Multi-Disciplinary Progress Notes: Multi-Disciplinary Progress Notes 03/05/20 16:03 Pharmacy Note by [facility] has reduced the dose of fluconazole by 50 %due to renal function. [facility] Initialized on 03/05/20 16:03 - END OF NOTE Assessment/Plan (1) Acute hemorrhagic cystitis Current Visit: Yes Status: Acute Assessment & Plan: continue rocephin and fluconazole, repeat culture pending, recent culture with yeast from ER. appreciate nephrology input, holding all antiplatelet/anticoagulants currently Code(s): N30.01 - ACUTE CYSTITIS WITH HEMATURIA (2) Anemia associated with acute blood loss Current Visit: Yes Status: Acute Assessment & Plan: h/h improved s/p 2 units packed red blood cells Code(s): D62 - ACUTE POSTHEMORRHAGIC ANEMIA (3) Acute on chronic renal failure Current Visit: Yes Status: Acute Assessment & Plan: nephrology consulted, likely secondary to dehydration. Code(s): N17.9 - ACUTE KIDNEY FAILURE, UNSPECIFIED; N18.9 - CHRONIC KIDNEY DISEASE, UNSPECIFIED
[2020-03-06] MEDS: TYLENOL 325 MG PO PRN (21:01)
[2020-03-07] MEDS: Hydromorphone 1 mg/ml Injection IV PRN ×3 (02:30→14:00)
[2020-03-07] MEDS: TYLENOL 325 MG PO PRN ×2 (04:38→09:50)
[2020-03-07 06:00] LABS: Hematocrit 29.1 % (42-50); Hemoglobin 9.3 gm/dl (12.5-18.0); Mean Cell Volume 98.6 fl (78-100); Mean Corpuscular Hemoglobin 31.5 pg (26-32); Mean Platelet Volume 9.5 fl (7.5-11.0); Platelet Count 413 K/mm3 (150-450); Red Blood Count 2.95 M/mm3 (4.1-5.6); Red Cell Distribution Width 16.3 % (11.5-14.0); White Blood Count 12.1 K/mm3 (4.0-10.5)
[2020-03-07 06:25] LABS: ALBUMIN 2.9 g/dL (3.5-5.0); ANION GAP 9.3 MEQ/L (5-15); BILIRUBIN,TOTAL 0.4 mg/dL (0.2-1.3); Creatinine 1 1.61 mg/dL (0.66-1.25); MAGNESIUM 1.8 mg/dL (1.6-2.3); Potassium 4.3 mmol/L (3.5-5.1); Total Protein 5.8 g/dL (6.3-8.2)
[2020-03-07] MEDS: ROCEPHIN 1 Gm-D5w 50 ml Bag** 1 G/50 ML IVPB IV SCH (09:04)
[2020-03-07] MEDS: Colace 100 MG PO SCH (09:04)
[2020-03-07] MEDS: Protonix 40MG Tablet PO SCH (09:04)
[2020-03-07] MEDS: Imdur 30 MG PO SCH (09:04)
[2020-03-07] MEDS: Diflucan 100 MG PO SCH (09:04)
[2020-03-07] MEDS: Ditropan 5 MG PO SCH ×2 (09:04→14:05)
[2020-03-07] MEDS: THERAGRAN MULTIVITAMIN PO SCH (09:04)
[2020-03-07] MEDS: TIMOPTIC 0.5% 5 ML OPHTHALMIC OP SCH (09:05)
--- NOTE | 2020-03-07 09:47 | PCM.DS ---
Discharge Summary Date of Admission: 03/05/20 14:11 Admitting Physician: ARNOLD OLIVAS Consults: Consults on Case 03/05/20 14:40 Consult Nephrology ROUTINE Primary Care Provider: ARNOLD OLIVAS Allergies Allergies doxazosin mesylate [From Cardura] Allergy (Verified 03/01/20 15:41) Itching iodine Allergy (Verified 03/01/20 15:41) Hives latex Allergy (Verified 03/01/20 15:41) prednisone Allergy (Verified 03/01/20 15:41) states "homicidal" Ngeiofp-Jlf-Mai Reductase Inhibitor Allergy (Verified 03/01/20 15:41) Joint Aches duloxetine Adverse Reaction (Verified 03/01/20 15:41) milk Adverse Reaction (Verified 03/01/20 15:41) bananas Allergy (Uncoded 03/01/20 15:41) iv contrast Allergy (Uncoded 03/01/20 15:41) [facility] Summary - Hospital Course Hospital Course: patient has had hemorrhagic cystitis for hte last month, has been admitted to multiple facilities with bladder irrigation and treatment of UTI, continues to have bleeding. had renal failure and anemia on admission. spoke with neprhology and urology and will transfer for cystoscopy at [facility] under Dr Dominguez with Dr Marie to consult - Vitals & Intake/Output Vital Signs: Vital Signs Temperature 98.6 F 03/07/20 08:00 Pulse Rate 80 03/07/20 08:00 Respiratory Rate 18 03/07/20 08:00 Blood Pressure 179/93 03/07/20 08:00 O2 Sat by Pulse Oximetry 92 L 03/07/20 08:00 Intake & Output: Intake & Output 03/04/20 03/05/20 03/06/20 03/07/20 11:59 11:59 11:59 11:59 Intake Total 1080 2886 Output Total 560 2040 Balance 520 846 Weight 94.9 kg - Lab Result Diagrams: 03/07/20 04:50 03/07/20 04:50 Lab Results-Last 24 Hrs: Lab Results-Last 24 Hours 03/06/20 03/06/20 03/06/20 Range/Units 05:10 11:51 16:23 WBC (4.0-10.5) K/mm3 RBC (4.1-5.6) M/mm3 Hgb (12.5-18.0) gm/dl Hct (42-50) % MCV (78-100) fl MCH (26-32) pg MCHC (32-36) g/dl RDW (11.5-14.0) % Plt Count (150-450) K/mm3 MPV (7.5-11.0) fl Sodium (137-145) mmol/L Potassium (3.5-5.1) mmol/L Chloride (98-107) mmol/L Carbon Dioxide (22-30) mmol/L Anion Gap (5-15) MEQ/L BUN (9-20) mg/dL Creatinine (0.66-1.25) mg/dL Estimated GFR ML/MIN Glucose (74-106) mg/dL POC Glucometer 132 H 132 H (74 to 106) mg/dL Calcium (8.4-10.2) mg/dL Magnesium (1.6-2.3) mg/dL Ferritin 155 (17.9-464) ng/mL Total Bilirubin (0.2-1.3) mg/dL AST (17-59) U/L ALT (0-50) U/L Alkaline Phosphatase (38-126) U/L Serum Total Protein (6.3-8.2) g/dL Albumin (3.5-5.0) g/dL Vitamin B12 > 1000 H (239-931) pg/mL Folic Acid 10.5 (2.76 - >20) ng/mL 03/06/20 03/07/20 03/07/20 Range/Units 20:37 04:50 04:50 WBC 12.1 H (4.0-10.5) K/mm3 RBC 2.95 L (4.1-5.6) M/mm3 Hgb 9.3 L (12.5-18.0) gm/dl Hct 29.1 L (42-50) % MCV 98.6 (78-100) fl MCH 31.5 (26-32) pg MCHC 32.0 (32-36) g/dl RDW 16.3 H (11.5-14.0) % Plt Count 413 (150-450) K/mm3 MPV 9.5 (7.5-11.0) fl Sodium 134 L (137-145) mmol/L Potassium 4.3 D (3.5-5.1) mmol/L Chloride 98 (98-107) mmol/L Carbon Dioxide 31 H (22-30) mmol/L Anion Gap 9.3 (5-15) MEQ/L BUN 41 H (9-20) mg/dL Creatinine 1.61 H (0.66-1.25) mg/dL Estimated GFR 44.0 ML/MIN Glucose 125 H (74-106) mg/dL POC Glucometer 134 H (74 to 106) mg/dL Calcium 9.0 (8.4-10.2) mg/dL Magnesium 1.8 (1.6-2.3) mg/dL Ferritin (17.9-464) ng/mL Total Bilirubin 0.40 (0.2-1.3) mg/dL AST 38 (17-59) U/L ALT 98 H (0-50) U/L Alkaline Phosphatase 84 (38-126) U/L Serum Total Protein 5.8 L (6.3-8.2) g/dL Albumin 2.9 L (3.5-5.0) g/dL Vitamin B12 (239-931) pg/mL Folic Acid (2.76 - >20) ng/mL 03/07/ Range/Units 07:15 WBC (4.0-10.5) K/mm3 RBC (4.1-5.6) M/mm3 Hgb (12.5-18.0) gm/dl Hct (42-50) % MCV (78-100) fl MCH (26-32) pg MCHC (32-36) g/dl RDW (11.5-14.0) % Plt Count (150-450) K/mm3 MPV (7.5-11.0) fl Sodium (137-145) mmol/L Potassium (3.5-5.1) mmol/L Chloride (98-107) mmol/L Carbon Dioxide (22-30) mmol/L Anion Gap (5-15) MEQ/L BUN (9-20) mg/dL Creatinine (0.66-1.25) mg/dL Estimated GFR ML/MIN Glucose (74-106) mg/dL POC Glucometer 123 H (74 to 106) mg/dL Calcium (8.4-10.2) mg/dL Magnesium (1.6-2.3) mg/dL Ferritin (17.9-464) ng/mL Total Bilirubin (0.2-1.3) mg/dL AST (17-59) U/L ALT (0-50) U/L Alkaline Phosphatase (38-126) U/L Serum Total Protein (6.3-8.2) g/dL Albumin (3.5-5.0) g/dL Vitamin B12 (239-931) pg/mL Folic Acid (2.76 - >20) ng/mL Micro Results-Entire Visit: Accuchecks Date 03/07/20 Date 03/06/20 Time 07:15 Time 16:24 - Radiology Exams Ordered Rad Exams-Entire Visit: Radiology Procedures Category Date Time Status KIDNEY [US] Routine Exams 03/06/20 08:00 Completed Discharge Exam General Appearance: no apparent distress, alert, other ([place] with blood tinged urine, draining and no obstruction) Respiratory Exam: normal breath sounds, lungs clear, No respiratory distress Cardiovascular Exam: regular rate/rhythm, normal heart sounds Gastrointestinal/Abdomen Exam: soft, No tenderness, No mass Final Diagnosis/Problem List - Final Discharge Diagnosis/Problem (1) Acute hemorrhagic cystitis Current Visit: Yes Status: Acute Assessment & Plan: transfer for cystoscopy and urology referral, continue rocephin at this time in addition to po fluconazole, had yeast on most recent culture Code(s): N30.01 - ACUTE CYSTITIS WITH HEMATURIA (2) Anemia associated with acute blood loss Current Visit: Yes Status: Acute Code(s): D62 - ACUTE POSTHEMORRHAGIC ANEMIA (3) Acute on chronic renal failure Current Visit: Yes Status: Acute Code(s): N17.9 - ACUTE KIDNEY FAILURE, UNSPECIFIED; N18.9 - CHRONIC KIDNEY DISEASE, UNSPECIFIED - Discharge Disposition: DC TO [facility] Condition: Stable Prescriptions: No Action Diltiazem HCl 240 mg [Cardizem CD 240 MG] 240 mg PO DAILY Metformin HCl 500 mg [Glucophage 500 MG] 500 mg PO DAILY Sennosides/Docusate Sodium [Stool Softener-Laxative Tablet] 25 mg PO BID PRN PRN Reason: Constipation Lisinopril 20 mg [Zestril 20 MG] 20 mg PO BID #60 tablet Trazodone HCl 100 mg PO QHS Oxybutynin Chloride Xl 5 mg [Ditropan XL 5 MG] 1 tab PO TID Omeprazole 20 mg PO DAILY Nitroglycerin 0.4 mg Tablet [Nitrostat 0.4 MG Tablet] 1 tab SL UD Multivitamin 1 tab PO DAILY Phenylephrine/Dm/Acetaminop/GG [Mucinex Fast-Max Cold-Flu Liq] 20 ml PO Q4H PRN PRN Reason: Cough Isosorbide Mononitrate 30 mg [Imdur 30 MG] 30 mg PO DAILY Simethicone 80 mg [Mylicon 80MG] 80 mg PO QID PRN PRN Reason: Gas Docusate Sodium 100 mg PO BID Timolol [Betimol] 1 drop OP BID Oxymetazoline HCl Nasal [Afrin Nasal [place]] 2 spray NS BID PRN PRN Reason: Sinus Congestion Cyanocobalamin (Vitamin B-12) [Vitamin B-12] 1 tablet PO DAILY Additional Instructions: transfer to [facility], Dr Dominguez accepting and will arrange for bed with transfer center at 09:40 he accepted via telephone discussion. Dr Marie to consult and he agreed. I spoke with daughter Liliana Guerra who is POA and she agrees with transfer and plan of care. Follow up with: ARNOLD OLIVAS MD [Primary Care Provider] - ROJAS ZARCO [CONSULTING PHYSICIAN] -
[2020-03-07] MEDS ORDERED: Hydromorphone 1 mg/ml Injection IV ONE (10:09)
[2020-03-07] MEDS ORDERED: Dextrose 5%/Water IV Soln. 1000 ML 0 ML IV ONE (12:10)
[2020-03-07] MEDS: Sodium Bicarbonate 50 MEQ/50 ML VIAL*** 150 MEQ in Dextrose 5%/Water IV Soln. 1000 ML 1... IV SCH (12:13)
[2020-03-07] MEDS ORDERED: Vitamin B-6 (Pyridoxine) 100 MG PO SCH (13:30)
[2020-03-07] MEDS ORDERED: PYRIDIUM 200 MG PO ONE (13:55)
[2020-03-07] MEDS: Vitamin B-12 500 MCG PO SCH (14:02)
[2020-03-07 16:19] VITALS: BP 191/104; PULSE 83; O2SAT 91
== END 2020-03-07 16:25 | disposition home or self-care (01) | DRG 690 ==
LOC: MED SURG 14:11 → OBSVTOIN 14:11
PROVIDERS: ADMIT Family Medicine; ATTEND Family Medicine
DX: N30.01 Acute cystitis with hematuria (principal); D62 Acute posthemorrhagic anemia; N17.9 Acute kidney failure, unspecified; E87.1 Hypo-osmolality and hyponatremia; I13.10 Hypertensive heart and chronic kidney disease without heart failure, with stage 1 through stage 4 chronic kidney disease, or unspecified chronic kidney disease; E11.22 Type 2 diabetes mellitus with diabetic chronic kidney disease; Z79.899 Other long term (current) drug therapy; I48.91 Unspecified atrial fibrillation; Z85.46 Personal history of malignant neoplasm of prostate; E78.5 Hyperlipidemia, unspecified; I25.10 Atherosclerotic heart disease of native coronary artery without angina pectoris; E86.0 Dehydration
CPT/HCPCS: 36415 ×2; 36430 ×2; 76770 ×2; 80053 ×2; 81001 ×2; 82607 ×2; 82728 ×2; 82746 ×2; 82947 ×2; 83540 ×2; 83735 ×2; 85014 ×2; 85018 ×2; 85027 ×2; 86850 ×2; 86900 ×2; 86901 ×2; 86922 ×2; 87077; 87086 ×2; J0696; J1170; J2060; P9016 ×2; A9270-GY

== ENCOUNTER 2020-06-09 16:34 | Emergency (ER) | payer MEDICARE ==
--- NOTE | 2020-06-09 17:16 | ERPHSYRPT ---
- History of Present Illness Time Seen by Provider: 06/09/20 17:11 Source: patient, family Exam Limitations: no limitations Patient Subjective Stated Complaint: Pt's daughter brought pt in due to her thinking that the pt appeared yellow and that his eyes were yellow Triage Nursing Assessment: Pt brought to the ER by his daughter, hypertensive, pt does not appear yellow to this nurse, denies new pain but states he has severe pain all the time due to his back, pt has a pain pump in his left abdomen, pt has a hx of a penile implant in his 50's and pt went to [facility] in February 2020 to have a procedure done on his bladder and his implant has been messed up since then, the pt has not been to see a urologist about his concerns Physician History: pt is 79 yr old male a few months SP [facility] and SP hosp for bladder infection and procedure with hosp for 1-2 months , now with family stating looks yellow- no abd pain; chronic back [pain, chronic DM with some subjective decrease at toes sensation but intact neuro on exam today and no new bladder symptoms. abd is soft and nontender without peritoneal signs or masses. . no shortness of breath , no chest pain. no trauma no spin tenderness or skin lesions. reports that his penile implants have been bent since that hospitalization. no new change and penis has good color and refil. no new tenderness - implants with chronic stable tenderness - will need outpt uro f/u. no erythema or dranage hx CAD so will check trop and EKG has pacer in. reported taking extra acetamenophen so will check level. Timing/Duration: day(s) Severity: mild Associated Symptoms: denies symptoms Allergies/Adverse Reactions: doxazosin mesylate [From Cardura] Allergy (Verified 06/09/20 17:07) Itching iodine Allergy (Verified 06/09/20 17:07) Hives latex Allergy (Verified 06/09/20 17:07) prednisone Allergy (Verified 06/09/20 17:07) states "homicidal" Aikjmls-Bih-Mvv Reductase Inhibitor Allergy (Verified 06/09/20 17:07) Joint Aches duloxetine Adverse Reaction (Verified 06/09/20 17:07) milk Adverse Reaction (Verified 06/09/20 17:07) bananas Allergy (Uncoded 06/09/20 17:07) iv contrast Allergy (Uncoded 06/09/20 17:07) Hives Home Medications: Diltiazem HCl 240 mg [Cardizem CD 240 MG] 240 mg PO DAILY 01/02/16 [History] Metformin HCl 500 mg [Glucophage 500 MG] 500 mg PO DAILY 01/02/16 [History] Trazodone HCl 100 mg PO QHS 02/09/20 [History] Multivitamin 1 tab PO DAILY 02/25/20 [History] Omeprazole 20 mg PO DAILY 02/25/20 [History] Oxymetazoline HCl Nasal [Afrin Nasal [place]] 2 spray NS BID PRN 02/25/20 [History] Carvedilol 12.5 mg [Coreg 12.5 mg] 25 mg PO BID 06/09/20 [History] HydrALAzine HCL 25 MG TAB [Apresoline 25 MG TABLET] 50 mg PO DAILY 06/09/20 [History] Mirabegron [Myrbetriq] 25 mg PO DAILY 06/09/20 [History] Hx Tetanus, Diphtheria Vaccination/Date Given: No Hx Influenza Vaccination/Date Given: Yes Hx Pneumococcal Vaccination/Date Given: No Travel Risk - International Travel Have you traveled outside of the country in past 3 weeks: No - Coronavirus Screening Are you exhibiting any of the following symptoms?: No Close contact with a COVID-19 positive Pt in past 14-21 Days: No - Vaccine Status Have you recieved a Covid-19 vaccination: Yes Funds Development Director: Unknown - Vaccination Dates Dates if Unknown: last vaccine approx 3 weeks ago - Review of Systems Constitutional: No Fever, No Chills Eyes: No Symptoms Ears, Nose, & Throat: No Symptoms Respiratory: No Cough, No Dyspnea Cardiac: No Chest Pain, No Edema, No Syncope Abdominal/Gastrointestinal: No Abdominal Pain, No Nausea, No Vomiting, No Diarrhea Genitourinary Symptoms: Other (chronic penile implant dysfunction/corpora fx. ), No Dysuria Musculoskeletal: No Back Pain, No Neck Pain Skin: No Rash Neurological: No Dizziness, No Focal Weakness, No Headache, No Sensory Changes, No Vertigo Psychological: No Symptoms Endocrine: No Symptoms Hematologic/Lymphatic: No Symptoms Immunological/Allergic: No Symptoms All Other Systems: Reviewed and Negative - Past Medical History Pertinent Past Medical History: Yes Neurological History: TIA ENT History: No Pertinent History Cardiac History: Coronary Artery Disease, Hypertension, Myocardial Infarction ([place]), Other Respiratory History: No Pertinent History Endocrine Medical History: Diabetes Type II Musculoskeletal History: Degenerative Disk Disease GI Medical History: GERD History: Other Psycho-Social History: No Pertinent History Male Reproductive Disorders: Prostate Cancer Other Medical History: heart stent in 2007, Pt has a pacemaker, past [place], COVID-1 9 DX February 2020 - Past Surgical History Past Surgical History: Yes Neuro Surgical History: No Pertinent History Cardiac: Angioplasty, Cardiac Stent, Pacemaker Respiratory: Other Gastrointestinal: No Pertinent History Genitourinary: No Pertinent History Musculoskeletal: No Pertinent History Male Surgical History: Prostate Surgery, Vasectomy, Other Other Surgical History: states left lung collapsed, penile implant, back pain stimulator AND REMOVAL 2017 - Social History Smoking Status: Never smoker Exposure to second hand smoke: Yes Alcohol Use: None Drug Use: none Patient Lives Alone: No Significant Family History: no pertinent family hx - Nursing Vital Signs Nursing Vital Signs: Initial Vital Signs Temperature 98.0 F 06/09/20 16:44 Pulse Rate 63 06/09/20 16:44 Blood Pressure 153/66 06/09/20 16:44 O2 Sat by Pulse Oximetry 96 06/09/20 16:44 Pain Scale Pain Intensity 0 - Physical Exam General Appearance: no apparent distress, alert Eye Exam: PERRL/EOMI, eyes nml inspection Ears, Nose, Throat Exam: normal ENT inspection, TMs normal, pharynx normal, moist mucous membranes Neck Exam: normal inspection, non-tender, supple, full range of motion Respiratory Exam: normal breath sounds, lungs clear, No respiratory distress Cardiovascular Exam: regular rate/rhythm, normal heart sounds, normal peripheral pulses Gastrointestinal/Abdomen Exam: soft, normal bowel sounds, No tenderness, No mass Male Genitalia Exam: other (chronic penile /corora fx with implant) Back Exam: normal inspection, normal range of motion, No CVA tenderness, No vertebral tenderness Extremity Exam: normal inspection, normal range of motion, pelvis stable Neurologic Exam: alert, oriented x 3, cooperative, normal mood/affect, nml cerebellar function, nml station & gait, sensation nml, No motor deficits Skin Exam: normal color, warm, dry, No rash Lymphatic Exam: No adenopathy SpO2 Interpretation: normal SpO2: 96 O2 Delivery: Room Air - Course Nursing assessment & vital signs reviewed: Yes Ordered Tests: Active Orders 24 hr Category Date Time Status EKG-ER Only STAT Care 06/09/20 17:19 Active IV Insertion STAT Care 06/09/20 17:19 Active ACETAMINOPHEN Stat Lab 06/09/20 16:55 Completed AMYLASE Stat Lab 06/09/20 16:55 Completed CBC W DIFF Stat Lab 06/09/20 16:55 Completed CMP Stat Lab 06/09/20 16:55 Completed LIPASE Stat Lab 06/09/20 16:55 Completed Lactic Acid Stat Lab 06/09/20 17:19 Completed Lactic Acid Stat Lab 06/09/20 20:47 Completed TROPONIN Q3H Lab 06/09/20 16:55 Completed TROPONIN Q3H Lab 06/09/20 20:50 Completed TROPONIN Q3H Lab 06/09/20 23:30 Ordered TROPONIN Q3H Lab 06/10/20 02:30 Ordered TROPONIN Q3H Lab 06/10/20 05:30 Ordered UA W/RFX UR CULTURE Stat Lab 06/09/20 17:19 Completed Medication Summary Generic Name Dose Route Start Last Admin Trade Name Freq PRN Reason Stop Dose Admin Sodium Chloride 1,000 mls @ 50 mls/hr 06/09/20 17:30 06/09/20 17:57 Sodium Chloride 0.9% 1000 Ml IV 07/09/20 17:29 50 mls/hr .Q20H VALERI Administration Discontinued Medications Generic Name Dose Route Start Last Admin Trade Name Freq PRN Reason Stop Dose Admin Morphine Sulfate Confirm 06/09/20 18:43 Morphine Sulfate 4 Mg Inj Administered 06/09/20 18:44 Dose 4 mg .ROUTE .STK-MED ONE Morphine Sulfate 4 mg 06/09/20 18:44 06/09/20 18:46 Morphine Sulfate 4 Mg Inj IV 06/09/20 18:45 4 mg STAT ONE Administration Lab/Rad Data: Laboratory Result Diagrams 06/09/20 16:55 06/09/20 16:55 Laboratory Results 06/09/20 06/09/20 06/09/20 Range/Units 20:50 20:47 17:19 WBC (4.0-10.5) K/mm3 RBC (4.1-5.6) M/mm3 Hgb (12.5-18.0) gm/dl Hct (42-50) % MCV (78-100) fl MCH (26-32) pg MCHC (32-36) g/dl RDW (11.5-14.0) % Plt Count (150-450) K/mm3 MPV (7.5-11.0) fl Gran % (36.0-66.0) % Eos # (Auto) (0-0.5) Absolute Lymphs (auto) (1.0-4.6) Absolute Monos (auto) (0.0-1.3) Lymphocytes % (24.0-44.0) % Monocytes % (0.0-12.0) % Eosinophils % (0.00-5.0) % Basophils % (0.0-0.4) % Absolute Granulocytes (1.4-6.9) Basophils # (0-0.4) Sodium (137-145) mmol/L Potassium (3.5-5.1) mmol/L Chloride (98-107) mmol/L Carbon Dioxide (22-30) mmol/L Anion Gap (5-15) MEQ/L BUN (9-20) mg/dL Creatinine (0.66-1.25) mg/dL Estimated GFR ML/MIN Glucose (74-106) mg/dL Lactic Acid 1.3 2.2 H (0.4-2.0) Calcium (8.4-10.2) mg/dL Total Bilirubin (0.2-1.3) mg/dL AST (17-59) U/L ALT (0-50) U/L Alkaline Phosphatase (38-126) U/L Troponin I < 0.012 (0.000-0.034) ng/mL Serum Total Protein (6.3-8.2) g/dL Albumin (3.5-5.0) g/dL Amylase (30-110) U/L Lipase (23-300) U/L Urine Color (YELLOW) Urine Appearance (CLEAR) Urine pH (5-6) Ur Specific [place] (1.005-1.025) Urine Protein (Negative) Urine Ketones (NEGATIVE) Urine Blood (0-5) Vernon/ul Urine Nitrite (NEGATIVE) Urine Bilirubin (NEGATIVE) Urine Urobilinogen (0-1) mg/dL Ur Leukocyte Esterase (NEGATIVE) Urine WBC (Auto) (0-5) /HPF Urine RBC (Auto) (0-2) /HPF U Epithel Cells (Auto) (FEW) /HPF Urine Bacteria (Auto) (NEGATIVE) /HPF Urine Mucus (Auto) (NEGATIVE) /HPF Urine Culture Reflexed (NO) Urine Glucose (NEGATIVE) mg/dL Acetaminophen (10-30) ug/ml 06/09/20 06/09/20 06/09/20 Range/Units 17:19 16:55 16:55 WBC (4.0-10.5) K/mm3 RBC (4.1-5.6) M/mm3 Hgb (12.5-18.0) gm/dl Hct (42-50) % MCV (78-100) fl MCH (26-32) pg MCHC (32-36) g/dl RDW (11.5-14.0) % Plt Count (150-450) K/mm3 MPV (7.5-11.0) fl Gran % (36.0-66.0) % Eos # (Auto) (0-0.5) Absolute Lymphs (auto) (1.0-4.6) Absolute Monos (auto) (0.0-1.3) Lymphocytes % (24.0-44.0) % Monocytes % (0.0-12.0) % Eosinophils % (0.00-5.0) % Basophils % (0.0-0.4) % Absolute Granulocytes (1.4-6.9) Basophils # (0-0.4) Sodium 143 (137-145) mmol/L Potassium 4.4 (3.5-5.1) mmol/L Chloride 107 (98-107) mmol/L Carbon Dioxide 22 (22-30) mmol/L Anion Gap 18.8 H (5-15) MEQ/L BUN 26 H (9-20) mg/dL Creatinine 1.58 H (0.66-1.25) mg/dL Estimated GFR 45.0 ML/MIN Glucose 122 H (74-106) mg/dL Lactic Acid (0.4-2.0) Calcium 9.8 (8.4-10.2) mg/dL Total Bilirubin 0.20 (0.2-1.3) mg/dL AST 23 (17-59) U/L ALT 13 (0-50) U/L Alkaline Phosphatase 70 (38-126) U/L Troponin I < 0.012 (0.000-0.034) ng/mL Serum Total Protein 7.2 (6.3-8.2) g/dL Albumin 4.3 (3.5-5.0) g/dL Amylase 84 (30-110) U/L Lipase 115 (23-300) U/L Urine Color YELLOW (YELLOW) Urine Appearance CLEAR (CLEAR) Urine pH 5.0 (5-6) Ur Specific [place] 1.019 (1.005-1.025) Urine Protein NEGATIVE (Negative) Urine Ketones NEGATIVE (NEGATIVE) Urine Blood NEGATIVE (0-5) Vernon/ul Urine Nitrite NEGATIVE (NEGATIVE) Urine Bilirubin NEGATIVE (NEGATIVE) Urine Urobilinogen NEGATIVE (0-1) mg/dL Ur Leukocyte Esterase NEGATIVE (NEGATIVE) Urine WBC (Auto) 0-2 (0-5) /HPF Urine RBC (Auto) 0-2 (0-2) /HPF U Epithel Cells (Auto) NONE (FEW) /HPF Urine Bacteria (Auto) NONE SEEN (NEGATIVE) /HPF Urine Mucus (Auto) SLIGHT (NEGATIVE) /HPF Urine Culture Reflexed NO (NO) Urine Glucose NEGATIVE (NEGATIVE) mg/dL Acetaminophen < 10 L (10-30) ug/ml 06/09/20 Range/Units 16:55 WBC 7.4 (4.0-10.5) K/mm3 RBC 2.93 L (4.1-5.6) M/mm3 Hgb 9.7 L (12.5-18.0) gm/dl Hct 30.3 L (42-50) % MCV 103.4 H (78-100) fl MCH 33.1 H (26-32) pg MCHC 32.0 (32-36) g/dl RDW 14.2 H (11.5-14.0) % Plt Count 340 (150-450) K/mm3 MPV 10.0 (7.5-11.0) fl Gran % 61.9 (36.0-66.0) % Eos # (Auto) 0.60 H (0-0.5) Absolute Lymphs (auto) 1.35 (1.0-4.6) Absolute Monos (auto) 0.81 (0.0-1.3) Lymphocytes % 18.3 L (24.0-44.0) % Monocytes % 11.0 (0.0-12.0) % Eosinophils % 8.1 H (0.00-5.0) % Basophils % 0.7 (0.0-0.4) % Absolute Granulocytes 4.58 (1.4-6.9) Basophils # 0.05 (0-0.4) Sodium (137-145) mmol/L Potassium (3.5-5.1) mmol/L Chloride (98-107) mmol/L Carbon Dioxide (22-30) mmol/L Anion Gap (5-15) MEQ/L BUN (9-20) mg/dL Creatinine (0.66-1.25) mg/dL Estimated GFR ML/MIN Glucose (74-106) mg/dL Lactic Acid (0.4-2.0) Calcium (8.4-10.2) mg/dL Total Bilirubin (0.2-1.3) mg/dL AST (17-59) U/L ALT (0-50) U/L Alkaline Phosphatase (38-126) U/L Troponin I (0.000-0.034) ng/mL Serum Total Protein (6.3-8.2) g/dL Albumin (3.5-5.0) g/dL Amylase (30-110) U/L Lipase (23-300) U/L Urine Color (YELLOW) Urine Appearance (CLEAR) Urine pH (5-6) Ur Specific [place] (1.005-1.025) Urine Protein (Negative) Urine Ketones (NEGATIVE) Urine Blood (0-5) Vernon/ul Urine Nitrite (NEGATIVE) Urine Bilirubin (NEGATIVE) Urine Urobilinogen (0-1) mg/dL Ur Leukocyte Esterase (NEGATIVE) Urine WBC (Auto) (0-5) /HPF Urine RBC (Auto) (0-2) /HPF U Epithel Cells (Auto) (FEW) /HPF Urine Bacteria (Auto) (NEGATIVE) /HPF Urine Mucus (Auto) (NEGATIVE) /HPF Urine Culture Reflexed (NO) Urine Glucose (NEGATIVE) mg/dL Acetaminophen (10-30) ug/ml - Progress Progress: improved, re-examined Progress Note: 06/09/20 21:55 dispo was delayed , to insure that acetamenophen was at a low level and that the pain was controlled - on recheck there was no groin pathology of an acute nature and so the pt will be referred to his urologist. the Hbg , and RFTs are low and elevated but without change from recent levels , and can be followed up with his PCPs. Counseled pt/family regarding: lab results, diagnosis, need for follow-up - Departure Departure Disposition: Home Clinical Impression: penile corpora fracture- nonacute , Chronic renal insufficiency, Anemia, Chronic low back pain, Diabetes Condition: Good Critical Care Time: No Referrals: ARNOLD OLIVAS MD [Primary Care Provider] - Instructions: Chronic Kidney Disease (DC), Penis Fracture Additional Instructions: your blood count is low and your renal functions are elevated which have both been present before and should be followed up with your Dr. this week as well as seeing the urologist for your penile fracture/implant dysfunction. the liver tests were normal and tylenol level was normal , but sometimes you can still be getting too much , so follow the prescribed guidelines for tylenol. return meantime if any concerns.
[2020-06-09] MEDS ORDERED: Sodium Chloride 0.9% 1000 ML 1,000 ML IV SCH (17:30)
[2020-06-09 17:41] LABS: ACETAMINOPHEN < 10 ug/ml (10-30); ALBUMIN 4.3 g/dL (3.5-5.0); ALKALINE PHOSPHATASE 70 U/L (38-126); AMYLASE 84 U/L (30-110); ANION GAP 18.8 MEQ/L (5-15); BLOOD UREA NITROGEN 26 mg/dL (9-20); CHLORIDE 107 mmol/L (98-107); Calcium 9.8 mg/dL (8.4-10.2); Carbon Dioxide 22 mmol/L (22-30); Creatinine 1 1.58 mg/dL (0.66-1.25); Glucose 122 mg/dL (74-106); LIPASE 115 U/L (23-300); Potassium 4.4 mmol/L (3.5-5.1); SGOT/AST 23 U/L (17-59); SGPT/ALT 13 U/L (0-50); SODIUM 143 mmol/L (137-145); Total Protein 7.2 g/dL (6.3-8.2)
[2020-06-09 17:56] LABS: Absolute Neutrophil Ct (ANC) 4.58 (1.4-6.9); BASOPHIL % 0.7 % (0.0-0.4); Basophil (Absolute #) 0.05 (0-0.4); Eosinophil % 8.1 % (0.00-5.0); Hematocrit 30.3 % (42-50); Hemoglobin 9.7 gm/dl (12.5-18.0); Lymphocyte (Absolute #) 1.35 (1.0-4.6); Lymphocytes % 18.3 % (24.0-44.0); Mean Cell Volume 103.4 fl (78-100); Mean Corpuscular Hemoglobin 33.1 pg (26-32); Monocyte (Absolute #) 0.81 (0.0-1.3); Neutrophil % 61.9 % (36.0-66.0); Platelet Count 340 K/mm3 (150-450); Red Blood Count 2.93 M/mm3 (4.1-5.6); Red Cell Distribution Width 14.2 % (11.5-14.0); White Blood Count 7.4 K/mm3 (4.0-10.5)
[2020-06-09] MEDS ORDERED: Sodium Chloride 0.9% 1000 ML 1,000 ML ONE (17:56)
[2020-06-09] MEDS ORDERED: MORPHINE SULFATE 4 MG INJ ONE (18:43)
[2020-06-09] MEDS ORDERED: MORPHINE SULFATE 4 MG INJ IV ONE (18:44)
[2020-06-09 20:57] LABS: Appearance CLEAR (CLEAR); Bilirubin NEGATIVE (NEGATIVE); Blood NEGATIVE Ery/ul (0-5); Glucose NEGATIVE (NEGATIVE); Ketones NEGATIVE (NEGATIVE); Leukocyte Esterase NEGATIVE (NEGATIVE); Mucus SLIGHT /HPF (NEGATIVE); Nitrite NEGATIVE (NEGATIVE); Protein,Urine Dip NEGATIVE (Negative); RBC 0-2 /HPF (0-2); Specific Gravity 1.019 (1.005-1.025); Urobilinogen NEGATIVE mg/dL (0-1); WBC 0-2 /HPF (0-5)
[2020-06-09 21:08] LABS: Bacteria NONE SEEN /HPF (NEGATIVE)
[2020-06-09 22:53] VITALS: BP 158/76; PULSE 70; O2SAT 98
== END 2020-06-09 22:38 | disposition home or self-care (01) ==
LOC: ED 16:34
DX: S39.840A Fracture of corpus cavernosum penis, initial encounter (principal); Z87.710 Personal history of (corrected) hypospadias; Z79.899 Other long term (current) drug therapy
CPT/HCPCS: 36000; 36415; 80053; 80307; 81001; 82150; 83605; 83690; 84484; 85025; 93005; 96360; 96361; 96374; 99284; J2270

== ENCOUNTER 2020-09-27 11:29 | Emergency (ER) | payer MEDICARE ==
[2020-09-27 12:39] VITALS: BP 150/68
[2020-09-27] MEDS ORDERED: NEURONTIN 300 MG PO STA (12:57)
--- NOTE | 2020-09-27 14:05 | ERPHSYRPT ---
- History of Present Illness Time Seen by Provider: 09/27/20 11:36 Patient Subjective Stated Complaint: C/O back pain that has been increasing over the past 7 to 10 days. He states they have to increase his pain pump medication at times but is requires an MD oversight and is here to have that done. Triage Nursing Assessment: Admitted wearing a back brace. Denies any physical exertion that may have exaggerated pain; denies pulling, tugging, lifting. Agitated; yelled at this nurse. Refusing to put on a gown at this time for full assessment. Pain pump surgically implanted in left abdomen to manage back pain. Physician History: 79 years old male with history of hypertension, diabetes mellitus, chronic back pain status post pain pump implant by pain management presented in the ER with increasing pain for the last 2 weeks with progressive worsening in the low back without any radiation. Does have chronic urinary incontinence using penile clamp and chronic constipation which are not any worse than usual. Denies any numbness tingling or weakness of lower extremities. Pain is similar to previous episodes. Patient called his pain management and was recommended to report in the ER as they can remotely increase dose of pain medication but has to be monitored by an MD. Patient reports he cannot take any narcotics orally for the fact that it makes him crazy. No fever or chills reported. No fall trauma to the back, lifting pulling or pushing heavy objects. Patient use brace all the time. Timing/Duration: week(s) (2), constant, gradual onset, worse Method of Injury: unknown Quality: sharp Back Pain Location: lumbar spine, paraspinous muscles Severity of Pain-Max: severe Severity of Pain-Current: moderate Modifying Factors: Improves With: immobilization, pain medication, rest. Worsens With: movement Associated Symptoms: urinary incontinence (Chronic), constipation (Chronic), lower back pain, muscle spasms, No loss of bowel control, No nausea, No vomiting, No light-headedness, No numbness in legs/feet, No weakness, No sensory/motor loss, No tingling in legs/feet Previous symptoms: same symptoms as today Allergies/Adverse Reactions: doxazosin mesylate [From Cardura] Allergy (Verified 09/27/20 11:56) Itching ezetimibe [From Zetia] Allergy (Verified 09/27/20 12:02) iodine Allergy (Verified 09/27/20 11:56) Hives latex Allergy (Verified 09/27/20 11:56) prednisone Allergy (Verified 09/27/20 11:56) states "homicidal" simvastatin [From Zocor] Allergy (Verified 09/27/20 12:01) Mmxmvkh-Bpy-Qfi Reductase Inhibitor Allergy (Verified 09/27/20 11:56) Joint Aches duloxetine Adverse Reaction (Verified 09/27/20 11:56) milk Adverse Reaction (Verified 09/27/20 11:56) bananas Allergy (Uncoded 09/27/20 11:56) iv contrast Allergy (Uncoded 09/27/20 11:56) Hives Home Medications: Diltiazem HCl 240 mg [Cardizem CD 240 MG] 240 mg PO DAILY 01/02/16 [History] Metformin HCl 500 mg [Glucophage 500 MG] 500 mg PO DAILY 01/02/16 [History] Trazodone HCl 100 mg PO QHS 02/09/20 [History] Omeprazole 20 mg PO DAILY 02/25/20 [History] Carvedilol 12.5 mg [Coreg 12.5 mg] 12.5 mg PO BID 06/09/20 [History] HydrALAzine HCL 25 MG TAB [Apresoline 25 MG TABLET] 50 mg PO BID 06/09/20 [History] Mirabegron [Myrbetriq] 50 mg PO DAILY 06/09/20 [History] Acetaminophen 325 mg [Tylenol 325 mg] 325 mg PO BID 09/27/20 [History] Lutein 20 mg PO DAILY 09/27/20 [History] Hx Tetanus, Diphtheria Vaccination/Date Given: No Hx Influenza Vaccination/Date Given: Yes Hx Pneumococcal Vaccination/Date Given: No Travel Risk - International Travel Have you traveled outside of the country in past 3 weeks: No - Coronavirus Screening Are you exhibiting any of the following symptoms?: No Close contact with a COVID-19 positive Pt in past 14-21 Days: No - Vaccine Status Have you recieved a Covid-19 vaccination: Yes [employer]: Moderna - Vaccination Dates Date of 2cond Vaccination (if applicable): unknown Dates if Unknown: unknown - Review of Systems Constitutional: No Symptoms Eyes: No Symptoms Ears, Nose, & Throat: No Symptoms Respiratory: No Symptoms Cardiac: No Symptoms Abdominal/Gastrointestinal: Constipation Genitourinary Symptoms: Incontinence Musculoskeletal: Back Pain Skin: No Symptoms - Past Medical History Pertinent Past Medical History: Yes Neurological History: TIA ENT History: No Pertinent History Cardiac History: Coronary Artery Disease, Hypertension, Myocardial Infarction ([place]), Other Respiratory History: No Pertinent History Endocrine Medical History: Diabetes Type II Musculoskeletal History: Degenerative Disk Disease GI Medical History: GERD History: Other Psycho-Social History: No Pertinent History Male Reproductive Disorders: Prostate Cancer Other Medical History: heart stent in 2007, Pt has a pacemaker, past [place], COVID- 19 DX February 2020 - Past Surgical History Past Surgical History: Yes Neuro Surgical History: No Pertinent History Cardiac: Angioplasty, Cardiac Stent, Pacemaker Respiratory: Other Gastrointestinal: No Pertinent History Genitourinary: No Pertinent History Musculoskeletal: No Pertinent History Male Surgical History: Prostate Surgery, Vasectomy, Other Other Surgical History: states left lung collapsed, penile implant, back pain stimulator AND REMOVAL 2017 - Social History Smoking Status: Never smoker Exposure to second hand smoke: Yes Alcohol Use: None Drug Use: none Patient Lives Alone: No Significant Family History: no pertinent family hx - Nursing Vital Signs Nursing Vital Signs: Initial Vital Signs Temperature 97.3 F 09/27/20 11:36 Pulse Rate 62 09/27/20 11:36 Respiratory Rate 18 09/27/20 11:36 Blood Pressure 134/64 09/27/20 11:36 O2 Sat by Pulse Oximetry 96 09/27/20 11:36 Pain Scale Pain Intensity 4 - Physical Exam General Appearance: no apparent distress, alert, anxiety Eye Exam: PERRL/EOMI, eyes nml inspection Ears, Nose, Throat Exam: normal ENT inspection, pharynx normal Neck Exam: normal inspection, supple, full range of motion Respiratory Exam: normal breath sounds, lungs clear Cardiovascular Exam: regular rate/rhythm, normal heart sounds Gastrointestinal Exam: soft, normal bowel sounds, other (Pain pump implanted in the left abdomen wall), No tenderness Back Exam: vertebral tenderness, decreased range of motion, muscle spasm, point tenderness (Paraspinal lower lumbar) Extremity Exam: normal inspection, normal range of motion Neurologic Exam: alert, oriented x 3, cooperative, institutional cook II-XII nml as tested, normal mood/affect, nml cerebellar function, sensation nml, No motor deficits, No sensory deficit Skin Exam: normal color SpO2 Interpretation: normal SpO2: 94 O2 Delivery: Room Air Ordered Tests: Active Orders 24 hr Category Date Time Status LUMBAR SPINE W/O [CT] Stat Exams 09/27/20 12:57 Completed Medication Summary Discontinued Medications Generic Name Dose Route Start Last Admin Trade Name Artur PRN Reason Stop Dose Admin Gabapentin 300 mg 09/27/20 12:57 09/27/20 13:12 Neurontin 300 Mg PO 09/27/20 12:58 300 mg ONCE STA Administration - Progress Progress: improved, re-examined Progress Note: 09/27/20 14:15 Has negative neuro exam in lower extremities. Patient does have low back tenderness which I believe is chronic. I have spoken with Dr. aSge at pain management who is managing his pain pump, reviewed patient history, patient expectation of changing pain medication dose while in here. She recommended obtaining CT imaging to see if there is any new compression fracture or any other acute findings making his pain go worse which is negative for any acute findings. I have given him Neurontin as patient cannot take any narcotics and on reevaluation pain is much improved. Per Dr. Sage she would be calling home health to change medication dose and pain pump are patient may need to go to pain management clinic in person to get it changed. I have spoken with patient and daughter who understand and agree with it. Patient is walking in the ER without any limitation. Discussed signs symptoms of worsening needing return to ER which he seems understanding. Stable for discharge. Counseled pt/family regarding: diagnosis, need for follow-up, rad results - Departure Departure Disposition: Home Clinical Impression: Acute exacerbation of chronic low back pain Condition: Stable Critical Care Time: No Referrals: ARNOLD OLIVAS MD [Primary Care Provider] - (1-2 days for reevaluation) Instructions: Low Back Pain (DC) Additional Instructions: Take Tylenol as needed to control pain. Follow-up with your pain management/primary care for reevaluation. Return to ER for intractable back pain, numbness tingling weakness of lower extremities, loss of bowel control or perineal numbness. Use cane/walker for ambulation to avoid a fall.
--- NOTE | 2020-09-27 14:06 | XRAY ---
Indication: Chronic low back pain. Multiple contiguous axial images obtained through the lumbar spine. Sagittal and coronal reformatted images obtained. Comparison: March 01, 2020. Osseous structures remain demineralized. Stable T12 superior endplate Schmorl node. Axial images negative for acute fracture, suspicious bony lesions, or spinal canal stenosis. Stable L2-S1 broad-based disc bulge and L2-L5 degenerative vacuum disc phenomena. Facets are symmetric. Sagittal and coronal reformatted images again demonstrates L2-L5 disc space loss and mild levorotoscoliosis centered at L3. Visualized noncontrasted soft tissues again demonstrates incompletely visualized epidural stimulator lead and scattered aortoiliac calcifications. Impression: Stable osteopenia, multilevel degenerative disc disease, T12 Schmorl node, levorotoscoliosis, epidural spinal lead, and arteriosclerotic calcifications. No new/acute findings.
[2020-09-27 14:56] VITALS: PULSE 66; O2SAT 98
== END 2020-09-27 14:51 | disposition home or self-care (01) ==
LOC: ED 11:29
DX: M54.5 Low back pain (principal); I10 Essential (primary) hypertension; E11.9 Type 2 diabetes mellitus without complications; Z79.899 Other long term (current) drug therapy; K21.9 Gastro-esophageal reflux disease without esophagitis; Z95.0 Presence of cardiac pacemaker
CPT/HCPCS: 72131; 99283; A9270-GY

== ENCOUNTER 2020-11-09 14:21 | Emergency (ER) | payer MEDICARE ==
--- NOTE | 2020-11-09 16:12 | ERPHSYRPT ---
- History of Present Illness Time Seen by Provider: 11/09/20 14:38 Historian: patient Exam Limitations: no limitations Patient Subjective Stated Complaint: Pt has been constipated for the past 6 days Triage Nursing Assessment: Pt brought to the ER by his daughter, hypertensive, rates pain 12/16, pt has a pain pump in Q for his back but it is not working at this time and it is going to get replaced but in the meantime he has been placed on Hydrocodone for the past 3 days which has not helped his constipation, bowel sounds heard in all 4, Pain with palpatation where the pump is, pt c/o of abdominal and back pain, pulses normal, skin n/w/d, gave self an enema this morning with no luck Physician History: 79 years old male with multiple medical problems including chronic back pain on pain pump which recently has not been working with worsening back pain and has been turned off for the last few days and currently on hydrocodone was presented in the ER with no bowel movement for the last 6 days. Patient reports moderate intensity cramping in the lower abdomen and urge to go but cannot have a bowel movement. Patient did digital rectal exam and felt the hard stool. No nausea or vomiting reported. Allergies/Adverse Reactions: doxazosin mesylate [From Cardura] Allergy (Verified 11/09/20 14:41) Itching ezetimibe [From Zetia] Allergy (Verified 11/09/20 14:41) iodine Allergy (Verified 11/09/20 14:41) Hives latex Allergy (Verified 11/09/20 14:41) prednisone Allergy (Verified 11/09/20 14:41) states "homicidal" simvastatin [From Zocor] Allergy (Verified 11/09/20 14:41) Ewhcxoj-Cow-Vqh Reductase Inhibitor Allergy (Verified 11/09/20 14:41) Joint Aches duloxetine Adverse Reaction (Verified 11/09/20 14:41) milk Adverse Reaction (Verified 11/09/20 14:41) bananas Allergy (Uncoded 11/09/20 14:41) iv contrast Allergy (Uncoded 11/09/20 14:41) Hives Home Medications: Diltiazem HCl 240 mg [Cardizem CD 240 MG] 240 mg PO DAILY 01/02/16 [History] Metformin HCl 500 mg [Glucophage 500 MG] 500 mg PO DAILY 01/02/16 [History] Trazodone HCl 150 mg PO QHS 02/09/20 [History] Omeprazole 20 mg PO DAILY 02/25/20 [History] Carvedilol 12.5 mg [Coreg 12.5 mg] 12.5 mg PO BID 06/09/20 [History] HydrALAzine HCL 25 MG TAB [Apresoline 25 MG TABLET] 50 mg PO BID 06/09/20 [History] Mirabegron [Myrbetriq] 50 mg PO DAILY 06/09/20 [History] Acetaminophen 325 mg [Tylenol 325 mg] 325 mg PO BID 09/27/20 [History] Lutein 20 mg PO DAILY 09/27/20 [History] Furosemide 20 mg [Lasix 20 mg] 20 mg PO DAILY 11/09/20 [History] Hydrocodone Bit/Acetaminophen [Hydrocodon-Acetaminophn 10-325] 1 each PO Q6H 11/09/20 [History] Hx Tetanus, Diphtheria Vaccination/Date Given: No Hx Influenza Vaccination/Date Given: Yes Hx Pneumococcal Vaccination/Date Given: No Travel Risk - International Travel Have you traveled outside of the country in past 3 weeks: No - Coronavirus Screening Are you exhibiting any of the following symptoms?: No Close contact with a COVID-19 positive Pt in past 14-21 Days: No - Vaccine Status Have you recieved a Covid-19 vaccination: Yes [employer]: Moderna - Vaccination Dates Date of 2cond Vaccination (if applicable): unknown - Review of Systems Constitutional: No Symptoms Ears, Nose, & Throat: No Symptoms Respiratory: No Symptoms Cardiac: No Symptoms Abdominal/Gastrointestinal: Abdominal Pain, Constipation, No Nausea, No Vomiting, No Diarrhea Genitourinary Symptoms: No Symptoms Musculoskeletal: Back Pain Skin: No Symptoms Neurological: No Symptoms Endocrine: No Symptoms Hematologic/Lymphatic: No Symptoms - Past Medical History Pertinent Past Medical History: Yes Neurological History: TIA ENT History: No Pertinent History Cardiac History: Coronary Artery Disease, Hypertension, Myocardial Infarction ([place]), Other Respiratory History: No Pertinent History Endocrine Medical History: Diabetes Type II Musculoskeletal History: Degenerative Disk Disease GI Medical History: GERD History: Other Psycho-Social History: No Pertinent History Male Reproductive Disorders: Prostate Cancer Other Medical History: heart stent in 2007, Pt has a pacemaker, past [place], COVID- 19 DX February 2020 - Past Surgical History Past Surgical History: Yes Neuro Surgical History: No Pertinent History Cardiac: Angioplasty, Cardiac Stent, Pacemaker Respiratory: Other Gastrointestinal: No Pertinent History Genitourinary: No Pertinent History Musculoskeletal: No Pertinent History Male Surgical History: Prostate Surgery, Vasectomy, Other Other Surgical History: states left lung collapsed, penile implant, back pain stimulator AND REMOVAL 2017 - Social History Smoking Status: Never smoker Exposure to second hand smoke: Yes Alcohol Use: None Drug Use: none Patient Lives Alone: No Significant Family History: no pertinent family hx - Nursing Vital Signs Nursing Vital Signs: Initial Vital Signs Temperature 98.1 F 11/09/20 14:29 Pulse Rate 60 11/09/20 14:29 Blood Pressure 178/62 11/09/20 14:29 O2 Sat by Pulse Oximetry 97 11/09/20 14:29 Pain Scale Pain Intensity 2 - Physical Exam General Appearance: no apparent distress, alert Eye Exam: PERRL/EOMI Ears, Nose, Throat Exam: pharynx normal Respiratory Exam: normal breath sounds, lungs clear Cardiovascular Exam: regular rate/rhythm, normal heart sounds Gastrointestinal/Abdomen Exam: soft, normal bowel sounds, tenderness (Around the area of pump implant and some lower abdominal/suprapubic area) Back Exam: muscle spasm, point tenderness (Lower back), No CVA tenderness Extremity Exam: normal inspection, normal range of motion, pelvis stable Neurologic Exam: alert, oriented x 3, cooperative Skin Exam: normal color SpO2 Interpretation: normal SpO2: 97 O2 Delivery: Room Air Ordered Tests: Active Orders 24 hr Category Date Time Status Enema STAT Care 11/09/20 21:08 Active ABDOMEN 2 VIEW Stat Exams 11/09/20 15:34 Taken ABDOMEN AND PELVIS W/0 CONTRAS [CT] Stat Exams 11/09/20 18:26 Taken CBC W DIFF Stat Lab 11/09/20 18:43 Completed CMP Stat Lab 11/09/20 18:43 Completed LIPASE Stat Lab 11/09/20 18:43 Completed Lactic Acid Stat Lab 11/09/20 18:33 Completed UA W/RFX UR CULTURE Stat Lab 11/09/20 18:33 Completed Medication Summary Discontinued Medications Generic Name Dose Route Start Last Admin Trade Name Freq PRN Reason Stop Dose Admin Morphine Sulfate Confirm 11/09/20 19:32 Morphine Sulfate 4 Mg Inj Administered 11/09/20 19:33 Dose 4 mg .ROUTE .STK-MED ONE Morphine Sulfate 4 mg 11/09/20 19:50 11/09/20 20:01 Morphine Sulfate 4 Mg Inj IV 11/09/20 19:51 4 mg STAT ONE Administration Ondansetron HCl 4 mg 11/09/20 19:50 11/09/20 20:01 Zofran 4 Mg/2 Ml Vial IV 11/09/20 19:51 4 mg STAT ONE Administration Ondansetron HCl Confirm 11/09/20 19:58 Zofran 4 Mg/2 Ml Vial Administered 11/09/20 19:59 Dose 4 mg .ROUTE .Hand[employer] InformationK-MED ONE Lab/Rad Data: Laboratory Result Diagrams 11/09/20 18:43 11/09/20 18:43 Laboratory Results 11/09/20 11/09/20 11/09/20 Range/Units 18:43 18:43 18:33 WBC 10.5 (4.0-10.5) K/mm3 RBC 3.20 L (4.1-5.6) M/mm3 Hgb 10.6 L (12.5-18.0) gm/dl Hct 32.5 L (42-50) % MCV 101.6 H (78-100) fl MCH 33.1 H (26-32) pg MCHC 32.6 (32-36) g/dl RDW 12.3 (11.5-14.0) % Plt Count 280 (150-450) K/mm3 MPV 9.4 (7.5-11.0) fl Gran % 78.6 H (36.0-66.0) % Eos # (Auto) 0.17 (0-0.5) Absolute Lymphs (auto) 1.28 (1.0-4.6) Absolute Monos (auto) 0.74 (0.0-1.3) Lymphocytes % 12.2 L (24.0-44.0) % Monocytes % 7.1 (0.0-12.0) % Eosinophils % 1.6 (0.00-5.0) % Basophils % 0.5 (0.0-0.4) % Absolute Granulocytes 8.21 H (1.4-6.9) Basophils # 0.05 (0-0.4) Sodium 139 (137-145) mmol/L Potassium 4.1 (3.5-5.1) mmol/L Chloride 104 (98-107) mmol/L Carbon Dioxide 26 (22-30) mmol/L Anion Gap 13.4 (5-15) MEQ/L BUN 30 H (9-20) mg/dL Creatinine 1.46 H (0.66-1.25) mg/dL Estimated GFR 49.3 ML/MIN Glucose 110 H (74-106) mg/dL Lactic Acid 0.7 (0.4-2.0) Calcium 9.9 (8.4-10.2) mg/dL Total Bilirubin 0.40 (0.2-1.3) mg/dL AST 26 (17-59) U/L ALT 12 (0-50) U/L Alkaline Phosphatase 109 (38-126) U/L Serum Total Protein 7.2 (6.3-8.2) g/dL Albumin 4.3 (3.5-5.0) g/dL Lipase 43 (23-300) U/L Urine Color (YELLOW) Urine Appearance (CLEAR) Urine pH (5-6) Ur Specific [place] (1.005-1.025) Urine Protein (Negative) Urine Ketones (NEGATIVE) Urine Blood (0-5) [place]/ul Urine Nitrite (NEGATIVE) Urine Bilirubin (NEGATIVE) Urine Urobilinogen (0-1) mg/dL Ur Leukocyte Esterase (NEGATIVE) Urine WBC (Auto) (0-5) /HPF Urine RBC (Auto) (0-2) /HPF U Hyaline Cast (Auto) (0-2) /LPF U Epithel Cells (Auto) (FEW) /HPF Urine Bacteria (Auto) (NEGATIVE) /HPF Urine Culture Reflexed (NO) Urine Glucose (NEGATIVE) mg/dL 11/09/20 Range/Units 18:33 WBC (4.0-10.5) K/mm3 RBC (4.1-5.6) M/mm3 Hgb (12.5-18.0) gm/dl Hct (42-50) % MCV (78-100) fl MCH (26-32) pg MCHC (32-36) g/dl RDW (11.5-14.0) % Plt Count (150-450) K/mm3 MPV (7.5-11.0) fl Gran % (36.0-66.0) % Eos # (Auto) (0-0.5) Absolute Lymphs (auto) (1.0-4.6) Absolute Monos (auto) (0.0-1.3) Lymphocytes % (24.0-44.0) % Monocytes % (0.0-12.0) % Eosinophils % (0.00-5.0) % Basophils % (0.0-0.4) % Absolute Granulocytes (1.4-6.9) Basophils # (0-0.4) Sodium (137-145) mmol/L Potassium (3.5-5.1) mmol/L Chloride (98-107) mmol/L Carbon Dioxide (22-30) mmol/L Anion Gap (5-15) MEQ/L BUN (9-20) mg/dL Creatinine (0.66-1.25) mg/dL Estimated GFR ML/MIN Glucose (74-106) mg/dL Lactic Acid (0.4-2.0) Calcium (8.4-10.2) mg/dL Total Bilirubin (0.2-1.3) mg/dL AST (17-59) U/L ALT (0-50) U/L Alkaline Phosphatase (38-126) U/L Serum Total Protein (6.3-8.2) g/dL Albumin (3.5-5.0) g/dL Lipase (23-300) U/L Urine Color STRAW (YELLOW) Urine Appearance CLEAR (CLEAR) Urine pH 5.0 (5-6) Ur Specific [place] 1.009 (1.005-1.025) Urine Protein NEGATIVE (Negative) Urine Ketones NEGATIVE (NEGATIVE) Urine Blood NEGATIVE (0-5) [place]/ul Urine Nitrite NEGATIVE (NEGATIVE) Urine Bilirubin NEGATIVE (NEGATIVE) Urine Urobilinogen NEGATIVE (0-1) mg/dL Ur Leukocyte Esterase NEGATIVE (NEGATIVE) Urine WBC (Auto) 0-2 (0-5) /HPF Urine RBC (Auto) 0-2 (0-2) /HPF U Hyaline Cast (Auto) 3-5 (0-2) /LPF U Epithel Cells (Auto) NONE (FEW) /HPF Urine Bacteria (Auto) NONE SEEN (NEGATIVE) /HPF Urine Culture Reflexed NO (NO) Urine Glucose NEGATIVE (NEGATIVE) mg/dL - Progress Progress: improved, re-examined Progress Note: 11/09/20 21:47 79 years old is evaluated for abdominal pain/constipation. I have obtained initially x-rays which were questionable partial small bowel obstruction/early small bowel obstruction. I have obtained CT which is negative for any obstruction. Labs grossly unremarkable. Patient is given 1 dose of morphine as he has a chronic back pain. I have given him soapsuds enema after negative CT and has a good bowel movement. He is feeling better. No abdominal pain or peritoneal signs on evaluation after bowel movement. He is advised to take MiraLAX and stool softener regularly and outpatient follow-up. Counseled pt/family regarding: lab results, diagnosis, need for follow-up, rad results - Departure Departure Disposition: Home Clinical Impression: Constipation Qualifiers: Constipation type: unspecified constipation type Qualified Code(s): K59.00 - Constipation, unspecified Chronic back pain Qualifiers: Back pain location: low back pain Back pain laterality: unspecified Sciatica presence: unspecified whether sciatica present Qualified Code(s): M54.5 - Low back pain; G89.29 - Other chronic pain Condition: Stable Critical Care Time: No Referrals: ARNOLD OLIVAS MD [Primary Care Provider] - Follow Up with PCP/3 days Instructions: Constipation, Adult (DC) Additional Instructions: Take MiraLAX and stool softeners daily. Follow-up with your pain management for replacement of pain pump. Take [place] only as needed to avoid constipation again. Return to ER for worsening symptoms of abdominal pain, constipation, nausea vomiting etc. Prescriptions: Docusate Sodium 100 mg [Colace 100 MG] 100 mg PO BID #60 cap Polyethylene Glycol 3350 17 gm [Miralax Powder 17GM PACKET] 17 gm PO DAILY #30 packet
[2020-11-09 18:48] LABS: Absolute Neutrophil Ct (ANC) 8.21 (1.4-6.9); BASOPHIL % 0.5 % (0.0-0.4); Basophil (Absolute #) 0.05 (0-0.4); Eosinophil % 1.6 % (0.00-5.0); Eosinophil (Absolute #) 0.17 (0-0.5); Hematocrit 32.5 % (42-50); Hemoglobin 10.6 gm/dl (12.5-18.0); Lymphocyte (Absolute #) 1.28 (1.0-4.6); Lymphocytes % 12.2 % (24.0-44.0); Mean Cell Volume 101.6 fl (78-100); Mean Corpuscular Hemoglobin 33.1 pg (26-32); Mean Corpuscular Hgb Concent. 32.6 g/dl (32-36); Mean Platelet Volume 9.4 fl (7.5-11.0); Monocyte (Absolute #) 0.74 (0.0-1.3); Monocytes % 7.1 % (0.0-12.0); Neutrophil % 78.6 % (36.0-66.0); Platelet Count 280 K/mm3 (150-450); Red Cell Distribution Width 12.3 % (11.5-14.0); White Blood Count 10.5 K/mm3 (4.0-10.5)
[2020-11-09 18:49] LABS: Appearance CLEAR (CLEAR); Bilirubin NEGATIVE (NEGATIVE); Blood NEGATIVE Ery/ul (0-5); Glucose NEGATIVE (NEGATIVE); Ketones NEGATIVE (NEGATIVE); Leukocyte Esterase NEGATIVE (NEGATIVE); Nitrite NEGATIVE (NEGATIVE); Protein,Urine Dip NEGATIVE (Negative); RBC 0-2 /HPF (0-2); Specific Gravity 1.009 (1.005-1.025); Urobilinogen NEGATIVE mg/dL (0-1); WBC 0-2 /HPF (0-5)
[2020-11-09 18:56] LABS: ALBUMIN 4.3 g/dL (3.5-5.0); ANION GAP 13.4 MEQ/L (5-15); BILIRUBIN,TOTAL 0.4 mg/dL (0.2-1.3); Calcium 9.9 mg/dL (8.4-10.2); Creatinine 1 1.46 mg/dL (0.66-1.25); EST GLOMERULAR FILTRATION RATE 49.3 ML/MIN; Potassium 4.1 mmol/L (3.5-5.1); Total Protein 7.2 g/dL (6.3-8.2)
[2020-11-09 19:00] LABS: Bacteria NONE SEEN /HPF (NEGATIVE)
[2020-11-09] MEDS ORDERED: MORPHINE SULFATE 4 MG INJ ONE (19:32)
[2020-11-09] MEDS ORDERED: MORPHINE SULFATE 4 MG INJ IV ONE (19:50)
[2020-11-09] MEDS ORDERED: Zofran 4 MG/2 ML VIAL IV ONE (19:50)
[2020-11-09] MEDS ORDERED: Zofran 4 MG/2 ML VIAL ONE (19:58)
--- NOTE | 2020-11-09 22:30 | XRAY ---
Indication: No bowel movement 6 days. Multiple contiguous axial images obtained through the abdomen and pelvis without contrast. Comparison: October 08, 2020. Lung bases remain clear with incidental tiny left lower lobe calcified granuloma not previously imaged. Heart not enlarged. New small hiatal hernia. Left abdominal wall pain pump again produces beam artifact. Noncontrasted stomach and bowel loops remain nonobstructed again with sigmoid diverticulosis. There is now mild diffuse scattered colonic fecal debris throughout including rectum. Stable prostatectomy with partially visualized penile implant and right pelvic reservoir. No free fluid/air. Remaining liver, gallbladder, pancreas, spleen, adrenal glands, kidneys, ureters, and bladder are unremarkable for noncontrast exam. Stable moderate aortoiliac calcifications without AAA. Impression: 1. New diffuse fecal stasis and new small hiatal hernia. 2. Again incidental sigmoid diverticulosis and postsurgical changes. Comment: Preliminary interpretation made by C. No critical discrepancy.
--- NOTE | 2020-11-09 22:32 | XRAY ---
Indication: Abdomen pain. Constipation. Obstruction. Comparison: None 2 view abdomen demonstrates nonspecific nonobstructed bowel gas pattern with mild scattered fecal debris and mild rectal impaction. Incidental left abdomen pain pump, prostatectomy, and partially visualized penile implants. Osseous structures intact with mild osteopenia, moderate multilevel lumbar degenerative spondylosis, and mild levorotoscoliosis centered at L3. Impression: Fecal stasis with rectal impaction. Comment: Preliminary interpretation made by [facility]. No critical discrepency.
[2020-11-09 22:35] VITALS: BP 160/68; PULSE 61; O2SAT 96
== END 2020-11-09 22:23 | disposition home or self-care (01) ==
LOC: ED 14:21
DX: K59.00 Constipation, unspecified (principal); M54.5 Low back pain; G89.29 Other chronic pain
CPT/HCPCS: 36000; 36415; 74021; 74176; 80053; 81001; 83605; 83690; 85025; 96374; 96375; 99284; J2270; J2405

== ENCOUNTER 2021-03-05 19:39 | Emergency (ER) | payer MEDICARE ==
--- NOTE | 2021-03-05 20:25 | ERPHSYRPT ---
- History of Present Illness Time Seen by Provider: 03/05/21 20:10 Source: patient Patient Subjective Stated Complaint: "I have an ingrown toenail." Triage Nursing Assessment: Reported onset of ingrown toenail to the right great toe on 03/01/21. Has had these in the past and saw Dr. Rodriguez. Denied any recent injuries. Denied fever/chills at home. Right great toe with significant erythema to the nail border and minimal swelling. No noted exudate. No noted streaking or spreading erythema. Toe is tender to palpation to the level of the proximal phalanx Physician History: Onset reportedly was last Thursday, specifically March 02, 2021. He states he has had similar pain and swelling to the right hallux in addition to the left hallux in the past, specifically 6 months ago that was attributed to an ingrown toenail. Patient states the feeling in addition to the swelling and erythema is the same. 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 Of note, the patient also has chronic low back pain and is currently wearing a pain pump but does not know what kind of pain medication is currently being injected. He denies fever, chills, traumatic injury to the right toe or any purulent drainage. His immunizations are reportedly up-to-date to include his tetanus prophylaxis. Associated Symptoms: shortness of breath, No nausea, No vomiting, No abdominal pain, No chest pain Allergies/Adverse Reactions: doxazosin mesylate [From Cardura] Allergy (Verified 03/05/21 19:47) Itching ezetimibe [From Zetia] Allergy (Verified 03/05/21 19:47) iodine Allergy (Verified 03/05/21 19:47) Hives latex Allergy (Verified 03/05/21 19:47) prednisone Allergy (Verified 03/05/21 19:47) states "homicidal" simvastatin [From Zocor] Allergy (Verified 03/05/21 19:47) Ezhxyur-PZW-DaU Reductase Inhibitor [Wfavhtl-Xfw-Gfk Reductase Inhibitor] Allergy (Verified 03/05/21 19:47) Joint Aches duloxetine Adverse Reaction (Verified 03/05/21 19:47) milk Adverse Reaction (Verified 03/05/21 19:47) bananas Allergy (Uncoded 03/05/21 19:47) iv contrast Allergy (Uncoded 03/05/21 19:47) Hives Home Medications: Diltiazem HCl 240 mg [Cardizem CD 240 MG] 240 mg PO DAILY 01/02/16 [History] Metformin HCl 500 mg [Glucophage 500 MG] 500 mg PO DAILY 01/02/16 [History] Trazodone HCl 150 mg PO QHS 02/09/20 [History] Omeprazole 20 mg PO DAILY 02/25/20 [History] Carvedilol 12.5 mg [Coreg 12.5 mg] 12.5 mg PO BID 06/09/20 [History] HydrALAzine HCL 25 MG TAB [Apresoline 25 MG TABLET] 50 mg PO BID 06/09/20 [History] Mirabegron [Myrbetriq] 50 mg PO DAILY 06/09/20 [History] Acetaminophen 325 mg [Tylenol 325 mg] 325 mg PO BID 09/27/20 [History] Lutein 20 mg PO DAILY 09/27/20 [History] Furosemide 20 mg [Lasix 20 mg] 20 mg PO DAILY 11/09/20 [History] Hydrocodone/Acetaminophen [Hydrocodon-Acetaminophn 10-325] 1 each PO Q6H 11/09/20 [History] Hx Tetanus, Diphtheria Vaccination/Date Given: No Hx Influenza Vaccination/Date Given: Yes Hx Pneumococcal Vaccination/Date Given: No Travel Risk - International Travel Have you traveled outside of the country in past 3 weeks: No - Coronavirus Screening Are you exhibiting any of the following symptoms?: No Close contact with a COVID-19 positive Pt in past 14-21 Days: No - Vaccine Status Have you recieved a Covid-19 vaccination: Yes 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 - Vaccination Dates Date of 2cond Vaccination (if applicable): unknown Dates if Unknown: na - Review of Systems Constitutional: No Symptoms Eyes: No Symptoms Musculoskeletal: Other (Right hallux pain with swelling) Skin: Other (Erythema to the R hallux with swelling) Neurological: No Symptoms Endocrine: No Symptoms All Other Systems: Reviewed and Negative - Past Medical History Pertinent Past Medical History: Yes Neurological History: TIA ENT History: No Pertinent History Cardiac History: Coronary Artery Disease, Hypertension, Myocardial Infarction (AR), Other Respiratory History: No Pertinent History Endocrine Medical History: Diabetes Type II Musculoskeletal History: Degenerative Disk Disease GI Medical History: GERD History: Other Psycho-Social History: No Pertinent History Male Reproductive Disorders: Prostate Cancer Other Medical History: heart stent in 2007, Pt has a pacemaker, past [place], COVID- 19 DX February 2020 - Past Surgical History Past Surgical History: Yes Neuro Surgical History: No Pertinent History Cardiac: Angioplasty, Cardiac Stent, Pacemaker Respiratory: Other Gastrointestinal: No Pertinent History Genitourinary: No Pertinent History Musculoskeletal: No Pertinent History Male Surgical History: Prostate Surgery, Vasectomy, Other Other Surgical History: states left lung collapsed, penile implant, back pain stimulator AND REMOVAL 2017 - Social History Smoking Status: Never smoker Exposure to second hand smoke: Yes Alcohol Use: None Drug Use: none Patient Lives Alone: No Significant Family History: no pertinent family hx - Nursing Vital Signs Nursing Vital Signs: Initial Vital Signs Temperature 98.3 F 03/05/21 19:39 Pulse Rate 62 03/05/21 19:39 Respiratory Rate 18 03/05/21 19:39 Blood Pressure 152/72 03/05/21 19:39 O2 Sat by Pulse Oximetry 95 03/05/21 19:39 Pain Scale Pain Intensity 9 - Physical Exam General Appearance: no apparent distress, alert Neck Exam: non-tender, supple Respiratory Exam: normal breath sounds, lungs clear, No chest tenderness, No respiratory distress Cardiovascular Exam: regular rate/rhythm, normal heart sounds, capillary refill <2 sec Gastrointestinal/Abdomen Exam: soft, other (Pain pump palpated near the left lower quadrant), No tenderness Extremity Exam: swelling, tenderness Neurologic Exam: alert, oriented x 3, cooperative Skin Exam: warm, other (The R hallux appeared to be erythematous, specifically arounf the nail bed and borders) SpO2: 95 - Course Nursing assessment & vital signs reviewed: Yes - Radiology Exams Foot X-ray Interpretation: Interpreted by me, Reviewed by me, Negative (No evidence of osteolytic lesion of the R hallux) Ordered Tests: Active Orders 24 hr Category Date Time Status FOOT (MINIMUM 3 VIEWS) Stat Exams 03/05/21 20:40 Taken Medication Summary Discontinued Medications Generic Name Dose Route Start Last Admin Trade Name Freq PRN Reason Stop Dose Admin Cephalexin HCl 500 mg 03/05/21 20:26 03/05/21 20:48 Cephalexin Mh500 Mg Capsule PO 03/05/21 20:27 500 mg STAT ONE Administration Cephalexin HCl Confirm 03/05/21 20:46 Cephalexin Mh500 Mg Capsule Administered 03/05/21 20:47 Dose 500 mg .ROUTE .STK-MED ONE - Progress Progress: unchanged Progress Note: 03/05/21 21:58 I updated the patient with his x-ray results and the need to fill his prescription, specifically his Keflex and take it as prescribed until he can follow-up with his cooperage shop supervisor as scheduled. He was instructed to wear a loose fitting shoe and to keep the foot elevated and soak it in Epson salt to reduce the swelling. He does have an intrathecal pain pump that reportedly administers morphine for which she is currently managed by pain management presumably and [facility]. He states he does have a pain contract. He is requesting pain medications to go home with but I instructed him that the only thing I can really offer him is Tylenol and or ibuprofen to take in addition to his morphine given that he has a pain contract and this may cause him to violate his pain contract. I instructed him to follow-up with his pain management physician for further management of his pain. He was given ED return precautions, specifically to return if the pain became worse or if you notice any additional swelling or redness in addition to lymphangitis specifically to the right foot. The patient agreed with and verbally understood the discharge plan. He was comfortable with being discharged home. Counseled pt/family regarding: diagnosis, need for follow-up, rad results - Departure Departure Disposition: Home Clinical Impression: Ingrown toenail of right foot with infection Condition: Stable Critical Care Time: No Referrals: ARNOLD OLIVAS MD [Primary Care Provider] - Follow up/PCP as directed Instructions: Ingrown Toenail (DC) Additional Instructions: Please follow-up with your cooperage shop supervisor, Dr. Rodriguez, as scheduled. Please take your antibiotic as scheduled. Please take Tylenol and/or ibuprofen as needed for ongoing pain. You can purchase these medications [id number]. Please take these medications as instructed on your medication bottles. Please return to the emergency department for further evaluation if your pain, swelling, erythema or if you start noticing redness traveling up the foot. Prescriptions: Cephalexin Mh 500 mg [Keflex 500 mg] 500 mg PO TID 10 Days #30 cap
[2021-03-05] MEDS ORDERED: KEFLEX 500 MG PO ONE (20:26)
[2021-03-05] MEDS ORDERED: KEFLEX 500 MG ONE (20:46)
[2021-03-05 21:33] VITALS: BP 142/65
[2021-03-05 21:58] VITALS: PULSE 63
[2021-03-05 22:01] VITALS: O2SAT 95
--- NOTE | 2021-03-06 08:50 | XRAY ---
Indication: Great toenail infection. Comparison: None 3 nonweightbearing views right foot demonstrates osteopenia and extensive scattered vascular calcifications. No other bony, articular, or soft tissue abnormalities.
== END 2021-03-05 22:03 | disposition home or self-care (01) ==
LOC: ED 19:39
DX: L60.0 Ingrowing nail (principal); L03.031 Cellulitis of right toe; E11.9 Type 2 diabetes mellitus without complications; Z79.84 Long term (current) use of oral hypoglycemic drugs; I10 Essential (primary) hypertension; Z86.16 Personal history of COVID-19; Z79.891 Long term (current) use of opiate analgesic; Z79.899 Other long term (current) drug therapy
CPT/HCPCS: 73630; 99283; A9270-GY

== ENCOUNTER 2021-05-06 14:45 | Emergency (ER) | payer MEDICARE ==
[2021-05-06] MEDS ORDERED: GlucaGen 1 MG IV ONE (15:40)
[2021-05-06] MEDS ORDERED: GlucaGen 1 MG ONE (15:44)
--- NOTE | 2021-05-06 15:47 | ERPHSYRPT ---
- History of Present Illness Time Seen by Provider: 05/06/21 15:20 Source: patient Patient Subjective Stated Complaint: Pt states that he attempted to eat at noon (his breakfast) and took only about 3 bites and the food didn't feel like it was going down, pt continues to spit in a bucket and states that it hurts from his mid chest down to his mid abdomen Triage Nursing Assessment: Pt brought to the ER by his daughter, vitals wnl, rates pain at this time as a 5/10, unable to eat or drink, states when he drinks water his abdomen goes into a tight spasm, he doesn't think something is stuck in his throat, pulses normal, skin n/w/d, doesn't appear to be in any distress Physician History: This is an 80-year-old white male patient of Dr. Baker who is very hard of hearing and presents with what sounds like an esophageal foreign body. Patient states that he ate roast beef approximately noon prior to arrival. He states that he only took 2-3 bites. After that, he has not been able to swallow or drink anything because of the need to spit up in the liquid and the pain that it causes. Patient is diabetic, has history of hypertension and gastroesophageal reflux disease. Timing/Duration: today Severity: mild (To moderate) Modifying Factors: Improves With: eating Associated Symptoms: denies symptoms Allergies/Adverse Reactions: doxazosin mesylate [From Cardura] Allergy (Verified 05/06/21 15:13) Itching ezetimibe [From Zetia] Allergy (Verified 05/06/21 15:13) iodine Allergy (Verified 05/06/21 15:13) Hives latex Allergy (Verified 05/06/21 15:13) prednisone Allergy (Verified 05/06/21 15:13) states "homicidal" simvastatin [From Zocor] Allergy (Verified 05/06/21 15:13) Ucdtyck-UMY-MbO Reductase Inhibitor [Mmthrbn-Pjf-Yas Reductase Inhibitor] Allergy (Verified 05/06/21 15:13) Joint Aches duloxetine Adverse Reaction (Verified 05/06/21 15:13) milk Adverse Reaction (Verified 05/06/21 15:13) bananas Allergy (Uncoded 05/06/21 15:13) iv contrast Allergy (Uncoded 05/06/21 15:13) Hives Home Medications: Diltiazem HCl 240 mg [Cardizem CD 240 MG] 240 mg PO DAILY 01/02/16 [History] Metformin HCl 500 mg [Glucophage 500 MG] 500 mg PO DAILY 01/02/16 [History] Trazodone HCl 150 mg PO QHS 02/09/20 [History] Omeprazole 20 mg PO DAILY 02/25/20 [History] Carvedilol 12.5 mg [Coreg 12.5 mg] 12.5 mg PO BID 06/09/20 [History] HydrALAzine HCL 25 MG TAB [Apresoline 25 MG TABLET] 50 mg PO BID 06/09/20 [History] Mirabegron [Myrbetriq] 50 mg PO DAILY 06/09/20 [History] Acetaminophen 325 mg [Tylenol 325 mg] 325 mg PO BID 09/27/20 [History] Lutein 20 mg PO DAILY 09/27/20 [History] Furosemide 20 mg [Lasix 20 mg] 20 mg PO DAILY 11/09/20 [History] Hydrocodone/Acetaminophen [Hydrocodon-Acetaminophn 10-325] 1 each PO Q6H 11/09/20 [History] Hx Tetanus, Diphtheria Vaccination/Date Given: No Hx Influenza Vaccination/Date Given: Yes Hx Pneumococcal Vaccination/Date Given: No Travel Risk - International Travel Have you traveled outside of the country in past 3 weeks: No - Coronavirus Screening Are you exhibiting any of the following symptoms?: No Close contact with a COVID-19 positive Pt in past 14-21 Days: No - Vaccine Status Have you recieved a Covid-19 vaccination: Yes 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 - Vaccination Dates Date of 2cond Vaccination (if applicable): unknown Dates if Unknown: na - Review of Systems Constitutional: No Symptoms Eyes: No Symptoms Ears, Nose, & Throat: Other (Dysphagia) Respiratory: No Symptoms Cardiac: No Symptoms Abdominal/Gastrointestinal: No Symptoms Genitourinary Symptoms: No Symptoms Musculoskeletal: No Symptoms Skin: No Symptoms Neurological: No Symptoms Psychological: No Symptoms Endocrine: No Symptoms Hematologic/Lymphatic: No Symptoms Immunological/Allergic: No Symptoms All Other Systems: Reviewed and Negative - Past Medical History Pertinent Past Medical History: Yes Neurological History: TIA ENT History: No Pertinent History Cardiac History: Coronary Artery Disease, Hypertension, Myocardial Infarction (NM), Other Respiratory History: No Pertinent History Endocrine Medical History: Diabetes Type II Musculoskeletal History: Degenerative Disk Disease GI Medical History: GERD History: Other Psycho-Social History: No Pertinent History Male Reproductive Disorders: Prostate Cancer Other Medical History: heart stent in 2007, Pt has a pacemaker, past NM, COVID- 19 DX February 2020 - Past Surgical History Past Surgical History: Yes Neuro Surgical History: No Pertinent History Cardiac: Angioplasty, Cardiac Stent, Pacemaker Respiratory: Other Gastrointestinal: No Pertinent History Genitourinary: No Pertinent History Musculoskeletal: No Pertinent History Male Surgical History: Prostate Surgery, Vasectomy, Other Other Surgical History: states left lung collapsed, penile implant, back pain pump - Social History Smoking Status: Never smoker Exposure to second hand smoke: No Alcohol Use: None Drug Use: none Patient Lives Alone: Yes Significant Family History: no pertinent family hx - Nursing Vital Signs Nursing Vital Signs: Initial Vital Signs Temperature 97.6 F 05/06/21 14:57 Pulse Rate 60 05/06/21 14:57 Blood Pressure 137/89 05/06/21 14:57 O2 Sat by Pulse Oximetry 96 05/06/21 14:57 Pain Scale Pain Intensity 4 - Physical Exam General Appearance: no apparent distress, alert, anxiety Eye Exam: PERRL/EOMI, eyes nml inspection Ears, Nose, Throat Exam: normal ENT inspection, moist mucous membranes Neck Exam: normal inspection, non-tender, supple, full range of motion Respiratory Exam: normal breath sounds, lungs clear, airway intact, No chest tenderness, No respiratory distress Cardiovascular Exam: regular rate/rhythm, normal heart sounds, normal peripheral pulses Gastrointestinal/Abdomen Exam: soft, normal bowel sounds, No tenderness Rectal Exam: not done Back Exam: normal inspection, normal range of motion, No CVA tenderness, No vertebral tenderness Extremity Exam: normal inspection, normal range of motion, pelvis stable Neurologic Exam: alert, oriented x 3, 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, 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 Skin Exam: normal color, warm, dry Lymphatic Exam: No adenopathy SpO2 Interpretation: normal SpO2: 96 O2 Delivery: Room Air - Course Nursing assessment & vital signs reviewed: Yes Ordered Tests: Active Orders 24 hr Category Date Time Status IV Insertion STAT Care 05/06/21 15:42 Active ABDOMEN WITHOUT CONTRAST [CT] Stat Exams 05/06/21 15:47 Completed BMP Stat Lab 05/06/21 17:07 Ordered CBC W DIFF Stat Lab 05/06/21 17:07 Ordered Medication Summary Discontinued Medications Generic Name Dose Route Start Last Admin Trade Name Artur PRN Reason Stop Dose Admin Glucagon 0.5 mg 05/06/21 15:40 05/06/21 15:46 Glucagon 1 Mg/Vial Vial IV 05/06/21 15:41 0.5 mg STAT ONE Administration Glucagon Confirm 05/06/21 15:44 Glucagon 1 Mg/Vial Vial Administered 05/06/21 15:45 Dose 1 mg .ROUTE .[employer]-MED ONE - Progress Progress: unchanged, re-examined Progress Note: 05/06/21 16:50 CAT scan of the abdomen pelvis without contrast shows a small hiatal hernia with 3 cm food bolus within it. 05/06/21 17:20 I spoke with general surgeon Dr. Ernie Huston. He is going to contact the surgical team later this evening and make arrangements for upper endoscopy and removal of esophageal food bolus. Counseled pt/family regarding: diagnosis, need for follow-up, rad results - Departure Departure Disposition: Release to OR/SDC Clinical Impression: Esophageal obstruction due to food impaction Condition: Stable Critical Care Time: No Referrals: ARNOLD BAKER MD [Primary Care Provider] - Follow up/PCP as directed
--- NOTE | 2021-05-06 16:41 | XRAY ---
Indication: Food stuck GE junction. Pain. Multiple contiguous axial images obtained through the abdomen only without contrast as ordered. Comparison: November 09, 2020. 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 No infiltrate or effusion. Heart not enlarged. Again small hiatal hernia with new small 2 x 3 cm food bolus. Abdomen again demonstrates left abdominal wall pain pump producing beam artifact. Noncontrasted stomach and visualized bowel loops appear nonobstructed. Remaining liver, gallbladder, pancreas, spleen, adrenal glands, kidneys, and proximal ureters are unremarkable for noncontrast exam. Stable moderate aortoiliac calcifications without AAA. Osseous structures again demonstrates osteopenia, moderate L2-S1 degenerative disc disease, and T12 Schmorl node. Impression: 1. Again small hiatal hernia with new 2 x 3 cm food bolus. 2. Stable scattered vascular calcifications and chronic bony findings. 3. Remaining CT abdomen without contrast exam is negative.
[2021-05-06 17:23] LABS: Absolute Neutrophil Ct (ANC) 9.19 (1.4-6.9); Basophil (Absolute #) 0.07 (0-0.4); Eosinophil % 10.5 % (0.00-5.0); Hematocrit 33.1 % (42-50); Hemoglobin 10.9 gm/dl (12.5-18.0); Lymphocyte (Absolute #) 1.09 (1.0-4.6); Lymphocytes % 8.8 % (24.0-44.0); Mean Cell Volume 105.8 fl (78-100); Mean Corpuscular Hemoglobin 34.8 pg (26-32); Mean Corpuscular Hgb Concent. 32.9 g/dl (32-36); Mean Platelet Volume 9.9 fl (7.5-11.0); Monocyte (Absolute #) 0.71 (0.0-1.3); Monocytes % 5.7 % (0.0-12.0); Neutrophil % 74.4 % (36.0-66.0); Platelet Count 233 K/mm3 (150-450); Red Blood Count 3.13 M/mm3 (4.1-5.6); Red Cell Distribution Width 12.4 % (11.5-14.0); White Blood Count 12.4 K/mm3 (4.0-10.5)
[2021-05-06 17:29] LABS: Calcium 9.5 mg/dL (8.4-10.2); Creatinine 1 1.51 mg/dL (0.66-1.25); EST GLOMERULAR FILTRATION RATE 47.3 ML/MIN; Potassium 4.5 mmol/L (3.5-5.1)
[2021-05-06 18:07] VITALS: BP 141/74; PULSE 60; O2SAT 97
[2021-05-06] MEDS ORDERED: DIPRIVAN 200 MG/20 ML IV ONE (18:59)
[2021-05-06] MEDS ORDERED: Xylocaine-Mpf 2% 5 Ml Vial ONE (18:59)
--- NOTE | 2021-05-07 11:36 | OP ---
SURGERY DATE/TIME: 05/06/20211927 PREOPERATIVE DIAGNOSIS: Lodged foreign body of esophagus. POSTOPERATIVE DIAGNOSIS: Lodged foreign body of esophagus. PROCEDURE: Esophageal extraction and pushing of foreign body into the stomach with EGD. SURGEON: Rajinder Huston M.D. ANESTHESIA: MAC. COMPLICATIONS: None. CONDITION: Stable. INDICATION: A patient with lodged foreign body (prime rib). DESCRIPTION OF PROCEDURE: He was taken to endoscopy. Left lateral decubitus position. With care and patience four or five chunks were torn off and advanced into the stomach. Pylorus is open. The stomach itself was satisfactory. The stricture was about a size 28. Nothing acutely at this time was restricted. The esophagus was totally clean. The patient tolerated the procedure satisfactorily. There was nothing in the airway.
== END 2021-05-06 20:39 | disposition home or self-care (01) ==
LOC: ED 14:45
DX: T18.128A Food in esophagus causing other injury, initial encounter (principal); X58.XXXA Exposure to other specified factors, initial encounter; I10 Essential (primary) hypertension; K21.9 Gastro-esophageal reflux disease without esophagitis; E11.9 Type 2 diabetes mellitus without complications; Z79.84 Long term (current) use of oral hypoglycemic drugs; I25.10 Atherosclerotic heart disease of native coronary artery without angina pectoris; Z86.16 Personal history of COVID-19; Z79.891 Long term (current) use of opiate analgesic; Z79.899 Other long term (current) drug therapy
CPT/HCPCS: 36000; 36415; 43247; 74150; 80048; 85025; 96374; 99100; 99140; 99284; J1610; J2704

== ENCOUNTER 2021-07-01 13:33 | Emergency (ER) | payer MEDICARE ==
[2021-07-01 13:55] LABS: Absolute Neutrophil Ct (ANC) 4.92 (1.4-6.9); Basophil (Absolute #) 0.09 (0-0.4); Eosinophil % 15.4 % (0.00-5.0); Eosinophil (Absolute #) 1.26 (0-0.5); Hemoglobin 10.3 gm/dl (12.5-18.0); Lymphocyte (Absolute #) 1.35 (1.0-4.6); Lymphocytes % 16.5 % (24.0-44.0); Mean Cell Volume 104.4 fl (78-100); Mean Corpuscular Hemoglobin 34.7 pg (26-32); Mean Corpuscular Hgb Concent. 33.2 g/dl (32-36); Mean Platelet Volume 9.2 fl (7.5-11.0); Monocyte (Absolute #) 0.58 (0.0-1.3); Monocytes % 7.1 % (0.0-12.0); Neutrophil % 59.9 % (36.0-66.0); Platelet Count 262 K/mm3 (150-450); Red Blood Count 2.97 M/mm3 (4.1-5.6); Red Cell Distribution Width 12.8 % (11.5-14.0); White Blood Count 8.2 K/mm3 (4.0-10.5)
[2021-07-01 13:58] LABS: INR 0.97 (0.8-3.0); PROTIME 11.4 SECONDS (9.4-12.5)
--- NOTE | 2021-07-01 14:00 | XRAY ---
Indication: Intermittent chest pain. Comparison: January 14, 2019. Portable chest again demonstrates normal heart and lungs with incidental tiny left lung calcified granuloma and left pacemaker. Bony thorax intact. No new/acute findings.
[2021-07-01 14:01] LABS: PTT 29.4 SECONDS (25.1-36.5)
--- NOTE | 2021-07-01 14:07 | ERPHSYRPT ---
- History of Present Illness Historian: patient, other (Son) Exam Limitations: other (Poor historian) Patient Subjective Stated Complaint: Pt states "I had chest pain last night. My memory is not so good either." Triage Nursing Assessment: PT presented alert and oriented X 3, skin pwd pt ambulates with an upright steady gait, able to speak in clear full sentences pt in no apaprent respiratory distress. Pt resting comfortably on the bed Physician History: 80 yo wm w L sternal chest pain at 12:15 yesterday while at [employer]. Pain lasted 20 secs, and he has had no pain since. Pain was 5/10 wo radiation and can not describe the quality. He denies N/V/Diaphoresis/Dyspnea. Pt has a h/o ID/Stents/HTN/DM but has not used tobacco since age 28. Cough/fever/trauma are all denied. Timing/Duration: yesterday (12:15 yesterday) Activities at Onset: other (At [employer]) Quality: other (Unable to describe) Location: substernal Chest Pain Radiation: no radiation Severity of Pain-Max: moderate Severity of Pain-Current: none Modifying Factors: Improves With: nothing Associated Symptoms: No nausea, No vomiting, No palpitations, No heartburn, No abdominal pain, No shortness of breath, No cough, No hurts to breathe, No diaphoresis, No chills, No fever, No fatigue, No weakness, No swelling/lump in chest, No syncope, No rash, No headache, No dizziness, No edema, No back pain Prior Chest Pain/Cardiac Workup: heart attack Nitro Today/Relief: no nitro taken today Aspirin Treatment Today: no aspirin today Allergies/Adverse Reactions: doxazosin mesylate [From Cardura] Allergy (Verified 05/06/21 15:13) Itching ezetimibe [From Zetia] Allergy (Verified 05/06/21 15:13) iodine Allergy (Verified 05/06/21 15:13) Hives latex Allergy (Verified 05/06/21 15:13) prednisone Allergy (Verified 05/06/21 15:13) states "homicidal" simvastatin [From Zocor] Allergy (Verified 05/06/21 15:13) Ifwomsb-TZO-HoB Reductase Inhibitor [Gcdqmea-Ndx-Tah Reductase Inhibitor] Allergy (Verified 05/06/21 15:13) Joint Aches duloxetine Adverse Reaction (Verified 05/06/21 15:13) milk Adverse Reaction (Verified 05/06/21 15:13) bananas Allergy (Uncoded 05/06/21 15:13) iv contrast Allergy (Uncoded 05/06/21 15:13) Hives Home Medications: Diltiazem HCl 240 mg [Cardizem CD 240 MG] 240 mg PO DAILY 01/02/16 [History] Metformin HCl 500 mg [Glucophage 500 MG] 500 mg PO DAILY 01/02/16 [History] Omeprazole 20 mg PO DAILY 02/25/20 [History] Carvedilol 12.5 mg [Coreg 12.5 mg] 12.5 mg PO BID 06/09/20 [History] Lutein 20 mg PO DAILY 09/27/20 [History] Hx Tetanus, Diphtheria Vaccination/Date Given: No Hx Influenza Vaccination/Date Given: Yes Hx Pneumococcal Vaccination/Date Given: No Immunizations Up to Date: Yes Travel Risk - International Travel Have you traveled outside of the country in past 3 weeks: No - Coronavirus Screening Are you exhibiting any of the following symptoms?: No Close contact with a COVID-19 positive Pt in past 14-21 Days: No - Vaccine Status Have you recieved a Covid-19 vaccination: Yes 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 - Vaccination Dates Date of 2cond Vaccination (if applicable): unknown Dates if Unknown: na - Review of Systems Constitutional: No Symptoms Eyes: No Symptoms Ears, Nose, & Throat: No Symptoms Respiratory: No Symptoms Cardiac: No Symptoms, Chest Pain Abdominal/Gastrointestinal: No Symptoms Genitourinary Symptoms: No Symptoms Musculoskeletal: No Symptoms Skin: No Symptoms Neurological: No Symptoms Psychological: No Symptoms Endocrine: No Symptoms Hematologic/Lymphatic: No Symptoms Immunological/Allergic: No Symptoms - Past Medical History Pertinent Past Medical History: Yes Neurological History: TIA ENT History: No Pertinent History Cardiac History: Coronary Artery Disease, Hypertension, Myocardial Infarction (ID), Other Respiratory History: No Pertinent History Endocrine Medical History: Diabetes Type II Musculoskeletal History: Degenerative Disk Disease GI Medical History: GERD History: Other Psycho-Social History: No Pertinent History Male Reproductive Disorders: Prostate Cancer Other Medical History: heart stent in 2007, Pt has a pacemaker, past ID, COVID- 19 DX February 2020 - Past Surgical History Past Surgical History: Yes Neuro Surgical History: No Pertinent History Cardiac: Angioplasty, Cardiac Stent, Pacemaker Respiratory: Other Gastrointestinal: No Pertinent History Genitourinary: No Pertinent History Musculoskeletal: No Pertinent History Male Surgical History: Prostate Surgery, Vasectomy, Other Other Surgical History: states left lung collapsed, penile implant, back pain pump - Social History Smoking Status: Never smoker Exposure to second hand smoke: No Alcohol Use: None Drug Use: none Patient Lives Alone: Yes Significant Family History: no pertinent family hx - Nursing Vital Signs Nursing Vital Signs: Initial Vital Signs Temperature 97.4 F 07/01/21 13:34 Pulse Rate 65 07/01/21 13:34 Respiratory Rate 18 07/01/21 13:34 Blood Pressure 194/93 07/01/21 13:34 O2 Sat by Pulse Oximetry 98 07/01/21 13:34 Pain Scale Pain Intensity 0 Hypertensive - Physical Exam General Appearance: no apparent distress, anxiety Eye Exam: PERRL/EOMI, eyes nml inspection Ears, Nose, Throat Exam: normal ENT inspection, TMs normal, pharynx normal, moist mucous membranes Neck Exam: normal inspection, non-tender, supple, full range of motion, No meningismus, No mass, No Brudzinski, No Kernig's Respiratory Exam: normal breath sounds, lungs clear, airway intact Cardiovascular Exam: regular rate/rhythm, normal heart sounds, normal peripheral pulses, capillary refill <2 sec, No murmur Gastrointestinal/Abdomen Exam: soft, normal bowel sounds Back Exam: normal inspection, normal range of motion, No CVA tenderness Extremity Exam: normal inspection, normal range of motion Neurologic Exam: alert, oriented x 3, 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, 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, normal mood/affect, nml station & gait, sensation nml Skin Exam: normal color Lymphatic Exam: adenopathy SpO2 Interpretation: normal SpO2: 98 O2 Delivery: Room Air - Course Nursing assessment & vital signs reviewed: Yes EKG Interpreted by Me: RATE (NSR/R60/Normal Qt-QTc/RBBB/Nonspecific Twave abnormality) - Radiology Exams Chest X-ray Interpretation: Discussed w/ radiologist (CXR-pacer/NAD) Ordered Tests: Active Orders 24 hr Category Date Time Status EKG-ER Only STAT Care 07/01/21 13:36 Completed IV Insertion STAT Care 07/01/21 13:36 Completed CHEST 1 VIEW (PORTABLE) Stat Exams 07/01/21 13:36 Completed CBC W DIFF Stat Lab 07/01/21 13:45 Completed CMP Stat Lab 07/01/21 13:45 Completed NT PRO BNP Stat Lab 07/01/21 13:45 Completed PROTIME WITH INR Stat Lab 07/01/21 13:45 Completed PTT Stat Lab 07/01/21 13:45 Completed TROPONIN Q3H Lab 07/01/21 13:45 Completed Lab/Rad Data: Laboratory Result Diagrams 07/01/21 13:45 07/01/21 13:45 Laboratory Results 07/01/21 07/01/21 07/01/21 Range/Units 14:53 13:45 13:45 WBC (4.0-10.5) K/mm3 RBC (4.1-5.6) M/mm3 Hgb (12.5-18.0) gm/dl Hct (42-50) % MCV (78-100) fl MCH (26-32) pg MCHC (32-36) g/dl RDW (11.5-14.0) % Plt Count (150-450) K/mm3 MPV (7.5-11.0) fl Gran % (36.0-66.0) % Eos # (Auto) (0-0.5) Absolute Lymphs (auto) (1.0-4.6) Absolute Monos (auto) (0.0-1.3) Lymphocytes % (24.0-44.0) % Monocytes % (0.0-12.0) % Eosinophils % (0.00-5.0) % Basophils % (0.0-0.4) % Absolute Granulocytes (1.4-6.9) Basophils # (0-0.4) PT 11.4 (9.4-12.5) SECONDS INR 0.97 (0.8-3.0) APTT 29.4 (25.1-36.5) SECONDS Sodium (137-145) mmol/L Potassium (3.5-5.1) mmol/L Chloride (98-107) mmol/L Carbon Dioxide (22-30) mmol/L Anion Gap (5-15) MEQ/L BUN (9-20) mg/dL Creatinine (0.66-1.25) mg/dL Estimated GFR ML/MIN Glucose (74-106) mg/dL Calcium (8.4-10.2) mg/dL Total Bilirubin (0.2-1.3) mg/dL AST (17-59) U/L ALT (0-50) U/L Alkaline Phosphatase (38-126) U/L Troponin I < 0.012 (0.000-0.034) ng/mL NT-Pro-B Natriuret Pep (0-1800) pg/mL Serum Total Protein (6.3-8.2) g/dL Albumin (3.5-5.0) g/dL Urinalys Dipstick Clnc MAIN LAB Urine Color Cancelled Urine Appearance Cancelled Urine pH Cancelled Ur Specific [place] Cancelled Urine Protein Cancelled POC Urine Protein Conf NEGATIVE (Negative) Urine Ketones Cancelled Urine Blood Cancelled Urine Nitrite Cancelled Urine Bilirubin Cancelled Urine Urobilinogen Cancelled Ur Leukocyte Esterase Cancelled Urine Leukocytes NEGATIVE (NEGATIVE) Urine WBC (Auto) NONE (0-5) /HPF Urine RBC (Auto) NONE (0-2) /HPF U Epithel Cells (Auto) Not Reportable Urine Bacteria (Auto) Not Reportable Urine RBC NEGATIVE (0-5) [place]/ul U Non-Squamous Epi Cells Cancelled Urine Mucus (Auto) SLIGHT (NEGATIVE) /HPF Ur Culture Indicated? NO Urine Culture Reflexed Cancelled Urine Glucose NEGATIVE (NEGATIVE) mg/dL 07/01/21 07/01/21 Range/Units 13:45 13:45 WBC 8.2 (4.0-10.5) K/mm3 RBC 2.97 L (4.1-5.6) M/mm3 Hgb 10.3 L (12.5-18.0) gm/dl Hct 31.0 L (42-50) % MCV 104.4 H (78-100) fl MCH 34.7 H (26-32) pg MCHC 33.2 (32-36) g/dl RDW 12.8 (11.5-14.0) % Plt Count 262 (150-450) K/mm3 MPV 9.2 (7.5-11.0) fl Gran % 59.9 (36.0-66.0) % Eos # (Auto) 1.26 H (0-0.5) Absolute Lymphs (auto) 1.35 (1.0-4.6) Absolute Monos (auto) 0.58 (0.0-1.3) Lymphocytes % 16.5 L (24.0-44.0) % Monocytes % 7.1 (0.0-12.0) % Eosinophils % 15.4 H (0.00-5.0) % Basophils % 1.1 (0.0-0.4) % Absolute Granulocytes 4.92 (1.4-6.9) Basophils # 0.09 (0-0.4) PT (9.4-12.5) SECONDS INR (0.8-3.0) APTT (25.1-36.5) SECONDS Sodium 141 (137-145) mmol/L Potassium 4.6 (3.5-5.1) mmol/L Chloride 109 H (98-107) mmol/L Carbon Dioxide 22 (22-30) mmol/L Anion Gap 13.5 (5-15) MEQ/L BUN 18 (9-20) mg/dL Creatinine 1.22 (0.66-1.25) mg/dL Estimated GFR > 60.0 ML/MIN Glucose 124 H (74-106) mg/dL Calcium 9.2 (8.4-10.2) mg/dL Total Bilirubin 0.40 (0.2-1.3) mg/dL AST 20 (17-59) U/L ALT 8 (0-50) U/L Alkaline Phosphatase 85 (38-126) U/L Troponin I (0.000-0.034) ng/mL NT-Pro-B Natriuret Pep 1250 (0-1800) pg/mL Serum Total Protein 6.2 L (6.3-8.2) g/dL Albumin 3.6 (3.5-5.0) g/dL Urinalys Dipstick Clnc Urine Color Urine Appearance Urine pH Ur Specific [place] Urine Protein POC Urine Protein Conf (Negative) Urine Ketones Urine Blood Urine Nitrite Urine Bilirubin Urine Urobilinogen Ur Leukocyte Esterase Urine Leukocytes (NEGATIVE) Urine WBC (Auto) (0-5) /HPF Urine RBC (Auto) (0-2) /HPF U Epithel Cells (Auto) Urine Bacteria (Auto) Urine RBC (0-5) [place]/ul U Non-Squamous Epi Cells Urine Mucus (Auto) (NEGATIVE) /HPF Ur Culture Indicated? Urine Culture Reflexed Urine Glucose (NEGATIVE) mg/dL - Progress Progress Note: 07/01/21 15:[address] Olivas 07/01/21 17:23 Pt pain free during entire stay 07/01/21 17:24 BP decreased during stay Counseled pt/family regarding: lab results, diagnosis, need for follow-up, rad results - Departure Departure Disposition: Home Clinical Impression: Chest pain Condition: Stable Critical Care Time: No Referrals: ARNOLD OLIVAS MD [Primary Care Provider] - Follow up/PCP as directed Instructions: Chest Pain (DC) Additional Instructions: Follow up with Dr. Olivas Return to ER for increasing-sustained chest pain or shortness of breath
[2021-07-01 14:11] LABS: ALBUMIN 3.6 g/dL (3.5-5.0); ALKALINE PHOSPHATASE 85 U/L (38-126); ANION GAP 13.5 MEQ/L (5-15); BLOOD UREA NITROGEN 18 mg/dL (9-20); CHLORIDE 109 mmol/L (98-107); Calcium 9.2 mg/dL (8.4-10.2); Carbon Dioxide 22 mmol/L (22-30); Creatinine 1 1.22 mg/dL (0.66-1.25); EST GLOMERULAR FILTRATION RATE > 60.0 ML/MIN; Glucose 124 mg/dL (74-106); NT PRO BNP 1250 pg/mL (0-1800); Potassium 4.6 mmol/L (3.5-5.1); SGOT/AST 20 U/L (17-59); SGPT/ALT 8 U/L (0-50); SODIUM 141 mmol/L (137-145); Total Protein 6.2 g/dL (6.3-8.2)
[2021-07-01 15:09] LABS: Appearance CLEAR (CLEAR); Bilirubin NEGATIVE (NEGATIVE); Dipstick done @ ? MAIN LAB; Glucose NEGATIVE (NEGATIVE); Ketones NEGATIVE (NEGATIVE); Nitrite NEGATIVE (NEGATIVE); Protein,Urine Dip NEGATIVE (Negative); RBC NEGATIVE Ery/ul (0-5); Specific Gravity 1.025 (1.005-1.025); Urobilinogen 0.2 mg/dL (0-1)
[2021-07-01 15:21] LABS: Mucus SLIGHT /HPF (NEGATIVE)
[2021-07-01 15:33] LABS: Urine Cultured Indicated? NO
[2021-07-01 16:00] VITALS: BP 178/82; PULSE 60
[2021-07-01 17:25] VITALS: O2SAT 98
== END 2021-07-01 16:08 | disposition home or self-care (01) ==
LOC: ED 13:33
DX: R07.9 Chest pain, unspecified (principal); I10 Essential (primary) hypertension; E11.9 Type 2 diabetes mellitus without complications; I25.10 Atherosclerotic heart disease of native coronary artery without angina pectoris; I25.2 Old myocardial infarction; Z86.16 Personal history of COVID-19; Z79.84 Long term (current) use of oral hypoglycemic drugs; Z79.899 Other long term (current) drug therapy
CPT/HCPCS: 36000; 36415; 71045; 80053; 81015; 83880; 84484; 85025; 85610; 85730; 93005; 99284

== ENCOUNTER 2021-09-30 19:02 | Inpatient (IN) | payer MEDICARE ==
--- NOTE | 2021-09-30 19:07 | ERPHSYRPT ---
- History of Present Illness Time Seen by Provider: 09/30/21 19:06 Source: patient Exam Limitations: no limitations Physician History: This is an 80-year-old white male patient of Dr. Olivas who has significant cardiac history with a history of myocardial infarction, cardiac stents, pacemaker placement and presents to the emergency room with 1 week history of progressively worsening shortness of breath. Patient also has a history of hypertension, diabetes and gastroesophageal reflux disease. He has degenerative disc disease as well. Patient denies chest pain. Denies abdominal pain. There was possible exposure to individuals were positive for COVID-19 infection. Patient is hard of hearing and has a degree of dementia. Timing/Duration: week(s) (1) Severity of Dyspnea-Max: moderate Severity of Dyspnea-Current: mild Possible Cause: occasional episodes Associated Symptoms: weakness, No cough, No chest pain/discomfort, No lightheadedness, No wheezing Allergies/Adverse Reactions: doxazosin mesylate [From Cardura] Allergy (Verified 09/30/21 19:24) Itching ezetimibe [From Zetia] Allergy (Verified 09/30/21 19:24) iodine Allergy (Verified 09/30/21 19:24) Hives latex Allergy (Verified 09/30/21 19:24) prednisone Allergy (Verified 09/30/21 19:24) states "homicidal" simvastatin [From Zocor] Allergy (Verified 09/30/21 19:24) [id number] Reductase Inhibitor [Vhkvtks-Ldz-Bik Reductase Inhibitor] Allergy (Verified 09/30/21 19:24) Joint Aches duloxetine Adverse Reaction (Verified 09/30/21 19:24) milk Adverse Reaction (Verified 09/30/21 19:24) bananas Allergy (Uncoded 09/30/21 19:24) iv contrast Allergy (Uncoded 09/30/21 19:24) Hives Home Medications: Diltiazem HCl 240 mg [Cardizem CD 240 MG] 240 mg PO DAILY 01/02/16 [History] Metformin HCl 500 mg [Glucophage 500 MG] 500 mg PO DAILY 01/02/16 [History] Omeprazole 40 mg PO DAILY 02/25/20 [History] Carvedilol 12.5 mg [Coreg 12.5 mg] 25 mg PO BID 06/09/20 [History] Lutein 20 mg PO DAILY 09/27/20 [History] Mirabegron [Myrbetriq] 50 mg PO DAILY 09/30/21 [History] Trazodone HCl 150 mg PO HS 09/30/21 [History] Hx Tetanus, Diphtheria Vaccination/Date Given: No Hx Influenza Vaccination/Date Given: Yes Hx Pneumococcal Vaccination/Date Given: No Travel Risk - International Travel Have you traveled outside of the country in past 3 weeks: No - Coronavirus Screening Are you exhibiting any of the following symptoms?: Yes Symptoms: Shortness of Breath Close contact with a COVID-19 positive Pt in past 14-21 Days: Yes - Vaccine Status Have you recieved a Covid-19 vaccination: Yes 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 - Vaccination Dates Date of 2cond Vaccination (if applicable): unknown Dates if Unknown: na - Review of Systems Constitutional: Weakness Eyes: No Symptoms Ears, Nose, & Throat: No Symptoms Respiratory: Dyspnea Cardiac: No Symptoms Abdominal/Gastrointestinal: No Symptoms Genitourinary Symptoms: No Symptoms Musculoskeletal: No Symptoms Skin: No Symptoms Neurological: No Symptoms Psychological: No Symptoms Endocrine: No Symptoms Hematologic/Lymphatic: No Symptoms Immunological/Allergic: No Symptoms All Other Systems: Reviewed and Negative - Past Medical History Pertinent Past Medical History: Yes Neurological History: TIA ENT History: No Pertinent History Cardiac History: Coronary Artery Disease, Hypertension, Myocardial Infarction ([place]), Other Respiratory History: No Pertinent History Endocrine Medical History: Diabetes Type II Musculoskeletal History: Degenerative Disk Disease GI Medical History: GERD History: Other Psycho-Social History: No Pertinent History Male Reproductive Disorders: Prostate Cancer Other Medical History: heart stent in 2007, Pt has a pacemaker, past [place], COVID- 19 DX February 2020 - Past Surgical History Past Surgical History: Yes Neuro Surgical History: No Pertinent History Cardiac: Angioplasty, Cardiac Stent, Pacemaker Respiratory: Other Gastrointestinal: No Pertinent History Genitourinary: No Pertinent History Musculoskeletal: No Pertinent History Male Surgical History: Prostate Surgery, Vasectomy, Other Other Surgical History: states left lung collapsed, penile implant, back pain pump - Social History Smoking Status: Never smoker Exposure to second hand smoke: No Alcohol Use: None Drug Use: none Patient Lives Alone: Yes Significant Family History: no pertinent family hx - Nursing Vital Signs Nursing Vital Signs: Initial Vital Signs Temperature 97.3 F 09/30/21 19:08 Pulse Rate 67 09/30/21 19:08 Respiratory Rate 18 09/30/21 19:08 Blood Pressure 143/108 09/30/21 19:08 O2 Sat by Pulse Oximetry 95 09/30/21 19:08 Pain Scale Pain Intensity 3 - Physical Exam General Appearance: no apparent distress, alert, anxiety Eye Exam: PERRL/EOMI, eyes nml inspection Ears, Nose, Throat Exam: hearing decreased (Chronic) Neck Exam: normal inspection, non-tender, supple, full range of motion Respiratory Exam: normal breath sounds, lungs clear, airway intact, No chest tenderness, No respiratory distress Cardiovascular/Chest Exam: normal heart sounds, regular rate/rhythm, normal peripheral pulses Abdominal/Gastrointestinal Exam: soft, normal bowel sounds, No tenderness Rectal Exam: not done Extremity Exam: non-tender, normal range of motion, normal inspection, normal capillary refill, no calf tenderness, pelvis stable, swelling (Bilateral feet and ankle swelling.) Neurologic Exam: alert, oriented x 3, cooperative, hand sprayer II-XII nml as tested, normal mood/affect, nml cerebellar function, nml station & gait, sensation nml Skin Exam: normal color, warm, dry Lymphatic Exam: No adenopathy SpO2 Interpretation: normal O2 Delivery: Room Air - Course Nursing assessment & vital signs reviewed: Yes EKG Interpreted by Me: RATE (62atrial paced complexes.), NORMAL AXIS, NORMAL INTERVALS, NORMAL QRS, NORMAL ST-T, Other (No acute ischemic changes. No significant change when compared to twelve-lead EKG dated 07/01/2021) Ordered Tests: Active Orders 24 hr Category Date Time Status Field Map Editor STAT Care 09/30/21 19:13 Active EKG-ER Only STAT Care 09/30/21 19:13 Active IV Insertion STAT Care 09/30/21 19:13 Active Pulse Oximetry (ED) STAT Care 09/30/21 19:13 Active CHEST 1 VIEW (PORTABLE) Stat Exams 09/30/21 19:13 Taken CBC W DIFF Stat Lab 09/30/21 19:15 Completed CMP Stat Lab 09/30/21 19:15 Completed D-DIMER QUANTITATIVE Stat Lab 09/30/21 19:15 Completed NT PRO BNP Stat Lab 09/30/21 19:15 Completed TROPONIN Q3H Lab 09/30/21 19:15 Completed TROPONIN Q3H Lab 07/25/22 22:15 Ordered TROPONIN Q3H Lab 10/01/21 01:15 Ordered TROPONIN Q3H Lab 10/01/21 04:15 Ordered TROPONIN Q3H Lab 10/01/21 07:15 Ordered Transfer Order Routine Transfer 09/30/21 Ordered Medication Summary Generic Name Dose Route Start Last Admin Trade Name Artur PRN Reason Stop Dose Admin Furosemide 20 mg 10/01/21 10:00 Furosemide 20 Mg/Vial IV 10/31/21 09:59 QAM VALERI Discontinued Medications Generic Name Dose Route Start Last Admin Trade Name Reddq PRN Reason Stop Dose Admin Enoxaparin Sodium 70 mg 09/30/21 21:10 Enoxaparin Sodium 80 Mg/0.8 Ml Syringe SQ 09/30/21 21:11 STAT ONE Lab/Rad Data: Laboratory Result Diagrams 09/30/21 19:15 09/30/21 19:15 Laboratory Results 09/30/21 09/30/21 09/30/21 Range/Units Unknown 19:15 19:15 WBC (4.0-10.5) x10^3/uL RBC (4.1-5.6) x10^6/uL Hgb (12.5-18.0) g/dL Hct (42-50) % MCV (78-100) fL MCH (26-32) pg MCHC (32-36) g/dL RDW (11.5-14.0) % Plt Count (150-450) x10^3/uL MPV (7.5-11.0) fL Gran % (36.0-66.0) % Immature Gran % (Auto) (0.00-0.4) % Nucleat RBC Rel Count (0.00-0.1) % Eos # (Auto) (0-0.5) x10^3/uL Immature Gran # (Auto) (0.00-0.03) x10^3u/L Absolute Lymphs (auto) (1.0-4.6) x10^3/uL Absolute Monos (auto) (0.0-1.3) x10^3/uL Absolute Nucleated RBC (0.00-0.01) x10^3u/L Lymphocytes % (24.0-44.0) % Monocytes % (0.0-12.0) % Eosinophils % (0.00-5.0) % Basophils % (0.0-0.4) % Absolute Granulocytes (1.4-6.9) x10^3/uL Basophils # (0-0.4) x10^3/uL D-Dimer 0.77 H* (0.0-0.50) mg/L Sodium (137-145) mmol/L Potassium (3.5-5.1) mmol/L Chloride (98-107) mmol/L Carbon Dioxide (22-30) mmol/L Anion Gap (5-15) MEQ/L BUN (9-20) mg/dL Creatinine (0.66-1.25) mg/dL Estimated GFR ML/MIN Glucose (74-106) mg/dL Calcium (8.4-10.2) mg/dL Total Bilirubin (0.2-1.3) mg/dL AST (17-59) U/L ALT (0-50) U/L Alkaline Phosphatase (38-126) U/L Troponin I < 0.012 (0.000-0.034) ng/mL NT-Pro-B Natriuret Pep (0-1800) pg/mL Serum Total Protein (6.3-8.2) g/dL Albumin (3.5-5.0) g/dL Influenza Type A Ag NEGATIVE (NEGATIVE) Influenza Type B Ag NEGATIVE (NEGATIVE) RSV (PCR) NEGATIVE (Negative) SARS-CoV-2 (PCR) NEGATIVE (NEGATIVE) 09/30/21 09/30/21 Range/Units 19:15 19:15 WBC 8.1 (4.0-10.5) x10^3/uL RBC 2.76 L (4.1-5.6) x10^6/uL Hgb 9.5 L (12.5-18.0) g/dL Hct 29.3 L (42-50) % MCV 106.2 H (78-100) fL MCH 34.4 H (26-32) pg MCHC 32.4 (32-36) g/dL RDW 12.4 (11.5-14.0) % Plt Count 262 (150-450) x10^3/uL MPV 9.3 (7.5-11.0) fL Gran % 64.9 (36.0-66.0) % Immature Gran % (Auto) 0.4 (0.00-0.4) % Nucleat RBC Rel Count 0.0 (0.00-0.1) % Eos # (Auto) 0.92 H (0-0.5) x10^3/uL Immature Gran # (Auto) 0.03 (0.00-0.03) x10^3u/L Absolute Lymphs (auto) 1.20 (1.0-4.6) x10^3/uL Absolute Monos (auto) 0.62 (0.0-1.3) x10^3/uL Absolute Nucleated RBC 0.00 (0.00-0.01) x10^3u/L Lymphocytes % 14.9 L (24.0-44.0) % Monocytes % 7.7 (0.0-12.0) % Eosinophils % 11.4 H (0.00-5.0) % Basophils % 0.7 (0.0-0.4) % Absolute Granulocytes 5.22 (1.4-6.9) x10^3/uL Basophils # 0.06 (0-0.4) x10^3/uL D-Dimer (0.0-0.50) mg/L Sodium 137 (137-145) mmol/L Potassium 4.6 (3.5-5.1) mmol/L Chloride 106 (98-107) mmol/L Carbon Dioxide 23 (22-30) mmol/L Anion Gap 13.1 (5-15) MEQ/L BUN 22 H (9-20) mg/dL Creatinine 1.71 H (0.66-1.25) mg/dL Estimated GFR 40.9 ML/MIN Glucose 109 H (74-106) mg/dL Calcium 9.4 (8.4-10.2) mg/dL Total Bilirubin 0.30 (0.2-1.3) mg/dL AST 22 (17-59) U/L ALT 11 (0-50) U/L Alkaline Phosphatase 86 (38-126) U/L Troponin I (0.000-0.034) ng/mL NT-Pro-B Natriuret Pep 2300 H (0-1800) pg/mL Serum Total Protein 6.7 (6.3-8.2) g/dL Albumin 3.7 (3.5-5.0) g/dL Influenza Type A Ag (NEGATIVE) Influenza Type B Ag (NEGATIVE) RSV (PCR) (Negative) SARS-CoV-2 (PCR) (NEGATIVE) - Progress Progress: improved Air Movement: good Progress Note: 09/30/21 21:07 Chest x-ray shows no acute cardiopulmonary process. Medical decision making: This patient has congestive heart failure and significant coronary artery disease. I spoke with Dr. Lefty Cnuningham who is covering for Dr. Olivas. We will place the patient on telemetry and perform serial troponins as well as repeat EKG in the morning. We will provide him with low-dose diuretic and respiratory therapy evaluation with nebulizer treatments. We will place him on Lovenox and when available, will order in-house nuclear medicine study/VQ scan. The patient has a true allergy to iodine and has less than optimal renal function. Blood Culture(s) Obtained: No Antibiotics given: No Counseled pt/family regarding: lab results, diagnosis, need for follow-up, rad results - Departure Departure Disposition: In-patient Admission Clinical Impression: CHF (congestive heart failure), Shortness of breath, Renal insufficiency, Elevated d-dimer Condition: Fair Critical Care Time: No Referrals: ARNOLD OLIVAS MD [Primary Care Provider] - Follow up/PCP as directed Instructions: Heart Failure
[2021-09-30 19:25] LABS: Absolute Neutrophil Ct (ANC) 5.22 x10^3/uL (1.4-6.9); Basophil (Absolute #) 0.06 x10^3/uL (0-0.4); Eosinophil % 11.4 % (0.00-5.0); Eosinophil (Absolute #) 0.92 x10^3/uL (0-0.5); Hematocrit 29.3 % (42-50); Hemoglobin 9.5 g/dL (12.5-18.0); Lymphocytes % 14.9 % (24.0-44.0); Mean Cell Volume 106.2 fL (78-100); Mean Corpuscular Hemoglobin 34.4 pg (26-32); Mean Corpuscular Hgb Concent. 32.4 g/dL (32-36); Mean Platelet Volume 9.3 fL (7.5-11.0); Monocyte (Absolute #) 0.62 x10^3/uL (0.0-1.3); Monocytes % 7.7 % (0.0-12.0); Neutrophil % 64.9 % (36.0-66.0); Platelet Count 262 x10^3/uL (150-450); Red Blood Count 2.76 x10^6/uL (4.1-5.6); Red Cell Distribution Width 12.4 % (11.5-14.0); White Blood Count 8.1 x10^3/uL (4.0-10.5)
[2021-09-30 19:51] LABS: ALBUMIN 3.7 g/dL (3.5-5.0); ANION GAP 13.1 MEQ/L (5-15); BILIRUBIN,TOTAL 0.3 mg/dL (0.2-1.3); Calcium 9.4 mg/dL (8.4-10.2); Creatinine 1 1.71 mg/dL (0.66-1.25); EST GLOMERULAR FILTRATION RATE 40.9 ML/MIN; Potassium 4.6 mmol/L (3.5-5.1); Total Protein 6.7 g/dL (6.3-8.2)
[2021-09-30 20:27] LABS: INFLUENZA A NEGATIVE (NEGATIVE); INFLUENZA B NEGATIVE (NEGATIVE); RESPIRATORY SYNCTIAL VIRUS NEGATIVE (Negative); SARS-CoV-2 Xpert Express NEGATIVE (NEGATIVE)
[2021-09-30] MEDS ORDERED: ENOXAPARIN SODIUM SQ ONE ×2 (21:10→21:23)
[2021-09-30] MEDS ORDERED: Lasix 40 MG/4 ML ONE (21:23)
[2021-09-30] MEDS ORDERED: TYLENOL 325 MG PO PRN (22:06)
[2021-09-30] MEDS ORDERED: HUMULIN R SQ PRN (22:06)
[2021-09-30] MEDS: ENOXAPARIN SODIUM SQ SCH (23:34)
[2021-09-30] MEDS ORDERED: Desyrel 150 MG ONE (23:38)
[2021-09-30] MEDS: Desyrel 150 MG PO SCH (23:43)
[2021-10-01 05:12] LABS: Absolute Neutrophil Ct (ANC) 3.34 x10^3/uL (1.4-6.9); Basophil (Absolute #) 0.06 x10^3/uL (0-0.4); Eosinophil % 14.2 % (0.00-5.0); Eosinophil (Absolute #) 0.93 x10^3/uL (0-0.5); Hematocrit 24.8 % (42-50); Hemoglobin 8.3 g/dL (12.5-18.0); Lymphocyte (Absolute #) 1.49 x10^3/uL (1.0-4.6); Lymphocytes % 22.8 % (24.0-44.0); Mean Cell Volume 103.8 fL (78-100); Mean Corpuscular Hemoglobin 34.7 pg (26-32); Mean Corpuscular Hgb Concent. 33.5 g/dL (32-36); Mean Platelet Volume 9.5 fL (7.5-11.0); Monocyte (Absolute #) 0.69 x10^3/uL (0.0-1.3); Monocytes % 10.6 % (0.0-12.0); Platelet Count 234 x10^3/uL (150-450); Red Blood Count 2.39 x10^6/uL (4.1-5.6); Red Cell Distribution Width 12.5 % (11.5-14.0); White Blood Count 6.5 x10^3/uL (4.0-10.5)
[2021-10-01 06:32] LABS: BILIRUBIN,TOTAL 0.2 mg/dL (0.2-1.3); Calcium 9.1 mg/dL (8.4-10.2); Creatinine 1 1.66 mg/dL (0.66-1.25); EST GLOMERULAR FILTRATION RATE 42.4 ML/MIN; Potassium 3.9 mmol/L (3.5-5.1); Total Protein 5.5 g/dL (6.3-8.2)
--- NOTE | 2021-10-01 08:23 | PCM.HP ---
History of Present Illness - Chief Complaint Chief Complaint: CHF History of Present Illness: is a 80 year old male pt of Dr. Baker with PMHx atrial fibrillation, chronic anemia, CKD (3), COPD, CAD (with stents), Degen disc dz and spinal stenosis with pain pump, DM II, GERD, Pacemaker (2007), hyperlipidemia, HTN, hypogonadism, hx prostate ca, neuropathy, TIA, and tremor who was admitted to [facility] through ER with CHF exacerbation. He had 2-3 mo of increased SOB, increased LE edema, and 1-2 pillow orthopnea. His BNP and D-dimer were elevated. Unable to do CT with contrast of chest due to decreased eGFR of 40.9. Admitted for diuresis, anticoagulation, and f/u testing (VQ scan scheduled for (tomorrow)). He is a difficult historian as he is very hard of hearing. Says this morning he is feeling "the same as I feel every morning." His breathing is good. Says that yesterday he couldn't breathe; this was goingon x 2-3 mo and had been worsening. Says he was on pills to help the breathing, says Khadijah Aburto Says not currently on lasix, though has a hx of being on it with Dr. Shea (currently 20mg lasix daily is on his med list, and was discussed with Dr. Baker on 04/08/21). - Review of Systems Respiratory: Short Of Breath Cardiac: Edema, Orthopnea Abdominal/Gastrointestinal: Abdominal Pain (tenderness at pain pump site in LUQ) Musculoskeletal: Back Pain Neurological: Dizziness (no syncope) Psychological: Anxiety, No Depression All Other Systems: Reviewed and Negative Medications & Allergies Home Medications: Home Medication List Diltiazem HCl 240 mg [Cardizem CD 240 MG] 240 mg PO DAILY 01/02/16 [History Confirmed 09/30/21] Metformin HCl 500 mg [Glucophage 500 MG] 500 mg PO DAILY 01/02/16 [History Confirmed 09/30/21] Omeprazole 40 mg PO DAILY 02/25/20 [History Confirmed 09/30/21] Carvedilol 12.5 mg [Coreg 12.5 mg] 25 mg PO BID 06/09/20 [History Confirmed 09/30/21] Lutein 20 mg PO DAILY 09/27/20 [History Confirmed 09/30/21] Polyethylene Glycol 3350 17 gm [Miralax Powder 17GM PACKET] 17 gm PO DAILY #30 packet 11/09/20 [Rx Confirmed 09/30/21] Trazodone HCl 150 mg PO HS 09/30/21 [History Confirmed 09/30/21] Acetaminophen 325 mg [Tylenol 325 mg] 650 mg PO TID 10/01/21 [History Confirmed 10/01/21] Magnesium Oxide 400 mg [Mag-Ox 400] 400 mg PO DAILY 10/01/21 [History Confirmed 10/01/21] Potassium Gluconate [Potassium] 99 mg PO DAILY 10/01/21 [History Confirmed 10/01/21] Timolol [Betimol] 5 ml OP BID 10/01/21 [History Confirmed 10/01/21] Allergies/Adverse Reactions: Allergies Allergy/AdvReac Type Severity Reaction Status Date / Time doxazosin mesylate Allergy Itching Verified 09/30/21 19:24 [From Cardura] ezetimibe [From Zetia] Allergy Verified 09/30/21 19:24 iodine Allergy Hives Verified 09/30/21 19:24 latex Allergy Verified 09/30/21 19:24 prednisone Allergy Verified 09/30/21 19:24 simvastatin [From Zocor] Allergy Verified 09/30/21 19:24 Puyxrpf-ALB-LjY Reductase Allergy Joint Aches Verified 09/30/21 19:24 Inhibitor [Lblciku-Rof-Gek Reductase Inhibitor] duloxetine AdvReac Verified 09/30/21 19:24 milk AdvReac Verified 09/30/21 19:24 bananas Allergy Uncoded 09/30/21 19:24 iv contrast Allergy Hives Uncoded 09/30/21 19:24 - Past Medical History Past Medical History: Yes Neurological History: TIA ENT History: No Pertinent History Cardiac History: Coronary Artery Disease, Hypertension, Myocardial Infarction ([place]), Other Respiratory History: No Pertinent History Endocrine Medical History: Diabetes Type II Musculoskelatal History: Degenerative Disk Disease GI Medical History: GERD History: Other Pyscho-Social History: No Pertinent History Male Reproductive Disorders: Prostate Cancer Comment: heart stent in 2007, Pt has a pacemaker, past [place], COVID-19 DX February 2020 - Past Surgical History Past Surgical History: Yes Neuro Surgical History: No Pertinent History Cardiac History: Angioplasty, Cardiac Stent, Pacemaker Respiratory Surgery: Other GI Surgical History: No Pertinent History Genitourinary Surgical Hx: No Pertinent History Musculskeletal Surgical Hx: No Pertinent History Male Surgical History: Prostate Surgery, Vasectomy, Other Other Surgical History: states left lung collapsed, penile implant, back pain pump - Social History Smoking Status: Former smoker Exposure to second hand smoke: No Alcohol: None Drug Use: none Significant Family History: no pertinent family hx - Physical Exam Vital Signs: Vital Signs - 24 hr Temp Pulse Resp BP Pulse Ox 10/01/21 07:02 97.5 F 63 20 155/70 96 10/01/21 04:00 97.2 F 60 16 124/60 90 L 10/01/21 00:00 96.6 F 60 16 168/72 96 09/30/21 23:10 16 96 09/30/21 22:31 96.6 F 60 18 168/72 94 L 09/30/21 21:58 60 18 154/80 94 L 09/30/21 21:05 60 18 149/78 93 L 09/30/21 20:08 63 18 156/71 98 09/30/21 20:06 60 16 156/71 94 L 09/30/21 19:18 96 09/30/21 19:08 97.3 F 67 18 143/108 95 General Appearance: no apparent distress, alert Neurologic Exam: cooperative, normal mood/affect Eye Exam: eyes nml inspection Ears, Nose, Throat Exam: moist mucous membranes Neck Exam: normal inspection Respiratory Exam: lungs clear, diminished breath sounds (good air exchange), No crackles/rales, No rhonchi, No wheezing Cardiovascular Exam: regular rate/rhythm, normal heart sounds, No murmur Gastrointestinal/Abdomen Exam: soft, normal bowel sounds, tenderness (RLQ, mild. TTP at scar of remote abd surgery, suprapubic), No distention, No mass, No guarding, No rebound Back Exam: normal inspection, No rash Extremity Exam: swelling (1+ pretibial edema on R, trace on L), No normal inspection (RLE appears larger in diameter than left) Skin Exam: normal color, warm, dry, No rash Results - Labs Lab/Micro Results: Lab Results-Last 24 Hours 09/30/21 09/30/21 09/30/21 Range/Units 19:15 19:15 19:15 WBC 8.1 (4.0-10.5) x10^3/uL RBC 2.76 L (4.1-5.6) x10^6/uL Hgb 9.5 L (12.5-18.0) g/dL Hct 29.3 L (42-50) % MCV 106.2 H (78-100) fL MCH 34.4 H (26-32) pg MCHC 32.4 (32-36) g/dL RDW 12.4 (11.5-14.0) % Plt Count 262 (150-450) x10^3/uL MPV 9.3 (7.5-11.0) fL Gran % 64.9 (36.0-66.0) % Immature Gran % (Auto) 0.4 (0.00-0.4) % Nucleat RBC Rel Count 0.0 (0.00-0.1) % Eos # (Auto) 0.92 H (0-0.5) x10^3/uL Immature Gran # (Auto) 0.03 (0.00-0.03) x10^3u/L Absolute Lymphs (auto) 1.20 (1.0-4.6) x10^3/uL Absolute Monos (auto) 0.62 (0.0-1.3) x10^3/uL Absolute Nucleated RBC 0.00 (0.00-0.01) x10^3u/L Lymphocytes % 14.9 L (24.0-44.0) % Monocytes % 7.7 (0.0-12.0) % Eosinophils % 11.4 H (0.00-5.0) % Basophils % 0.7 (0.0-0.4) % Absolute Granulocytes 5.22 (1.4-6.9) x10^3/uL Basophils # 0.06 (0-0.4) x10^3/uL D-Dimer 0.77 H* (0.0-0.50) mg/L Sodium 137 (137-145) mmol/L Potassium 4.6 (3.5-5.1) mmol/L Chloride 106 (98-107) mmol/L Carbon Dioxide 23 (22-30) mmol/L Anion Gap 13.1 (5-15) MEQ/L BUN 22 H (9-20) mg/dL Creatinine 1.71 H (0.66-1.25) mg/dL Estimated GFR 40.9 ML/MIN Glucose 109 H (74-106) mg/dL POC Glucometer (74 to 106) mg/dL Calcium 9.4 (8.4-10.2) mg/dL Total Bilirubin 0.30 (0.2-1.3) mg/dL AST 22 (17-59) U/L ALT 11 (0-50) U/L Alkaline Phosphatase 86 (38-126) U/L Troponin I (0.000-0.034) ng/mL NT-Pro-B Natriuret Pep 2300 H (0-1800) pg/mL Serum Total Protein 6.7 (6.3-8.2) g/dL Albumin 3.7 (3.5-5.0) g/dL Influenza Type A Ag (NEGATIVE) Influenza Type B Ag (NEGATIVE) RSV (PCR) (Negative) SARS-CoV-2 (PCR) (NEGATIVE) 09/30/21 09/30/21 09/30/21 Range/Units 19:15 22:30 Unknown WBC (4.0-10.5) x10^3/uL RBC (4.1-5.6) x10^6/uL Hgb (12.5-18.0) g/dL Hct (42-50) % MCV (78-100) fL MCH (26-32) pg MCHC (32-36) g/dL RDW (11.5-14.0) % Plt Count (150-450) x10^3/uL MPV (7.5-11.0) fL Gran % (36.0-66.0) % Immature Gran % (Auto) (0.00-0.4) % Nucleat RBC Rel Count (0.00-0.1) % Eos # (Auto) (0-0.5) x10^3/uL Immature Gran # (Auto) (0.00-0.03) x10^3u/L Absolute Lymphs (auto) (1.0-4.6) x10^3/uL Absolute Monos (auto) (0.0-1.3) x10^3/uL Absolute Nucleated RBC (0.00-0.01) x10^3u/L Lymphocytes % (24.0-44.0) % Monocytes % (0.0-12.0) % Eosinophils % (0.00-5.0) % Basophils % (0.0-0.4) % Absolute Granulocytes (1.4-6.9) x10^3/uL Basophils # (0-0.4) x10^3/uL D-Dimer (0.0-0.50) mg/L Sodium (137-145) mmol/L Potassium (3.5-5.1) mmol/L Chloride (98-107) mmol/L Carbon Dioxide (22-30) mmol/L Anion Gap (5-15) MEQ/L BUN (9-20) mg/dL Creatinine (0.66-1.25) mg/dL Estimated GFR ML/MIN Glucose (74-106) mg/dL POC Glucometer (74 to 106) mg/dL Calcium (8.4-10.2) mg/dL Total Bilirubin (0.2-1.3) mg/dL AST (17-59) U/L ALT (0-50) U/L Alkaline Phosphatase (38-126) U/L Troponin I < 0.012 < 0.012 (0.000-0.034) ng/mL NT-Pro-B Natriuret Pep (0-1800) pg/mL Serum Total Protein (6.3-8.2) g/dL Albumin (3.5-5.0) g/dL Influenza Type A Ag NEGATIVE (NEGATIVE) Influenza Type B Ag NEGATIVE (NEGATIVE) RSV (PCR) NEGATIVE (Negative) SARS-CoV-2 (PCR) NEGATIVE (NEGATIVE) 10/01/21 10/01/21 10/01/21 Range/Units 01:15 04:25 05:15 WBC 6.5 (4.0-10.5) x10^3/uL RBC 2.39 L (4.1-5.6) x10^6/uL Hgb 8.3 L (12.5-18.0) g/dL Hct 24.8 L (42-50) % MCV 103.8 H (78-100) fL MCH 34.7 H (26-32) pg MCHC 33.5 (32-36) g/dL RDW 12.5 (11.5-14.0) % Plt Count 234 (150-450) x10^3/uL MPV 9.5 (7.5-11.0) fL Gran % 51.0 (36.0-66.0) % Immature Gran % (Auto) 0.5 H (0.00-0.4) % Nucleat RBC Rel Count 0.0 (0.00-0.1) % Eos # (Auto) 0.93 H (0-0.5) x10^3/uL Immature Gran # (Auto) 0.03 (0.00-0.03) x10^3u/L Absolute Lymphs (auto) 1.49 (1.0-4.6) x10^3/uL Absolute Monos (auto) 0.69 (0.0-1.3) x10^3/uL Absolute Nucleated RBC 0.00 (0.00-0.01) x10^3u/L Lymphocytes % 22.8 L (24.0-44.0) % Monocytes % 10.6 (0.0-12.0) % Eosinophils % 14.2 H (0.00-5.0) % Basophils % 0.9 (0.0-0.4) % Absolute Granulocytes 3.34 (1.4-6.9) x10^3/uL Basophils # 0.06 (0-0.4) x10^3/uL D-Dimer (0.0-0.50) mg/L Sodium (137-145) mmol/L Potassium (3.5-5.1) mmol/L Chloride (98-107) mmol/L Carbon Dioxide (22-30) mmol/L Anion Gap (5-15) MEQ/L BUN (9-20) mg/dL Creatinine (0.66-1.25) mg/dL Estimated GFR ML/MIN Glucose (74-106) mg/dL POC Glucometer (74 to 106) mg/dL Calcium (8.4-10.2) mg/dL Total Bilirubin (0.2-1.3) mg/dL AST (17-59) U/L ALT (0-50) U/L Alkaline Phosphatase (38-126) U/L Troponin I < 0.012 < 0.012 (0.000-0.034) ng/mL NT-Pro-B Natriuret Pep (0-1800) pg/mL Serum Total Protein (6.3-8.2) g/dL Albumin (3.5-5.0) g/dL Influenza Type A Ag (NEGATIVE) Influenza Type B Ag (NEGATIVE) RSV (PCR) (Negative) SARS-CoV-2 (PCR) (NEGATIVE) 10/01/21 10/01/21 10/01/21 Range/Units 05:15 06:39 06:48 WBC (4.0-10.5) x10^3/uL RBC (4.1-5.6) x10^6/uL Hgb (12.5-18.0) g/dL Hct (42-50) % MCV (78-100) fL MCH (26-32) pg MCHC (32-36) g/dL RDW (11.5-14.0) % Plt Count (150-450) x10^3/uL MPV (7.5-11.0) fL Gran % (36.0-66.0) % Immature Gran % (Auto) (0.00-0.4) % Nucleat RBC Rel Count (0.00-0.1) % Eos # (Auto) (0-0.5) x10^3/uL Immature Gran # (Auto) (0.00-0.03) x10^3u/L Absolute Lymphs (auto) (1.0-4.6) x10^3/uL Absolute Monos (auto) (0.0-1.3) x10^3/uL Absolute Nucleated RBC (0.00-0.01) x10^3u/L Lymphocytes % (24.0-44.0) % Monocytes % (0.0-12.0) % Eosinophils % (0.00-5.0) % Basophils % (0.0-0.4) % Absolute Granulocytes (1.4-6.9) x10^3/uL Basophils # (0-0.4) x10^3/uL D-Dimer (0.0-0.50) mg/L Sodium 137 (137-145) mmol/L Potassium 3.9 (3.5-5.1) mmol/L Chloride 105 (98-107) mmol/L Carbon Dioxide 27 (22-30) mmol/L Anion Gap 9.0 (5-15) MEQ/L BUN 20 (9-20) mg/dL Creatinine 1.66 H (0.66-1.25) mg/dL Estimated GFR 42.4 ML/MIN Glucose 94 (74-106) mg/dL POC Glucometer 95 (74 to 106) mg/dL Calcium 9.1 (8.4-10.2) mg/dL Total Bilirubin 0.20 (0.2-1.3) mg/dL AST 19 (17-59) U/L ALT 8 (0-50) U/L Alkaline Phosphatase 77 (38-126) U/L Troponin I < 0.012 (0.000-0.034) ng/mL NT-Pro-B Natriuret Pep 2460 H (0-1800) pg/mL Serum Total Protein 5.5 L (6.3-8.2) g/dL Albumin 3.0 L (3.5-5.0) g/dL Influenza Type A Ag (NEGATIVE) Influenza Type B Ag (NEGATIVE) RSV (PCR) (Negative) SARS-CoV-2 (PCR) (NEGATIVE) - Radiology Impressions Radiology Exams & Impressions: Radiology Procedures Category Date Time Status CHEST 1 VIEW (PORTABLE) Stat Exams 09/30/21 19:13 Taken Assessment/Plan (1) CHF (congestive heart failure) Current Visit: Yes Status: Acute Assessment & Plan: echo today Code(s): I50.9 - HEART FAILURE, UNSPECIFIED (2) Elevated d-dimer Current Visit: Yes Status: Acute Assessment & Plan: discussed with pt and his daughter. Will anticoagulate until VQ scan tomorrow. Will go ahead and check u/s legs, particularly with the edema and R>L enlargement. Code(s): R79.89 - OTHER SPECIFIED ABNORMAL FINDINGS OF BLOOD CHEMISTRY (3) Renal insufficiency Current Visit: Yes Status: Chronic (4) Anemia Current Visit: No Status: Chronic Qualifiers: Anemia type: due to chronic kidney disease Chronic kidney disease stage: stage 3 (moderate) Chronic kidney disease stage 3 subtype: stage 3b (GFR 30- 44) Qualified Code(s): N18.32 - Chronic kidney disease, stage 3b; D63.1 - Anemia in chronic kidney disease Code(s): D64.9 - ANEMIA, UNSPECIFIED (5) Chronic back pain Current Visit: No Status: Acute Qualifiers: Back pain location: low back pain Back pain laterality: unspecified Sciatica presence: unspecified whether sciatica present Assessment & Plan: with pain pump. Code(s): M54.9 - DORSALGIA, UNSPECIFIED; G89.29 - OTHER CHRONIC PAIN (6) Diabetes Current Visit: No Status: Chronic Qualifiers: Diabetes mellitus type: type 2 Diabetes mellitus intermediate insulin use: without intermediate use Diabetes mellitus complication status: with kidney complications Diabetes mellitus complication detail: with chronic kidney disease Code(s): E11.9 - TYPE 2 DIABETES MELLITUS WITHOUT COMPLICATIONS (7) HTN (hypertension) Current Visit: No Status: Chronic Qualifiers: Hypertension type: primary hypertension Qualified Code(s): I10 - Essential (primary) hypertension Code(s): I10 - ESSENTIAL (PRIMARY) HYPERTENSION
[2021-10-01] MEDS: TYLENOL 325 MG PO SCH ×3 (09:35→21:37)
[2021-10-01] MEDS: MAG-OX 400 PO SCH (09:35)
[2021-10-01] MEDS: COREG 12.5 MG PO SCH ×2 (09:36→21:37)
[2021-10-01] MEDS: Cardizem CD PO SCH (09:36)
[2021-10-01] MEDS: Protonix 40MG Tablet PO SCH (09:36)
[2021-10-01] MEDS: Lasix 20 MG/2 ML IV SCH ×2 (09:37→17:18)
[2021-10-01] MEDS: ENOXAPARIN SODIUM SQ SCH ×2 (09:37→21:36)
[2021-10-01] MEDS: Miralax Powder 17GM PACKET PO SCH (09:40)
[2021-10-01] MEDS ORDERED: MEDICATION INTERVENTION MC SCH (09:45)
[2021-10-01] MEDS ORDERED: DILTIAZEM HCL 240 MG PO SCH (10:00)
[2021-10-01] MEDS ORDERED: Lasix 20 MG/2 ML IV SCH (10:00)
[2021-10-01] MEDS ORDERED: NON-FORMULARY ITEM (Potassium Gluconate [Potassium] 99 MG Tablet) PO SCH (10:00)
[2021-10-01] MEDS ORDERED: TIMOLOL OP SCH (10:00)
[2021-10-01] MEDS ORDERED: NON-FORMULARY ITEM (Omeprazole [Omeprazole] 20 MG Capsule.Dr) PO SCH (10:00)
[2021-10-01] MEDS ORDERED: Timolol 0.25% Opth Sol 5 ML OP SCH (10:00)
--- NOTE | 2021-10-01 10:36 | XRAY ---
Exam: AP upright portable chest film from 09/30/2021. Comparison: AP upright portable chest film from 07/01/2021. Indication: Shortness of breath. Findings: The transverse heart size appears within normal limits. Atherosclerotic calcification is seen within the aortic arch. The remainder the juan and mediastinal structures appear unremarkable. A left-sided cardiac pacemaker is seen with bipolar transvenous leads in unchanged position. The leads appear intact. There is slight accentuation of the bronchovascular lung markings at both lung bases. A minimal infiltrate within the left costophrenic angle is difficult to exclude. A small calcified granulomas again seen within the peripheral left lung base. The upper and midlung zones appear clear. Mild degenerative changes are seen within the thoracic spine. Impression: 1. Compared to 07/01/2021, there is mild nonspecific accentuation of the bronchovascular markings at the lung bases. In addition, I cannot exclude a subtle infiltrate at the lateral left lung base. Correlate clinically. I personally notified Dr. Zhou in the Emergency Department at 10:26 AM on 10/01/2021. 2. No other active cardiopulmonary disease is. Left-sided cardiac pacemaker appears unchanged.
--- NOTE | 2021-10-01 11:21 | XRAY ---
Exam: Bilateral lower extremity duplex Doppler venous ultrasound exam from 10/01/2021. Comparison: None. Indication: CHF. Technique: Grayscale images and color blood flow images were obtained through the major deep veins of both lower extremities. Doppler tracings were obtained without and with augmentation. Findings: Some atherosclerotic vascular calcification is seen within both common femoral arteries. Normal transducer compression, color blood flow, and Doppler tracings without and with augmentation were seen within inventory representative segments of the right and left common femoral veins, proximal greater saphenous veins, proximal, mid, and distal superficial femoral veins, popliteal veins, and distal posterior tibial veins. There are findings of some soft tissue edema near the level of the ankles. Correlate clinically. Color blood flow and Doppler signal augmentation were normal within the right and left profunda femoral veins. Impression: 1. No sonographic or Doppler evidence of deep venous thrombosis is seen within either lower extremity. In addition, no clot was seen within the right or left greater saphenous vein within the proximal thighs. 2. There is a suggestion of some mild soft tissue edema within the distal lower legs. Correlate clinically.
[2021-10-01] MEDS: Desyrel 150 MG PO SCH (21:37)
[2021-10-01] MEDS: PATIENT OWN MEDICATION OP SCH (21:38)
[2021-10-02] MEDS ORDERED: APRESOLINE 20 MG/ML INJ IV PRN (07:31)
[2021-10-02 07:56] VITALS: BP 144/65; PULSE 62; O2SAT 95
[2021-10-02 08:39] LABS: Absolute Neutrophil Ct (ANC) 3.78 x10^3/uL (1.4-6.9); Basophil (Absolute #) 0.06 x10^3/uL (0-0.4); Eosinophil % 14.3 % (0.00-5.0); Eosinophil (Absolute #) 0.98 x10^3/uL (0-0.5); Hematocrit 27.7 % (42-50); Hemoglobin 9.1 g/dL (12.5-18.0); Lymphocyte (Absolute #) 1.31 x10^3/uL (1.0-4.6); Lymphocytes % 19.2 % (24.0-44.0); Mean Cell Volume 102.6 fL (78-100); Mean Corpuscular Hemoglobin 33.7 pg (26-32); Mean Corpuscular Hgb Concent. 32.9 g/dL (32-36); Mean Platelet Volume 9.7 fL (7.5-11.0); Monocyte (Absolute #) 0.68 x10^3/uL (0.0-1.3); Monocytes % 9.9 % (0.0-12.0); Neutrophil % 55.3 % (36.0-66.0); Platelet Count 263 x10^3/uL (150-450); Red Cell Distribution Width 12.2 % (11.5-14.0); White Blood Count 6.8 x10^3/uL (4.0-10.5)
[2021-10-02 09:10] LABS: ANION GAP 10.9 MEQ/L (5-15); Calcium 9.4 mg/dL (8.4-10.2); Creatinine 1 1.6 mg/dL (0.66-1.25); EST GLOMERULAR FILTRATION RATE 44.2 ML/MIN; Potassium 3.8 mmol/L (3.5-5.1)
--- NOTE | 2021-10-02 09:12 | PCM.DS ---
Discharge Summary Date of Admission: 09/30/21 22:04 Admitting Physician: ARNOLD OLIVAS Primary Care Provider: ARNOLD OLIVAS Allergies Allergies doxazosin mesylate [From Cardura] Allergy (Verified 09/30/21 19:24) Itching ezetimibe [From Zetia] Allergy (Verified 09/30/21 19:24) iodine Allergy (Verified 09/30/21 19:24) Hives latex Allergy (Verified 09/30/21 19:24) prednisone Allergy (Verified 09/30/21 19:24) states "homicidal" simvastatin [From Zocor] Allergy (Verified 09/30/21 19:24) Xxfwnkm-JES-UsZ Reductase Inhibitor [Kgcbkff-Fah-Vqm Reductase Inhibitor] Allergy (Verified 09/30/21 19:24) Joint Aches duloxetine Adverse Reaction (Verified 09/30/21 19:24) milk Adverse Reaction (Verified 09/30/21 19:24) bananas Allergy (Uncoded 09/30/21 19:24) iv contrast Allergy (Uncoded 09/30/21 19:24) [facility] Summary - Hospital Course Hospital Course: is a 80 year old male pt of Dr. Olivas with PMHx atrial fibrillation, chronic anemia, CKD (3), COPD, CAD (with stents), Degen disc dz and spinal stenosis with pain pump, DM II, GERD, Pacemaker (2007), hyperlipidemia, HTN, hypogonadism, hx prostate ca, neuropathy, TIA, and tremor who was admitted to [facility] through ER with CHF exacerbation. He had 2-3 mo of increased SOB, increased LE edema, and 1-2 pillow orthopnea. His BNP and D-dimer were elevated. Unable to do CT with contrast of chest due to decreased eGFR of 40.9. Admitted for diuresis, anticoagulation, and f/u testing. His vital signs have been stable (aside from some transient hypertension, asymptomatic) so he will be discharged to home on po anticoagulant today, and return for VQ scan tomorrow. He is feeling well and would like to go home. F/u with Dr. Olivas in 1 week. - Vitals & Intake/Output Vital Signs: Vital Signs Temperature 98.6 F 10/02/21 07:55 Pulse Rate 62 10/02/21 07:55 Respiratory Rate 16 10/02/21 07:55 Blood Pressure 144/65 07/27/22 07:55 O2 Sat by Pulse Oximetry 95 10/02/21 07:55 Intake & Output: Intake & Output 09/29/21 09/30/21 10/01/21 10/02/21 11:59 11:59 11:59 11:59 Intake Total 60 1180 Output Total 1300 2950 Balance -1240 -1770 Weight 64.3 kg 63.9 kg - Lab Result Diagrams: 10/02/21 08:09 10/01/21 05:15 Lab Results-Last 24 Hrs: Lab Results-Last 24 Hours 10/01/21 10/01/21 10/01/21 Range/Units 11:16 15:57 20:38 WBC (4.0-10.5) x10^3/uL RBC (4.1-5.6) x10^6/uL Hgb (12.5-18.0) g/dL Hct (42-50) % MCV (78-100) fL MCH (26-32) pg MCHC (32-36) g/dL RDW (11.5-14.0) % Plt Count (150-450) x10^3/uL MPV (7.5-11.0) fL Gran % (36.0-66.0) % Immature Gran % (Auto) (0.00-0.4) % Nucleat RBC Rel Count (0.00-0.1) % Eos # (Auto) (0-0.5) x10^3/uL Immature Gran # (Auto) (0.00-0.03) x10^3u/L Absolute Lymphs (auto) (1.0-4.6) x10^3/uL Absolute Monos (auto) (0.0-1.3) x10^3/uL Absolute Nucleated RBC (0.00-0.01) x10^3u/L Lymphocytes % (24.0-44.0) % Monocytes % (0.0-12.0) % Eosinophils % (0.00-5.0) % Basophils % (0.0-0.4) % Absolute Granulocytes (1.4-6.9) x10^3/uL Basophils # (0-0.4) x10^3/uL POC Glucometer 142 H 122 H 107 H (74 to 106) mg/dL Hemoglobin A1c (4.5-6.0) % 10/02/21 10/02/21 10/02/21 Range/Units 04:00 07:33 08:09 WBC 6.8 (4.0-10.5) x10^3/uL RBC 2.70 L (4.1-5.6) x10^6/uL Hgb 9.1 L (12.5-18.0) g/dL Hct 27.7 L (42-50) % MCV 102.6 H (78-100) fL MCH 33.7 H (26-32) pg MCHC 32.9 (32-36) g/dL RDW 12.2 (11.5-14.0) % Plt Count 263 (150-450) x10^3/uL MPV 9.7 (7.5-11.0) fL Gran % 55.3 (36.0-66.0) % Immature Gran % (Auto) 0.4 (0.00-0.4) % Nucleat RBC Rel Count 0.0 (0.00-0.1) % Eos # (Auto) 0.98 H (0-0.5) x10^3/uL Immature Gran # (Auto) 0.03 (0.00-0.03) x10^3u/L Absolute Lymphs (auto) 1.31 (1.0-4.6) x10^3/uL Absolute Monos (auto) 0.68 (0.0-1.3) x10^3/uL Absolute Nucleated RBC 0.00 (0.00-0.01) x10^3u/L Lymphocytes % 19.2 L (24.0-44.0) % Monocytes % 9.9 (0.0-12.0) % Eosinophils % 14.3 H (0.00-5.0) % Basophils % 0.9 (0.0-0.4) % Absolute Granulocytes 3.78 (1.4-6.9) x10^3/uL Basophils # 0.06 (0-0.4) x10^3/uL POC Glucometer 102 (74 to 106) mg/dL Hemoglobin A1c 5.15 (4.5-6.0) % Micro Results-Entire Visit: Accuchecks Date 10/02/21 Date 10/01/21 Time 07:54 Time 21:00 - Radiology Exams Ordered Rad Exams-Entire Visit: Radiology Procedures Category Date Time Status CHEST 1 VIEW (PORTABLE) Stat Exams 09/30/21 19:13 Completed ECHO W/2D AND DOPPLER [US] Routine Exams 10/01/21 10:42 Taken VENOUS BILATERAL EXTREMITY [US] Routine Exams 10/01/21 Completed - Procedures and Test Procedures and Tests throughout Hospitalization: Therapy Orders & Screens 09/30/21 22:06 EKG REPEAT IN AM Comment: Respiratory Therapy Consult ROUTINE Comment: Reason For Exam: Discharge Exam General Appearance: no apparent distress, alert Neurologic Exam: oriented x 3, cooperative, other (very CACHIL DEHE) Eye Exam: eyes nml inspection Ears, Nose, Throat Exam: moist mucous membranes Neck Exam: normal inspection, non-tender, No lymphadenopathy Respiratory Exam: normal breath sounds, lungs clear, No crackles/rales, No rhonchi, No wheezing Cardiovascular Exam: regular rate/rhythm, normal heart sounds, No murmur Gastrointestinal/Abdomen Exam: soft, normal bowel sounds, other (pain pump in LUQ), No tenderness, No distention, No guarding Back Exam: normal inspection, No rash Extremity Exam: normal inspection, No pedal edema, No swelling Skin Exam: normal color, warm, dry, No rash Final Diagnosis/Problem List - Final Discharge Diagnosis/Problem (1) CHF (congestive heart failure) Current Visit: Yes Status: Acute Assessment & Plan: improved on IV lasix, gentle diuresis. Home today on po lasix. Code(s): I50.9 - HEART FAILURE, UNSPECIFIED (2) Elevated d-dimer Current Visit: Yes Status: Acute Assessment & Plan: VQ scan tomorrow; will treat as for PE until then. Unable to do CT scan due to renal function. Code(s): R79.89 - OTHER SPECIFIED ABNORMAL FINDINGS OF BLOOD CHEMISTRY (3) Renal insufficiency Current Visit: Yes Status: Chronic (4) Anemia Current Visit: No Status: Chronic Code(s): D64.9 - ANEMIA, UNSPECIFIED (5) Chronic back pain Current Visit: No Status: Chronic Code(s): M54.9 - DORSALGIA, UNSPECIFIED; G89.29 - OTHER CHRONIC PAIN (6) Diabetes Current Visit: No Status: Chronic Code(s): E11.9 - TYPE 2 DIABETES MELLITUS WITHOUT COMPLICATIONS (7) HTN (hypertension) Current Visit: No Status: Chronic Assessment & Plan: Discussed with family, they will take BP at home. Avoiding adding agent currently as the elderly frequently return home to become hypotensive after adding antihypertensives inpatient. Code(s): I10 - ESSENTIAL (PRIMARY) HYPERTENSION - Discharge Disposition: Home, Self-Care Condition: Good Prescriptions: New Furosemide 20 mg [Lasix 20 mg] 20 mg PO DAILY #7 tablet Apixaban [Eliquis 5 mg Tablet] 10 mg PO BID #6 tablet Continue Diltiazem HCl 240 mg [Cardizem CD 240 MG] 240 mg PO DAILY Metformin HCl 500 mg [Glucophage 500 MG] 500 mg PO DAILY Omeprazole 40 mg PO DAILY Carvedilol 12.5 mg [Coreg 12.5 mg] 25 mg PO BID Lutein 20 mg PO DAILY Polyethylene Glycol 3350 17 gm [Miralax Powder 17GM PACKET] 17 gm PO DAILY #30 packet Trazodone HCl 150 mg PO HS Acetaminophen 325 mg [Tylenol 325 mg] 650 mg PO TID Timolol [Betimol] 5 ml OP BID Magnesium Oxide 400 mg [Mag-Ox 400] 400 mg PO DAILY Changed Potassium Gluconate [Potassium] 2 tab PO DAILY #14 tablet Follow up with: ARNOLD OLIVAS MD [Primary Care Provider] -
[2021-10-02] MEDS: MAG-OX 400 PO SCH (09:40)
[2021-10-02] MEDS: Protonix 40MG Tablet PO SCH (09:41)
[2021-10-02] MEDS: COREG 12.5 MG PO SCH (09:41)
[2021-10-02] MEDS: TYLENOL 325 MG PO SCH (09:41)
[2021-10-02] MEDS: Cardizem CD PO SCH (09:41)
[2021-10-02] MEDS: Lasix 20 MG/2 ML IV SCH (09:42)
[2021-10-02] MEDS: ENOXAPARIN SODIUM SQ SCH (09:42)
[2021-10-02] MEDS: Miralax Powder 17GM PACKET PO SCH (09:42)
[2021-10-02] MEDS: PATIENT OWN MEDICATION OP SCH (09:42)
--- NOTE | 2021-10-02 11:11 | ECHO ---
Transthoracic echocardiographic examination and color Doppler was done on 10/01/2021. INDICATION: Congestive heart failure. IMPRESSION: 1) NO REGIONAL WALL MOTION ABNORMALITY. ESTIMATED GLOBAL LEFT VENTRICULAR EJECTION FRACTION OF AROUND 60 TO 65%. 2) TRACE MITRAL REGURGITATION. 3) MODERATE TRICUSPID REGURGITATION. RIGHT VENTRICULAR SYSTOLIC PRESSURE OF 52 MM OF MERCURY. 4) SCLEROTIC AORTIC VALVE WITH A PEAK TRANSAORTIC GRADIENT OF 12. 5) PACEMAKER ELECTRODE IN THE RIGHT VENTRICLE. 6) LEFT VENTRICULAR HYPERTROPHY. The left ventricle is visualized and demonstrated adequate motion of all the segments. Estimated global left ventricular ejection fraction between 60 and 65%. There is mild left ventricular hypertrophy. The mitral valve is seen and this opens adequately. There is trace mitral regurgitation. The left atrium is mildly dilated. The aortic valve is sclerotic with a peak gradient across the aortic valve is 12 mm of Mercury. The right side chambers are mildly dilated. There is moderate tricuspid regurgitation. The right ventricular systolic pressure of 52 mm of Mercury suggestive of moderate pulmonary hypertension with a pacemaker electrode in the right ventricle.
== END 2021-10-02 10:42 | disposition home or self-care (01) | DRG 293 ==
LOC: ED 19:02 → MED SURG 22:04
PROVIDERS: ADMIT Family Medicine; ATTEND Family Medicine
DX: I11.0 Hypertensive heart disease with heart failure (principal); I50.9 Heart failure, unspecified; R79.89 Other specified abnormal findings of blood chemistry; N28.9 Disorder of kidney and ureter, unspecified; D64.9 Anemia, unspecified; M54.9 Dorsalgia, unspecified; E11.22 Type 2 diabetes mellitus with diabetic chronic kidney disease; I13.0 Hypertensive heart and chronic kidney disease with heart failure and stage 1 through stage 4 chronic kidney disease, or unspecified chronic kidney disease; I48.91 Unspecified atrial fibrillation; J44.9 Chronic obstructive pulmonary disease, unspecified; N18.30 Chronic kidney disease, stage 3 unspecified; I25.10 Atherosclerotic heart disease of native coronary artery without angina pectoris; E78.5 Hyperlipidemia, unspecified; E03.9 Hypothyroidism, unspecified; I25.2 Old myocardial infarction; Z79.899 Other long term (current) drug therapy; Z20.828 Contact with and (suspected) exposure to other viral communicable diseases; Z85.46 Personal history of malignant neoplasm of prostate
CPT/HCPCS: 0241U; 36000; 36415; 71045; 80048; 80053; 82947; 83036; 83880; 84484; 85025; 85379; 93005; 93041; 93306; 93970; 94760; 96372; 96374; 99285; J1650; J1940; A9270-GY

== ENCOUNTER 2021-10-31 17:42 | Emergency (ER) | payer MEDICARE ==
--- NOTE | 2021-10-31 18:44 | ERPHSYRPT ---
- History of Present Illness Time Seen by Provider: 10/31/21 17:45 Source: patient Exam Limitations: no limitations Patient Subjective Stated Complaint: pt states "I think I have this covid. I want to be tested." Triage Nursing Assessment: pt ambulated into the er; pt is axo x3; c/o not feeling well; pt states 5/10 pain to back; pt states hx of chronic back pain; clear lung sounds in all lobes; active bowel sounds in all quads; no cough present; pt states dry mouth; afebrile; hypertensive Physician History: 80 years old male presented in the ER with chief complaint of generalized feeling of malaise, mild headache, occasional dizziness since yesterday. It is progressively worsening with generalized weakness. Patient brought home COVID test but did not know positive for Martin and decided to be seen in the [facility] which was closed and no patient is here for COVID-19 testing. Has chronic back pain with a pain pump which is not any worse than usual. Denies any urinary symptoms. No difficulty breathing cough or shortness of breath. No abdominal pain nausea or vomiting. Timing/Duration: yesterday, gradual onset, worse Severity: mild, moderate Associated Symptoms: headaches, malaise, weakness, No nausea, No vomiting, No abdominal pain, No shortness of breath, No chest pain, No fever, No syncope Allergies/Adverse Reactions: doxazosin mesylate [From Cardura] Allergy (Verified 10/31/21 17:53) Itching ezetimibe [From Zetia] Allergy (Verified 10/31/21 17:53) iodine Allergy (Verified 10/31/21 17:53) Hives latex Allergy (Verified 10/31/21 17:53) prednisone Allergy (Verified 10/31/21 17:53) states "homicidal" simvastatin [From Zocor] Allergy (Verified 10/31/21 17:53) Aehnkst-LNO-RvF Reductase Inhibitor [Meykaac-Zfh-Izl Reductase Inhibitor] Allergy (Verified 10/31/21 17:53) Joint Aches duloxetine Adverse Reaction (Verified 10/31/21 17:53) milk Adverse Reaction (Verified 10/31/21 17:53) bananas Allergy (Uncoded 10/31/21 17:53) iv contrast Allergy (Uncoded 10/31/21 17:53) Hives Home Medications: Diltiazem HCl 240 mg [Cardizem CD 240 MG] 240 mg PO DAILY 01/02/16 [History] Metformin HCl 500 mg [Glucophage 500 MG] 500 mg PO DAILY 01/02/16 [History] Omeprazole 40 mg PO DAILY 02/25/20 [History] Carvedilol 12.5 mg [Coreg 12.5 mg] 25 mg PO BID 06/09/20 [History] Lutein 20 mg PO DAILY 09/27/20 [History] Trazodone HCl 150 mg PO HS 09/30/21 [History] Acetaminophen 325 mg [Tylenol 325 mg] 650 mg PO TID 10/01/21 [History] Magnesium Oxide 400 mg [Mag-Ox 400] 400 mg PO DAILY 10/01/21 [History] Timolol [Betimol] 5 ml OP BID 10/01/21 [History] Hx Tetanus, Diphtheria Vaccination/Date Given: No (unknown) Hx Influenza Vaccination/Date Given: No (unknown) Hx Pneumococcal Vaccination/Date Given: No Travel Risk - International Travel Have you traveled outside of the country in past 3 weeks: No - Coronavirus Screening Are you exhibiting any of the following symptoms?: Yes Symptoms: Shortness of Breath, Vomiting/Diarrhea, Headaches/Body Aches/Fatigue Close contact with a COVID-19 positive Pt in past 14-21 Days: No - Vaccine Status Have you recieved a Covid-19 vaccination: Yes 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 - Vaccination Dates Date of 2cond Vaccination (if applicable): unknown Dates if Unknown: na - Review of Systems Constitutional: Fatigue, Weakness Eyes: No Symptoms Ears, Nose, & Throat: No Symptoms Respiratory: No Symptoms Cardiac: No Symptoms Abdominal/Gastrointestinal: No Symptoms Genitourinary Symptoms: No Symptoms Musculoskeletal: Back Pain, Myalgias Skin: No Symptoms Neurological: Dizziness, Headache Psychological: No Symptoms Endocrine: No Symptoms Hematologic/Lymphatic: No Symptoms Immunological/Allergic: No Symptoms - Past Medical History Pertinent Past Medical History: Yes Neurological History: TIA ENT History: No Pertinent History Cardiac History: Coronary Artery Disease, Hypertension, Myocardial Infarction ([place]), Other Respiratory History: No Pertinent History Endocrine Medical History: Diabetes Type II Musculoskeletal History: Degenerative Disk Disease GI Medical History: GERD History: Other Psycho-Social History: No Pertinent History Male Reproductive Disorders: Prostate Cancer Other Medical History: heart stent in 2007, Pt has a pacemaker, past [place], COVID- 19 DX February 2020 - Past Surgical History Past Surgical History: Yes Neuro Surgical History: No Pertinent History Cardiac: Angioplasty, Cardiac Stent, Pacemaker Respiratory: Other Gastrointestinal: No Pertinent History Genitourinary: No Pertinent History Musculoskeletal: No Pertinent History Male Surgical History: Prostate Surgery, Vasectomy, Other Other Surgical History: states left lung collapsed, penile implant, back pain pump - Social History Smoking Status: Former smoker Exposure to second hand smoke: No Alcohol Use: None Drug Use: none Patient Lives Alone: Yes (frequent visit throughout the day by family) Significant Family History: no pertinent family hx - Nursing Vital Signs Nursing Vital Signs: Initial Vital Signs Temperature 98 F 10/31/21 17:53 Pulse Rate 60 10/31/21 17:53 Respiratory Rate 18 10/31/21 17:53 Blood Pressure 153/70 10/31/21 17:53 O2 Sat by Pulse Oximetry 97 10/31/21 17:53 Pain Scale Pain Intensity 5 - Physical Exam General Appearance: no apparent distress, alert Eye Exam: PERRL/EOMI Ears, Nose, Throat Exam: normal ENT inspection, TMs normal, pharynx normal, moist mucous membranes Neck Exam: normal inspection, non-tender, supple, full range of motion Respiratory Exam: normal breath sounds, lungs clear Cardiovascular Exam: regular rate/rhythm, normal heart sounds Gastrointestinal/Abdomen Exam: soft, normal bowel sounds, other (Pain pump in the left), No tenderness Back Exam: normal inspection, normal range of motion, No CVA tenderness Extremity Exam: normal inspection, normal range of motion, pelvis stable Neurologic Exam: alert, oriented x 3, cooperative, double end tenon operator II-XII nml as tested, normal mood/affect, sensation nml Skin Exam: normal color SpO2 Interpretation: normal SpO2: 97 O2 Delivery: Room Air Ordered Tests: Active Orders 24 hr Category Date Time Status CHEST 1 VIEW (PORTABLE) Stat Exams 10/31/21 20:12 Ordered BLOOD CULTURE Stat Lab 10/31/21 20:12 Ordered CBC W DIFF Stat Lab 10/31/21 20:12 Ordered CMP Stat Lab 10/31/21 20:12 Ordered Lactic Acid Stat Lab 10/31/21 20:12 Ordered UA W/RFX CULTURE Stat Lab 10/31/21 Ordered Lab/Rad Data: Laboratory Results 10/31/21 Range/Units 18:12 Influenza Type A Ag NEGATIVE (NEGATIVE) Influenza Type B Ag NEGATIVE (NEGATIVE) RSV (PCR) NEGATIVE (Negative) SARS-CoV-2 (PCR) NEGATIVE (NEGATIVE) - Progress Progress: improved Progress Note: 10/31/21 20:17 Patient is not in any distress. I have obtained COVID-19 and is negative. I have ordered/offered work-up but patient does not want it to be done. Patient states "I wanted to know that I do not have COVID". Discussed with patient and son about signs symptoms of worsening needing return to ER which they seem understanding. Son was fully involved in decision making. Patient's probably have viral etiology symptoms and recommended supportive care. According to son he has some element of dementia and sundowning as well. 10/31/21 20:20 Counseled pt/family regarding: lab results, diagnosis, need for follow-up - Departure Departure Disposition: Home Clinical Impression: Viral syndrome Condition: Stable Critical Care Time: No Referrals: ARNOLD OLIVAS MD [Primary Care Provider] - Follow up/PCP as directed (1-2 days for reevaluation) Instructions: Viral Syndrome (DC), Generalized Weakness (DC) Additional Instructions: Keep yourself well-hydrated. Take Tylenol as needed for aches and pains. Follow-up with primary care for reevaluation. Return to ER for worsening of symptoms or if having difficulty breathing/cough/fever chills/abdominal pain nausea vomiting etc.
[2021-10-31 19:37] LABS: INFLUENZA A NEGATIVE (NEGATIVE); INFLUENZA B NEGATIVE (NEGATIVE); RESPIRATORY SYNCTIAL VIRUS NEGATIVE (Negative); SARS-CoV-2 Xpert Express NEGATIVE (NEGATIVE)
[2021-10-31 20:24] VITALS: BP 146/66; PULSE 61; O2SAT 95
== END 2021-10-31 20:30 | disposition home or self-care (01) ==
LOC: ED 17:42
DX: B34.9 Viral infection, unspecified (principal); R53.81 Other malaise; R51.9 Headache, unspecified; R42 Dizziness and giddiness; I10 Essential (primary) hypertension; E11.9 Type 2 diabetes mellitus without complications; Z79.84 Long term (current) use of oral hypoglycemic drugs; Z79.899 Other long term (current) drug therapy; Z86.16 Personal history of COVID-19
CPT/HCPCS: 0241U; 36415; 84443; 99282

== ENCOUNTER 2021-11-21 13:18 | Observation (INO) | payer MEDICARE ==
[2021-11-21] MEDS ORDERED: Sodium Chloride 0.9% 1000 ML 1,000 ML IV SCH (13:30)
--- NOTE | 2021-11-21 13:34 | ERPHSYRPT ---
- History of Present Illness Time Seen by Provider: 11/21/21 13:25 Source: patient Exam Limitations: no limitations Patient Subjective Stated Complaint: EMS states "He has been confused for two days and he fell at home. He did not have any LOC, no blood thinner use." Triage Nursing Assessment: PT presented alert and confused. Pt extremely hard of hearing, not answering many questions. PT sitting quietly. Physician History: Patient is a 80-year-old male presents to our ED via EMS for evaluation of confusion. Daughter states patient has been confused for the past 3 days. Today patient was in the restroom. Family heard a thump. They ran and patient was on the floor. He appeared more confused. He was not answering questions appropriately. Patient currently not on blood thinner. Patient does have a history of atrial fibrillation. Patient currently on diltiazem for rate control. Patient is hard hearing. He is a poor historian. Patient unable to contribute to his HPI. Symptoms are mild to moderate in intensity. No specific worsening improving factors. Daughter at bedside. She voices no other com plaints or concerns at this time. Portions of this note were created with voice recognition technology. There may be grammatical, spelling, punctuation or sound alike errors Timing/Duration: day(s) (3 days) Severity: moderate Modifying Factors: Improves With: nothing Associated Symptoms: denies symptoms Allergies/Adverse Reactions: doxazosin mesylate [From Cardura] Allergy (Verified 10/31/21 17:53) Itching ezetimibe [From Zetia] Allergy (Verified 10/31/21 17:53) iodine Allergy (Verified 10/31/21 17:53) Hives latex Allergy (Verified 10/31/21 17:53) prednisone Allergy (Verified 10/31/21 17:53) states "homicidal" simvastatin [From Zocor] Allergy (Verified 10/31/21 17:53) Xczxfpj-UBO-CvP Reductase Inhibitor [Foklymz-Wwt-Xlb Reductase Inhibitor] Allerg y (Verified 10/31/21 17:53) Joint Aches duloxetine Adverse Reaction (Verified 10/31/21 17:53) milk Adverse Reaction (Verified 10/31/21 17:53) bananas Allergy (Uncoded 10/31/21 17:53) iv contrast Allergy (Uncoded 10/31/21 17:53) Hives Home Medications: Diltiazem HCl 240 mg [Cardizem CD 240 MG] 240 mg PO DAILY 01/02/16 [History] Metformin HCl 500 mg [Glucophage 500 MG] 500 mg PO DAILY 01/02/16 [History] Omeprazole 40 mg PO DAILY 02/25/20 [History] Carvedilol 12.5 mg [Coreg 12.5 mg] 25 mg PO BID 06/09/20 [History] Lutein 20 mg PO DAILY 09/27/20 [History] Trazodone HCl 150 mg PO HS 09/30/21 [History] Acetaminophen 325 mg [Tylenol 325 mg] 650 mg PO TID 10/01/21 [History] Magnesium Oxide 400 mg [Mag-Ox 400] 400 mg PO DAILY 10/01/21 [History] Timolol [Betimol] 5 ml OP BID 10/01/21 [History] Hx Tetanus, Diphtheria Vaccination/Date Given: No (unknown) Hx Influenza Vaccination/Date Given: No (unknown) Hx Pneumococcal Vaccination/Date Given: No Immunizations Up to Date: Yes Travel Risk - International Travel Have you traveled outside of the country in past 3 weeks: No - Coronavirus Screening Are you exhibiting any of the following symptoms?: No Close contact with a COVID-19 positive Pt in past 14-21 Days: No - Vaccine Status Have you recieved a Covid-19 vaccination: Yes 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 - Vaccination Dates Date of 2cond Vaccination (if applicable): unknown Dates if Unknown: na - Review of Systems All Other Systems: Unable due to condition - Past Medical History Pertinent Past Medical History: Yes Neurological History: TIA ENT History: No Pertinent History Cardiac History: Coronary Artery Disease, Hypertension, Myocardial Infarction ([place]), Other Respiratory History: No Pertinent History Endocrine Medical History: Diabetes Type II Musculoskeletal History: Degenerative Disk Disease GI Medical History: GERD History: Other Psycho-Social History: No Pertinent History Male Reproductive Disorders: Prostate Cancer Other Medical History: heart stent in 2007, Pt has a pacemaker, past [place], COVID- 19 DX February 2020 - Past Surgical History Past Surgical History: Yes Neuro Surgical History: No Pertinent History Cardiac: Angioplasty, Cardiac Stent, Pacemaker Respiratory: Other Gastrointestinal: No Pertinent History Genitourinary: No Pertinent History Musculoskeletal: No Pertinent History Male Surgical History: Prostate Surgery, Vasectomy, Other Other Surgical History: states left lung collapsed, penile implant, back pain pump - Social History Smoking Status: Former smoker Exposure to second hand smoke: No Alcohol Use: None Drug Use: none Patient Lives Alone: Yes (frequent visit throughout the day by family) Significant Family History: no pertinent family hx - Nursing Vital Signs Nursing Vital Signs: Initial Vital Signs Temperature 97.3 F 11/21/21 13:19 Pulse Rate 64 11/21/21 13:19 Respiratory Rate 20 11/21/21 13:19 Blood Pressure 184/78 11/21/21 13:19 O2 Sat by Pulse Oximetry 96 11/21/21 13:19 Pain Scale Pain Intensity 0 - Physical Exam General Appearance: no apparent distress, alert, other (Patient unable to contribute to the HPI. He is somewhat confused and hard of hearing.) Eye Exam: PERRL/EOMI, eyes nml inspection Ears, Nose, Throat Exam: normal ENT inspection, TMs normal, pharynx normal, moist mucous membranes Neck Exam: normal inspection, non-tender, supple, full range of motion Respiratory Exam: normal breath sounds, lungs clear, airway intact, No respiratory distress Cardiovascular Exam: regular rate/rhythm, normal heart sounds, normal peripheral pulses Gastrointestinal/Abdomen Exam: soft, normal bowel sounds, No tenderness, No mass Back Exam: normal inspection, normal range of motion, No CVA tenderness, No ve rtebral tenderness Extremity Exam: normal inspection, normal range of motion, pelvis stable Neurologic Exam: alert, cooperative, normal mood/affect, sensation nml, No motor deficits Skin Exam: normal color, warm, dry, No rash Lymphatic Exam: No adenopathy SpO2 Interpretation: normal SpO2: 96 O2 Delivery: Room Air - Course Nursing assessment & vital signs reviewed: Yes EKG Interpreted by Me: RATE (65, atrial paced complexes. Normal axis) - Radiology Exams Chest X-ray Interpretation: Teleradiologist Report (Right infrahilar infiltrate versus atelectasis. Tiny calcified lung granulomas) - CT Exams Head CT Interpretation: Tele-radiologist Report (Nonacute brain with remote lacunar infarcts) Ordered Tests: Active Orders 24 hr Category Date Time Status Auditing Manager STAT Care 11/21/21 13:27 Active EKG-ER Only STAT Care 11/21/21 13:26 Active IV Insertion STAT Care 11/21/21 13:26 Active Pulse Oximetry (ED) STAT Care 11/21/21 13:26 Active CHEST 1 VIEW (PORTABLE) Stat Exams 11/21/21 13:27 Completed HEAD WITHOUT CONTRAST [CT] Stat Exams 11/21/21 13:32 Completed CBC W DIFF Stat Lab 11/21/21 14:00 Completed CMP Stat Lab 11/21/21 14:00 Completed CULTURE,URINE Stat Lab 11/21/21 14:18 Received NT PRO BNP Stat Lab 11/21/21 14:00 Completed TROPONIN Q4H Lab 11/21/21 14:00 Completed TROPONIN Q4H Lab 11/21/21 17:30 Ordered TROPONIN Q4H Lab 11/21/21 21:30 Ordered TSH, 3RD Generation Stat Lab 11/21/21 14:00 Completed UA W/RFX CULTURE Stat Lab 11/21/21 14:18 Completed Medication Summary Generic Name Dose Route Start Last Admin Trade Name Freq PRN Reason Stop Dose Admin Sodium Chloride 1,000 mls @ 50 mls/hr 11/21/21 13:30 11/21/21 14:06 Sodium Chloride 0.9% 1000 Ml IV 12/21/21 13:29 50 mls/hr .Q20H VALERI Administration Discontinued Medications Generic Name Dose Route Start Last Admin Trade Name Freq PRN Reason Stop Dose Admin Ceftriaxone Sodium/Dextrose 1 g in 50 mls @ 100 mls/hr 11/21/21 15:24 11/21/21 16:22 Rocephin 1 Gm-D5w 50 Ml Bag IV 11/21/21 15:53 Infused STAT STA Infusion Ceftriaxone Sodium/Dextrose Confirm 11/21/21 15:37 Rocephin 1 Gm-D5w 50 Ml Bag Administered 11/21/21 15:38 Dose 1 g in 50 mls @ ud IV .K-MED ONE Lab/Rad Data: Laboratory Result Diagrams 11/21/21 14:00 11/21/21 14:00 Laboratory Results 11/21/21 11/21/21 11/21/21 Range/Units 15:42 14:18 14:00 WBC (4.0-10.5) x10^3/uL RBC (4.1-5.6) x10^6/uL Hgb (12.5-18.0) g/dL Hct (42-50) % MCV (78-100) fL MCH (26-32) pg MCHC (32-36) g/dL RDW (11.5-14.0) % Plt Count (150-450) x10^3/uL MPV (7.5-11.0) fL Gran % (36.0-66.0) % Immature Gran % (Auto) (0.00-0.4) % Nucleat RBC Rel Count (0.00-0.1) % Eos # (Auto) (0-0.5) x10^3/uL Immature Gran # (Auto) (0.00-0.03) x10^3u/L Absolute Lymphs (auto) (1.0-4.6) x10^3/uL Absolute Monos (auto) (0.0-1.3) x10^3/uL Absolute Nucleated RBC (0.00-0.01) x10^3u/L Lymphocytes % (24.0-44.0) % Monocytes % (0.0-12.0) % Eosinophils % (0.00-5.0) % Basophils % (0.0-0.4) % Absolute Granulocytes (1.4-6.9) x10^3/uL Basophils # (0-0.4) x10^3/uL Sodium (137-145) mmol/L Potassium (3.5-5.1) mmol/L Chloride (98-107) mmol/L Carbon Dioxide (22-30) mmol/L Anion Gap (5-15) MEQ/L BUN (9-20) mg/dL Creatinine (0.66-1.25) mg/dL Estimated GFR ML/MIN Glucose (74-106) mg/dL Calcium (8.4-10.2) mg/dL Total Bilirubin (0.2-1.3) mg/dL AST (17-59) U/L ALT (0-50) U/L Alkaline Phosphatase (38-126) U/L Troponin I < 0.012 (0.000-0.034) ng/mL NT-Pro-B Natriuret Pep (0-1800) pg/mL Serum Total Protein (6.3-8.2) g/dL Albumin (3.5-5.0) g/dL TSH 3rd Generation (0.47-4.68) mIU/L Urinalys Dipstick Clnc MAIN LAB Urine Color YELLOW (YELLOW) Urine Appearance CLOUDY (CLEAR) Urine pH 6.5 (5-6) Ur Specific [place] 1.015 (1.005-1.025) POC Urine Protein Conf 30 (Negative) Urine Ketones NEGATIVE (NEGATIVE) Urine Nitrite NEGATIVE (NEGATIVE) Urine Bilirubin NEGATIVE (NEGATIVE) Urine Urobilinogen 0.2 (0-1) mg/dL Urine Leukocytes LARGE (NEGATIVE) Urine WBC (Auto) >100 (0-5) /HPF Urine RBC (Auto) 3-5 (0-2) /HPF U Epithel Cells (Auto) NONE (FEW) /HPF Urine Bacteria (Auto) RARE (NEGATIVE) /HPF Urine RBC TRACE-INTACT (0-5) Vernon/ul Unidentified Crystals 25-50 (NEGATIVE) /HPF Urine Mucus (Auto) SLIGHT (NEGATIVE) /HPF Urine Yeast (Budding) Few (NEGATIVE) /HPF Ur Culture Indicated? YES Urine Glucose NEGATIVE (NEGATIVE) mg/dL Influenza Type A Ag NEGATIVE (NEGATIVE) Influenza Type B Ag NEGATIVE (NEGATIVE) RSV (PCR) NEGATIVE (Negative) SARS-CoV-2 (PCR) NEGATIVE (NEGATIVE) 11/21/21 11/21/21 Range/Units 14:00 14:00 WBC 9.2 (4.0-10.5) x10^3/uL RBC 3.38 L (4.1-5.6) x10^6/uL Hgb 11.4 L (12.5-18.0) g/dL Hct 34.4 L (42-50) % MCV 101.8 H (78-100) fL MCH 33.7 H (26-32) pg MCHC 33.1 (32-36) g/dL RDW 11.9 (11.5-14.0) % Plt Count 258 (150-450) x10^3/uL MPV 9.6 (7.5-11.0) fL Gran % 71.9 H (36.0-66.0) % Immature Gran % (Auto) 0.4 (0.00-0.4) % Nucleat RBC Rel Count 0.0 (0.00-0.1) % Eos # (Auto) 0.53 H (0-0.5) x10^3/uL Immature Gran # (Auto) 0.04 H (0.00-0.03) x10^3u/L Absolute Lymphs (auto) 1.26 (1.0-4.6) x10^3/uL Absolute Monos (auto) 0.68 (0.0-1.3) x10^3/uL Absolute Nucleated RBC 0.00 (0.00-0.01) x10^3u/L Lymphocytes % 13.7 L (24.0-44.0) % Monocytes % 7.4 (0.0-12.0) % Eosinophils % 5.8 H (0.00-5.0) % Basophils % 0.8 (0.0-0.4) % Absolute Granulocytes 6.63 (1.4-6.9) x10^3/uL Basophils # 0.07 (0-0.4) x10^3/uL Sodium 140 (137-145) mmol/L Potassium 4.3 (3.5-5.1) mmol/L Chloride 104 (98-107) mmol/L Carbon Dioxide 30 (22-30) mmol/L Anion Gap 11.3 (5-15) MEQ/L BUN 25 H (9-20) mg/dL Creatinine 1.54 H (0.66-1.25) mg/dL Estimated GFR 46.2 ML/MIN Glucose 106 (74-106) mg/dL Calcium 9.7 (8.4-10.2) mg/dL Total Bilirubin 0.30 (0.2-1.3) mg/dL AST 24 (17-59) U/L ALT 15 (0-50) U/L Alkaline Phosphatase 101 (38-126) U/L Troponin I (0.000-0.034) ng/mL NT-Pro-B Natriuret Pep 914 (0-1800) pg/mL Serum Total Protein 7.0 (6.3-8.2) g/dL Albumin 4.1 (3.5-5.0) g/dL TSH 3rd Generation 0.789 (0.47-4.68) mIU/L Urinalys Dipstick Clnc Urine Color (YELLOW) Urine Appearance (CLEAR) Urine pH (5-6) Ur Specific [place] (1.005-1.025) POC Urine Protein Conf (Negative) Urine Ketones (NEGATIVE) Urine Nitrite (NEGATIVE) Urine Bilirubin (NEGATIVE) Urine Urobilinogen (0-1) mg/dL Urine Leukocytes (NEGATIVE) Urine WBC (Auto) (0-5) /HPF Urine RBC (Auto) (0-2) /HPF U Epithel Cells (Auto) (FEW) /HPF Urine Bacteria (Auto) (NEGATIVE) /HPF Urine RBC (0-5) Vernon/ul Unidentified Crystals (NEGATIVE) /HPF Urine Mucus (Auto) (NEGATIVE) /HPF Urine Yeast (Budding) (NEGATIVE) /HPF Ur Culture Indicated? Urine Glucose (NEGATIVE) mg/dL Influenza Type A Ag (NEGATIVE) Influenza Type B Ag (NEGATIVE) RSV (PCR) (Negative) SARS-CoV-2 (PCR) (NEGATIVE) - Progress Progress: improved Progress Note: Patient reassessed. He is resting comfortably. Vital stable. Patient denies pain. Work-up reveals a urinary tract infection. There is some dehydration there as well. Patient received IV fluids as well as Rocephin antibiotic. CT scan negative for acute intracranial pathology. Patient's mental status may be resulting from the urinary tract infection. Case discussed with Dr. Olivas who excepts admission to observation. Plan of care discussed with patient and daughter they agree to admission [facility] for further evaluation and treatment. Portions of this note were created with voice recognition technology. There may be grammatical, spelling, punctuation or sound alike errors 11/21/21 16:52 Discussed with .: Jose A Will see patient in: hospital (observation) Counseled pt/family regarding: lab results, diagnosis, rad results - Departure Departure Disposition: Observation Clinical Impression: AMS (altered mental status), Lung granuloma, Dehydration, Macrocytic anemia, Elevated serum creatinine, UTI (urinary tract infection) Condition: Stable Critical Care Time: No Referrals: ARNOLD OLIVAS MD [Primary Care Provider] - Follow up/PCP as directed
[2021-11-21] MEDS ORDERED: Sodium Chloride 0.9% 1000 ML 1,000 ML ONE (13:55)
--- NOTE | 2021-11-21 13:58 | XRAY ---
Indication: Pneumonia. Acute mental status change. Comparison: October 03, 2021 Portable chest less inflated with now minimal right infrahilar infiltrate versus atelectasis. Remaining heart and lungs unremarkable again with incidental left pacemaker and a few tiny calcified granulomas.
--- NOTE | 2021-11-21 14:00 | XRAY ---
Indication: Acute mental status change. Status post fall. The cranial hemorrhage. Multiple contiguous axial images obtained through the head without contrast. Comparison: January 14, 2019 Again age-appropriate global atrophy, mild periventricular degenerative micro-ischemia bilaterally, and remote lacunar infarcts left caudate head/right basal ganglia. No acute intracranial hemorrhage, abnormal extra-axial fluid collection, or mass effect. Fourth ventricle is midline without hydrocephalus. Bony calvarium intact. Paranasal sinuses and mastoid air cells are clear. Impression: Continued nonacute senile brain with remote lacunar infarcts.
[2021-11-21 14:14] LABS: Absolute Neutrophil Ct (ANC) 6.63 x10^3/uL (1.4-6.9); Basophil (Absolute #) 0.07 x10^3/uL (0-0.4); Eosinophil % 5.8 % (0.00-5.0); Eosinophil (Absolute #) 0.53 x10^3/uL (0-0.5); Hematocrit 34.4 % (42-50); Hemoglobin 11.4 g/dL (12.5-18.0); Lymphocyte (Absolute #) 1.26 x10^3/uL (1.0-4.6); Lymphocytes % 13.7 % (24.0-44.0); Mean Cell Volume 101.8 fL (78-100); Mean Corpuscular Hemoglobin 33.7 pg (26-32); Mean Corpuscular Hgb Concent. 33.1 g/dL (32-36); Mean Platelet Volume 9.6 fL (7.5-11.0); Monocyte (Absolute #) 0.68 x10^3/uL (0.0-1.3); Monocytes % 7.4 % (0.0-12.0); Neutrophil % 71.9 % (36.0-66.0); Platelet Count 258 x10^3/uL (150-450); Red Blood Count 3.38 x10^6/uL (4.1-5.6); Red Cell Distribution Width 11.9 % (11.5-14.0); White Blood Count 9.2 x10^3/uL (4.0-10.5)
[2021-11-21 14:31] LABS: Appearance CLOUDY (CLEAR); Bilirubin NEGATIVE (NEGATIVE); Glucose NEGATIVE (NEGATIVE); Ketones NEGATIVE (NEGATIVE); Ph 6.5 (5-6); Protein,Urine Dip 30 (Negative); RBC TRACE-INTACT Ery/ul (0-5); Specific Gravity 1.015 (1.005-1.025); Urobilinogen 0.2 mg/dL (0-1)
[2021-11-21 14:32] LABS: Dipstick done @ ? MAIN LAB; Nitrite NEGATIVE (NEGATIVE)
[2021-11-21 14:51] LABS: ALBUMIN 4.1 g/dL (3.5-5.0); ANION GAP 11.3 MEQ/L (5-15); BILIRUBIN,TOTAL 0.3 mg/dL (0.2-1.3); Calcium 9.7 mg/dL (8.4-10.2); Creatinine 1 1.54 mg/dL (0.66-1.25); EST GLOMERULAR FILTRATION RATE 46.2 ML/MIN; Potassium 4.3 mmol/L (3.5-5.1); TSH, 3RD Generation 0.789 mIU/L (0.47-4.68)
[2021-11-21 15:18] LABS: Bacteria RARE /HPF (NEGATIVE); Crystals Unidentified 25-50 /HPF (NEGATIVE); Mucus SLIGHT /HPF (NEGATIVE); WBC >100 /HPF (0-5)
[2021-11-21 15:19] LABS: Budding Yeast Few /HPF (NEGATIVE)
[2021-11-21 15:20] LABS: Urine Cultured Indicated? YES
[2021-11-21] MEDS ORDERED: ROCEPHIN 1 Gm-D5w 50 ml Bag** 1 G/50 ML IVPB IV STA (15:24)
[2021-11-21] MEDS ORDERED: ROCEPHIN 1 Gm-D5w 50 ml Bag** 1 G/50 ML IVPB IV ONE (15:37)
[2021-11-21 16:26] LABS: INFLUENZA A NEGATIVE (NEGATIVE); INFLUENZA B NEGATIVE (NEGATIVE); RESPIRATORY SYNCTIAL VIRUS NEGATIVE (Negative); SARS-CoV-2 Xpert Express NEGATIVE (NEGATIVE)
[2021-11-21] MEDS ORDERED: TYLENOL 325 MG PO PRN (17:04)
[2021-11-21] MEDS ORDERED: COREG 12.5 MG PO ONE (22:00)
[2021-11-22 05:47] LABS: Absolute Neutrophil Ct (ANC) 5.04 x10^3/uL (1.4-6.9); Basophil (Absolute #) 0.09 x10^3/uL (0-0.4); Eosinophil % 6.3 % (0.00-5.0); Eosinophil (Absolute #) 0.49 x10^3/uL (0-0.5); Hematocrit 30.6 % (42-50); Hemoglobin 10.1 g/dL (12.5-18.0); Lymphocyte (Absolute #) 1.38 x10^3/uL (1.0-4.6); Lymphocytes % 17.8 % (24.0-44.0); Mean Cell Volume 102.7 fL (78-100); Mean Corpuscular Hemoglobin 33.9 pg (26-32); Mean Platelet Volume 10.1 fL (7.5-11.0); Monocyte (Absolute #) 0.74 x10^3/uL (0.0-1.3); Monocytes % 9.5 % (0.0-12.0); Neutrophil % 64.8 % (36.0-66.0); Platelet Count 246 x10^3/uL (150-450); Red Blood Count 2.98 x10^6/uL (4.1-5.6); Red Cell Distribution Width 12.2 % (11.5-14.0); White Blood Count 7.8 x10^3/uL (4.0-10.5)
[2021-11-22 06:53] LABS: ALBUMIN 3.7 g/dL (3.5-5.0); ANION GAP 8.9 MEQ/L (5-15); BILIRUBIN,TOTAL 0.4 mg/dL (0.2-1.3); Calcium 9.4 mg/dL (8.4-10.2); Creatinine 1 1.23 mg/dL (0.66-1.25); EST GLOMERULAR FILTRATION RATE 59.9 ML/MIN; Potassium 4.1 mmol/L (3.5-5.1); Total Protein 6.3 g/dL (6.3-8.2)
[2021-11-22] MEDS ORDERED: APRESOLINE 20 MG/ML INJ IV ONE (07:34)
--- NOTE | 2021-11-22 09:31 | PCM.HP ---
History of Present Illness - Chief Complaint Chief Complaint: Delirium, urinary tract infection History of Present Illness: is a 80 year old male who was brought to ER by ambulance yesterday, he was lightheaded and fell twice and EMS got him up and brought him to the ER. he complains of urinary frequency and hesitancy, was very confused on arrival as well. - Review of Systems Constitutional: No Symptoms Respiratory: No Cough, No Short Of Breath Cardiac: No Chest Pain, No Edema, No Syncope Genitourinary Symptoms: Frequency, Hesitancy Musculoskeletal: No Back Pain, No Neck Pain Skin: No Rash Neurological: Dizziness, No Focal Weakness, No Paralysis, No Seizure, No Sensory Changes Medications & Allergies Home Medications: Home Medication List Diltiazem HCl 240 mg [Cardizem CD 240 MG] 240 mg PO DAILY 01/02/16 [History Confirmed 11/21/21] Metformin HCl 500 mg [Glucophage 500 MG] 500 mg PO DAILY 01/02/16 [History Confirmed 11/21/21] Omeprazole 40 mg PO DAILY 02/25/20 [History Confirmed 11/21/21] Carvedilol 12.5 mg [Coreg 12.5 mg] 25 mg PO BID 06/09/20 [History Confirmed 11/21/21] Lutein 20 mg PO DAILY 09/27/20 [History Confirmed 11/21/21] Polyethylene Glycol 3350 17 gm [Miralax Powder 17GM PACKET] 17 gm PO DAILY #30 packet 11/09/20 [Rx Confirmed 11/21/21] Trazodone HCl 150 mg PO HS 09/30/21 [History Confirmed 11/21/21] Acetaminophen 325 mg [Tylenol 325 mg] 650 mg PO TID 10/01/21 [History Confirmed 11/21/21] Magnesium Oxide 400 mg [Mag-Ox 400] 400 mg PO DAILY 10/01/21 [History Confirmed 11/21/21] Timolol [Betimol] 5 ml OP BID 10/01/21 [History Confirmed 11/21/21] Furosemide 20 mg [Lasix 20 mg] 20 mg PO DAILY #7 tablet 10/02/21 [Rx Confirmed 11/21/21] Potassium Chloride 10 meq PO DAILY 11/21/21 [History Confirmed 11/21/21] Allergies/Adverse Reactions: Allergies Allergy/AdvReac Type Severity Reaction Status Date / Time doxazosin mesylate Allergy Itching Verified 11/21/21 17:10 [From Cardura] ezetimibe [From Zetia] Allergy Verified 11/21/21 17:10 iodine Allergy Hives Verified 11/21/21 17:10 latex Allergy Verified 11/21/21 17:10 prednisone Allergy Verified 11/21/21 17:10 simvastatin [From Zocor] Allergy Verified 11/21/21 17:10 Cadjinl-MWS-UwA Reductase Allergy Joint Aches Verified 11/21/21 17:10 Inhibitor [Ozlceqi-Kxp-Htx Reductase Inhibitor] duloxetine AdvReac Verified 11/21/21 17:10 milk AdvReac Verified 11/21/21 17:10 bananas Allergy Uncoded 11/21/21 17:10 iv contrast Allergy Hives Uncoded 11/21/21 17:10 - Past Medical History Past Medical History: Yes Neurological History: TIA ENT History: No Pertinent History Cardiac History: Coronary Artery Disease, Hypertension, Myocardial Infarction (MA), Other Respiratory History: No Pertinent History Endocrine Medical History: Diabetes Type II Musculoskelatal History: Degenerative Disk Disease GI Medical History: GERD History: Other Pyscho-Social History: No Pertinent History Male Reproductive Disorders: Prostate Cancer Comment: heart stent in 2007, Pt has a pacemaker, past MA, COVID-19 DX February 2020 - Past Surgical History Past Surgical History: Yes Neuro Surgical History: No Pertinent History Cardiac History: Angioplasty, Cardiac Stent, Pacemaker Respiratory Surgery: Other GI Surgical History: No Pertinent History Genitourinary Surgical Hx: No Pertinent History Musculskeletal Surgical Hx: No Pertinent History Male Surgical History: Prostate Surgery, Vasectomy, Other Other Surgical History: penile implant, back pain pump - Social History Smoking Status: Former smoker Exposure to second hand smoke: No Alcohol: None Drug Use: none Significant Family History: no pertinent family hx - Physical Exam Vital Signs: Vital Signs - 24 hr Temp Pulse Resp BP Pulse Ox 11/22/21 07:34 212/91 11/22/21 04:57 97.8 F 62 20 198/81 97 11/21/21 23:36 97.7 F 61 18 169/71 97 11/21/21 21:22 177/74 11/21/21 19:23 97.8 F 65 20 191/81 94 L 11/21/21 17:37 98.0 F 70 21 182/77 93 L 11/21/21 17:05 97.8 F 64 165/82 96 11/21/21 16:53 96 11/21/21 16:42 97.8 F 64 20 165/82 92 L 11/21/21 15:17 97.3 F 67 20 174/96 92 L 11/21/21 14:15 66 12 183/94 97 11/21/21 13:26 99 11/21/21 13:19 97.3 F 64 20 184/78 96 General Appearance: no apparent distress Neurologic Exam: alert, cooperative Respiratory Exam: normal breath sounds, lungs clear, No respiratory distress Cardiovascular Exam: regular rate/rhythm, normal heart sounds, normal peripheral pulses Gastrointestinal/Abdomen Exam: soft, normal bowel sounds, No tenderness, No mass Extremity Exam: other (right knee mild abrasion, no obvious swelling, tender posteriorly) Results - Labs Lab/Micro Results: Lab Results-Last 24 Hours 11/21/21 11/21/21 11/21/21 Range/Units 14:00 14:00 14:00 WBC 9.2 (4.0-10.5) x10^3/uL RBC 3.38 L (4.1-5.6) x10^6/uL Hgb 11.4 L (12.5-18.0) g/dL Hct 34.4 L (42-50) % MCV 101.8 H (78-100) fL MCH 33.7 H (26-32) pg MCHC 33.1 (32-36) g/dL RDW 11.9 (11.5-14.0) % Plt Count 258 (150-450) x10^3/uL MPV 9.6 (7.5-11.0) fL Gran % 71.9 H (36.0-66.0) % Immature Gran % (Auto) 0.4 (0.00-0.4) % Nucleat RBC Rel Count 0.0 (0.00-0.1) % Eos # (Auto) 0.53 H (0-0.5) x10^3/uL Immature Gran # (Auto) 0.04 H (0.00-0.03) x10^3u/L Absolute Lymphs (auto) 1.26 (1.0-4.6) x10^3/uL Absolute Monos (auto) 0.68 (0.0-1.3) x10^3/uL Absolute Nucleated RBC 0.00 (0.00-0.01) x10^3u/L Lymphocytes % 13.7 L (24.0-44.0) % Monocytes % 7.4 (0.0-12.0) % Eosinophils % 5.8 H (0.00-5.0) % Basophils % 0.8 (0.0-0.4) % Absolute Granulocytes 6.63 (1.4-6.9) x10^3/uL Basophils # 0.07 (0-0.4) x10^3/uL Sodium 140 (137-145) mmol/L Potassium 4.3 (3.5-5.1) mmol/L Chloride 104 (98-107) mmol/L Carbon Dioxide 30 (22-30) mmol/L Anion Gap 11.3 (5-15) MEQ/L BUN 25 H (9-20) mg/dL Creatinine 1.54 H (0.66-1.25) mg/dL Estimated GFR 46.2 ML/MIN Glucose 106 (74-106) mg/dL Calcium 9.7 (8.4-10.2) mg/dL Total Bilirubin 0.30 (0.2-1.3) mg/dL AST 24 (17-59) U/L ALT 15 (0-50) U/L Alkaline Phosphatase 101 (38-126) U/L Troponin I < 0.012 (0.000-0.034) ng/mL NT-Pro-B Natriuret Pep 914 (0-1800) pg/mL Serum Total Protein 7.0 (6.3-8.2) g/dL Albumin 4.1 (3.5-5.0) g/dL TSH 3rd Generation 0.789 (0.47-4.68) mIU/L Urinalys Dipstick Clnc Urine Color (YELLOW) Urine Appearance (CLEAR) Urine pH (5-6) Ur Specific [place] (1.005-1.025) POC Urine Protein Conf (Negative) Urine Ketones (NEGATIVE) Urine Nitrite (NEGATIVE) Urine Bilirubin (NEGATIVE) Urine Urobilinogen (0-1) mg/dL Urine Leukocytes (NEGATIVE) Urine WBC (Auto) (0-5) /HPF Urine RBC (Auto) (0-2) /HPF U Epithel Cells (Auto) (FEW) /HPF Urine Bacteria (Auto) (NEGATIVE) /HPF Urine RBC (0-5) Vernon/ul Unidentified Crystals (NEGATIVE) /HPF Urine Mucus (Auto) (NEGATIVE) /HPF Urine Yeast (Budding) (NEGATIVE) /HPF Ur Culture Indicated? Urine Glucose (NEGATIVE) mg/dL Influenza Type A Ag (NEGATIVE) Influenza Type B Ag (NEGATIVE) RSV (PCR) (Negative) SARS-CoV-2 (PCR) (NEGATIVE) 11/21/21 11/21/21 11/21/21 Range/Units 14:18 15:42 18:20 WBC (4.0-10.5) x10^3/uL RBC (4.1-5.6) x10^6/uL Hgb (12.5-18.0) g/dL Hct (42-50) % MCV (78-100) fL MCH (26-32) pg MCHC (32-36) g/dL RDW (11.5-14.0) % Plt Count (150-450) x10^3/uL MPV (7.5-11.0) fL Gran % (36.0-66.0) % Immature Gran % (Auto) (0.00-0.4) % Nucleat RBC Rel Count (0.00-0.1) % Eos # (Auto) (0-0.5) x10^3/uL Immature Gran # (Auto) (0.00-0.03) x10^3u/L Absolute Lymphs (auto) (1.0-4.6) x10^3/uL Absolute Monos (auto) (0.0-1.3) x10^3/uL Absolute Nucleated RBC (0.00-0.01) x10^3u/L Lymphocytes % (24.0-44.0) % Monocytes % (0.0-12.0) % Eosinophils % (0.00-5.0) % Basophils % (0.0-0.4) % Absolute Granulocytes (1.4-6.9) x10^3/uL Basophils # (0-0.4) x10^3/uL Sodium (137-145) mmol/L Potassium (3.5-5.1) mmol/L Chloride (98-107) mmol/L Carbon Dioxide (22-30) mmol/L Anion Gap (5-15) MEQ/L BUN (9-20) mg/dL Creatinine (0.66-1.25) mg/dL Estimated GFR ML/MIN Glucose (74-106) mg/dL Calcium (8.4-10.2) mg/dL Total Bilirubin (0.2-1.3) mg/dL AST (17-59) U/L ALT (0-50) U/L Alkaline Phosphatase (38-126) U/L Troponin I < 0.012 (0.000-0.034) ng/mL NT-Pro-B Natriuret Pep (0-1800) pg/mL Serum Total Protein (6.3-8.2) g/dL Albumin (3.5-5.0) g/dL TSH 3rd Generation (0.47-4.68) mIU/L Urinalys Dipstick Clnc MAIN LAB Urine Color YELLOW (YELLOW) Urine Appearance CLOUDY (CLEAR) Urine pH 6.5 (5-6) Ur Specific [place] 1.015 (1.005-1.025) POC Urine Protein Conf 30 (Negative) Urine Ketones NEGATIVE (NEGATIVE) Urine Nitrite NEGATIVE (NEGATIVE) Urine Bilirubin NEGATIVE (NEGATIVE) Urine Urobilinogen 0.2 (0-1) mg/dL Urine Leukocytes LARGE (NEGATIVE) Urine WBC (Auto) >100 (0-5) /HPF Urine RBC (Auto) 3-5 (0-2) /HPF U Epithel Cells (Auto) NONE (FEW) /HPF Urine Bacteria (Auto) RARE (NEGATIVE) /HPF Urine RBC TRACE-INTACT (0-5) Vernon/ul Unidentified Crystals 25-50 (NEGATIVE) /HPF Urine Mucus (Auto) SLIGHT (NEGATIVE) /HPF Urine Yeast (Budding) Few (NEGATIVE) /HPF Ur Culture Indicated? YES Urine Glucose NEGATIVE (NEGATIVE) mg/dL Influenza Type A Ag NEGATIVE (NEGATIVE) Influenza Type B Ag NEGATIVE (NEGATIVE) RSV (PCR) NEGATIVE (Negative) SARS-CoV-2 (PCR) NEGATIVE (NEGATIVE) 11/21/21 11/22/21 11/22/21 Range/Units 22:05 04:50 04:50 WBC 7.8 (4.0-10.5) x10^3/uL RBC 2.98 L (4.1-5.6) x10^6/uL Hgb 10.1 L (12.5-18.0) g/dL Hct 30.6 L (42-50) % MCV 102.7 H (78-100) fL MCH 33.9 H (26-32) pg MCHC 33.0 (32-36) g/dL RDW 12.2 (11.5-14.0) % Plt Count 246 (150-450) x10^3/uL MPV 10.1 (7.5-11.0) fL Gran % 64.8 (36.0-66.0) % Immature Gran % (Auto) 0.4 (0.00-0.4) % Nucleat RBC Rel Count 0.0 (0.00-0.1) % Eos # (Auto) 0.49 (0-0.5) x10^3/uL Immature Gran # (Auto) 0.03 (0.00-0.03) x10^3u/L Absolute Lymphs (auto) 1.38 (1.0-4.6) x10^3/uL Absolute Monos (auto) 0.74 (0.0-1.3) x10^3/uL Absolute Nucleated RBC 0.00 (0.00-0.01) x10^3u/L Lymphocytes % 17.8 L (24.0-44.0) % Monocytes % 9.5 (0.0-12.0) % Eosinophils % 6.3 H (0.00-5.0) % Basophils % 1.2 (0.0-0.4) % Absolute Granulocytes 5.04 (1.4-6.9) x10^3/uL Basophils # 0.09 (0-0.4) x10^3/uL Sodium 141 (137-145) mmol/L Potassium 4.1 (3.5-5.1) mmol/L Chloride 106 (98-107) mmol/L Carbon Dioxide 30 (22-30) mmol/L Anion Gap 8.9 (5-15) MEQ/L BUN 22 H (9-20) mg/dL Creatinine 1.23 (0.66-1.25) mg/dL Estimated GFR 59.9 ML/MIN Glucose 110 H (74-106) mg/dL Calcium 9.4 (8.4-10.2) mg/dL Total Bilirubin 0.40 (0.2-1.3) mg/dL AST 23 (17-59) U/L ALT 15 (0-50) U/L Alkaline Phosphatase 79 (38-126) U/L Troponin I < 0.012 (0.000-0.034) ng/mL NT-Pro-B Natriuret Pep (0-1800) pg/mL Serum Total Protein 6.3 (6.3-8.2) g/dL Albumin 3.7 (3.5-5.0) g/dL TSH 3rd Generation (0.47-4.68) mIU/L Urinalys Dipstick Clnc Urine Color (YELLOW) Urine Appearance (CLEAR) Urine pH (5-6) Ur Specific [place] (1.005-1.025) POC Urine Protein Conf (Negative) Urine Ketones (NEGATIVE) Urine Nitrite (NEGATIVE) Urine Bilirubin (NEGATIVE) Urine Urobilinogen (0-1) mg/dL Urine Leukocytes (NEGATIVE) Urine WBC (Auto) (0-5) /HPF Urine RBC (Auto) (0-2) /HPF U Epithel Cells (Auto) (FEW) /HPF Urine Bacteria (Auto) (NEGATIVE) /HPF Urine RBC (0-5) Vernon/ul Unidentified Crystals (NEGATIVE) /HPF Urine Mucus (Auto) (NEGATIVE) /HPF Urine Yeast (Budding) (NEGATIVE) /HPF Ur Culture Indicated? Urine Glucose (NEGATIVE) mg/dL Influenza Type A Ag (NEGATIVE) Influenza Type B Ag (NEGATIVE) RSV (PCR) (Negative) SARS-CoV-2 (PCR) (NEGATIVE) Microbiology 11/21/21 14:18 Urine Culture - Preliminary Clean Catch Midstream GRAM NEGATIVE ID AND SENSITIVITY PENDING Accuchecks Date 11/22/21 Time 05:00 - Radiology Impressions Radiology Exams & Impressions: Radiology Procedures Category Date Time Status BLADDER [US] Routine Exams 11/22/21 Ordered CHEST 1 VIEW (PORTABLE) Stat Exams 11/21/21 13:27 Completed HEAD WITHOUT CONTRAST [CT] Stat Exams 11/21/21 13:32 Completed KNEE (1 OR 2 VIEW) Routine Exams 11/22/21 Ordered Assessment/Plan (1) UTI (urinary tract infection) Current Visit: Yes Status: Acute Qualifiers: Assessment & Plan: gram negative ID pending, continue rocephin. check u/s to r/o retention Code(s): N39.0 - URINARY TRACT INFECTION, SITE NOT SPECIFIED (2) Dehydration Current Visit: Yes Status: Acute Assessment & Plan: replacing IV fluids. renal function improving. Code(s): E86.0 - DEHYDRATION (3) AMS (altered mental status) Current Visit: Yes Status: Acute Assessment & Plan: recent echo normal, head ct negative. likely related to uti and dehydration Code(s): R41.82 - ALTERED MENTAL STATUS, UNSPECIFIED
[2021-11-22] MEDS ORDERED: DILTIAZEM HCL 240 MG PO SCH (10:00)
[2021-11-22] MEDS ORDERED: NON-FORMULARY ITEM (Omeprazole [Omeprazole] 20 MG Capsule.Dr) PO SCH (10:00)
[2021-11-22] MEDS ORDERED: TIMOLOL OP SCH (10:00)
[2021-11-22] MEDS: ROCEPHIN 1 Gm-D5w 50 ml Bag** 1 G/50 ML IVPB IV SCH (10:07)
[2021-11-22] MEDS: Protonix 40MG Tablet PO SCH (10:08)
[2021-11-22] MEDS: Cardizem CD PO SCH (10:08)
[2021-11-22] MEDS: OCEAN Nasal Spray NS SCH ×3 (10:08→22:54)
[2021-11-22] MEDS: COREG 12.5 MG PO SCH ×2 (10:08→22:54)
[2021-11-22] MEDS: MAG-OX 400 PO SCH (10:08)
[2021-11-22] MEDS: Miralax Powder 17GM PACKET PO SCH (10:08)
--- NOTE | 2021-11-22 10:19 | XRAY ---
Indication: Pain following fall. Comparison: None Portable AP/lateral right knee demonstrates osteopenia and extensive scattered vascular calcifications. No other bony, articular, or soft tissue abnormalities.
--- NOTE | 2021-11-22 11:30 | XRAY ---
Indication: Urinary retention. Comparison: None Ultrasound urinary bladder performed. Prevoid volume is 89 cc with small right lateral bladder diverticulum. No other focal bladder abnormality. Normal right ureteral jet. Left ureteral jet not seen within the allotted exam time. Postvoid volume is 23 cc. Impression: Small bladder post void residual. Incidental right bladder diverticulum.
[2021-11-22] MEDS: Sodium Chloride 0.9% 1000 ML 1,000 ML IV SCH (15:10)
[2021-11-22] MEDS: TYLENOL 325 MG PO PRN ×2 (18:47→22:53)
[2021-11-22] MEDS: Apresoline 25 MG TABLET PO SCH ×2 (19:52→22:53)
[2021-11-23] MEDS: Sodium Chloride 0.9% 1000 ML 1,000 ML IV SCH ×2 (00:59→15:39)
[2021-11-23] MEDS ORDERED: Ativan 2 MG/1 ML VIAL ONE (03:49)
[2021-11-23 04:36] LABS: ANION GAP 19.5 MEQ/L (5-15); BILIRUBIN,TOTAL 0.5 mg/dL (0.2-1.3); Calcium 9.3 mg/dL (8.4-10.2); Creatinine 1 1.27 mg/dL (0.66-1.25); EST GLOMERULAR FILTRATION RATE 57.7 ML/MIN; MAGNESIUM 1.9 mg/dL (1.6-2.3); Potassium 3.8 mmol/L (3.5-5.1); Total Protein 6.7 g/dL (6.3-8.2)
[2021-11-23 04:37] LABS: Hematocrit 31.8 % (42-50); Hemoglobin 10.2 g/dL (12.5-18.0); Mean Cell Volume 103.9 fL (78-100); Mean Corpuscular Hemoglobin 33.3 pg (26-32); Mean Corpuscular Hgb Concent. 32.1 g/dL (32-36); Mean Platelet Volume 9.7 fL (7.5-11.0); Platelet Count 276 x10^3/uL (150-450); Red Blood Count 3.06 x10^6/uL (4.1-5.6); Red Cell Distribution Width 12.4 % (11.5-14.0)
--- NOTE | 2021-11-23 07:56 | XRAY ---
Indication: Seizure. Multiple contiguous axial images obtained through the head without contrast. Comparison: November 21, 2021 Again age-appropriate global atrophy, moderate periventricular degenerative micro-ischemia bilaterally, and remote lacunar infarcts left caudate head/right basal ganglia. No acute intracranial hemorrhage, abnormal extra-axial fluid collection, or mass effect. Fourth ventricle is midline without hydrocephalus. Bony calvarium intact. Visualized paranasal sinuses and mastoid air cells are clear. Impression: Continued nonacute senile brain with remote lacunar infarcts. Comment: Preliminary [facility]. No critical discrepancy.
[2021-11-23] MEDS: Apresoline 25 MG TABLET PO SCH ×3 (08:25→20:46)
[2021-11-23] MEDS: MAG-OX 400 PO SCH (08:25)
[2021-11-23] MEDS: Cardizem CD PO SCH (08:25)
[2021-11-23] MEDS: Protonix 40MG Tablet PO SCH (08:26)
[2021-11-23] MEDS: COREG 12.5 MG PO SCH ×2 (08:26→20:45)
[2021-11-23] MEDS: ROCEPHIN 1 Gm-D5w 50 ml Bag** 1 G/50 ML IVPB IV SCH (08:26)
[2021-11-23] MEDS: OCEAN Nasal Spray NS SCH ×3 (08:26→20:49)
[2021-11-23] MEDS: Miralax Powder 17GM PACKET PO SCH (08:29)
[2021-11-23] MEDS: TYLENOL 325 MG PO PRN ×3 (08:31→23:07)
--- NOTE | 2021-11-23 08:33 | PCM.NOTE ---
Date and Time: 11/23/21830 Subjective Assessment: Patient has an episode of seizure activity lasted for 1 minute at around 4 AM in the morning today. In last 24 hours patient blood pressure also has been running high so hydroxyzine was added. According to the nurse patient mental status came back to normal within few minutes after having his observed seizure activity. At this point of time patient is alert awake oriented. - Review of Systems Constitutional: No Fever, No Chills Eyes: No Symptoms Ears, Nose, & Throat: No Symptoms Respiratory: No Cough, No Short Of Breath Cardiac: No Chest Pain, No Edema, No Syncope Abdominal/Gastrointestinal: No Abdominal Pain, No Nausea, No Vomiting, No Diarrhea Genitourinary Symptoms: No Dysuria Musculoskeletal: No Back Pain, No Neck Pain Skin: No Rash Neurological: No Dizziness, No Focal Weakness, No Sensory Changes Psychological: No Symptoms Endocrine: No Symptoms Hematologic/Lymphatic: No Symptoms Immunological/Allergic: No Symptoms Objective Exam General Appearance: no apparent distress, alert Neurologic Exam: alert, oriented x 3, cooperative, normal mood/affect, nml ce rebellar function, sensation nml, No motor deficits Skin Exam: normal color, warm, dry Eye Exam: PERRL, EOMI, eyes nml inspection Ears, Nose, Throat Exam: normal ENT inspection, pharynx normal, moist mucous membranes Neck Exam: normal inspection, non-tender, supple, full range of motion Respiratory Exam: normal breath sounds, lungs clear, No respiratory distress Cardiovascular Exam: regular rate/rhythm, normal heart sounds Gastrointestinal/Abdomen Exam: soft, No tenderness, No mass Extremity Exam: normal inspection, normal range of motion Back Exam: normal inspection, normal range of motion, No CVA tenderness, No vertebral tenderness Male Genitalia Exam: deferred Rectal Exam: deferred OBJECTIVE DATA Vital Signs: Vital Signs - 24 hr Temp Pulse Resp BP Pulse Ox 11/23/21 07:26 98.0 F 73 16 191/84 93 L 11/23/21 04:00 97.1 F 63 20 158/94 96 11/23/21 02:00 97.6 F 65 16 153/68 11/22/21 22:53 97.8 F 61 16 188/84 95 11/22/21 20:12 98.2 F 64 16 200/86 96 11/22/21 18:00 195/85 11/22/21 12:00 97.5 F 68 17 187/81 96 11/22/21 10:07 186/93 Pain Assessment - Last Documented Pain Intensity 3 Pain Scale Used [facility] Intake and Output: Intake & Output 11/20/21 11/21/21 11/22/21 11/23/21 11:59 11:59 11:59 11:59 Intake Total 1360 2545 Output Total 2150 2550 Balance -790 -5 Weight 57 kg Lab Results: Lab Results-Last 24 Hours 11/23/21 11/23/21 Range/Units 04:19 04:19 WBC 12.0 H (4.0-10.5) x10^3/uL RBC 3.06 L (4.1-5.6) x10^6/uL Hgb 10.2 L (12.5-18.0) g/dL Hct 31.8 L (42-50) % MCV 103.9 H (78-100) fL MCH 33.3 H (26-32) pg MCHC 32.1 (32-36) g/dL RDW 12.4 (11.5-14.0) % Plt Count 276 (150-450) x10^3/uL MPV 9.7 (7.5-11.0) fL Sodium 138 (137-145) mmol/L Potassium 3.8 (3.5-5.1) mmol/L Chloride 104 (98-107) mmol/L Carbon Dioxide 18 L (22-30) mmol/L Anion Gap 19.5 H (5-15) MEQ/L BUN 17 (9-20) mg/dL Creatinine 1.27 H (0.66-1.25) mg/dL Estimated GFR 57.7 ML/MIN Glucose 159 H (74-106) mg/dL Calcium 9.3 (8.4-10.2) mg/dL Magnesium 1.9 (1.6-2.3) mg/dL Total Bilirubin 0.50 (0.2-1.3) mg/dL AST 41 (17-59) U/L ALT 30 (0-50) U/L Alkaline Phosphatase 90 (38-126) U/L Serum Total Protein 6.7 (6.3-8.2) g/dL Albumin 4.0 (3.5-5.0) g/dL Radiology Exams: Radiology Procedures Category Date Time Status BLADDER [US] Routine Exams 11/22/21 10:56 Completed CHEST 1 VIEW (PORTABLE) Stat Exams 11/21/21 13:27 Completed HEAD WITHOUT CONTRAST [CT] Stat Exams 11/21/21 13:32 Completed HEAD WITHOUT CONTRAST [CT] Stat Exams 11/23/21 04:05 Completed KNEE (1 OR 2 VIEW) Routine Exams 11/22/21 09:44 Completed Assessment/Plan (1) Seizure as late effect of cerebrovascular accident (CVA) Current Visit: Yes Status: Acute Assessment & Plan: Chief Complaint Diagnosis Delirium, urinary tract infection Allergies Allergy/AdvReac Type Severity Reaction Status Date / Time doxazosin mesylate Allergy Itching Verified 11/21/21 17:10 [From Cardura] ezetimibe [From Zetia] Allergy Verified 11/21/21 17:10 iodine Allergy Hives Verified 11/21/21 17:10 latex Allergy Verified 11/21/21 17:10 prednisone Allergy Verified 11/21/21 17:10 simvastatin [From Zocor] Allergy Verified 11/21/21 17:10 Lzhvnff-WZM-InQ Reductase Allergy Joint Aches Verified 11/21/21 17:10 Inhibitor [Ftqrmgo-Wsb-Xao Reductase Inhibitor] duloxetine AdvReac Verified 11/21/21 17:10 milk AdvReac Verified 11/21/21 17:10 bananas Allergy Uncoded 11/21/21 17:10 iv contrast Allergy Hives Uncoded 11/21/21 17:10 Vital Signs (Last 24 hours) Temp Pulse Resp BP Pulse Ox 11/23/21 07:26 98.0 F 73 16 191/84 93 L 11/23/21 04:00 97.1 F 63 20 158/94 96 11/23/21 02:00 97.6 F 65 16 153/68 11/22/21 22:53 97.8 F 61 16 188/84 95 11/22/21 20:12 98.2 F 64 16 200/86 96 11/22/21 18:00 195/85 11/22/21 12:00 97.5 F 68 17 187/81 96 11/22/21 10:07 186/93 Home Medications Medication Instructions Recorded Confirmed Last Taken Type Potassium Chloride 10 meq PO DAILY 11/21/21 11/21/21 Unknown History Current Medications Generic Name Dose Route Start Last Admin Trade Name Freq PRN Reason Stop Dose Admin Acetaminophen 650 mg 11/22/21 10:00 11/23/21 08:31 Acetaminophen 325 Mg Tablet PO 12/22/21 09:59 650 mg TID PRN PRN Administration Carvedilol 25 mg 11/22/21 10:00 11/23/21 08:26 Carvedilol 12.5 Mg Tablet PO 12/22/21 09:59 25 mg BID VALERI Administration Diltiazem HCl 240 mg 11/22/21 10:00 11/23/21 08:25 Diltiazem Hcl Cd 120 Mg Cap.Sr.24h PO 12/22/21 09:59 240 mg DAILY VALERI Administration Hydralazine HCl 50 mg 11/22/21 19:00 11/23/21 08:25 Hydralazine Hcl 25 Mg Tablet PO 12/22/21 18:59 50 mg TID VALERI Administration Sodium Chloride 1,000 mls @ 100 mls/hr 11/21/21 17:04 11/23/21 00:59 Sodium Chloride 0.9% 1000 Ml IV 12/21/21 17:03 100 mls/hr .Q10H VALERI Administration Ceftriaxone Sodium/Dextrose 1 g in 50 mls @ 100 mls/hr 11/22/21 10:00 11/23/21 08:26 Rocephin 1 Gm-D5w 50 Ml Bag IV 11/25/21 09:59 100 mls/hr Q24H10 VALERI Administration Magnesium Oxide 400 mg 11/22/21 10:00 11/23/21 08:25 Magnesium Oxide 400 Mg Tablet PO 12/22/21 09:59 400 mg DAILY VALERI Administration Pantoprazole Sodium 40 mg 11/22/21 10:00 11/23/21 08:26 Protonix (Pantoprazole) 40 Mg Tablet PO 12/22/21 09:59 40 mg DAILY VALERI Administration Polyethylene Glycol 17 gm 11/22/21 10:00 11/23/21 08:29 Polyethylene Glycol 3350 17 Gm Packet PO 12/22/21 09:59 17 gm DAILY VALERI Administration Sodium Chloride 1 ml 11/22/21 10:00 11/23/21 08:26 Sodium Chloride Nasal [place] 45 Ml Bottle NS 12/22/21 09:59 1 ml TID VALERI Administration Discontinued Medications Generic Name Dose Route Start Last Admin Trade Name Freq PRN Reason Stop Dose Admin Acetaminophen 650 mg 11/21/21 17:04 11/21/21 21:17 Acetaminophen 325 Mg Tablet PO 12/21/21 17:03 650 mg Q4H PRN PRN Administration PAIN AND/OR FEVER Carvedilol 25 mg 11/21/21 22:00 11/21/21 21:15 Carvedilol 12.5 Mg Tablet PO 11/21/21 22:01 25 mg ONCE ONE Administration Hydralazine HCl 10 mg 11/22/21 07:34 11/22/21 07:40 Hydralazine Hcl 20 Mg/Ml Vial IV 11/22/21 07:35 10 mg STAT ONE Administration Sodium Chloride 1,000 mls @ 50 mls/hr 11/21/21 13:30 11/21/21 14:06 Sodium Chloride 0.9% 1000 Ml IV 12/21/21 13:29 50 mls/hr .Q20H VALERI Administration Ceftriaxone Sodium/Dextrose 1 g in 50 mls @ 100 mls/hr 11/21/21 15:24 11/21/21 16:22 Rocephin 1 Gm-D5w 50 Ml Bag IV 11/21/21 15:53 Infused STAT STA Infusion Ceftriaxone Sodium/Dextrose Confirm 11/21/21 15:37 Rocephin 1 Gm-D5w 50 Ml Bag Administered 11/21/21 15:38 Dose 1 g in 50 mls @ ud IV .STK-MED ONE Sodium Chloride Confirm 11/21/21 13:55 Sodium Chloride 0.9% 1000 Ml Administered 11/21/21 13:56 Dose 1,000 mls @ ud .ROUTE .STK-MED ONE Lorazepam Confirm 11/23/21 03:49 Lorazepam 2 Mg/1 Ml 2 Mg Vial Administered 11/23/21 03:50 Dose 2 mg .ROUTE .STK-MED ONE Intake & Output (Last 24 hours) 11/20/21 11/21/21 11/22/21 11/23/21 11:59 11:59 11:59 11:59 Intake Total 1360 2545 Output Total 2150 2550 Balance -790 -5 Weight 57 kg Microbiology Results (Last 24 hours) 11/21/21 14:18 Clean Catch Midstream Urine Culture - Final Klebsiella Pneumoniae Laboratory Results (Last 24 hours) 11/23/21 11/23/21 04:19 04:19 WBC 12.0 H RBC 3.06 L Hgb 10.2 L Hct 31.8 L MCV 103.9 H MCH 33.3 H MCHC 32.1 RDW 12.4 Plt Count 276 MPV 9.7 Sodium 138 Potassium 3.8 Chloride 104 Carbon Dioxide 18 L Anion Gap 19.5 H BUN 17 Creatinine 1.27 H Estimated GFR 57.7 Glucose 159 H Calcium 9.3 Magnesium 1.9 Total Bilirubin 0.50 AST 41 ALT 30 Alkaline Phosphatase 90 Serum Total Protein 6.7 Albumin 4.0 Orders (Last 24 hours) Category Date Time Status BLADDER [US] Routine Exams 11/22/21 10:56 Completed HEAD WITHOUT CONTRAST [CT] Stat Exams 11/23/21 04:05 Completed KNEE (1 OR 2 VIEW) Routine Exams 11/22/21 09:44 Completed CBC Stat Lab 11/23/21 04:19 Completed CMP Stat Lab 11/23/21 04:19 Completed MAGNESIUM Stat Lab 11/23/21 04:19 Completed Acetaminophen 325 mg [Tylenol 325 mg] Med 11/22/21 10:00 Active 650 mg PO TID PRN PRN Carvedilol 12.5 mg [Coreg 12.5 mg] Med 11/22/21 10:00 Active 25 mg PO BID Ceftriaxone 1 GM/50 ML PREMIX* [ROCEPHIN 1 Gm-D5w 50 ml Med 11/22/21 10:00 Active Bag] 1 g in 50 ml IV Q24H10 Diltiazem HCl Cd [Cardizem CD ] Med 11/22/21 10:00 Active 240 mg PO DAILY HydrALAzine HCL 20 MG INJ [Apresoline 20 mg/ml Inj Med 11/22/21 07:34 Discontinued *] 10 mg IV STAT ONE HydrALAzine HCL 25 MG TAB [Apresoline 25 MG TABLET Med 11/22/21 19:00 Active *] 50 mg PO TID Lorazepam 2 mg/1 ml [Ativan 2 MG/1 ML VIAL] Med 11/23/21 03:49 Discontinued 2 mg .ROUTE .STK-MED ONE Magnesium Oxide 400 mg [Mag-Ox 400] Med 11/22/21 10:00 Active 400 mg PO DAILY PANTOPRAZOLE 40 mg Tablet [Protonix 40MG Tablet] Med 11/22/21 10:00 Active 40 mg PO DAILY Polyethylene Glycol 3350 17 gm [Miralax Powder 17GM Med 11/22/21 10:00 Active PACKET] 17 gm PO DAILY Sodium Chloride Nasal [place] [OCEAN Nasal [place]] Med 11/22/21 10:00 Active 1 ml NS TID Patient Care Notes (Last 24 hours) 11/23/21 05:21 Nursing Note by Nicolle Coronado pt had a seizure this shift, at approx 0348 lasting approx 1 min, vitals taken, Dr. Tate called, orders received and input, called Daughter(Liliana)she came in and is at bedside at this time, and pt appears to be sleeping. Pt had been anx ious this shift after finding out that his son was not staying the night, I attempted to reassure pt that I would be right outside his room at the nurses station and would be in to check on him every hour, and that if he needed anything in between times to just use his call light. Pt continued to seem anxious and was awake most of the night, pt was moaning seval times tonight, he is very hard of hearing, and when I tried to write asking if he needed anything or was in pain he told me no, but continued to moan off and on several times this shift. Initialized on 11/23/21 05:21 - END OF NOTE 11/23/21 04:22 SBAR Note by Nicolle Coronado SITUATION I am calling about CARLEY MCCOLLUM the patient's code status is Full Code The problem I am calling about is: pt had a 1 min seizure, no hx of seizures, vitals after seizure BP 158/94, P 63, R 20, O2 96 RA, T 97.1 ASSESSMENT RECOMMENDATION Physician notified at 0404 New Orders received: for head CT, CBC, CMP, orders input and depts called. Vital Signs (Last 4 hours) Temp Pulse Resp BP 11/23/21 02:00 97.6 F 65 16 153/68 Diagnois, Code Status Date of Arrival on Unit 11/21/21 Admitted From Emergency Dept Diagnosis Delirium, urinary tract infection Resucitation Status Full Code Intake and Output 12 Hours 11/22/21 11/23/21 18:59 06:59 Intake Total 1660 680 Output Total 1800 1100 Balance -140 -420 Intake: Intake, Oral Amount 1080 Intake, IV Amount 580 680 Output: Output, Urine Amount 1800 1100 Other: Number of Bowel Movements 1 0 Physical Assessment Anxiety Level Sleeping Mental Status Confused Patient Orientation Person,Place Coma Scale Total 13 Breath Sounds [Posterior Clear Bilateral Throughout] Breath Sounds [Anterior Clear Bilateral Throughout] Cardiac Rhythm-[facility] Paced Change from Baseline: No Bowel Sounds [All Quadrants] Present Abdomen Description Soft,Flat,Non-Tender Date [place] Cath Inserted 02/09/20 Urine Appearance Clear Urine Color Pale Skin Color Pale Skin Temperature Warm Pain Scale (Last 12 Hours) Pain Intensity 0 Pain Intensity 0 Pain Intensity 0 Pain Intensity 0 Pain Intensity 0 Pain Intensity 0 Pain Intensity 2 PAST MEDICAL HISTORY Neurological History TIA ENT History No Pertinent History Endocrine Medical History Diabetes Type II Respiratory History No Pertinent History Cardiac History Coronary Artery Disease,Hypertension,Myocardial Infarction ([place],Other GI Medical History GERD History Other Pyscho-Social History No Pertinent History Communicable Disease No Pertinent History Comment heart stent in 2007, Pt has a pacemaker, past [place] , COVID-19 DX February 2020 Orders (Last 12 Hours) Category Date Time Status HEAD WITHOUT CONTRAST [CT] Stat Exams 11/23/21 04:05 Ordered CBC Stat Lab 11/23/21 04:19 Received CMP Stat Lab 11/23/21 04:19 Received MAGNESIUM Stat Lab 11/23/21 04:19 Received HydrALAzine HCL 25 MG TAB [Apresoline 25 MG TABLET Med 11/22/21 19:00 Ordered *] 50 mg PO TID Nursing Notes (Last 12 hours) 11/22/21 22:54 Nursing Note by Migdalia Rivero Pt's vitals taken at 2255 at Nurse's request due to medication requirements. This nurse is acting as aide for unit tonight. Initialized on 11/22/21 22:54 - END OF NOTE 11/22/21 18:57 Nursing Note by Matilde Salguero CALLED AND REPORTED BLOOD PRESSURES TO DR. TATE. REC. THE FOLLOWING ORDER: HYDRALAZINE 50MG PO TID SCHEDULED. Initialized on 11/22/21 18:57 - END OF NOTE Active Visit Medications Generic Name Dose Route Start Last Admin Trade Name Freq PRN Reason Stop Dose Admin Acetaminophen 650 mg 11/22/21 10:00 11/22/21 22:53 Acetaminophen 325 Mg Tablet PO 12/22/21 09:59 650 mg TID PRN PRN Administration Carvedilol 25 mg 11/22/21 10:00 11/22/21 22:54 Carvedilol 12.5 Mg Tablet PO 12/22/21 09:59 25 mg BID VALERI Administration Diltiazem HCl 240 mg 11/22/21 10:00 11/22/21 10:08 Diltiazem Hcl Cd 120 Mg Cap.Sr.24h PO 12/22/21 09:59 240 mg DAILY VALERI Administration Hydralazine HCl 50 mg 11/22/21 19:00 11/22/21 22:53 Hydralazine Hcl 25 Mg Tablet PO 12/22/21 18:59 50 mg TID VALERI Administration Sodium Chloride 1,000 mls @ 100 mls/hr 11/21/21 17:04 11/23/21 00:59 Sodium Chloride 0.9% 1000 Ml IV 12/21/21 17:03 100 mls/hr .Q10H VALERI Administration Ceftriaxone Sodium/Dextrose 1 g in 50 mls @ 100 mls/hr 11/22/21 10:00 11/22/21 10:07 Rocephin 1 Gm-D5w 50 Ml Bag IV 11/25/21 09:59 100 mls/hr Q24H10 VALERI Administration Magnesium Oxide 400 mg 11/22/21 10:00 11/22/21 10:08 Magnesium Oxide 400 Mg Tablet PO 12/22/21 09:59 400 mg DAILY VALERI Administration Pantoprazole Sodium 40 mg 11/22/21 10:00 11/22/21 10:08 Protonix (Pantoprazole) 40 Mg Tablet PO 12/22/21 09:59 40 mg DAILY VALERI Administration Polyethylene Glycol 17 gm 11/22/21 10:00 11/22/21 10:08 Polyethylene Glycol 3350 17 Gm Packet PO 12/22/21 09:59 17 gm DAILY VALERI Administration Sodium Chloride 1 ml 11/22/21 10:00 11/22/21 22:54 Sodium Chloride Nasal [place] 45 Ml Bottle NS 12/22/21 09:59 1 ml TID VALERI Administration Home Medications Medication Instructions Recorded Confirmed Last Taken Type Potassium Chloride 10 meq PO DAILY 11/21/21 11/21/21 Unknown History Initialized on 11/23/21 04:22 - END OF NOTE 11/22/21 22:54 Nursing Note by Migdalia Rivero Pt's vitals taken at 2255 at Nurse's request due to medication requirements. This nurse is acting as aide for unit tonight. Initialized on 11/22/21 22:54 - END OF NOTE 11/22/21 18:57 Nursing Note by Matilde Salguero CALLED AND REPORTED BLOOD PRESSURES TO DR. TATE. REC. THE FOLLOWING ORDER: HYDRALAZINE 50MG PO TID SCHEDULED. Initialized on 11/22/21 18:57 - END OF NOTE 11/22/21 15:01 Nursing Note by Matilde Salguero PT AMBULATED IN HALLWAY WITH STAFF ASSIST X 1 WITHOUT COMPLAINTS OF PAIN AND/OR SOB. Initialized on 11/22/21 15:01 - END OF NOTE 11/22/21 10:26 LEAD [employer]ELOPER Note by Gabriela Pulido B/P was reported to the rounding nurse another B/P was taken @730AM with a reading of 203/86 and reported to the rounding nurse again. B/P will continue to be monitored by the rounding nurse and aide Initialized on 11/22/21 10:26 - END OF NOTE 11/22/21 09:33 Nursing Note by Matilde Salguero PT REPORTS DRY NARES. UPDATED DR. OLIVAS AND REC. ORDER FOR SALINE NASAL SPRAY TID. Initialized on 11/22/21 09:33 - END OF NOTE Code(s): I69.398 - OTHER SEQUELAE OF CEREBRAL INFARCTION; R56.9 - UNSPECIFIED CONVULSIONS (2) UTI (urinary tract infection) Current Visit: Yes Status: Acute Qualifiers: Code(s): N39.0 - URINARY TRACT INFECTION, SITE NOT SPECIFIED (3) HTN (hypertension) Current Visit: No Status: Chronic Qualifiers: Hypertension type: primary hypertension Qualified Code(s): I10 - Essential (primary) hypertension Code(s): I10 - ESSENTIAL (PRIMARY) HYPERTENSION (4) Renal insufficiency Current Visit: No Status: Chronic
[2021-11-23] MEDS ORDERED: Ativan 2 MG/1 ML VIAL IV PRN (15:33)
[2021-11-23] MEDS ORDERED: DICLOFENAC SODIUM TP PRN (18:17)
[2021-11-24 05:46] LABS: Absolute Neutrophil Ct (ANC) 6.19 x10^3/uL (1.4-6.9); Basophil (Absolute #) 0.07 x10^3/uL (0-0.4); Eosinophil % 1.5 % (0.00-5.0); Eosinophil (Absolute #) 0.13 x10^3/uL (0-0.5); Hematocrit 29.9 % (42-50); Hemoglobin 9.6 g/dL (12.5-18.0); Lymphocyte (Absolute #) 1.59 x10^3/uL (1.0-4.6); Lymphocytes % 17.9 % (24.0-44.0); Mean Cell Volume 103.1 fL (78-100); Mean Corpuscular Hemoglobin 33.1 pg (26-32); Mean Corpuscular Hgb Concent. 32.1 g/dL (32-36); Mean Platelet Volume 9.5 fL (7.5-11.0); Monocyte (Absolute #) 0.85 x10^3/uL (0.0-1.3); Monocytes % 9.6 % (0.0-12.0); Neutrophil % 69.7 % (36.0-66.0); Platelet Count 242 x10^3/uL (150-450); Red Cell Distribution Width 12.6 % (11.5-14.0); White Blood Count 8.9 x10^3/uL (4.0-10.5)
[2021-11-24 05:51] LABS: Appearance CLEAR (CLEAR); Mucus SLIGHT /HPF (NEGATIVE)
[2021-11-24 05:52] LABS: Bilirubin NEGATIVE (NEGATIVE); Dipstick done @ ? MAIN LAB; Glucose NEGATIVE (NEGATIVE); Ketones MODERATE-40 (NEGATIVE); Nitrite NEGATIVE (NEGATIVE); Ph 5.5 (5-6); Protein,Urine Dip 30 (Negative); RBC NEGATIVE Ery/ul (0-5); Specific Gravity 1.025 (1.005-1.025); Urobilinogen 0.2 mg/dL (0-1)
[2021-11-24 05:53] LABS: Urine Cultured Indicated? NO
[2021-11-24 05:55] LABS: ALBUMIN 3.7 g/dL (3.5-5.0); ALKALINE PHOSPHATASE 74 U/L (38-126); BLOOD UREA NITROGEN 12 mg/dL (9-20); CHLORIDE 105 mmol/L (98-107); Calcium 9.2 mg/dL (8.4-10.2); Carbon Dioxide 23 mmol/L (22-30); Creatinine 1 1.07 mg/dL (0.66-1.25); EST GLOMERULAR FILTRATION RATE > 60.0 ML/MIN; Glucose 118 mg/dL (74-106); Potassium 3.4 mmol/L (3.5-5.1); SGOT/AST 37 U/L (17-59); SGPT/ALT 18 U/L (0-50); SODIUM 137 mmol/L (137-145); Total Protein 6.4 g/dL (6.3-8.2)
--- NOTE | 2021-11-24 08:39 | XRAY ---
Indication: Lethargy. Comparison: November 21, 2021 Portable chest inflated and now clear again with a few incidental tiny left lung calcified granulomas. Heart not enlarged again with left pacemaker. No new/acute findings. Impression: Nonacute chest with again chronic features.
[2021-11-24] MEDS: TYLENOL 325 MG PO PRN (09:28)
[2021-11-24] MEDS: COREG 12.5 MG PO SCH (09:30)
[2021-11-24] MEDS: Cardizem CD PO SCH (09:30)
[2021-11-24] MEDS: Apresoline 25 MG TABLET PO SCH (09:30)
[2021-11-24] MEDS: MAG-OX 400 PO SCH (09:30)
[2021-11-24] MEDS: ROCEPHIN 1 Gm-D5w 50 ml Bag** 1 G/50 ML IVPB IV SCH (09:31)
[2021-11-24] MEDS: Miralax Powder 17GM PACKET PO SCH (09:31)
[2021-11-24] MEDS: OCEAN Nasal Spray NS SCH (09:31)
[2021-11-24] MEDS: Protonix 40MG Tablet PO SCH (09:31)
[2021-11-24 10:06] VITALS: O2SAT 95
[2021-11-24 12:04] VITALS: BP 154/71; PULSE 63
--- NOTE | 2021-11-24 13:47 | PCM.DS ---
Discharge Summary Date of Admission: 11/21/21 17:02 Admitting Physician: ARNOLD BAKER Primary Care Provider: ARNOLD BAKER Allergies Allergies doxazosin mesylate [From Cardura] Allergy (Verified 11/21/21 17:10) Itching ezetimibe [From Zetia] Allergy (Verified 11/21/21 17:10) iodine Allergy (Verified 11/21/21 17:10) Hives latex Allergy (Verified 11/21/21 17:10) prednisone Allergy (Verified 11/21/21 17:10) states "homicidal" simvastatin [From Zocor] Allergy (Verified 11/21/21 17:10) Dcrqztj-LYG-RhL Reductase Inhibitor [Wpozfpx-Ike-Wwb Reductase Inhibitor] Allergy (Verified 11/21/21 17:10) Joint Aches duloxetine Adverse Reaction (Verified 11/21/21 17:10) milk Adverse Reaction (Verified 11/21/21 17:10) bananas Allergy (Uncoded 11/21/21 17:10) iv contrast Allergy (Uncoded 11/21/21 17:10) [facility] Summary - Hospital Course Hospital Course: Chief Complaint Diagnosis Delirium, urinary tract infection Allergies Allergy/AdvReac Type Severity Reaction Status Date / Time doxazosin mesylate Allergy Itching Verified 11/21/21 17:10 [From Cardura] ezetimibe [From Zetia] Allergy Verified 11/21/21 17:10 iodine Allergy Hives Verified 11/21/21 17:10 latex Allergy Verified 11/21/21 17:10 prednisone Allergy Verified 11/21/21 17:10 simvastatin [From Zocor] Allergy Verified 11/21/21 17:10 Assgxwe-QHV-XxH Reductase Allergy Joint Aches Verified 11/21/21 17:10 Inhibitor [Cggnphp-Wev-Jrr Reductase Inhibitor] duloxetine AdvReac Verified 11/21/21 17:10 milk AdvReac Verified 11/21/21 17:10 bananas Allergy Uncoded 11/21/21 17:10 iv contrast Allergy Hives Uncoded 11/21/21 17:10 Vital Signs (Last 24 hours) Temp Pulse Resp BP Pulse Ox 11/24/21 12:03 97.7 F 63 16 154/71 95 11/24/21 09:00 97.9 F 66 18 176/74 95 09/18/22 05:15 98.0 F 68 20 195/86 94 L 11/24/21 00:00 99.3 F 62 20 177/75 93 L 11/23/21 19:57 99.3 F 62 18 177/78 94 L 11/23/21 15:20 98.8 F 60 18 184/75 93 L Home Medications Medication Instructions Recorded Confirmed Last Taken Type Potassium Chloride 10 meq PO DAILY 11/21/21 11/21/21 Unknown History Aspirin [Aspirin EC] 81 mg PO DAILY 30 Days #30 tablet 11/24/21 Unknown Rx HydrALAzine HCL 25 MG TAB 50 mg PO BID 30 Days #60 tablet 11/24/21 Unknown Rx [Apresoline 25 MG TABLET] cephALEXin [Cephalexin] 500 mg PO BID 7 Days #14 tablet 11/24/21 Unknown Rx Current Medications Generic Name Dose Route Start Last Admin Trade Name Freq PRN Reason Stop Dose Admin Acetaminophen 650 mg 11/22/21 10:00 11/24/21 09:28 Acetaminophen 325 Mg Tablet PO 12/22/21 09:59 650 mg TID PRN PRN Administration Carvedilol 25 mg 11/22/21 10:00 11/24/21 09:30 Carvedilol 12.5 Mg Tablet PO 12/22/21 09:59 25 mg BID VALERI Administration Diclofenac Sodium 2 gm 11/23/21 18:17 11/23/21 18:49 Diclofenac Sodium 100 Gm Gel..Gram. TP 12/23/21 18:16 2 gm QID PRN PRN Administration PAIN Diltiazem HCl 240 mg 11/22/21 10:00 11/24/21 09:30 Diltiazem Hcl Cd 120 Mg Cap.Sr.24h PO 12/22/21 09:59 240 mg DAILY VALERI Administration Hydralazine HCl 50 mg 11/22/21 19:00 11/24/21 09:30 Hydralazine Hcl 25 Mg Tablet PO 12/22/21 18:59 50 mg TID VALERI Administration Sodium Chloride 1,000 mls @ 100 mls/hr 11/21/21 17:04 11/23/21 15:39 Sodium Chloride 0.9% 1000 Ml IV 12/21/21 17:03 100 mls/hr .Q10H VALERI Administration Ceftriaxone Sodium/Dextrose 1 g in 50 mls @ 100 mls/hr 11/22/21 10:00 11/24/21 09:31 Rocephin 1 Gm-D5w 50 Ml Bag IV 11/26/21 09:59 100 mls/hr Q24H10 VALERI Administration Lorazepam 1 mg 11/23/21 15:33 Lorazepam 2 Mg/1 Ml 2 Mg Vial IV 12/23/21 15:32 Q4H PRN PRN SEIZURES Magnesium Oxide 400 mg 11/22/21 10:00 11/24/21 09:30 Magnesium Oxide 400 Mg Tablet PO 12/22/21 09:59 400 mg DAILY VALERI Administration Pantoprazole Sodium 40 mg 11/22/21 10:00 11/24/21 09:31 Protonix (Pantoprazole) 40 Mg Tablet PO 12/22/21 09:59 40 mg DAILY VALERI Administration Polyethylene Glycol 17 gm 11/22/21 10:00 11/24/21 09:31 Polyethylene Glycol 3350 17 Gm Packet PO 12/22/21 09:59 Not Given DAILY VALERI Sodium Chloride 1 ml 11/22/21 10:00 11/24/21 09:31 Sodium Chloride Nasal [place] 45 Ml Bottle NS 12/22/21 09:59 1 ml TID VALERI Administration Discontinued Medications Generic Name Dose Route Start Last Admin Trade Name Freq PRN Reason Stop Dose Admin Acetaminophen 650 mg 11/21/21 17:04 11/21/21 21:17 Acetaminophen 325 Mg Tablet PO 12/21/21 17:03 650 mg Q4H PRN PRN Administration PAIN AND/OR FEVER Carvedilol 25 mg 11/21/21 22:00 11/21/21 21:15 Carvedilol 12.5 Mg Tablet PO 11/21/21 22:01 25 mg ONCE ONE Administration Hydralazine HCl 10 mg 11/22/21 07:34 11/22/21 07:40 Hydralazine Hcl 20 Mg/Ml Vial IV 11/22/21 07:35 10 mg STAT ONE Administration Sodium Chloride 1,000 mls @ 50 mls/hr 11/21/21 13:30 11/21/21 14:06 Sodium Chloride 0.9% 1000 Ml IV 12/21/21 13:29 50 mls/hr .Q20H VALERI Administration Ceftriaxone Sodium/Dextrose 1 g in 50 mls @ 100 mls/hr 11/21/21 15:24 11/21/21 16:22 Rocephin 1 Gm-D5w 50 Ml Bag IV 11/21/21 15:53 Infused STAT STA Infusion Ceftriaxone Sodium/Dextrose Confirm 11/21/21 15:37 Rocephin 1 Gm-D5w 50 Ml Bag Administered 11/21/21 15:38 Dose 1 g in 50 mls @ ud IV .STK-MED ONE Sodium Chloride Confirm 11/21/21 13:55 Sodium Chloride 0.9% 1000 Ml Administered 11/21/21 13:56 Dose 1,000 mls @ ud .ROUTE .STK-MED ONE Lorazepam Confirm 11/23/21 03:49 Lorazepam 2 Mg/1 Ml 2 Mg Vial Administered 11/23/21 03:50 Dose 2 mg .ROUTE .STK-MED ONE Intake & Output (Last 24 hours) 11/22/21 11/23/21 11/24/21 11/25/21 11:59 11:59 11:59 11:59 Intake Total 1360 2585 560 Output Total 2150 3150 450 Balance -790 -565 110 Weight 57 kg Laboratory Results (Last 24 hours) 11/24/21 11/24/21 11/24/21 05:30 05:25 05:25 WBC 8.9 RBC 2.90 L Hgb 9.6 L Hct 29.9 L MCV 103.1 H MCH 33.1 H MCHC 32.1 RDW 12.6 Plt Count 242 MPV 9.5 Gran % 69.7 H Immature Gran % (Auto) 0.5 H Nucleat RBC Rel Count 0.0 Eos # (Auto) 0.13 Immature Gran # (Auto) 0.04 H Absolute Lymphs (auto) 1.59 Absolute Monos (auto) 0.85 Absolute Nucleated RBC 0.00 Lymphocytes % 17.9 L Monocytes % 9.6 Eosinophils % 1.5 Basophils % 0.8 Absolute Granulocytes 6.19 Basophils # 0.07 Sodium 137 Potassium 3.4 L Chloride 105 Carbon Dioxide 23 Anion Gap 12.0 BUN 12 Creatinine 1.07 Estimated GFR > 60.0 Glucose 118 H Calcium 9.2 Total Bilirubin 0.50 AST 37 ALT 18 Alkaline Phosphatase 74 Serum Total Protein 6.4 Albumin 3.7 Urinalys Dipstick Clnc MAIN LAB Urine Color YELLOW Urine Appearance CLEAR Urine pH 5.5 Ur Specific [place] 1.025 POC Urine Protein Conf 30 Urine Ketones MODERATE-40 Urine Nitrite NEGATIVE Urine Bilirubin NEGATIVE Urine Urobilinogen 0.2 Urine Leukocytes NEGATIVE Urine WBC (Auto) NONE Urine RBC (Auto) NONE U Epithel Cells (Auto) NONE Urine Bacteria (Auto) NONE Urine RBC NEGATIVE Urine Mucus (Auto) SLIGHT Ur Culture Indicated? NO Urine Glucose NEGATIVE Orders (Last 24 hours) Category Date Time Status Discharge Routine Discharge 11/24/21 Ordered CHEST 1 VIEW (PORTABLE) Routine Exams 11/24/21 06:00 Completed CBC W DIFF AM.LAB Lab 11/24/21 05:25 Completed CBC W DIFF AM.LAB Lab 11/25/21 04:00 Ordered CMP AM.LAB Lab 11/24/21 05:25 Completed CMP AM.LAB Lab 11/25/21 04:00 Ordered UA W/RFX CULTURE Routine Lab 11/24/21 05:30 Completed Diclofenac Sodium Med 11/23/21 18:17 Active 2 gm TP QID PRN PRN Lorazepam 2 mg/1 ml [Ativan 2 MG/1 ML VIAL] Med 11/23/21 15:33 Active 1 mg IV Q4H PRN PRN Patient Care Notes (Last 24 hours) 11/24/21 13:15 Nursing Note by Sarah Pearl This nurse rounded with Dr. Shay. Ok to discharge home with family. Follow up with Dr. Baker this week. Family would like Home health care. Information relayed to Vee Palacios who will make home care arrangements on Thursday. Patient to take aspirin 81 mg po daily and cephalaxin 500 mg po bid x 7 days and continue home medications. Initialized on 11/24/21 13:15 - END OF NOTE - Vitals & Intake/Output Vital Signs: Vital Signs Temperature 97.7 F 11/24/21 12:03 Pulse Rate 63 11/24/21 12:03 Respiratory Rate 16 11/24/21 12:03 Blood Pressure 154/71 11/24/21 12:03 O2 Sat by Pulse Oximetry 95 11/24/21 12:03 Intake & Output: Intake & Output 11/22/21 11/23/21 11/24/21 11/25/21 11:59 11:59 11:59 11:59 Intake Total 1360 2585 560 Output Total 2150 3150 450 Balance -790 -565 110 Weight 57 kg - Lab Result Diagrams: 11/24/21 05:25 11/24/21 05:25 Lab Results-Last 24 Hrs: Lab Results-Last 24 Hours 11/24/21 11/24/21 11/24/21 Range/Units 05:25 05:25 05:30 WBC 8.9 (4.0-10.5) x10^3/uL RBC 2.90 L (4.1-5.6) x10^6/uL Hgb 9.6 L (12.5-18.0) g/dL Hct 29.9 L (42-50) % MCV 103.1 H (78-100) fL MCH 33.1 H (26-32) pg MCHC 32.1 (32-36) g/dL RDW 12.6 (11.5-14.0) % Plt Count 242 (150-450) x10^3/uL MPV 9.5 (7.5-11.0) fL Gran % 69.7 H (36.0-66.0) % Immature Gran % (Auto) 0.5 H (0.00-0.4) % Nucleat RBC Rel Count 0.0 (0.00-0.1) % Eos # (Auto) 0.13 (0-0.5) x10^3/uL Immature Gran # (Auto) 0.04 H (0.00-0.03) x10^3u/L Absolute Lymphs (auto) 1.59 (1.0-4.6) x10^3/uL Absolute Monos (auto) 0.85 (0.0-1.3) x10^3/uL Absolute Nucleated RBC 0.00 (0.00-0.01) x10^3u/L Lymphocytes % 17.9 L (24.0-44.0) % Monocytes % 9.6 (0.0-12.0) % Eosinophils % 1.5 (0.00-5.0) % Basophils % 0.8 (0.0-0.4) % Absolute Granulocytes 6.19 (1.4-6.9) x10^3/uL Basophils # 0.07 (0-0.4) x10^3/uL Sodium 137 (137-145) mmol/L Potassium 3.4 L (3.5-5.1) mmol/L Chloride 105 (98-107) mmol/L Carbon Dioxide 23 (22-30) mmol/L Anion Gap 12.0 (5-15) MEQ/L BUN 12 (9-20) mg/dL Creatinine 1.07 (0.66-1.25) mg/dL Estimated GFR > 60.0 ML/MIN Glucose 118 H (74-106) mg/dL Calcium 9.2 (8.4-10.2) mg/dL Total Bilirubin 0.50 (0.2-1.3) mg/dL AST 37 (17-59) U/L ALT 18 (0-50) U/L Alkaline Phosphatase 74 (38-126) U/L Serum Total Protein 6.4 (6.3-8.2) g/dL Albumin 3.7 (3.5-5.0) g/dL Urinalys Dipstick Clnc MAIN LAB Urine Color YELLOW (YELLOW) Urine Appearance CLEAR (CLEAR) Urine pH 5.5 (5-6) Ur Specific [place] 1.025 (1.005-1.025) POC Urine Protein Conf 30 (Negative) Urine Ketones MODERATE-40 (NEGATIVE) Urine Nitrite NEGATIVE (NEGATIVE) Urine Bilirubin NEGATIVE (NEGATIVE) Urine Urobilinogen 0.2 (0-1) mg/dL Urine Leukocytes NEGATIVE (NEGATIVE) Urine WBC (Auto) NONE (0-5) /HPF Urine RBC (Auto) NONE (0-2) /HPF U Epithel Cells (Auto) NONE (FEW) /HPF Urine Bacteria (Auto) NONE (NEGATIVE) /HPF Urine RBC NEGATIVE (0-5) [place]/ul Urine Mucus (Auto) SLIGHT (NEGATIVE) /HPF Ur Culture Indicated? NO Urine Glucose NEGATIVE (NEGATIVE) mg/dL Micro Results-Entire Visit: Microbiology 11/21/21 14:18 Urine Culture - Final Clean Catch Midstream Klebsiella Pneumoniae Accuchecks Date 11/24/21 - Radiology Exams Ordered Rad Exams-Entire Visit: Radiology Procedures Category Date Time Status CHEST 1 VIEW (PORTABLE) Routine Exams 11/24/21 06:00 Completed HEAD WITHOUT CONTRAST [CT] Stat Exams 11/23/21 04:05 Completed Discharge Exam General Appearance: no apparent distress, alert Neurologic Exam: alert, oriented x 3, cooperative, normal mood/affect, nml cerebellar function, sensation nml, No motor deficits Eye Exam: PERRL, EOMI, eyes nml inspection Ears, Nose, Throat Exam: normal ENT inspection, pharynx normal, moist mucous membranes Neck Exam: normal inspection, non-tender, supple, full range of motion Respiratory Exam: normal breath sounds, lungs clear, No respiratory distress Cardiovascular Exam: regular rate/rhythm, normal heart sounds Gastrointestinal/Abdomen Exam: soft, No tenderness, No mass Male Genitalia Exam: deferred Rectal Exam: deferred Back Exam: normal inspection, normal range of motion, No CVA tenderness, No vertebral tenderness Extremity Exam: normal inspection, normal range of motion Skin Exam: normal color, warm, dry Final Diagnosis/Problem List - Final Discharge Diagnosis/Problem (1) Seizure as late effect of cerebrovascular accident (CVA) Current Visit: Yes Status: Resolved Code(s): I69.398 - OTHER SEQUELAE OF CEREBRAL INFARCTION; R56.9 - UNSPECIFIED CONVULSIONS (2) UTI (urinary tract infection) Current Visit: Yes Status: Resolved Code(s): N39.0 - URINARY TRACT INFECTION, SITE NOT SPECIFIED (3) HTN (hypertension) Current Visit: Yes Status: Chronic Code(s): I10 - ESSENTIAL (PRIMARY) HYPERTENSION (4) Renal insufficiency Current Visit: Yes Status: Chronic - Discharge Discharge Date: 11/24/21 Disposition: Home, Self-Care Condition: Stable Prescriptions: New Aspirin [Aspirin EC] 81 mg PO DAILY 30 Days #30 tablet cephALEXin [Cephalexin] 500 mg PO BID 7 Days #14 tablet HydrALAzine HCL 25 MG TAB [Apresoline 25 MG TABLET] 50 mg PO BID 30 D ays #60 tablet Continue Diltiazem HCl 240 mg [Cardizem CD 240 MG] 240 mg PO DAILY Metformin HCl 500 mg [Glucophage 500 MG] 500 mg PO DAILY Omeprazole 40 mg PO DAILY Carvedilol 12.5 mg [Coreg 12.5 mg] 25 mg PO BID Lutein 20 mg PO DAILY Polyethylene Glycol 3350 17 gm [Miralax Powder 17GM PACKET] 17 gm PO DAILY #30 packet Acetaminophen 325 mg [Tylenol 325 mg] 650 mg PO TID Timolol [Betimol] 5 ml OP BID Magnesium Oxide 400 mg [Mag-Ox 400] 400 mg PO DAILY Furosemide 20 mg [Lasix 20 mg] 20 mg PO DAILY #7 tablet Potassium Chloride 10 meq PO DAILY Discontinued Trazodone HCl 150 mg PO HS Instructions: Transient Ischemic Attack (DC) Additional Instructions: Call to schedule follow up with Dr. Baker in 3-4 days. [phone] Follow up with: ARNOLD BAKER MD [Primary Care Provider] - Forms: Discharge Instructions
== END 2021-11-24 15:42 | disposition home or self-care (01) ==
LOC: ED 13:18 → MED SURG 17:02
PROVIDERS: ADMIT Family Medicine; ATTEND Family Medicine
DX: I69.398 Other sequelae of cerebral infarction (principal); R56.9 Unspecified convulsions; N39.0 Urinary tract infection, site not specified; E11.22 Type 2 diabetes mellitus with diabetic chronic kidney disease; I12.9 Hypertensive chronic kidney disease with stage 1 through stage 4 chronic kidney disease, or unspecified chronic kidney disease; N18.9 Chronic kidney disease, unspecified; I25.10 Atherosclerotic heart disease of native coronary artery without angina pectoris; W18.30XA Fall on same level, unspecified, initial encounter; E86.0 Dehydration; R41.82 Altered mental status, unspecified; Z79.899 Other long term (current) drug therapy; Z20.828 Contact with and (suspected) exposure to other viral communicable diseases; Z85.46 Personal history of malignant neoplasm of prostate
CPT/HCPCS: 0241U; 36000; 36415; 70450; 71045; 73560; 76705; 80053; 81015; 83735; 83880; 84443; 84484; 85025; 85027; 87077; 87086; 87186; 93005; 93041; 94760; 99285; 93268; J0360; J0696; J2060; A9270-GY; G0378

== ENCOUNTER 2022-03-25 18:20 | Emergency (ER) | payer MEDICARE ==
--- NOTE | 2022-03-25 18:28 | ERPHSYRPT ---
- History of Present Illness Time Seen by Provider: 03/25/22 18:27 Source: patient Exam Limitations: no limitations Patient Subjective Stated Complaint: PT states "I was in the car going to get food and all of a sudden I had horrible pain in my left elbow. It hurts when I move it." Triage Nursing Assessment: PT presented alert and oriented X 3, skin pwd. pt ambulates with an upright steady gait, able to speak in clear full sentences pt is extremely hard of hearing. Physician History: This is an 81-year-old white male who was driving in his car when he suddenly experienced severe pain in his left elbow without any acute trauma. He denies shortness of breath. He never had any chest pain or back pain. Patient states the pain hurt worse when he was moving the left elbow. The pain is significantly improved upon arrival to the emergency department. He has never had anything like this before. Occurred: just prior to arrival Method of Injury: other (No injury) Quality: sharpness, stabbing Severity of Pain-Max: moderate Severity of Pain-Current: none Extremities Pain Location: elbow: left Modifying Factors: Improves With: movement Associated Symptoms: none Allergies/Adverse Reactions: doxazosin mesylate [From Cardura] Allergy (Verified 11/21/21 17:10) Itching ezetimibe [From Zetia] Allergy (Verified 11/21/21 17:10) iodine Allergy (Verified 11/21/21 17:10) Hives latex Allergy (Verified 11/21/21 17:10) prednisone Allergy (Verified 11/21/21 17:10) states "homicidal" simvastatin [From Zocor] Allergy (Verified 11/21/21 17:10) Ahwziqh-BMX-BjY Reductase Inhibitor [Tyzmirs-Exr-Iqz Reductase Inhibitor] Allergy (Verified 11/21/21 17:10) Joint Aches duloxetine Adverse Reaction (Verified 11/21/21 17:10) milk Adverse Reaction (Verified 11/21/21 17:10) bananas Allergy (Uncoded 11/21/21 17:10) iv contrast Allergy (Uncoded 11/21/21 17:10) Hives Home Medications: Diltiazem HCl 240 mg [Cardizem CD 240 MG] 240 mg PO DAILY 01/02/16 [History] Metformin HCl 500 mg [Glucophage 500 MG] 500 mg PO DAILY 01/02/16 [History] Omeprazole 40 mg PO DAILY 02/25/20 [History] Carvedilol 12.5 mg [Coreg 12.5 mg] 25 mg PO BID 06/09/20 [History] Lutein 20 mg PO DAILY 09/27/20 [History] Acetaminophen 325 mg [Tylenol 325 mg] 650 mg PO TID 10/01/21 [History] Magnesium Oxide 400 mg [Mag-Ox 400] 400 mg PO DAILY 10/01/21 [History] Timolol [Betimol] 5 ml OP BID 10/01/21 [History] Potassium Chloride 10 meq PO DAILY 11/21/21 [History] Hx Tetanus, Diphtheria Vaccination/Date Given: No (unknown) Hx Influenza Vaccination/Date Given: No (unknown) Hx Pneumococcal Vaccination/Date Given: No Immunizations Up to Date: Yes Travel Risk - International Travel Have you traveled outside of the country in past 3 weeks: No - Coronavirus Screening Are you exhibiting any of the following symptoms?: No Close contact with a COVID-19 positive Pt in past 14-21 Days: No - Vaccine Status Have you recieved a Covid-19 vaccination: Yes Facing Baster Jumpbasting: Moderna - Vaccination Dates Date of 2cond Vaccination (if applicable): 05/2020 Comment: moderna booster 02/2021 - Review of Systems Constitutional: No Symptoms Eyes: No Symptoms Ears, Nose, & Throat: No Symptoms Respiratory: No Symptoms Cardiac: No Symptoms Abdominal/Gastrointestinal: No Symptoms Genitourinary Symptoms: No Symptoms Musculoskeletal: Joint Pain (Left elbow) Skin: No Symptoms Neurological: No Symptoms Psychological: No Symptoms Endocrine: No Symptoms Hematologic/Lymphatic: No Symptoms Immunological/Allergic: No Symptoms All Other Systems: Reviewed and Negative - Past Medical History Pertinent Past Medical History: Yes Neurological History: TIA ENT History: No Pertinent History Cardiac History: Hypertension Respiratory History: No Pertinent History Endocrine Medical History: Diabetes Type II Musculoskeletal History: Osteoarthritis GI Medical History: GERD History: Other Psycho-Social History: No Pertinent History Male Reproductive Disorders: Prostate Cancer Other Medical History: PACEMAKER, 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 - Past Surgical History Past Surgical History: Yes Neuro Surgical History: No Pertinent History Cardiac: Angioplasty, Cardiac Stent, Pacemaker Respiratory: Other Gastrointestinal: No Pertinent History Genitourinary: No Pertinent History Musculoskeletal: No Pertinent History Male Surgical History: Prostate Surgery, Vasectomy, Other Other Surgical History: penile implant, back pain pump - Social History Smoking Status: Former smoker Exposure to second hand smoke: No Alcohol Use: None Drug Use: none Patient Lives Alone: Yes Significant Family History: no pertinent family hx - Nursing Vital Signs Nursing Vital Signs: Initial Vital Signs Temperature 98.0 F 03/25/22 18:21 Pulse Rate 63 03/25/22 18:21 Respiratory Rate 20 03/25/22 18:21 Blood Pressure 159/73 03/25/22 18:21 O2 Sat by Pulse Oximetry 98 03/25/22 18:21 Pain Scale Pain Intensity 0 - Physical Exam General Appearance: no apparent distress, alert, anxiety Eyes, Ears, Nose, Throat Exam: normal ENT inspection, moist mucous membranes Neck Exam: normal inspection, non-tender, supple, full range of motion Cardiovascular/Respiratory Exam: chest non-tender, no respiratory distress Abdominal Exam: non-tender Back Exam: normal inspection, normal range of motion, No CVA tenderness, No vertebral tenderness Shoulder Exam: normal inspection, non-tender, no evidence of injury, normal ROM Elbow/Forearm Exam: normal inspection, non-tender, no evidence of injury, normal ROM Wrist Exam: normal inspection, non-tender, no evidence of injury, normal ROM Hand Exam: normal inspection, non-tender, no evidence of injury, normal ROM Neuro/Tendon Exam: normal sensation, normal motor functions, normal tendon functions Mental Status Exam: alert, oriented x 3, cooperative Skin Exam: normal color, warm, dry SpO2 Interpretation: normal SpO2: 98 O2 Delivery: Room Air - Course Nursing assessment & vital signs reviewed: Yes Ordered Tests: Active Orders 24 hr Category Date Time Status ELBOW (MINIMUM 3 VIEWS) Stat Exams 03/25/22 18:54 Taken - Progress Progress Note: 03/25/22 19:50 X-ray of left elbow was interpreted by me. There is no evidence of any acute fracture or dislocation. Counseled pt/family regarding: diagnosis, need for follow-up, rad results - Departure Departure Disposition: Home Clinical Impression: Elbow pain, left Condition: Stable Critical Care Time: No Referrals: ARNOLD OLIVAS MD [Primary Care Provider] - Follow up/PCP as directed Additional Instructions: May apply ice pack to the area 3 times a day for the next 48 hours. Take the medication as prescribed. If your pain recurs, follow-up with your primary care provider for further evaluation management Prescriptions: Orphenadrine Citrate 100 mg [Norflex 100 MG Tablet] 100 mg PO BID #10 tab
[2022-03-25 19:53] VITALS: O2SAT 98
[2022-03-25 20:15] VITALS: BP 161/73; PULSE 64
--- NOTE | 2022-03-26 08:47 | XRAY ---
Indication: Pain. No known injury. Comparison: None 3 view left elbow demonstrates osteopenia, tiny spurring olecranon process, and mild scattered vascular calcifications. No other bony, articular, or soft tissue abnormalities.
== END 2022-03-25 20:23 | disposition home or self-care (01) ==
LOC: ED 18:20
DX: M25.522 Pain in left elbow (principal); I10 Essential (primary) hypertension; E11.9 Type 2 diabetes mellitus without complications; Z79.84 Long term (current) use of oral hypoglycemic drugs; Z79.899 Other long term (current) drug therapy
CPT/HCPCS: 73080; 99282

== ENCOUNTER 2022-04-04 16:59 | Observation (INO) | payer MEDICARE ==
[2022-04-04 17:54] LABS: Absolute Neutrophil Ct (ANC) 9.73 x10^3/uL (1.4-6.9); BASOPHIL % 0.7 % (0.0-0.4); Basophil (Absolute #) 0.09 x10^3/uL (0-0.4); Eosinophil % 2.7 % (0.00-5.0); Eosinophil (Absolute #) 0.33 x10^3/uL (0-0.5); Hematocrit 30.5 % (42-50); Hemoglobin 9.7 g/dL (12.5-18.0); IMMATURE GRAN # 0.05 x10^3u/L (0.00-0.03); IMMATURE GRAN % 0.4 % (0.00-0.4); Lymphocyte (Absolute #) 1.27 x10^3/uL (1.0-4.6); Lymphocytes % 10.3 % (24.0-44.0); Mean Cell Volume 103.4 fL (78-100); Mean Corpuscular Hemoglobin 32.9 pg (26-32); Mean Corpuscular Hgb Concent. 31.8 g/dL (32-36); Mean Platelet Volume 9.4 fL (7.5-11.0); Monocytes % 7.3 % (0.0-12.0); Neutrophil % 78.6 % (36.0-66.0); Platelet Count 266 x10^3/uL (150-450); Red Blood Count 2.95 x10^6/uL (4.1-5.6); Red Cell Distribution Width 12.5 % (11.5-14.0); White Blood Count 12.4 x10^3/uL (4.0-10.5)
[2022-04-04 18:17] LABS: ALBUMIN 3.9 g/dL (3.5-5.0); ANION GAP 11.7 MEQ/L (5-15); BILIRUBIN,TOTAL 0.2 mg/dL (0.2-1.3); Calcium 8.9 mg/dL (8.4-10.2); Creatinine 1 1.45 mg/dL (0.66-1.25); EST GLOMERULAR FILTRATION RATE 49.4 ML/MIN; Potassium 4.9 mmol/L (3.5-5.1); Total Protein 6.8 g/dL (6.3-8.2)
--- NOTE | 2022-04-04 19:02 | ERPHSYRPT ---
- History of Present Illness Time Seen by Provider: 04/04/22 19:00 Exam Limitations: no limitations Patient Subjective Stated Complaint: PT HERE FOR CHEST PAIN TODAY OFF AND ON, SOME SOB , NO COUGH OR FEVER Triage Nursing Assessment: PT ALERT, VERY NATIVE, RESP EASY, SKIN W/D/P, NO EDEMA NOTED,NO COUGH Physician History: Patient is a 81-year-old male presents emergency department for evaluation of intermittent chest pain. Patient has been experiencing intermittent substernal chest pain throughout the day. Chest pain associated with mild shortness of breath. No cough no fever. No nausea no vomiting. HPI difficult due to to hard of hearing. However patient states he currently feels well. No active chest pain portions of this note were created with voice recognition technology. There may be grammatical, spelling, punctuation or sound alike errors Timing/Duration: today Activities at Onset: none Quality: aching Location: substernal Chest Pain Radiation: no radiation Severity of Pain-Max: moderate Severity of Pain-Current: mild Modifying Factors: Improves With: nothing Associated Symptoms: denies symptoms Prior Chest Pain/Cardiac Workup: no prior chest pain Nitro Today/Relief: no nitro taken today Aspirin Treatment Today: no aspirin today Allergies/Adverse Reactions: doxazosin mesylate [From Cardura] Allergy (Verified 04/04/22 21:34) Itching ezetimibe [From Zetia] Allergy (Verified 04/04/22 21:34) iodine Allergy (Verified 04/04/22 21:34) Hives latex Allergy (Verified 04/04/22 21:34) prednisone Allergy (Verified 04/04/22 21:34) states "homicidal" simvastatin [From Zocor] Allergy (Verified 04/04/22 21:34) Ilogxbc-YYY-YzI Reductase Inhibitor [Zmvmmmi-Wuv-Vfi Reductase Inhibitor] Allergy (Verified 04/04/22 21:34) Joint Aches duloxetine Adverse Reaction (Verified 04/04/22 21:34) milk Adverse Reaction (Verified 04/04/22 21:34) bananas Allergy (Mild, Uncoded 04/04/22 21:34) iv contrast Allergy (Uncoded 04/04/22 21:35) Hives Home Medications: Diltiazem HCl 240 mg [Cardizem CD 240 MG] 240 mg PO DAILY 10/26/16 [History] Metformin HCl 500 mg [Glucophage 500 MG] 500 mg PO DAILY 01/02/16 [History] Omeprazole 40 mg PO DAILY 02/25/20 [History] Carvedilol 12.5 mg [Coreg 12.5 mg] 25 mg PO BID 06/09/20 [History] Lutein 20 mg PO DAILY 09/27/20 [History] Acetaminophen 325 mg [Tylenol 325 mg] 650 mg PO TID 10/01/21 [History] Magnesium Oxide 400 mg [Mag-Ox 400] 400 mg PO DAILY 10/01/21 [History] Timolol [Betimol] 5 ml OP BID 10/01/21 [History] Potassium Chloride 10 meq PO DAILY 11/21/21 [History] Albuterol Common Canister [Ventolin Common Canister] 1 puff IH DIRECTIONS UNKNOWN PRN 04/04/22 [History] Tramadol HCl 50 mg [Ultram 50 mg] 50 mg PO TID 04/04/22 [History] Trazodone HCl 150 mg PO DAILY 04/04/22 [History] Hx Tetanus, Diphtheria Vaccination/Date Given: No (unknown) Hx Influenza Vaccination/Date Given: No (unknown) Hx Pneumococcal Vaccination/Date Given: No Immunizations Up to Date: Yes Travel Risk - International Travel Have you traveled outside of the country in past 3 weeks: No - Coronavirus Screening Are you exhibiting any of the following symptoms?: No - Vaccine Status Have you recieved a Covid-19 vaccination: Yes Manager Intensive Care: Moderna - Vaccination Dates Date of 2cond Vaccination (if applicable): 05/2020 Comment: moderna booster 02/2021 - Review of Systems Constitutional: No Symptoms, No Fever, No Chills Eyes: No Symptoms Ears, Nose, & Throat: No Symptoms Respiratory: No Symptoms, No Cough, No Dyspnea Cardiac: No Symptoms, No Chest Pain, No Edema, No Syncope Abdominal/Gastrointestinal: No Symptoms, No Abdominal Pain, No Nausea, No Vomiting, No Diarrhea Genitourinary Symptoms: No Symptoms, No Dysuria Musculoskeletal: No Symptoms, No Back Pain, No Neck Pain Skin: No Symptoms, No Rash Neurological: No Symptoms, No Dizziness, No Focal Weakness, No Sensory Changes Psychological: No Symptoms Endocrine: No Symptoms Hematologic/Lymphatic: No Symptoms Immunological/Allergic: No Symptoms All Other Systems: Reviewed and Negative - Past Medical History Pertinent Past Medical History: Yes Neurological History: TIA ENT History: No Pertinent History Cardiac History: Hypertension Respiratory History: No Pertinent History Endocrine Medical History: Diabetes Type II Musculoskeletal History: Arthritis, Osteoarthritis GI Medical History: GERD History: Other Psycho-Social History: No Pertinent History Male Reproductive Disorders: Prostate Cancer Other Medical History: PACEMAKER, 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,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 - Past Surgical History Past Surgical History: Yes Neuro Surgical History: No Pertinent History Cardiac: Angioplasty, Cardiac Stent, Pacemaker Respiratory: Other Gastrointestinal: No Pertinent History Genitourinary: No Pertinent History Musculoskeletal: No Pertinent History Male Surgical History: Prostate Surgery, Vasectomy, Other Other Surgical History: penile implant, back pain pump - Social History Smoking Status: Former smoker Exposure to second hand smoke: No Alcohol Use: None Drug Use: none Patient Lives Alone: Yes Significant Family History: no pertinent family hx - Nursing Vital Signs Nursing Vital Signs: Initial Vital Signs Temperature 97.0 F 04/04/22 17:06 Pulse Rate 60 04/04/22 17:06 Respiratory Rate 18 04/04/22 17:06 Blood Pressure 154/74 04/04/22 17:06 O2 Sat by Pulse Oximetry 96 04/04/22 17:06 Pain Scale Pain Intensity 0 - Physical Exam General Appearance: no apparent distress, alert, other (It is hard hearing) Eye Exam: PERRL/EOMI, eyes nml inspection Ears, Nose, Throat Exam: normal ENT inspection, TMs normal, pharynx normal, moist mucous membranes Neck Exam: normal inspection, non-tender, full range of motion Respiratory Exam: normal breath sounds, lungs clear, airway intact, No respiratory distress Cardiovascular Exam: regular rate/rhythm, normal heart sounds, normal peripheral pulses Gastrointestinal/Abdomen Exam: soft, No tenderness, No mass Back Exam: normal inspection, No CVA tenderness, No vertebral tenderness Extremity Exam: normal inspection, normal range of motion Neurologic Exam: alert, oriented x 3, cooperative, normal mood/affect, sensation nml, No motor deficits Skin Exam: normal color, warm, dry Lymphatic Exam: No adenopathy SpO2 Interpretation: normal SpO2: 95 O2 Delivery: Room Air - Course Nursing assessment & vital signs reviewed: Yes EKG Interpreted by Me: RATE (60, paced rhythem. NO Stemi. Nl axis) - Radiology Exams Chest X-ray Interpretation: Teleradiologist Report (No new acute findings. Osteopenia normal heart and lungs. Left lung granuloma) Ordered Tests: Active Orders 24 hr Category Date Time Status Bedrest with BRP/BSC ROUTINE Activity 04/04/22 21:05 Active Equipment Man STAT Care 04/04/22 17:35 Completed Code Status Order ROUTINE Care 04/04/22 21:05 Active EKG-ER Only STAT Care 04/04/22 17:35 Completed IV Care Q6H Care 04/04/22 21:05 Active IV Insertion STAT Care 04/04/22 17:35 Completed Implement Chest Pain Pathway ROUTINE Care 04/04/22 21:[address] in Observation ROUTINE Care 04/04/22 21:05 Active Pulse Oximetry (ED) STAT Care 04/04/22 17:35 Completed [place], Apply ROUTINE Care 04/04/22 21:05 Active Telemetry q6h Care 04/04/22 21:05 Active Weight,Daily 0600 Care 04/04/22 21:05 Active CHEST 1 VIEW (PORTABLE) Stat Exams 04/04/22 17:35 Completed CBC W DIFF Stat Lab 04/04/22 17:30 Completed CMP Stat Lab 04/04/22 17:30 Completed LIPID PROFILE AM.LAB Lab 04/05/22 00:10 Completed NT PRO BNP Stat Lab 04/04/22 17:30 Completed TROPONIN Q4H Lab 04/04/22 17:30 Completed TROPONIN Q4H Lab 04/04/22 22:55 Completed TROPONIN Q4H Lab 04/05/22 01:45 Ordered EKG Q8HX2,QAMX3,PRN RT 04/04/22 21:05 Completed Pulse Oximetry Q4H RT 04/04/22 21:05 Active Medication Summary Generic Name Dose Route Start Last Admin Trade Name Freq PRN Reason Stop Dose Admin Acetaminophen 650 mg 04/04/22 21:05 Acetaminophen 325 Mg Tablet PO 05/04/22 21:04 Q4H PRN PRN PAIN AND/OR FEVER Al Hydrox/Mg Hydrox/Simethicone 30 ml 04/04/22 21:05 Mag Hydrox/Al Hydrox/Simeth 30 Ml Udcup PO 05/04/22 21:04 Q4H PRN PRN INDIGESTION Magnesium Hydroxide 30 - 60 ml 04/04/22 21:05 Magnesium Hydroxide 30 Ml Udcup PO 05/04/22 21:04 QDP PRN CONSTIPATION Ondansetron HCl 4 mg 04/04/22 21:05 Ondansetron Hcl 4 Mg/2 Ml Vial IV 05/04/22 21:04 Q4H PRN PRN NAUSEA/VOMITING Senna/Docusate Sodium 2 udtab 04/04/22 21:05 Senna/Docusate Sodium 1 Udtab Tablet PO 05/04/22 21:04 BID PRN PRN CONSTIPATION Lab/Rad Data: Laboratory Result Diagrams 04/04/22 17:30 04/04/22 17:30 Laboratory Results 04/04/22 04/04/22 04/04/22 Range/Units 19:45 17:30 17:30 WBC (4.0-10.5) x10^3/uL RBC (4.1-5.6) x10^6/uL Hgb (12.5-18.0) g/dL Hct (42-50) % MCV (78-100) fL MCH (26-32) pg MCHC (32-36) g/dL RDW (11.5-14.0) % Plt Count (150-450) x10^3/uL MPV (7.5-11.0) fL Gran % (36.0-66.0) % Immature Gran % (Auto) (0.00-0.4) % Nucleat RBC Rel Count (0.00-0.1) % Eos # (Auto) (0-0.5) x10^3/uL Immature Gran # (Auto) (0.00-0.03) x10^3u/L Absolute Lymphs (auto) (1.0-4.6) x10^3/uL Absolute Monos (auto) (0.0-1.3) x10^3/uL Absolute Nucleated RBC (0.00-0.01) x10^3u/L Lymphocytes % (24.0-44.0) % Monocytes % (0.0-12.0) % Eosinophils % (0.00-5.0) % Basophils % (0.0-0.4) % Absolute Granulocytes (1.4-6.9) x10^3/uL Basophils # (0-0.4) x10^3/uL Sodium 138 (137-145) mmol/L Potassium 4.9 (3.5-5.1) mmol/L Chloride 106 (98-107) mmol/L Carbon Dioxide 25 (22-30) mmol/L Anion Gap 11.7 (5-15) MEQ/L BUN 23 H (9-20) mg/dL Creatinine 1.45 H (0.66-1.25) mg/dL Estimated GFR 49.4 ML/MIN Glucose 115 H (74-106) mg/dL Calcium 8.9 (8.4-10.2) mg/dL Total Bilirubin 0.20 (0.2-1.3) mg/dL AST 21 (17-59) U/L ALT 13 (0-50) U/L Alkaline Phosphatase 102 (38-126) U/L Troponin I < 0.012 (0.000-0.034) ng/mL NT-Pro-B Natriuret Pep 1050 (0-1800) pg/mL Serum Total Protein 6.8 (6.3-8.2) g/dL Albumin 3.9 (3.5-5.0) g/dL Influenza Type A Ag NEGATIVE (NEGATIVE) Influenza Type B Ag NEGATIVE (NEGATIVE) RSV (PCR) NEGATIVE (Negative) SARS-CoV-2 (PCR) NEGATIVE (NEGATIVE) 04/04/22 Range/Units 17:30 WBC 12.4 H (4.0-10.5) x10^3/uL RBC 2.95 L (4.1-5.6) x10^6/uL Hgb 9.7 L (12.5-18.0) g/dL Hct 30.5 L (42-50) % MCV 103.4 H (78-100) fL MCH 32.9 H (26-32) pg MCHC 31.8 L (32-36) g/dL RDW 12.5 (11.5-14.0) % Plt Count 266 (150-450) x10^3/uL MPV 9.4 (7.5-11.0) fL Gran % 78.6 H (36.0-66.0) % Immature Gran % (Auto) 0.4 (0.00-0.4) % Nucleat RBC Rel Count 0.0 (0.00-0.1) % Eos # (Auto) 0.33 (0-0.5) x10^3/uL Immature Gran # (Auto) 0.05 H (0.00-0.03) x10^3u/L Absolute Lymphs (auto) 1.27 (1.0-4.6) x10^3/uL Absolute Monos (auto) 0.90 (0.0-1.3) x10^3/uL Absolute Nucleated RBC 0.00 (0.00-0.01) x10^3u/L Lymphocytes % 10.3 L (24.0-44.0) % Monocytes % 7.3 (0.0-12.0) % Eosinophils % 2.7 (0.00-5.0) % Basophils % 0.7 (0.0-0.4) % Absolute Granulocytes 9.73 H (1.4-6.9) x10^3/uL Basophils # 0.09 (0-0.4) x10^3/uL Sodium (137-145) mmol/L Potassium (3.5-5.1) mmol/L Chloride (98-107) mmol/L Carbon Dioxide (22-30) mmol/L Anion Gap (5-15) MEQ/L BUN (9-20) mg/dL Creatinine (0.66-1.25) mg/dL Estimated GFR ML/MIN Glucose (74-106) mg/dL Calcium (8.4-10.2) mg/dL Total Bilirubin (0.2-1.3) mg/dL AST (17-59) U/L ALT (0-50) U/L Alkaline Phosphatase (38-126) U/L Troponin I (0.000-0.034) ng/mL NT-Pro-B Natriuret Pep (0-1800) pg/mL Serum Total Protein (6.3-8.2) g/dL Albumin (3.5-5.0) g/dL Influenza Type A Ag (NEGATIVE) Influenza Type B Ag (NEGATIVE) RSV (PCR) (Negative) SARS-CoV-2 (PCR) (NEGATIVE) - Progress Progress: improved Air Movement: good Progress Note: Patient is an 81-year-old male presents to emergency department for evaluation of chest pain. Physical exam essentially nonremarkable. Patient's complaints were acute in nature. Complexity of complaint was moderate. Testing ordered includes chest x-ray CBC CMP COVID BNP and troponin. Preliminary work-up negative. Results of the work-up were used for medical decision making. No active chest pain during this encounter. Plan of care discussed with patient. He agrees to admission at [facility] for fu rther evaluation and treatment. Portions of this note were created with voice recognition technology. There may be grammatical, spelling, punctuation or sound alike errors Level of EM service provided was moderate. Complexity of problem moderate. Complex of data reviewed moderate. Risk of complication and or risk of morbidity/mortality of patient management is low Patient's son assisted in obtaining information for the history of present illness. Communication with patient was difficult as patient has baseline dementia as well as hard of hearing. Patient is full code. Case discussed with Dr. Baker who excepts admission to observation. Patient's diagnosis is chest pain possible ACS Time spent on disposition is approximately 10 to 15 minutes. Patient admitted to our hospital for further evaluation and treatment as well as monitoring. 04/05/22 01:07 Blood Culture(s) Obtained: No Antibiotics given: No Discussed with : Jose A Will see patient in: hospital (observation) Counseled pt/family regarding: lab results, diagnosis, rad results - Departure Departure Disposition: Observation Clinical Impression: Chest pain, Leukocytosis, Macrocytic anemia, Acute renal injury, ACS (acute coronary syndrome), Lung granuloma Condition: Stable Critical Care Time: No
[2022-04-04 20:32] LABS: INFLUENZA A NEGATIVE (NEGATIVE); INFLUENZA B NEGATIVE (NEGATIVE); RESPIRATORY SYNCTIAL VIRUS NEGATIVE (Negative); SARS-CoV-2 Xpert Express NEGATIVE (NEGATIVE)
--- NOTE | 2022-04-04 20:36 | XRAY ---
Indication: Chest pain. Comparison: November 24, 2021 Portable chest again demonstrates normal heart and lungs with incidental left lung calcified granuloma and left pacemaker. Bony thorax intact again with osteopenia and minimal degenerative changes. No new/acute findings.
[2022-04-04] MEDS ORDERED: TYLENOL 325 MG PO PRN (21:05)
[2022-04-04] MEDS ORDERED: MAALOX ES 30 ML UNIT DOSE PO PRN (21:05)
[2022-04-04] MEDS ORDERED: Zofran 4 MG/2 ML VIAL IV PRN (21:05)
[2022-04-04] MEDS ORDERED: Senokot-S Tablet PO PRN (21:05)
[2022-04-04] MEDS ORDERED: MILK OF MAGNESIA 30 ML PO PRN (21:05)
[2022-04-05 00:40] LABS: Risk Ratio 4.8
[2022-04-05 06:24] LABS: Absolute Neutrophil Ct (ANC) 7.62 x10^3/uL (1.4-6.9); BASOPHIL % 0.8 % (0.0-0.4); Basophil (Absolute #) 0.08 x10^3/uL (0-0.4); Eosinophil % 4.2 % (0.00-5.0); Eosinophil (Absolute #) 0.43 x10^3/uL (0-0.5); Hematocrit 29.1 % (42-50); Hemoglobin 9.3 g/dL (12.5-18.0); IMMATURE GRAN # 0.03 x10^3u/L (0.00-0.03); IMMATURE GRAN % 0.3 % (0.00-0.4); Lymphocyte (Absolute #) 1.21 x10^3/uL (1.0-4.6); Lymphocytes % 11.9 % (24.0-44.0); Mean Cell Volume 102.8 fL (78-100); Mean Corpuscular Hemoglobin 32.9 pg (26-32); Mean Platelet Volume 9.6 fL (7.5-11.0); Monocyte (Absolute #) 0.83 x10^3/uL (0.0-1.3); Monocytes % 8.1 % (0.0-12.0); Neutrophil % 74.7 % (36.0-66.0); Platelet Count 260 x10^3/uL (150-450); Red Blood Count 2.83 x10^6/uL (4.1-5.6); Red Cell Distribution Width 12.7 % (11.5-14.0); White Blood Count 10.2 x10^3/uL (4.0-10.5)
[2022-04-05 06:44] LABS: ANION GAP 8.1 MEQ/L (5-15); Calcium 9.1 mg/dL (8.4-10.2); Creatinine 1 1.44 mg/dL (0.66-1.25); EST GLOMERULAR FILTRATION RATE 49.8 ML/MIN; Potassium 4.3 mmol/L (3.5-5.1)
[2022-04-05 07:18] VITALS: BP 129/83; PULSE 60; O2SAT 92
--- NOTE | 2022-04-05 10:51 | PCM.SSS ---
History of Present Illness - Chief Complaint Chief Complaint: Chest pain, ACS History of Present Illness: is a 81 year old male who presented to the ER with chest pain last night, he has no pain or shortness of breath this morning. He states he has been having intermittent chest pain for the last 2-3 months. he denies reflux symptoms, no nausea, vomiting or shortness of breath associated with chest pain. he has no complaints today. patient has some mild underlying dementia and is very hard of hearing, he is a poor historian. no family is present with him at the time of exam. - Review of Systems Constitutional: No Fever, No Chills Respiratory: No Cough, No Short Of Breath Cardiac: Chest Pain (resolved since admission) Abdominal/Gastrointestinal: No Abdominal Pain, No Nausea, No Vomiting, No Diarrhea Genitourinary Symptoms: No Dysuria Skin: No Rash All Other Systems: Reviewed and Negative Medications & Allergies Home Medications: Home Medication List Diltiazem HCl 240 mg [Cardizem CD 240 MG] 240 mg PO DAILY 01/02/16 [History Confirmed 04/04/22] Metformin HCl 500 mg [Glucophage 500 MG] 500 mg PO DAILY 01/02/16 [History Confirmed 04/04/22] Omeprazole 40 mg PO DAILY 02/25/20 [History Confirmed 04/04/22] Carvedilol 12.5 mg [Coreg 12.5 mg] 25 mg PO BID 06/09/20 [History Confirmed 04/04/22] Lutein 20 mg PO DAILY 09/27/20 [History Confirmed 04/04/22] Polyethylene Glycol 3350 17 gm [Miralax Powder 17GM PACKET] 17 gm PO DAILY #30 packet 11/09/20 [Rx Confirmed 04/04/22] Acetaminophen 325 mg [Tylenol 325 mg] 650 mg PO TID PRN 10/01/21 [History Confirmed 04/04/22] Magnesium Oxide 400 mg [Mag-Ox 400] 400 mg PO DAILY 10/01/21 [History Confirmed 04/04/22] Timolol [Betimol] 5 ml OP BID 10/01/21 [History Confirmed 04/04/22] Potassium Chloride 10 meq PO DAILY 11/21/21 [History Confirmed 04/04/22] Aspirin [Aspirin EC] 81 mg PO DAILY 30 Days #30 tablet 11/24/21 [Rx Confirmed 04/04/22] Orphenadrine Citrate 100 mg [Norflex 100 MG Tablet] 100 mg PO BID #10 tab 03/25/22 [Rx Confirmed 04/04/22] Albuterol Common Canister [Ventolin Common Canister] 1 puff IH DIRECTIONS UNKNOWN PRN 04/04/22 [History Confirmed 04/04/22] Tramadol HCl 50 mg [Ultram 50 mg] 50 mg PO TIDPRN PRN 04/04/22 [History Co nfirmed 04/05/22] Trazodone HCl 150 mg PO QHS 04/04/22 [History Confirmed 04/05/22] Allergies/Adverse Reactions: Allergies Allergy/AdvReac Type Severity Reaction Status Date / Time doxazosin mesylate Allergy Itching Verified 04/04/22 21:34 [From Cardura] ezetimibe [From Zetia] Allergy Verified 04/04/22 21:34 iodine Allergy Hives Verified 04/04/22 21:34 latex Allergy Verified 04/04/22 21:34 prednisone Allergy Verified 04/04/22 21:34 simvastatin [From Zocor] Allergy Verified 04/04/22 21:34 Vjozied-RML-GfS Reductase Allergy Joint Aches Verified 04/04/22 21:34 Inhibitor [Sesmmsz-Kvz-Cxz Reductase Inhibitor] duloxetine AdvReac Verified 04/04/22 21:34 milk AdvReac Verified 04/04/22 21:34 bananas Allergy Mild Uncoded 04/04/22 21:34 iv contrast Allergy Hives Uncoded 04/04/22 21:35 - Past Medical History Past Medical History: Yes Neurological History: TIA ENT History: No Pertinent History Cardiac History: Hypertension Respiratory History: No Pertinent History Endocrine Medical History: Diabetes Type II Musculoskelatal History: Arthritis, Osteoarthritis GI Medical History: GERD History: Other Pyscho-Social History: No Pertinent History Male Reproductive Disorders: Prostate Cancer Comment: PACEMAKER, PT HAS A WEEDER,PAIN PUMP - Past Surgical History Past Surgical History: Yes Neuro Surgical History: No Pertinent History Cardiac History: Angioplasty, Cardiac Stent, Pacemaker Respiratory Surgery: Other GI Surgical History: No Pertinent History Genitourinary Surgical Hx: No Pertinent History Musculskeletal Surgical Hx: No Pertinent History Male Surgical History: Prostate Surgery, Vasectomy, Other Other Surgical History: penile implant, back pain pump - Social History Smoking Status: Former smoker Exposure to second hand smoke: No Alcohol: None Drug Use: none Significant Family History: no pertinent family hx - Physical Exam Vital Signs: Vital Signs - 24 hr Temp Pulse Resp BP BP Pulse Ox 04/05/22 07:17 97.9 F 60 16 129/83 92 L 04/05/22 04:00 98.1 F 64 18 166/72 95 04/05/22 01:12 95 04/05/22 00:00 95 04/04/22 21:44 97.1 F 62 16 175/79 93 L 04/04/22 20:00 62 16 143/69 93 L 04/04/22 19:03 61 18 139/65 93 L 04/04/22 18:00 64 16 158/69 95 04/04/22 17:38 96 04/04/22 17:06 97.0 F 60 18 154/74 96 General Appearance: no apparent distress Neurologic Exam: alert, cooperative Respiratory Exam: normal breath sounds, lungs clear, No respiratory distress Cardiovascular Exam: regular rate/rhythm, normal heart sounds, normal peripheral pulses Gastrointestinal/Abdomen Exam: soft, normal bowel sounds, No tenderness, No mass Extremity Exam: normal inspection, normal range of motion, pelvis stable Skin Exam: normal color, warm, dry, No rash Results - Labs Lab/Micro Results: Lab Results-Last 24 Hours 04/04/22 04/04/22 04/04/22 Range/Units 17:30 17:30 17:30 WBC 12.4 H (4.0-10.5) x10^3/uL RBC 2.95 L (4.1-5.6) x10^6/uL Hgb 9.7 L (12.5-18.0) g/dL Hct 30.5 L (42-50) % MCV 103.4 H (78-100) fL MCH 32.9 H (26-32) pg MCHC 31.8 L (32-36) g/dL RDW 12.5 (11.5-14.0) % Plt Count 266 (150-450) x10^3/uL MPV 9.4 (7.5-11.0) fL Gran % 78.6 H (36.0-66.0) % Immature Gran % (Auto) 0.4 (0.00-0.4) % Nucleat RBC Rel Count 0.0 (0.00-0.1) % Eos # (Auto) 0.33 (0-0.5) x10^3/uL Immature Gran # (Auto) 0.05 H (0.00-0.03) x10^3u/L Absolute Lymphs (auto) 1.27 (1.0-4.6) x10^3/uL Absolute Monos (auto) 0.90 (0.0-1.3) x10^3/uL Absolute Nucleated RBC 0.00 (0.00-0.01) x10^3u/L Lymphocytes % 10.3 L (24.0-44.0) % Monocytes % 7.3 (0.0-12.0) % Eosinophils % 2.7 (0.00-5.0) % Basophils % 0.7 (0.0-0.4) % Absolute Granulocytes 9.73 H (1.4-6.9) x10^3/uL Basophils # 0.09 (0-0.4) x10^3/uL Sodium 138 (137-145) mmol/L Potassium 4.9 (3.5-5.1) mmol/L Chloride 106 (98-107) mmol/L Carbon Dioxide 25 (22-30) mmol/L Anion Gap 11.7 (5-15) MEQ/L BUN 23 H (9-20) mg/dL Creatinine 1.45 H (0.66-1.25) mg/dL Estimated GFR 49.4 ML/MIN Glucose 115 H (74-106) mg/dL Calcium 8.9 (8.4-10.2) mg/dL Total Bilirubin 0.20 (0.2-1.3) mg/dL AST 21 (17-59) U/L ALT 13 (0-50) U/L Alkaline Phosphatase 102 (38-126) U/L Troponin I < 0.012 (0.000-0.034) ng/mL NT-Pro-B Natriuret Pep 1050 (0-1800) pg/mL Serum Total Protein 6.8 (6.3-8.2) g/dL Albumin 3.9 (3.5-5.0) g/dL Triglycerides (30-150) mg/dL Cholesterol (50-200) mg/dL LDL Cholesterol (30-100) mg/dL HDL Cholesterol (40-60) mg/dL Heart Disease Risk Ratio Influenza Type A Ag (NEGATIVE) Influenza Type B Ag (NEGATIVE) RSV (PCR) (Negative) SARS-CoV-2 (PCR) (NEGATIVE) 04/04/22 04/04/22 04/05/22 Range/Units 19:45 22:55 00:10 WBC (4.0-10.5) x10^3/uL RBC (4.1-5.6) x10^6/uL Hgb (12.5-18.0) g/dL Hct (42-50) % MCV (78-100) fL MCH (26-32) pg MCHC (32-36) g/dL RDW (11.5-14.0) % Plt Count (150-450) x10^3/uL MPV (7.5-11.0) fL Gran % (36.0-66.0) % Immature Gran % (Auto) (0.00-0.4) % Nucleat RBC Rel Count (0.00-0.1) % Eos # (Auto) (0-0.5) x10^3/uL Immature Gran # (Auto) (0.00-0.03) x10^3u/L Absolute Lymphs (auto) (1.0-4.6) x10^3/uL Absolute Monos (auto) (0.0-1.3) x10^3/uL Absolute Nucleated RBC (0.00-0.01) x10^3u/L Lymphocytes % (24.0-44.0) % Monocytes % (0.0-12.0) % Eosinophils % (0.00-5.0) % Basophils % (0.0-0.4) % Absolute Granulocytes (1.4-6.9) x10^3/uL Basophils # (0-0.4) x10^3/uL Sodium (137-145) mmol/L Potassium (3.5-5.1) mmol/L Chloride (98-107) mmol/L Carbon Dioxide (22-30) mmol/L Anion Gap (5-15) MEQ/L BUN (9-20) mg/dL Creatinine (0.66-1.25) mg/dL Estimated GFR ML/MIN Glucose (74-106) mg/dL Calcium (8.4-10.2) mg/dL Total Bilirubin (0.2-1.3) mg/dL AST (17-59) U/L ALT (0-50) U/L Alkaline Phosphatase (38-126) U/L Troponin I < 0.012 (0.000-0.034) ng/mL NT-Pro-B Natriuret Pep (0-1800) pg/mL Serum Total Protein (6.3-8.2) g/dL Albumin (3.5-5.0) g/dL Triglycerides 200 H (30-150) mg/dL Cholesterol 154 (50-200) mg/dL LDL Cholesterol 88 (30-100) mg/dL HDL Cholesterol 32 L (40-60) mg/dL Heart Disease Risk Ratio 4.8 Influenza Type A Ag NEGATIVE (NEGATIVE) Influenza Type B Ag NEGATIVE (NEGATIVE) RSV (PCR) NEGATIVE (Negative) SARS-CoV-2 (PCR) NEGATIVE (NEGATIVE) 04/05/22 04/05/22 04/05/22 Range/Units 06:00 06:00 06:00 WBC 10.2 (4.0-10.5) x10^3/uL RBC 2.83 L (4.1-5.6) x10^6/uL Hgb 9.3 L (12.5-18.0) g/dL Hct 29.1 L (42-50) % MCV 102.8 H (78-100) fL MCH 32.9 H (26-32) pg MCHC 32.0 (32-36) g/dL RDW 12.7 (11.5-14.0) % Plt Count 260 (150-450) x10^3/uL MPV 9.6 (7.5-11.0) fL Gran % 74.7 H (36.0-66.0) % Immature Gran % (Auto) 0.3 (0.00-0.4) % Nucleat RBC Rel Count 0.0 (0.00-0.1) % Eos # (Auto) 0.43 (0-0.5) x10^3/uL Immature Gran # (Auto) 0.03 (0.00-0.03) x10^3u/L Absolute Lymphs (auto) 1.21 (1.0-4.6) x10^3/uL Absolute Monos (auto) 0.83 (0.0-1.3) x10^3/uL Absolute Nucleated RBC 0.00 (0.00-0.01) x10^3u/L Lymphocytes % 11.9 L (24.0-44.0) % Monocytes % 8.1 (0.0-12.0) % Eosinophils % 4.2 (0.00-5.0) % Basophils % 0.8 (0.0-0.4) % Absolute Granulocytes 7.62 H (1.4-6.9) x10^3/uL Basophils # 0.08 (0-0.4) x10^3/uL Sodium 139 (137-145) mmol/L Potassium 4.3 (3.5-5.1) mmol/L Chloride 108 H (98-107) mmol/L Carbon Dioxide 27 (22-30) mmol/L Anion Gap 8.1 (5-15) MEQ/L BUN 20 (9-20) mg/dL Creatinine 1.44 H (0.66-1.25) mg/dL Estimated GFR 49.8 ML/MIN Glucose 101 (74-106) mg/dL Calcium 9.1 (8.4-10.2) mg/dL Total Bilirubin (0.2-1.3) mg/dL AST (17-59) U/L ALT (0-50) U/L Alkaline Phosphatase (38-126) U/L Troponin I < 0.012 (0.000-0.034) ng/mL NT-Pro-B Natriuret Pep (0-1800) pg/mL Serum Total Protein (6.3-8.2) g/dL Albumin (3.5-5.0) g/dL Triglycerides (30-150) mg/dL Cholesterol (50-200) mg/dL LDL Cholesterol (30-100) mg/dL HDL Cholesterol (40-60) mg/dL Heart Disease Risk Ratio Influenza Type A Ag (NEGATIVE) Influenza Type B Ag (NEGATIVE) RSV (PCR) (Negative) SARS-CoV-2 (PCR) (NEGATIVE) Accuchecks Date 04/05/22 Time 07:17 - Radiology Impressions Radiology Exams & Impressions: Radiology Procedures Category Date Time Status CHEST 1 VIEW (PORTABLE) Stat Exams 04/04/22 17:35 Completed - Other Procedures and Tests Respiratory Therapy 04/06/22 05:00 EKG ROUTINE 04/07/22 05:00 EKG ROUTINE Assessment/Plan (1) Chest pain Current Visit: Yes Status: Acute Assessment & Plan: [place] ruled out, recommend outpatient stress test and patient agrees. he is anxious to go home today and states he feels well Code(s): R07.9 - CHEST PAIN, UNSPECIFIED (2) Dementia Current Visit: No Status: Acute Code(s): F03.90 - UNSPECIFIED DEMENTIA WITHOUT BEHAVIORAL DISTURBANCE Hospital Summary - Vitals & Intake/Output Vital Signs: Vital Signs Temperature 97.9 F 04/05/22 07:17 Pulse Rate 60 04/05/22 07:17 Respiratory Rate 16 04/05/22 07:17 Blood Pressure 129/83 04/05/22 07:17 O2 Sat by Pulse Oximetry 92 L 04/05/22 07:17 Intake & Output: Intake & Output 04/02/22 04/03/22 04/04/22 04/05/22 11:59 11:59 11:59 11:59 Intake Total 580 Output Total 850 Balance -270 Weight 68.3 kg - Lab Result Diagrams: 04/05/22 06:00 04/05/22 06:00 Lab Results-Last 24 Hrs: Lab Results-Last 24 Hours 04/04/22 04/04/22 04/04/22 Range/Units 17:30 17:30 17:30 WBC 12.4 H (4.0-10.5) x10^3/uL RBC 2.95 L (4.1-5.6) x10^6/uL Hgb 9.7 L (12.5-18.0) g/dL Hct 30.5 L (42-50) % MCV 103.4 H (78-100) fL MCH 32.9 H (26-32) pg MCHC 31.8 L (32-36) g/dL RDW 12.5 (11.5-14.0) % Plt Count 266 (150-450) x10^3/uL MPV 9.4 (7.5-11.0) fL Gran % 78.6 H (36.0-66.0) % Immature Gran % (Auto) 0.4 (0.00-0.4) % Nucleat RBC Rel Count 0.0 (0.00-0.1) % Eos # (Auto) 0.33 (0-0.5) x10^3/uL Immature Gran # (Auto) 0.05 H (0.00-0.03) x10^3u/L Absolute Lymphs (auto) 1.27 (1.0-4.6) x10^3/uL Absolute Monos (auto) 0.90 (0.0-1.3) x10^3/uL Absolute Nucleated RBC 0.00 (0.00-0.01) x10^3u/L Lymphocytes % 10.3 L (24.0-44.0) % Monocytes % 7.3 (0.0-12.0) % Eosinophils % 2.7 (0.00-5.0) % Basophils % 0.7 (0.0-0.4) % Absolute Granulocytes 9.73 H (1.4-6.9) x10^3/uL Basophils # 0.09 (0-0.4) x10^3/uL Sodium 138 (137-145) mmol/L Potassium 4.9 (3.5-5.1) mmol/L Chloride 106 (98-107) mmol/L Carbon Dioxide 25 (22-30) mmol/L Anion Gap 11.7 (5-15) MEQ/L BUN 23 H (9-20) mg/dL Creatinine 1.45 H (0.66-1.25) mg/dL Estimated GFR 49.4 ML/MIN Glucose 115 H (74-106) mg/dL Calcium 8.9 (8.4-10.2) mg/dL Total Bilirubin 0.20 (0.2-1.3) mg/dL AST 21 (17-59) U/L ALT 13 (0-50) U/L Alkaline Phosphatase 102 (38-126) U/L Troponin I < 0.012 (0.000-0.034) ng/mL NT-Pro-B Natriuret Pep 1050 (0-1800) pg/mL Serum Total Protein 6.8 (6.3-8.2) g/dL Albumin 3.9 (3.5-5.0) g/dL Triglycerides (30-150) mg/dL Cholesterol (50-200) mg/dL LDL Cholesterol (30-100) mg/dL HDL Cholesterol (40-60) mg/dL Heart Disease Risk Ratio Influenza Type A Ag (NEGATIVE) Influenza Type B Ag (NEGATIVE) RSV (PCR) (Negative) SARS-CoV-2 (PCR) (NEGATIVE) 04/04/22 04/04/22 04/05/22 Range/Units 19:45 22:55 00:10 WBC (4.0-10.5) x10^3/uL RBC (4.1-5.6) x10^6/uL Hgb (12.5-18.0) g/dL Hct (42-50) % MCV (78-100) fL MCH (26-32) pg MCHC (32-36) g/dL RDW (11.5-14.0) % Plt Count (150-450) x10^3/uL MPV (7.5-11.0) fL Gran % (36.0-66.0) % Immature Gran % (Auto) (0.00-0.4) % Nucleat RBC Rel Count (0.00-0.1) % Eos # (Auto) (0-0.5) x10^3/uL Immature Gran # (Auto) (0.00-0.03) x10^3u/L Absolute Lymphs (auto) (1.0-4.6) x10^3/uL Absolute Monos (auto) (0.0-1.3) x10^3/uL Absolute Nucleated RBC (0.00-0.01) x10^3u/L Lymphocytes % (24.0-44.0) % Monocytes % (0.0-12.0) % Eosinophils % (0.00-5.0) % Basophils % (0.0-0.4) % Absolute Granulocytes (1.4-6.9) x10^3/uL Basophils # (0-0.4) x10^3/uL Sodium (137-145) mmol/L Potassium (3.5-5.1) mmol/L Chloride (98-107) mmol/L Carbon Dioxide (22-30) mmol/L Anion Gap (5-15) MEQ/L BUN (9-20) mg/dL Creatinine (0.66-1.25) mg/dL Estimated GFR ML/MIN Glucose (74-106) mg/dL Calcium (8.4-10.2) mg/dL Total Bilirubin (0.2-1.3) mg/dL AST (17-59) U/L ALT (0-50) U/L Alkaline Phosphatase (38-126) U/L Troponin I < 0.012 (0.000-0.034) ng/mL NT-Pro-B Natriuret Pep (0-1800) pg/mL Serum Total Protein (6.3-8.2) g/dL Albumin (3.5-5.0) g/dL Triglycerides 200 H (30-150) mg/dL Cholesterol 154 (50-200) mg/dL LDL Cholesterol 88 (30-100) mg/dL HDL Cholesterol 32 L (40-60) mg/dL Heart Disease Risk Ratio 4.8 Influenza Type A Ag NEGATIVE (NEGATIVE) Influenza Type B Ag NEGATIVE (NEGATIVE) RSV (PCR) NEGATIVE (Negative) SARS-CoV-2 (PCR) NEGATIVE (NEGATIVE) 04/05/22 04/05/22 04/05/22 Range/Units 06:00 06:00 06:00 WBC 10.2 (4.0-10.5) x10^3/uL RBC 2.83 L (4.1-5.6) x10^6/uL Hgb 9.3 L (12.5-18.0) g/dL Hct 29.1 L (42-50) % MCV 102.8 H (78-100) fL MCH 32.9 H (26-32) pg MCHC 32.0 (32-36) g/dL RDW 12.7 (11.5-14.0) % Plt Count 260 (150-450) x10^3/uL MPV 9.6 (7.5-11.0) fL Gran % 74.7 H (36.0-66.0) % Immature Gran % (Auto) 0.3 (0.00-0.4) % Nucleat RBC Rel Count 0.0 (0.00-0.1) % Eos # (Auto) 0.43 (0-0.5) x10^3/uL Immature Gran # (Auto) 0.03 (0.00-0.03) x10^3u/L Absolute Lymphs (auto) 1.21 (1.0-4.6) x10^3/uL Absolute Monos (auto) 0.83 (0.0-1.3) x10^3/uL Absolute Nucleated RBC 0.00 (0.00-0.01) x10^3u/L Lymphocytes % 11.9 L (24.0-44.0) % Monocytes % 8.1 (0.0-12.0) % Eosinophils % 4.2 (0.00-5.0) % Basophils % 0.8 (0.0-0.4) % Absolute Granulocytes 7.62 H (1.4-6.9) x10^3/uL Basophils # 0.08 (0-0.4) x10^3/uL Sodium 139 (137-145) mmol/L Potassium 4.3 (3.5-5.1) mmol/L Chloride 108 H (98-107) mmol/L Carbon Dioxide 27 (22-30) mmol/L Anion Gap 8.1 (5-15) MEQ/L BUN 20 (9-20) mg/dL Creatinine 1.44 H (0.66-1.25) mg/dL Estimated GFR 49.8 ML/MIN Glucose 101 (74-106) mg/dL Calcium 9.1 (8.4-10.2) mg/dL Total Bilirubin (0.2-1.3) mg/dL AST (17-59) U/L ALT (0-50) U/L Alkaline Phosphatase (38-126) U/L Troponin I < 0.012 (0.000-0.034) ng/mL NT-Pro-B Natriuret Pep (0-1800) pg/mL Serum Total Protein (6.3-8.2) g/dL Albumin (3.5-5.0) g/dL Triglycerides (30-150) mg/dL Cholesterol (50-200) mg/dL LDL Cholesterol (30-100) mg/dL HDL Cholesterol (40-60) mg/dL Heart Disease Risk Ratio Influenza Type A Ag (NEGATIVE) Influenza Type B Ag (NEGATIVE) RSV (PCR) (Negative) SARS-CoV-2 (PCR) (NEGATIVE) Micro Results-Entire Visit: Accuchecks Date 04/05/22 Time 07:17 - Radiology Exams Ordered Rad Exams-Entire Visit: Radiology Procedures Category Date Time Status CHEST 1 VIEW (PORTABLE) Stat Exams 04/04/22 17:35 Completed - Procedures and Test Procedures and Tests throughout Hospitalization: Therapy Orders & Screens 04/04/22 21:05 EKG [id number],QAMX3,PRN Comment: 04/05/22 05:00 EKG ROUTINE Comment: Diagnosis: Chest pain, ACS 04/06/22 05:00 EKG ROUTINE Comment: Diagnosis: Chest pain, ACS 04/07/22 05:00 EKG ROUTINE Comment: Diagnosis: Chest pain, ACS - Discharge Disposition: Home, Self-Care Condition: Stable Prescriptions: Continue Diltiazem HCl 240 mg [Cardizem CD 240 MG] 240 mg PO DAILY Metformin HCl 500 mg [Glucophage 500 MG] 500 mg PO DAILY Omeprazole 40 mg PO DAILY Carvedilol 12.5 mg [Coreg 12.5 mg] 25 mg PO BID Lutein 20 mg PO DAILY Polyethylene Glycol 3350 17 gm [Miralax Powder 17GM PACKET] 17 gm PO DAILY #30 packet Acetaminophen 325 mg [Tylenol 325 mg] 650 mg PO TID PRN PRN Reason: Pain Timolol [Betimol] 5 ml OP BID Magnesium Oxide 400 mg [Mag-Ox 400] 400 mg PO DAILY Potassium Chloride 10 meq PO DAILY Aspirin [Aspirin EC] 81 mg PO DAILY 30 Days #30 tablet Orphenadrine Citrate 100 mg [Norflex 100 MG Tablet] 100 mg PO BID #10 tab Trazodone HCl 150 mg PO QHS Tramadol HCl 50 mg [Ultram 50 mg] 50 mg PO TIDPRN PRN PRN Reason: Pain Albuterol Common Canister [Ventolin Common Canister] 1 puff IH DIRECTIONS UNKNOWN PRN PRN Reason: Shortness Of Breath Outpatient Orders: Stress Test: Lexiscan Facility: [facility], Location: RESPIRATORY THERAPY Follow up with: ARNOLD OLIVAS MD [Primary Care Provider] -
== END 2022-04-05 11:36 | disposition home or self-care (01) ==
LOC: ED 16:59 → MED SURG 21:05
PROVIDERS: ADMIT Family Medicine; ATTEND Family Medicine
DX: R07.9 Chest pain, unspecified (principal); F03.90 Unspecified dementia, unspecified severity, without behavioral disturbance, psychotic disturbance, mood disturbance, and anxiety; I10 Essential (primary) hypertension; E11.9 Type 2 diabetes mellitus without complications; Z79.899 Other long term (current) drug therapy; Z85.46 Personal history of malignant neoplasm of prostate; Z20.828 Contact with and (suspected) exposure to other viral communicable diseases
CPT/HCPCS: 0241U; 36000; 36415; 71045; 80048; 80053; 80061; 83721; 83880; 84484; 85025; 93005; 93041; 93268; 94760; 99285; G0378

== ENCOUNTER 2022-05-22 18:11 | Observation (INO) | payer MEDICARE ==
--- NOTE | 2022-05-22 20:27 | ERPHSYRPT ---
- History of Present Illness Time Seen by Provider: 05/22/22 20:23 Source: patient Exam Limitations: no limitations Patient Subjective Stated Complaint: C/O abdominal swelling with right lower quad pain. Triage Nursing Assessment: Patient ambulated back to ER. Slight SOB noted with ambulation but patient rebounds quickly. Sating 96% on room air. He is alert and oriented but very hard of hearing; hearing aids present. Abdomen is firm and distened; pump noted to be implanted in left side of abdomen. Noteable pain present in right lower abdominal quad with light palpation. Physician History: Patient is an 81-year-old male presents emergency department for evaluation of right lower quadrant pain and abdominal distention. Patient states symptoms have been ongoing for approximately 1 week or more. No trauma. No fever. Patient is very hard of hearing. Difficult to communicate. Patient's daughter is at bedside. She is from out of town and is not aware of his past medical history or recent illness. Patient states he is somewhat short of breath. However he is not sure if this is due to abdominal distention versus primary lung. Patient is not aware of any cardiac history. No trauma. No fever. No diarrhea. No rash. Symptoms are progressive. Symptoms are moderate in intensity palpation to right lower quadrant reproduces symptoms. Patient has a left abdominal pain pump for chronic back pain. They voiced no other complaints or concerns at this time. Timing/Duration: week(s) Severity: moderate (1 week) Modifying Factors: Improves With: nothing Associated Symptoms: denies symptoms Allergies/Adverse Reactions: doxazosin mesylate [From Cardura] Allergy (Verified 05/22/22 18:23) Itching ezetimibe [From Zetia] Allergy (Verified 05/22/22 18:23) iodine Allergy (Verified 05/22/22 18:23) Hives latex Allergy (Verified 05/22/22 18:23) prednisone Allergy (Verified 05/22/22 18:23) states "homicidal" simvastatin [From Zocor] Allergy (Verified 05/22/22 18:23) Rxssutw-WNT-FoN Reductase Inhibitor [Rzocgqr-Yqa-Wbd Reductase Inhibitor] Allergy (Verified 05/22/22 18:23) Joint Aches duloxetine Adverse Reaction (Verified 05/22/22 18:23) milk Adverse Reaction (Verified 05/22/22 18:23) bananas Allergy (Mild, Uncoded 05/22/22 18:23) iv contrast Allergy (Uncoded 05/22/22 18:23) Hives Home Medications: Diltiazem HCl 240 mg [Cardizem CD 240 MG] 240 mg PO DAILY 01/02/16 [History] Metformin HCl 500 mg [Glucophage 500 MG] 500 mg PO DAILY 01/02/16 [History] Omeprazole 40 mg PO DAILY 02/25/20 [History] Carvedilol 12.5 mg [Coreg 12.5 mg] 25 mg PO BID 06/09/20 [History] Lutein 20 mg PO DAILY 09/27/20 [History] Acetaminophen 325 mg [Tylenol 325 mg] 650 mg PO TID PRN 10/01/21 [History] Magnesium Oxide 400 mg [Mag-Ox 400] 400 mg PO DAILY 10/01/21 [History] Timolol [Betimol] 5 ml OP BID 10/01/21 [History] Potassium Chloride 10 meq PO DAILY 11/21/21 [History] Albuterol Common Canister [Ventolin Common Canister] 1 puff IH DIRECTIONS UNKNOWN PRN 04/04/22 [History] Tramadol HCl 50 mg [Ultram 50 mg] 50 mg PO TIDPRN PRN 04/04/22 [History] Trazodone HCl 150 mg PO QHS 04/04/22 [History] Hx Tetanus, Diphtheria Vaccination/Date Given: Yes Hx Influenza Vaccination/Date Given: No (unknown) Hx Pneumococcal Vaccination/Date Given: No Immunizations Up to Date: Yes Travel Risk - International Travel Have you traveled outside of the country in past 3 weeks: No - Coronavirus Screening Are you exhibiting any of the following symptoms?: Yes Symptoms: Shortness of Breath Close contact with a COVID-19 positive Pt in past 14-21 Days: No - Vaccine Status Have you recieved a Covid-19 vaccination: Yes Meat [employer]: Moderna - Vaccination Dates Date of 2cond Vaccination (if applicable): 05/2020 Comment: moderna booster 02/2021 - Review of Systems Constitutional: No Symptoms, No Fever, No Chills Eyes: No Symptoms Ears, Nose, & Throat: No Symptoms Respiratory: No Symptoms, No Cough, No Dyspnea Cardiac: No Symptoms, No Chest Pain, No Edema, No Syncope Abdominal/Gastrointestinal: No Symptoms, No Abdominal Pain, No Nausea, No Vomiting, No Diarrhea Genitourinary Symptoms: No Symptoms, No Dysuria Musculoskeletal: No Symptoms, No Back Pain, No Neck Pain Skin: No Symptoms, No Rash Neurological: No Symptoms, No Dizziness, No Focal Weakness, No Sensory Changes Psychological: No Symptoms Endocrine: No Symptoms Hematologic/Lymphatic: No Symptoms Immunological/Allergic: No Symptoms All Other Systems: Reviewed and Negative - Past Medical History Pertinent Past Medical History: Yes Neurological History: TIA ENT History: No Pertinent History Cardiac History: Hypertension Respiratory History: No Pertinent History Endocrine Medical History: Diabetes Type II Musculoskeletal History: Arthritis, Osteoarthritis GI Medical History: GERD History: Other Psycho-Social History: No Pertinent History Male Reproductive Disorders: Prostate Cancer Other Medical History: PACEMAKER, PAIN PUMP - Past Surgical History Past Surgical History: Yes Neuro Surgical History: No Pertinent History Cardiac: Angioplasty, Cardiac Stent, Pacemaker Respiratory: Other Gastrointestinal: No Pertinent History Genitourinary: No Pertinent History Musculoskeletal: No Pertinent History Male Surgical History: Prostate Surgery, Vasectomy, Other Other Surgical History: penile implant, back pain pump - Social History Smoking Status: Former smoker Exposure to second hand smoke: No Alcohol Use: None Drug Use: none Patient Lives Alone: Yes Significant Family History: no pertinent family hx - Nursing Vital Signs Nursing Vital Signs: Initial Vital Signs Temperature 97.2 F 05/22/22 18:24 Pulse Rate 61 05/22/22 18:24 Respiratory Rate 20 05/22/22 18:24 Blood Pressure 135/65 05/22/22 18:24 O2 Sat by Pulse Oximetry 96 05/22/22 18:24 Pain Scale Pain Intensity 4 - Physical Exam General Appearance: no apparent distress, alert Eye Exam: PERRL/EOMI, eyes nml inspection Ears, Nose, Throat Exam: normal ENT inspection, TMs normal, pharynx normal, moist mucous membranes Neck Exam: normal inspection, non-tender, supple, full range of motion Respiratory Exam: normal breath sounds, lungs clear, airway intact, No respiratory distress Cardiovascular Exam: regular rate/rhythm, normal heart sounds, normal peripheral pulses Gastrointestinal/Abdomen Exam: soft, normal bowel sounds, other (Right lower quadrant tenderness to palpation.), No tenderness, No mass Back Exam: normal inspection, normal range of motion, No CVA tenderness, No vertebral tenderness Extremity Exam: normal inspection, normal range of motion, pelvis stable, other (Bilateral lower extremity pitting edema. Patient believes this is chronic) Neurologic Exam: alert, oriented x 3, cooperative, normal mood/affect, nml cerebellar function, nml station & gait, sensation nml, No motor deficits Skin Exam: normal color, warm, dry, No rash Lymphatic Exam: No adenopathy SpO2 Interpretation: normal SpO2: 95 O2 Delivery: Room Air - Course Nursing assessment & vital signs reviewed: Yes EKG Interpreted by Me: RATE (Paced rhythm) - CT Exams Abdomen/Pelvis CT Interpretation: Tele-radiologist Report (Compared to 05/06/2021 new tiny right effusion. Stable small hiatal hernia. Beam artifact from pain pump, sigmoid diverticulosis, prostatectomy. Penile implant. Remaining abdomen pelvis negative.) Ordered Tests: Active Orders 24 hr Category Date Time Status Systems Technician STAT Care 05/22/22 20:20 Active EKG-ER Only STAT Care 05/22/22 20:19 Active IV Insertion STAT Care 05/22/22 20:19 Active Pulse Oximetry (ED) STAT Care 05/22/22 20:19 Active ABDOMEN AND PELVIS W/0 CONTRAS [CT] Stat Exams 05/22/22 20:50 Taken CHEST 1 VIEW (PORTABLE) Stat Exams 05/22/22 22:36 Taken CBC W DIFF Stat Lab 05/22/22 20:19 Completed CMP Stat Lab 05/22/22 20:19 Completed LIPASE Stat Lab 05/22/22 20:19 Completed NT PRO BNPII Stat Lab 05/22/22 20:19 Completed TROPONIN Q4H Lab 05/22/22 20:30 Completed TROPONIN Q4H Lab 05/23/22 00:30 Ordered TROPONIN Q4H Lab 05/23/22 04:30 Ordered UA W/RFX UR CULTURE Stat Lab 05/22/22 20:25 Completed Transfer Order Routine Transfer 05/22/22 Ordered Medication Summary Discontinued Medications Generic Name Dose Route Start Last Admin Trade Name Freq PRN Reason Stop Dose Admin Furosemide 40 mg 05/22/22 22:27 05/22/22 23:11 Furosemide 40 Mg/4 Ml Vial IV 05/22/22 22:28 40 mg STAT ONE Administration Furosemide Confirm 05/22/22 23:10 Furosemide 40 Mg/4 Ml Vial Administered 05/22/22 23:11 Dose 40 mg .ROUTE .STK-MED ONE Nitroglycerin 1 gm 05/22/22 22:27 05/22/22 23:11 Nitroglycerin 1 Gm Packet TOP 05/22/22 22:28 1 gm STAT ONE Administration Nitroglycerin Confirm 05/22/22 23:10 Nitroglycerin 1 Gm Packet Administered 05/22/22 23:11 Dose 1 gm .ROUTE .STK-MED ONE Lab/Rad Data: Laboratory Result Diagrams 05/22/22 20:19 05/22/22 20:19 Laboratory Results 05/22/22 05/22/22 05/22/22 Range/Units 21:20 20:30 20:25 WBC (4.0-10.5) x10^3/uL RBC (4.1-5.6) x10^6/uL Hgb (12.5-18.0) g/dL Hct (42-50) % MCV (78-100) fL MCH (26-32) pg MCHC (32-36) g/dL RDW (11.5-14.0) % Plt Count (150-450) x10^3/uL MPV (7.5-11.0) fL Gran % (36.0-66.0) % Immature Gran % (Auto) (0.00-0.4) % Nucleat RBC Rel Count (0.00-0.1) % Eos # (Auto) (0-0.5) x10^3/uL Immature Gran # (Auto) (0.00-0.03) x10^3u/L Absolute Lymphs (auto) (1.0-4.6) x10^3/uL Absolute Monos (auto) (0.0-1.3) x10^3/uL Absolute Nucleated RBC (0.00-0.01) x10^3u/L Lymphocytes % (24.0-44.0) % Monocytes % (0.0-12.0) % Eosinophils % (0.00-5.0) % Basophils % (0.0-0.4) % Absolute Granulocytes (1.4-6.9) x10^3/uL Basophils # (0-0.4) x10^3/uL Sodium (137-145) mmol/L Potassium (3.5-5.1) mmol/L Chloride (98-107) mmol/L Carbon Dioxide (22-30) mmol/L Anion Gap (5-15) MEQ/L BUN (9-20) mg/dL Creatinine (0.66-1.25) mg/dL Estimated GFR ML/MIN Glucose (74-106) mg/dL Calcium (8.4-10.2) mg/dL Total Bilirubin (0.2-1.3) mg/dL AST (17-59) U/L ALT (0-50) U/L Alkaline Phosphatase (38-126) U/L Troponin I 1.010 H* (0.000-0.034) ng/mL NT-Pro-B Natriuret Pep (<300) pg/mL Serum Total Protein (6.3-8.2) g/dL Albumin (3.5-5.0) g/dL Lipase (23-300) U/L Urine Color Yellow (Yellow) Urine Appearance Clear (Clear) Urine pH 5.0 (4.6-8.0) Ur Specific [place] 1.015 (1.005-1.030) Urine Protein Negative (Negative) Urine Glucose (UA) Negative (Negative) mg/dL Urine Ketones Negative (Negative) Urine Blood Negative (Negative) Urine Nitrite Negative (Negative) Urine Bilirubin Negative (Negative) Urine Urobilinogen 0.2 (0.2) mg/dL Ur Leukocyte Esterase Negative (Negative) U Hyaline Cast (Auto) 3-5 A (0-2) /LPF Urine Microscopic RBC 0-2 (0-5) /HPF Urine Microscopic WBC 0-2 (0-5) /HPF Ur Epithelial Cells None Seen (None Seen) /HPF Urine Bacteria None Seen (None Seen) /HPF Urine Culture Reflexed NO (NO) Influenza Type A Ag NEGATIVE (NEGATIVE) Influenza Type B Ag NEGATIVE (NEGATIVE) RSV (PCR) NEGATIVE (NEGATIVE) SARS-CoV-2 (PCR) NEGATIVE (NEGATIVE) 05/22/22 05/22/22 Range/Units 20:19 20:19 WBC 7.6 (4.0-10.5) x10^3/uL RBC 2.86 L (4.1-5.6) x10^6/uL Hgb 9.3 L (12.5-18.0) g/dL Hct 29.3 L (42-50) % MCV 102.4 H (78-100) fL MCH 32.5 H (26-32) pg MCHC 31.7 L (32-36) g/dL RDW 12.3 (11.5-14.0) % Plt Count 282 (150-450) x10^3/uL MPV 10.2 (7.5-11.0) fL Gran % 61.8 (36.0-66.0) % Immature Gran % (Auto) 0.4 (0.00-0.4) % Nucleat RBC Rel Count 0.0 (0.00-0.1) % Eos # (Auto) 0.50 (0-0.5) x10^3/uL Immature Gran # (Auto) 0.03 (0.00-0.03) x10^3u/L Absolute Lymphs (auto) 1.49 (1.0-4.6) x10^3/uL Absolute Monos (auto) 0.80 (0.0-1.3) x10^3/uL Absolute Nucleated RBC 0.00 (0.00-0.01) x10^3u/L Lymphocytes % 19.7 L (24.0-44.0) % Monocytes % 10.6 (0.0-12.0) % Eosinophils % 6.6 H (0.00-5.0) % Basophils % 0.9 (0.0-0.4) % Absolute Granulocytes 4.69 (1.4-6.9) x10^3/uL Basophils # 0.07 (0-0.4) x10^3/uL Sodium 139 (137-145) mmol/L Potassium 4.8 (3.5-5.1) mmol/L Chloride 102 (98-107) mmol/L Carbon Dioxide 24 (22-30) mmol/L Anion Gap 18.1 H (5-15) MEQ/L BUN 26 H (9-20) mg/dL Creatinine 1.69 H (0.66-1.25) mg/dL Estimated GFR 41.4 ML/MIN Glucose 109 H (74-106) mg/dL Calcium 9.1 (8.4-10.2) mg/dL Total Bilirubin 0.40 (0.2-1.3) mg/dL AST 31 (17-59) U/L ALT 13 (0-50) U/L Alkaline Phosphatase 87 (38-126) U/L Troponin I (0.000-0.034) ng/mL NT-Pro-B Natriuret Pep 7060 (<300) pg/mL Serum Total Protein 6.7 (6.3-8.2) g/dL Albumin 4.0 (3.5-5.0) g/dL Lipase 66 (23-300) U/L Urine Color (Yellow) Urine Appearance (Clear) Urine pH (4.6-8.0) Ur Specific [place] (1.005-1.030) Urine Protein (Negative) Urine Glucose (UA) (Negative) mg/dL Urine Ketones (Negative) Urine Blood (Negative) Urine Nitrite (Negative) Urine Bilirubin (Negative) Urine Urobilinogen (0.2) mg/dL Ur Leukocyte Esterase (Negative) U Hyaline Cast (Auto) (0-2) /LPF Urine Microscopic RBC (0-5) /HPF Urine Microscopic WBC (0-5) /HPF Ur Epithelial Cells (None Seen) /HPF Urine Bacteria (None Seen) /HPF Urine Culture Reflexed (NO) Influenza Type A Ag (NEGATIVE) Influenza Type B Ag (NEGATIVE) RSV (PCR) (NEGATIVE) SARS-CoV-2 (PCR) (NEGATIVE) - Progress Progress: improved Progress Note: Patient 81-year-old male presents to our ED with progressive shortness of breath. Work-up reveals congestive heart failure. Lasix administered. Patient have history of chronic renal sufficiency. Patient endorsed to Dr. borges for admission. Plan of care discussed with patient. He agrees to admission [facility] for further evaluation and treatment. Complexity of problem addressed is moderate. Chronic illness with exacerbation. No critical care time. Complexity of data reviewed and analyzed is moderate. Documents reviewed and analyzed. Patient's daughter served as independent historian. EKG independently interpreted by Dr. Zhou. Risk of complication and or morbidity/mortality of patient management is high. Patient will be hospitalized for further evaluation and treatment. Portions of this note were created with voice recognition technology. There may be grammatical, spelling, punctuation or sound alike errors 05/22/22 23:18 Counseled pt/family regarding: lab results, diagnosis, rad results - Departure Departure Disposition: Observation Clinical Impression: CRI (chronic renal insufficiency), Elevated troponin, Elevated brain natriuretic peptide (BNP) level, CHF (congestive heart failure) Condition: Stable Critical Care Time: No Referrals: ARNOLD OLIVAS MD [Primary Care Provider] - Follow up/PCP as directed Instructions: Heart Failure
[2022-05-22 20:29] LABS: Absolute Neutrophil Ct (ANC) 4.69 x10^3/uL (1.4-6.9); BASOPHIL % 0.9 % (0.0-0.4); Basophil (Absolute #) 0.07 x10^3/uL (0-0.4); Eosinophil % 6.6 % (0.00-5.0); Hematocrit 29.3 % (42-50); Hemoglobin 9.3 g/dL (12.5-18.0); IMMATURE GRAN # 0.03 x10^3u/L (0.00-0.03); IMMATURE GRAN % 0.4 % (0.00-0.4); Lymphocyte (Absolute #) 1.49 x10^3/uL (1.0-4.6); Lymphocytes % 19.7 % (24.0-44.0); Mean Cell Volume 102.4 fL (78-100); Mean Corpuscular Hemoglobin 32.5 pg (26-32); Mean Corpuscular Hgb Concent. 31.7 g/dL (32-36); Mean Platelet Volume 10.2 fL (7.5-11.0); Monocytes % 10.6 % (0.0-12.0); Neutrophil % 61.8 % (36.0-66.0); Platelet Count 282 x10^3/uL (150-450); Red Blood Count 2.86 x10^6/uL (4.1-5.6); Red Cell Distribution Width 12.3 % (11.5-14.0); White Blood Count 7.6 x10^3/uL (4.0-10.5)
[2022-05-22 20:42] LABS: Appearance Clear (Clear); Bacteria None Seen /HPF (None Seen); Bilirubin Negative (Negative); Blood Negative (Negative); Epithelial Cells None Seen /HPF (None Seen); Glucose, Urine Negative (Negative); Ketones Negative (Negative); Leukocyte Esterase Negative (Negative); Nitrite Negative (Negative); Protein,Urine Dip Negative (Negative); RBC 0-2 /HPF (0-5); Specific Gravity 1.015 (1.005-1.030); Urobilinogen 0.2 mg/dL (0.2); WBC 0-2 /HPF (0-5)
[2022-05-22 20:44] LABS: ANION GAP 18.1 MEQ/L (5-15); BILIRUBIN,TOTAL 0.4 mg/dL (0.2-1.3); Calcium 9.1 mg/dL (8.4-10.2); Creatinine 1 1.69 mg/dL (0.66-1.25); EST GLOMERULAR FILTRATION RATE 41.4 ML/MIN; Potassium 4.8 mmol/L (3.5-5.1); Total Protein 6.7 g/dL (6.3-8.2)
[2022-05-22 20:49] LABS: ADD URINE CULTURE? NO (NO)
[2022-05-22 22:08] LABS: INFLUENZA A NEGATIVE (NEGATIVE); INFLUENZA B NEGATIVE (NEGATIVE); RESPIRATORY SYNCTIAL VIRUS NEGATIVE (NEGATIVE); SARS-CoV-2 Xpert Express NEGATIVE (NEGATIVE)
[2022-05-22] MEDS ORDERED: Lasix 40 MG/4 ML IV ONE (22:27)
[2022-05-22] MEDS ORDERED: NITRO-BID 2% UD PACKETS TOP ONE (22:27)
[2022-05-22] MEDS ORDERED: Lasix 40 MG/4 ML ONE (23:10)
[2022-05-22] MEDS ORDERED: NITRO-BID 2% UD PACKETS ONE (23:10)
[2022-05-23] MEDS ORDERED: Nitrostat 0.4 MG Tablet SL PRN (00:37)
[2022-05-23] MEDS ORDERED: Sodium Chloride 0.9% 10 ML FLUSH Syringe IV PRN (00:37)
[2022-05-23] MEDS ORDERED: HUMALOG SQ PRN (00:37)
[2022-05-23] MEDS ORDERED: Senokot-S Tablet PO PRN (00:37)
[2022-05-23] MEDS ORDERED: TYLENOL 325 MG PO PRN ×3 (00:37→09:34)
[2022-05-23] MEDS ORDERED: Lasix 40 MG/4 ML IV SCH (00:45)
--- NOTE | 2022-05-23 01:23 | PCM.HP ---
History of Present Illness - Chief Complaint Chief Complaint: chf History of Present Illness: Patient is an 81-year-old male presented via the emergency department for evaluation of shortness of breath (and reported dyspnea with exertion), right lower quadrant abdominal pain, abdominal distention. The patient has hearing impairment, and supplemental history was provided by the patient's daughter at bedside. The patient states that he has been experiencing these symptoms for approximately 1 week or more. The patient had denied chest pain in the ED but upon further questioning, he has endorsed left sided chest discomfort over the past week as well. His last chest pain episode was on the morning of presentation upon awakening, and lasted approximately 15 minutes total and spontaneously resolved. The chest pain has no associated symptoms such as diaphoresis. He denies cough, fever, diarrhea, rash, diaphoresis. In the ED, the patient demonstrated leg edema and evidence of volume overload on labs (elevated BNP) and CXR (pulmonary edema). Treatment for CHF was initiated with IV Lasix x1. . - Review of Systems Constitutional: No Symptoms Eyes: No Symptoms Ears, Nose, & Throat: No Symptoms Respiratory: No Symptoms Cardiac: Chest Pain, Edema, Orthopnea Abdominal/Gastrointestinal: Abdominal Pain, Constipation Genitourinary Symptoms: No Symptoms Musculoskeletal: No Symptoms Skin: No Symptoms Neurological: No Symptoms Psychological: No Symptoms Endocrine: No Symptoms Hematologic/Lymphatic: No Symptoms Immunological/Allergic: No Symptoms All Other Systems: Reviewed and Negative Medications & Allergies Home Medications: Home Medication List Diltiazem HCl 240 mg [Cardizem CD 240 MG] 240 mg PO DAILY 01/02/16 [History Confirmed 04/04/22] Metformin HCl 500 mg [Glucophage 500 MG] 500 mg PO DAILY 01/02/16 [History Confirmed 04/04/22] Omeprazole 40 mg PO DAILY 02/25/20 [History Confirmed 04/04/22] Carvedilol 12.5 mg [Coreg 12.5 mg] 25 mg PO BID 06/09/20 [History Confirmed 04/04/22] Lutein 20 mg PO DAILY 09/27/20 [History Confirmed 04/04/22] Polyethylene Glycol 3350 17 gm [Miralax Powder 17GM PACKET] 17 gm PO DAILY #30 packet 11/09/20 [Rx Confirmed 04/04/22] Acetaminophen 325 mg [Tylenol 325 mg] 650 mg PO TID PRN 10/01/21 [History Confirmed 04/04/22] Magnesium Oxide 400 mg [Mag-Ox 400] 400 mg PO DAILY 10/01/21 [History Confirmed 04/04/22] Timolol [Betimol] 5 ml OP BID 10/01/21 [History Confirmed 04/04/22] Potassium Chloride 10 meq PO DAILY 11/21/21 [History Confirmed 04/04/22] Aspirin [Aspirin EC] 81 mg PO DAILY 30 Days #30 tablet 11/24/21 [Rx Confirmed 04/04/22] Orphenadrine Citrate 100 mg [Norflex 100 MG Tablet] 100 mg PO BID #10 tab 03/25/22 [Rx Confirmed 04/04/22] Albuterol Common Canister [Ventolin Common Canister] 1 puff IH DIRECTIONS UNKNOWN PRN 04/04/22 [History Confirmed 04/04/22] Tramadol HCl 50 mg [Ultram 50 mg] 50 mg PO TIDPRN PRN 04/04/22 [History Confirmed 04/05/22] Trazodone HCl 150 mg PO QHS 04/04/22 [History Confirmed 04/05/22] Allergies/Adverse Reactions: Allergies Allergy/AdvReac Type Severity Reaction Status Date / Time doxazosin mesylate Allergy Itching Verified 05/22/22 18:23 [From Cardura] ezetimibe [From Zetia] Allergy Verified 05/22/22 18:23 iodine Allergy Hives Verified 05/22/22 18:23 latex Allergy Verified 05/22/22 18:23 prednisone Allergy Verified 05/22/22 18:23 simvastatin [From Zocor] Allergy Verified 05/22/22 18:23 Qxrpzye-[id number]-TrM Reductase Allergy Joint Aches Verified 05/22/22 18:23 Inhibitor [Ryciujo-Blp-Jng Reductase Inhibitor] duloxetine AdvReac Verified 05/22/22 18:23 milk AdvReac Verified 05/22/22 18:23 bananas Allergy Mild Uncoded 05/22/22 18:23 iv contrast Allergy Hives Uncoded 05/22/22 18:23 - Past Medical History Past Medical History: Yes Neurological History: TIA ENT History: No Pertinent History Cardiac History: Hypertension, Other (Does not remember when last PCI was, but none in the past few years) Respiratory History: No Pertinent History Endocrine Medical History: Diabetes Type II Musculoskelatal History: Arthritis, Osteoarthritis GI Medical History: GERD History: Other Pyscho-Social History: No Pertinent History Male Reproductive Disorders: Prostate Cancer Comment: PACEMAKER, PAIN PUMP - Past Surgical History Past Surgical History: Yes Neuro Surgical History: No Pertinent History Cardiac History: Angioplasty, Cardiac Stent, Pacemaker Respiratory Surgery: Other GI Surgical History: No Pertinent History Genitourinary Surgical Hx: No Pertinent History Musculskeletal Surgical Hx: No Pertinent History Male Surgical History: Prostate Surgery, Vasectomy, Other Other Surgical History: penile implant, back pain pump - Social History Smoking Status: Former smoker Exposure to second hand smoke: No Alcohol: None Drug Use: none Significant Family History: no pertinent family hx - Physical Exam Vital Signs: Vital Signs - 24 hr Temp Pulse Resp BP Pulse Ox 05/23/22 00:05 93 L 05/23/22 00:01 97.8 F 72 148/73 93 L 05/22/22 23:35 97.8 F 72 18 148/73 94 L 05/22/22 23:21 95 05/22/22 23:09 65 142/73 94 L 05/22/22 22:00 62 132/67 92 L 05/22/22 21:00 63 143/70 92 L 05/22/22 20:25 93 L 05/22/22 20:00 60 134/68 95 05/22/22 19:12 59 L 141/65 96 05/22/22 18:24 97.2 F 61 20 135/65 96 General Appearance: no apparent distress, alert, obese Neurologic Exam: alert, oriented x 3, cooperative, dry primer powder blender II-XII nml as tested, normal mood/affect, nml cerebellar function, sensation nml Eye Exam: PERRL/EOMI, eyes nml inspection Ears, Nose, Throat Exam: normal ENT inspection, moist mucous membranes Neck Exam: normal inspection, supple, full range of motion Cardiovascular Exam: regular rate/rhythm, normal heart sounds Gastrointestinal/Abdomen Exam: soft, normal bowel sounds, tenderness Back Exam: normal inspection, normal range of motion Extremity Exam: pedal edema Skin Exam: normal color, warm Results - Labs Lab/Micro Results: Lab Results-Last 24 Hours 05/22/22 05/22/22 05/22/22 Range/Units 20:19 20:19 20:25 WBC 7.6 (4.0-10.5) x10^3/uL RBC 2.86 L (4.1-5.6) x10^6/uL Hgb 9.3 L (12.5-18.0) g/dL Hct 29.3 L (42-50) % MCV 102.4 H (78-100) fL MCH 32.5 H (26-32) pg MCHC 31.7 L (32-36) g/dL RDW 12.3 (11.5-14.0) % Plt Count 282 (150-450) x10^3/uL MPV 10.2 (7.5-11.0) fL Gran % 61.8 (36.0-66.0) % Immature Gran % (Auto) 0.4 (0.00-0.4) % Nucleat RBC Rel Count 0.0 (0.00-0.1) % Eos # (Auto) 0.50 (0-0.5) x10^3/uL Immature Gran # (Auto) 0.03 (0.00-0.03) x10^3u/L Absolute Lymphs (auto) 1.49 (1.0-4.6) x10^3/uL Absolute Monos (auto) 0.80 (0.0-1.3) x10^3/uL Absolute Nucleated RBC 0.00 (0.00-0.01) x10^3u/L Lymphocytes % 19.7 L (24.0-44.0) % Monocytes % 10.6 (0.0-12.0) % Eosinophils % 6.6 H (0.00-5.0) % Basophils % 0.9 (0.0-0.4) % Absolute Granulocytes 4.69 (1.4-6.9) x10^3/uL Basophils # 0.07 (0-0.4) x10^3/uL Sodium 139 (137-145) mmol/L Potassium 4.8 (3.5-5.1) mmol/L Chloride 102 (98-107) mmol/L Carbon Dioxide 24 (22-30) mmol/L Anion Gap 18.1 H (5-15) MEQ/L BUN 26 H (9-20) mg/dL Creatinine 1.69 H (0.66-1.25) mg/dL Estimated GFR 41.4 ML/MIN Glucose 109 H (74-106) mg/dL Calcium 9.1 (8.4-10.2) mg/dL Total Bilirubin 0.40 (0.2-1.3) mg/dL AST 31 (17-59) U/L ALT 13 (0-50) U/L Alkaline Phosphatase 87 (38-126) U/L Troponin I (0.000-0.034) ng/mL NT-Pro-B Natriuret Pep 7060 (<300) pg/mL Serum Total Protein 6.7 (6.3-8.2) g/dL Albumin 4.0 (3.5-5.0) g/dL Lipase 66 (23-300) U/L Urine Color Yellow (Yellow) Urine Appearance Clear (Clear) Urine pH 5.0 (4.6-8.0) Ur Specific [place] 1.015 (1.005-1.030) Urine Protein Negative (Negative) Urine Glucose (UA) Negative (Negative) mg/dL Urine Ketones Negative (Negative) Urine Blood Negative (Negative) Urine Nitrite Negative (Negative) Urine Bilirubin Negative (Negative) Urine Urobilinogen 0.2 (0.2) mg/dL Ur Leukocyte Esterase Negative (Negative) U Hyaline Cast (Auto) 3-5 A (0-2) /LPF Urine Microscopic RBC 0-2 (0-5) /HPF Urine Microscopic WBC 0-2 (0-5) /HPF Ur Epithelial Cells None Seen (None Seen) /HPF Urine Bacteria None Seen (None Seen) /HPF Urine Culture Reflexed NO (NO) Influenza Type A Ag (NEGATIVE) Influenza Type B Ag (NEGATIVE) RSV (PCR) (NEGATIVE) SARS-CoV-2 (PCR) (NEGATIVE) 05/22/22 05/22/22 Range/Units 20:30 21:20 WBC (4.0-10.5) x10^3/uL RBC (4.1-5.6) x10^6/uL Hgb (12.5-18.0) g/dL Hct (42-50) % MCV (78-100) fL MCH (26-32) pg MCHC (32-36) g/dL RDW (11.5-14.0) % Plt Count (150-450) x10^3/uL MPV (7.5-11.0) fL Gran % (36.0-66.0) % Immature Gran % (Auto) (0.00-0.4) % Nucleat RBC Rel Count (0.00-0.1) % Eos # (Auto) (0-0.5) x10^3/uL Immature Gran # (Auto) (0.00-0.03) x10^3u/L Absolute Lymphs (auto) (1.0-4.6) x10^3/uL Absolute Monos (auto) (0.0-1.3) x10^3/uL Absolute Nucleated RBC (0.00-0.01) x10^3u/L Lymphocytes % (24.0-44.0) % Monocytes % (0.0-12.0) % Eosinophils % (0.00-5.0) % Basophils % (0.0-0.4) % Absolute Granulocytes (1.4-6.9) x10^3/uL Basophils # (0-0.4) x10^3/uL Sodium (137-145) mmol/L Potassium (3.5-5.1) mmol/L Chloride (98-107) mmol/L Carbon Dioxide (22-30) mmol/L Anion Gap (5-15) MEQ/L BUN (9-20) mg/dL Creatinine (0.66-1.25) mg/dL Estimated GFR ML/MIN Glucose (74-106) mg/dL Calcium (8.4-10.2) mg/dL Total Bilirubin (0.2-1.3) mg/dL AST (17-59) U/L ALT (0-50) U/L Alkaline Phosphatase (38-126) U/L Troponin I 1.010 H* (0.000-0.034) ng/mL NT-Pro-B Natriuret Pep (<300) pg/mL Serum Total Protein (6.3-8.2) g/dL Albumin (3.5-5.0) g/dL Lipase (23-300) U/L Urine Color (Yellow) Urine Appearance (Clear) Urine pH (4.6-8.0) Ur Specific [place] (1.005-1.030) Urine Protein (Negative) Urine Glucose (UA) (Negative) mg/dL Urine Ketones (Negative) Urine Blood (Negative) Urine Nitrite (Negative) Urine Bilirubin (Negative) Urine Urobilinogen (0.2) mg/dL Ur Leukocyte Esterase (Negative) U Hyaline Cast (Auto) (0-2) /LPF Urine Microscopic RBC (0-5) /HPF Urine Microscopic WBC (0-5) /HPF Ur Epithelial Cells (None Seen) /HPF Urine Bacteria (None Seen) /HPF Urine Culture Reflexed (NO) Influenza Type A Ag NEGATIVE (NEGATIVE) Influenza Type B Ag NEGATIVE (NEGATIVE) RSV (PCR) NEGATIVE (NEGATIVE) SARS-CoV-2 (PCR) NEGATIVE (NEGATIVE) - Radiology Impressions Radiology Exams & Impressions: Radiology Procedures Category Date Time Status ABDOMEN AND PELVIS W/0 CONTRAS [CT] Stat Exams 05/22/22 20:50 Taken CHEST 1 VIEW (PORTABLE) Stat Exams 05/22/22 22:36 Taken - Other Procedures and Tests Respiratory Therapy 05/22/22 23:27 Oxygen NASAL CANNULA 2 lpm 05/23/22 00:31 EKG REPEAT IN AM Assessment/Plan (1) CHF (congestive heart failure) Current Visit: Yes Status: Acute Qualifiers: Heart failure type: unspecified Heart failure chronicity: acute on chronic Qualified Code(s): I50.9 - Heart failure, unspecified Assessment & Plan: Acute on chronic CHF. Follows with Dr. Dennison. Will need to contact Dr. Dennison in AM to determine if patient is due for ECHO. Will administer IV Lasix q8h and monitor renal function, urine output, and edema. Code(s): I50.9 - HEART FAILURE, UNSPECIFIED (2) Chronic renal insufficiency Current Visit: Yes Status: Chronic Code(s): N18.9 - CHRONIC KIDNEY DISEASE, UNSPECIFIED (3) Elevated troponin Current Visit: Yes Status: Acute Assessment & Plan: Reports chest pain. Troponin elevated but EKG demonstrates paced rhythym without discernible acute ST changes. Will trend troponin. Follows with Dr. Dennison who will need to be contacted in AM to obtain further cardiac history and recommendations based on troponin trend. Home medications will need to be confirmed; unclear if patient is on Apixiban at home, so will place on ASA 81 mg (consistent with unverified home medication dose). Repeat AM EKG ordered. Code(s): R77.8 - OTHER SPECIFIED ABNORMALITIES OF PLASMA PROTEINS (4) Abdominal pain Current Visit: Yes Status: Acute Assessment & Plan: Unclear etiology. Possibly musculoskeletal. No evidence of cellulitis. No evidence of UTI. No significant leukocytosis. CT abdomen/pelvis is unremarkable. Lipase and LFTs normal. Will continue to monitor with repeat abdominal exam in AM and further evaluation thereafter. Patient has known history of constipation (bowel sounds present on exam), and will continue on a bowel regimen. Code(s): R10.9 - UNSPECIFIED ABDOMINAL PAIN Telemedicine Encounter - Telemedicine Encounter Telemedicine Encounter: The entirety of this encounter was performed via Telemedicine"
[2022-05-23 05:21] LABS: Hematocrit 29.1 % (42-50); Hemoglobin 9.2 g/dL (12.5-18.0); Mean Corpuscular Hemoglobin 31.6 pg (26-32); Mean Corpuscular Hgb Concent. 31.6 g/dL (32-36); Mean Platelet Volume 9.8 fL (7.5-11.0); Platelet Count 252 x10^3/uL (150-450); Red Blood Count 2.91 x10^6/uL (4.1-5.6); Red Cell Distribution Width 12.2 % (11.5-14.0); White Blood Count 10.1 x10^3/uL (4.0-10.5)
[2022-05-23] MEDS: Sodium Chloride 0.9% 10 ML FLUSH Syringe IV SCH ×3 (05:49→21:14)
[2022-05-23 05:53] LABS: ANION GAP 10.2 MEQ/L (5-15); Calcium 9.4 mg/dL (8.4-10.2); Creatinine 1 1.75 mg/dL (0.66-1.25); EST GLOMERULAR FILTRATION RATE 39.8 ML/MIN; Potassium 4.2 mmol/L (3.5-5.1)
--- NOTE | 2022-05-23 08:09 | PCM.NOTE ---
Date and Time: 05/23/22 08 Subjective Assessment: patient has no chest pain this morning, he is resting comfortably. hard of hearing, he reported an onset of chest pain that was mild with associated dyspnea yesterday, there was no nausea/vomiting or diaphoresis. he does have swelling in lower legs and feet Objective Exam General Appearance: no apparent distress Neurologic Exam: alert, oriented x 3 Respiratory Exam: crackles/rales Cardiovascular Exam: regular rate/rhythm, normal heart sounds Gastrointestinal/Abdomen Exam: soft, No tenderness, No mass Extremity Exam: normal inspection, normal range of motion OBJECTIVE DATA Vital Signs: Vital Signs - 24 hr Temp Pulse Resp BP Pulse Ox 05/23/22 07:45 96 05/23/22 04:00 97.8 F 62 13 130/60 96 05/23/22 01:47 90 L 05/23/22 00:05 93 L 05/23/22 00:01 97.8 F 72 148/73 93 L 05/22/22 23:35 97.8 F 72 18 148/73 94 L 05/22/22 23:21 95 05/22/22 23:09 65 142/73 94 L 05/22/22 22:00 62 132/67 92 L 05/22/22 21:00 63 143/70 92 L 05/22/22 20:25 93 L 05/22/22 20:00 60 134/68 95 05/22/22 19:12 59 L 141/65 96 05/22/22 18:24 97.2 F 61 20 135/65 96 Pain Assessment - Last Documented Pain Intensity 2 Intake and Output: Intake & Output 05/20/22 05/21/22 05/22/22 05/23/22 11:59 11:59 11:59 11:59 Intake Total 480 Output Total 575 Balance -95 Weight 72.1 kg Lab Results: Lab Results-Last 24 Hours 05/22/22 05/22/22 05/22/22 Range/Units 20:19 20:19 20:25 WBC 7.6 (4.0-10.5) x10^3/uL RBC 2.86 L (4.1-5.6) x10^6/uL Hgb 9.3 L (12.5-18.0) g/dL Hct 29.3 L (42-50) % MCV 102.4 H (78-100) fL MCH 32.5 H (26-32) pg MCHC 31.7 L (32-36) g/dL RDW 12.3 (11.5-14.0) % Plt Count 282 (150-450) x10^3/uL MPV 10.2 (7.5-11.0) fL Gran % 61.8 (36.0-66.0) % Immature Gran % (Auto) 0.4 (0.00-0.4) % Nucleat RBC Rel Count 0.0 (0.00-0.1) % Eos # (Auto) 0.50 (0-0.5) x10^3/uL Immature Gran # (Auto) 0.03 (0.00-0.03) x10^3u/L Absolute Lymphs (auto) 1.49 (1.0-4.6) x10^3/uL Absolute Monos (auto) 0.80 (0.0-1.3) x10^3/uL Absolute Nucleated RBC 0.00 (0.00-0.01) x10^3u/L Lymphocytes % 19.7 L (24.0-44.0) % Monocytes % 10.6 (0.0-12.0) % Eosinophils % 6.6 H (0.00-5.0) % Basophils % 0.9 (0.0-0.4) % Absolute Granulocytes 4.69 (1.4-6.9) x10^3/uL Basophils # 0.07 (0-0.4) x10^3/uL Sodium 139 (137-145) mmol/L Potassium 4.8 (3.5-5.1) mmol/L Chloride 102 (98-107) mmol/L Carbon Dioxide 24 (22-30) mmol/L Anion Gap 18.1 H (5-15) MEQ/L BUN 26 H (9-20) mg/dL Creatinine 1.69 H (0.66-1.25) mg/dL Estimated GFR 41.4 ML/MIN Glucose 109 H (74-106) mg/dL POC Glucometer (74 to 106) mg/dL Calcium 9.1 (8.4-10.2) mg/dL Total Bilirubin 0.40 (0.2-1.3) mg/dL AST 31 (17-59) U/L ALT 13 (0-50) U/L Alkaline Phosphatase 87 (38-126) U/L Troponin I (0.000-0.034) ng/mL NT-Pro-B Natriuret Pep 7060 (<300) pg/mL Serum Total Protein 6.7 (6.3-8.2) g/dL Albumin 4.0 (3.5-5.0) g/dL Lipase 66 (23-300) U/L Urine Color Yellow (Yellow) Urine Appearance Clear (Clear) Urine pH 5.0 (4.6-8.0) Ur Specific [place] 1.015 (1.005-1.030) Urine Protein Negative (Negative) Urine Glucose (UA) Negative (Negative) mg/dL Urine Ketones Negative (Negative) Urine Blood Negative (Negative) Urine Nitrite Negative (Negative) Urine Bilirubin Negative (Negative) Urine Urobilinogen 0.2 (0.2) mg/dL Ur Leukocyte Esterase Negative (Negative) U Hyaline Cast (Auto) 3-5 A (0-2) /LPF Urine Microscopic RBC 0-2 (0-5) /HPF Urine Microscopic WBC 0-2 (0-5) /HPF Ur Epithelial Cells None Seen (None Seen) /HPF Urine Bacteria None Seen (None Seen) /HPF Urine Culture Reflexed NO (NO) Influenza Type A Ag (NEGATIVE) Influenza Type B Ag (NEGATIVE) RSV (PCR) (NEGATIVE) SARS-CoV-2 (PCR) (NEGATIVE) 05/22/22 05/22/22 05/23/22 Range/Units 20:30 21:20 01:32 WBC (4.0-10.5) x10^3/uL RBC (4.1-5.6) x10^6/uL Hgb (12.5-18.0) g/dL Hct (42-50) % MCV (78-100) fL MCH (26-32) pg MCHC (32-36) g/dL RDW (11.5-14.0) % Plt Count (150-450) x10^3/uL MPV (7.5-11.0) fL Gran % (36.0-66.0) % Immature Gran % (Auto) (0.00-0.4) % Nucleat RBC Rel Count (0.00-0.1) % Eos # (Auto) (0-0.5) x10^3/uL Immature Gran # (Auto) (0.00-0.03) x10^3u/L Absolute Lymphs (auto) (1.0-4.6) x10^3/uL Absolute Monos (auto) (0.0-1.3) x10^3/uL Absolute Nucleated RBC (0.00-0.01) x10^3u/L Lymphocytes % (24.0-44.0) % Monocytes % (0.0-12.0) % Eosinophils % (0.00-5.0) % Basophils % (0.0-0.4) % Absolute Granulocytes (1.4-6.9) x10^3/uL Basophils # (0-0.4) x10^3/uL Sodium (137-145) mmol/L Potassium (3.5-5.1) mmol/L Chloride (98-107) mmol/L Carbon Dioxide (22-30) mmol/L Anion Gap (5-15) MEQ/L BUN (9-20) mg/dL Creatinine (0.66-1.25) mg/dL Estimated GFR ML/MIN Glucose (74-106) mg/dL POC Glucometer (74 to 106) mg/dL Calcium (8.4-10.2) mg/dL Total Bilirubin (0.2-1.3) mg/dL AST (17-59) U/L ALT (0-50) U/L Alkaline Phosphatase (38-126) U/L Troponin I 1.010 H* 1.010 H* (0.000-0.034) ng/mL NT-Pro-B Natriuret Pep (<300) pg/mL Serum Total Protein (6.3-8.2) g/dL Albumin (3.5-5.0) g/dL Lipase (23-300) U/L Urine Color (Yellow) Urine Appearance (Clear) Urine pH (4.6-8.0) Ur Specific [place] (1.005-1.030) Urine Protein (Negative) Urine Glucose (UA) (Negative) mg/dL Urine Ketones (Negative) Urine Blood (Negative) Urine Nitrite (Negative) Urine Bilirubin (Negative) Urine Urobilinogen (0.2) mg/dL Ur Leukocyte Esterase (Negative) U Hyaline Cast (Auto) (0-2) /LPF Urine Microscopic RBC (0-5) /HPF Urine Microscopic WBC (0-5) /HPF Ur Epithelial Cells (None Seen) /HPF Urine Bacteria (None Seen) /HPF Urine Culture Reflexed (NO) Influenza Type A Ag NEGATIVE (NEGATIVE) Influenza Type B Ag NEGATIVE (NEGATIVE) RSV (PCR) NEGATIVE (NEGATIVE) SARS-CoV-2 (PCR) NEGATIVE (NEGATIVE) 05/23/22 05/23/22 05/23/22 Range/Units 04:48 04:48 04:48 WBC 10.1 (4.0-10.5) x10^3/uL RBC 2.91 L (4.1-5.6) x10^6/uL Hgb 9.2 L (12.5-18.0) g/dL Hct 29.1 L (42-50) % MCV 100.0 (78-100) fL MCH 31.6 (26-32) pg MCHC 31.6 L (32-36) g/dL RDW 12.2 (11.5-14.0) % Plt Count 252 (150-450) x10^3/uL MPV 9.8 (7.5-11.0) fL Gran % (36.0-66.0) % Immature Gran % (Auto) (0.00-0.4) % Nucleat RBC Rel Count (0.00-0.1) % Eos # (Auto) (0-0.5) x10^3/uL Immature Gran # (Auto) (0.00-0.03) x10^3u/L Absolute Lymphs (auto) (1.0-4.6) x10^3/uL Absolute Monos (auto) (0.0-1.3) x10^3/uL Absolute Nucleated RBC (0.00-0.01) x10^3u/L Lymphocytes % (24.0-44.0) % Monocytes % (0.0-12.0) % Eosinophils % (0.00-5.0) % Basophils % (0.0-0.4) % Absolute Granulocytes (1.4-6.9) x10^3/uL Basophils # (0-0.4) x10^3/uL Sodium 139 (137-145) mmol/L Potassium 4.2 (3.5-5.1) mmol/L Chloride 102 (98-107) mmol/L Carbon Dioxide 31 H (22-30) mmol/L Anion Gap 10.2 (5-15) MEQ/L BUN 27 H (9-20) mg/dL Creatinine 1.75 H (0.66-1.25) mg/dL Estimated GFR 39.8 ML/MIN Glucose 107 H (74-106) mg/dL POC Glucometer (74 to 106) mg/dL Calcium 9.4 (8.4-10.2) mg/dL Total Bilirubin (0.2-1.3) mg/dL AST (17-59) U/L ALT (0-50) U/L Alkaline Phosphatase (38-126) U/L Troponin I 1.320 H* (0.000-0.034) ng/mL NT-Pro-B Natriuret Pep 9250 (<300) pg/mL Serum Total Protein (6.3-8.2) g/dL Albumin (3.5-5.0) g/dL Lipase (23-300) U/L Urine Color (Yellow) Urine Appearance (Clear) Urine pH (4.6-8.0) Ur Specific [place] (1.005-1.030) Urine Protein (Negative) Urine Glucose (UA) (Negative) mg/dL Urine Ketones (Negative) Urine Blood (Negative) Urine Nitrite (Negative) Urine Bilirubin (Negative) Urine Urobilinogen (0.2) mg/dL Ur Leukocyte Esterase (Negative) U Hyaline Cast (Auto) (0-2) /LPF Urine Microscopic RBC (0-5) /HPF Urine Microscopic WBC (0-5) /HPF Ur Epithelial Cells (None Seen) /HPF Urine Bacteria (None Seen) /HPF Urine Culture Reflexed (NO) Influenza Type A Ag (NEGATIVE) Influenza Type B Ag (NEGATIVE) RSV (PCR) (NEGATIVE) SARS-CoV-2 (PCR) (NEGATIVE) 05/23/22 Range/Units 07:01 WBC (4.0-10.5) x10^3/uL RBC (4.1-5.6) x10^6/uL Hgb (12.5-18.0) g/dL Hct (42-50) % MCV (78-100) fL MCH (26-32) pg MCHC (32-36) g/dL RDW (11.5-14.0) % Plt Count (150-450) x10^3/uL MPV (7.5-11.0) fL Gran % (36.0-66.0) % Immature Gran % (Auto) (0.00-0.4) % Nucleat RBC Rel Count (0.00-0.1) % Eos # (Auto) (0-0.5) x10^3/uL Immature Gran # (Auto) (0.00-0.03) x10^3u/L Absolute Lymphs (auto) (1.0-4.6) x10^3/uL Absolute Monos (auto) (0.0-1.3) x10^3/uL Absolute Nucleated RBC (0.00-0.01) x10^3u/L Lymphocytes % (24.0-44.0) % Monocytes % (0.0-12.0) % Eosinophils % (0.00-5.0) % Basophils % (0.0-0.4) % Absolute Granulocytes (1.4-6.9) x10^3/uL Basophils # (0-0.4) x10^3/uL Sodium (137-145) mmol/L Potassium (3.5-5.1) mmol/L Chloride (98-107) mmol/L Carbon Dioxide (22-30) mmol/L Anion Gap (5-15) MEQ/L BUN (9-20) mg/dL Creatinine (0.66-1.25) mg/dL Estimated GFR ML/MIN Glucose (74-106) mg/dL POC Glucometer 109 H (74 to 106) mg/dL Calcium (8.4-10.2) mg/dL Total Bilirubin (0.2-1.3) mg/dL AST (17-59) U/L ALT (0-50) U/L Alkaline Phosphatase (38-126) U/L Troponin I (0.000-0.034) ng/mL NT-Pro-B Natriuret Pep (<300) pg/mL Serum Total Protein (6.3-8.2) g/dL Albumin (3.5-5.0) g/dL Lipase (23-300) U/L Urine Color (Yellow) Urine Appearance (Clear) Urine pH (4.6-8.0) Ur Specific [place] (1.005-1.030) Urine Protein (Negative) Urine Glucose (UA) (Negative) mg/dL Urine Ketones (Negative) Urine Blood (Negative) Urine Nitrite (Negative) Urine Bilirubin (Negative) Urine Urobilinogen (0.2) mg/dL Ur Leukocyte Esterase (Negative) U Hyaline Cast (Auto) (0-2) /LPF Urine Microscopic RBC (0-5) /HPF Urine Microscopic WBC (0-5) /HPF Ur Epithelial Cells (None Seen) /HPF Urine Bacteria (None Seen) /HPF Urine Culture Reflexed (NO) Influenza Type A Ag (NEGATIVE) Influenza Type B Ag (NEGATIVE) RSV (PCR) (NEGATIVE) SARS-CoV-2 (PCR) (NEGATIVE) Radiology Exams: Radiology Procedures Category Date Time Status ABDOMEN AND PELVIS W/0 CONTRAS [CT] Stat Exams 05/22/22 20:50 Taken CHEST 1 VIEW (PORTABLE) Stat Exams 05/22/22 22:36 Taken Assessment/Plan (1) CHF (congestive heart failure) Current Visit: Yes Status: Acute Qualifiers: Heart failure type: unspecified Heart failure chronicity: acute on chronic Qualified Code(s): I50.9 - Heart failure, unspecified Assessment & Plan: continue IV lasix and monitor I/Os and renal function, currently ordered lasix 40mg IV q8hrs. will consult Dr Shea, uncertain of last echo, none in [employer] has a pacemaker Code(s): I50.9 - HEART FAILURE, UNSPECIFIED (2) Elevated troponin Current Visit: Yes Status: Acute Assessment & Plan: likely strain from chf, will consult cardiology, currently no pain Code(s): R77.8 - OTHER SPECIFIED ABNORMALITIES OF PLASMA PROTEINS (3) Chronic renal insufficiency Current Visit: Yes Status: Chronic Code(s): N18.9 - CHRONIC KIDNEY DISEASE, UNSPECIFIED
--- NOTE | 2022-05-23 08:41 | XRAY ---
Indication: Abdomen pain and bloating. Multiple contiguous axial images obtained through the abdomen and pelvis without contrast. Comparison: May 06, 2021 Lung bases demonstrates new mild pulmonary edema and tiny bibasilar effusions. Stable incidental left lower lobe calcified granuloma. Heart is not enlarged again with pacer leads. Stable small hiatal hernia. Left abdominal pain pump again produces beam artifact. Noncontrasted stomach and bowel loops nonobstructed. Appendix not visualized. Stable sigmoid diverticulosis without diverticulitis, prostatectomy, and penile implant with right pelvic reservoir. Urinary bladder is empty. No free fluid/air. Remaining liver, gallbladder, pancreas, spleen, adrenal glands, kidneys, and ureters are unremarkable for noncontrast exam. There remains moderate scattered aortoiliac calcifications without AAA. Osseous structures again demonstrates osteopenia, mild/moderate degenerative changes throughout the thoracolumbar spine, mild levorotoscoliosis centered at L3, and T12 Schmorl node. Impression: 1. New pulmonary edema with tiny bibasilar effusions. No cardiomegaly. 2. Again chronic findings including pain pump beam artifact, hiatal hernia, sigmoid diverticulosis, arteriosclerotic disease, and chronic bony findings. 3. Remaining CT abdomen/pelvis without contrast exam is again negative.
--- NOTE | 2022-05-23 08:41 | XRAY ---
Indication: Short of breath. Comparison: April 04, 2022 Portable chest demonstrates new mild pulmonary edema without consolidation/large effusion. Heart not enlarged again with left pacemaker. Bony thorax intact again with osteopenia and minimal degenerative changes.
[2022-05-23] MEDS ORDERED: ULTRAM 50 MG PO PRN (09:33)
[2022-05-23] MEDS: COREG 12.5 MG PO SCH ×2 (09:50→21:12)
[2022-05-23] MEDS: Miralax Powder 17GM PACKET PO SCH (09:50)
[2022-05-23] MEDS: Cardizem CD PO SCH (09:50)
[2022-05-23] MEDS: HEPARIN 5000 UNITS/0.5 ML (HIGH RISK MED) SQ SCH ×2 (09:50→21:12)
[2022-05-23] MEDS: Klor Con PO SCH ×2 (09:50→21:12)
[2022-05-23] MEDS: ECOTRIN 81 MG PO SCH (09:50)
[2022-05-23] MEDS: Pepcid 20 MG PO SCH ×2 (09:50→21:11)
[2022-05-23] MEDS: Protonix 40MG Tablet PO SCH (09:50)
[2022-05-23] MEDS ORDERED: COREG 12.5 MG PO SCH (10:00)
[2022-05-23] MEDS ORDERED: NON-FORMULARY ITEM (Omeprazole [Omeprazole] 40 MG Capsule.Dr) PO SCH (10:00)
[2022-05-23] MEDS: Lasix 40 MG/4 ML IV SCH ×2 (14:00→21:13)
[2022-05-23] MEDS ORDERED: Flonase NASAL NS PRN (16:45)
[2022-05-23] MEDS ORDERED: Desyrel 150 MG PO SCH (22:00)
[2022-05-23] MEDS ORDERED: DESYREL 50 MG PO SCH (22:00)
[2022-05-24 06:37] LABS: Absolute Neutrophil Ct (ANC) 4.24 x10^3/uL (1.4-6.9); BASOPHIL % 0.9 % (0.0-0.4); Basophil (Absolute #) 0.06 x10^3/uL (0-0.4); Eosinophil % 6.5 % (0.00-5.0); Eosinophil (Absolute #) 0.46 x10^3/uL (0-0.5); Hematocrit 30.2 % (42-50); IMMATURE GRAN # 0.03 x10^3u/L (0.00-0.03); IMMATURE GRAN % 0.4 % (0.00-0.4); Lymphocyte (Absolute #) 1.43 x10^3/uL (1.0-4.6); Lymphocytes % 20.3 % (24.0-44.0); Mean Cell Volume 98.1 fL (78-100); Mean Corpuscular Hemoglobin 32.5 pg (26-32); Mean Corpuscular Hgb Concent. 33.1 g/dL (32-36); Mean Platelet Volume 9.7 fL (7.5-11.0); Monocyte (Absolute #) 0.83 x10^3/uL (0.0-1.3); Monocytes % 11.8 % (0.0-12.0); Neutrophil % 60.1 % (36.0-66.0); Platelet Count 268 x10^3/uL (150-450); Red Blood Count 3.08 x10^6/uL (4.1-5.6); Red Cell Distribution Width 12.4 % (11.5-14.0); White Blood Count 7.1 x10^3/uL (4.0-10.5)
[2022-05-24 07:08] LABS: ANION GAP 11.7 MEQ/L (5-15); Calcium 9.5 mg/dL (8.4-10.2); Creatinine 1 1.97 mg/dL (0.66-1.25); EST GLOMERULAR FILTRATION RATE 34.7 ML/MIN; Potassium 3.5 mmol/L (3.5-5.1)
[2022-05-24] MEDS: Lasix 40 MG/4 ML IV SCH ×3 (07:38→20:44)
[2022-05-24] MEDS: Sodium Chloride 0.9% 10 ML FLUSH Syringe IV SCH ×3 (07:39→22:26)
[2022-05-24] MEDS: Cardizem CD PO SCH (09:53)
[2022-05-24] MEDS: Miralax Powder 17GM PACKET PO SCH ×2 (09:54→10:18)
[2022-05-24] MEDS: Klor Con PO SCH ×2 (09:54→20:44)
[2022-05-24] MEDS: Protonix 40MG Tablet PO SCH (09:54)
[2022-05-24] MEDS: COREG 12.5 MG PO SCH ×2 (09:54→20:44)
[2022-05-24] MEDS: ECOTRIN 81 MG PO SCH (09:54)
[2022-05-24] MEDS: HEPARIN 5000 UNITS/0.5 ML (HIGH RISK MED) SQ SCH ×2 (09:55→20:44)
[2022-05-24] MEDS: Pepcid 20 MG PO SCH ×2 (09:55→20:44)
--- NOTE | 2022-05-24 14:50 | PCM.NOTE ---
Date and Time: 05/24/22 1434 Subjective Assessment: Patient is resting comfortably with family son and daughters at bedside. No chest pain and is able to get up to the bathroom ok. Has abd distention and c/o tenderness points to suprapubic area. BM yesterday small stool per patient . Troponin was 1.01 on admission and is 1.44 yesterday and today.Dr Shea consultation appreciated. Patient lives alone . Objective Exam General Appearance: no apparent distress Neurologic Exam: alert, oriented x 3, cooperative (KOI) Skin Exam: normal color, warm, dry Ears, Nose, Throat Exam: moist mucous membranes Respiratory Exam: diminished breath sounds Cardiovascular Exam: regular rate/rhythm, murmur Extremity Exam: normal inspection OBJECTIVE DATA Vital Signs: Vital Signs - 24 hr Temp Pulse Resp BP Pulse Ox 05/24/22 12:00 97.1 F 60 17 128/59 94 L 05/24/22 07:18 92 L 05/24/22 07:17 98.6 F 65 18 161/72 90 L 05/24/22 04:00 97.9 F 60 18 166/74 96 05/23/22 23:56 97.8 F 64 18 135/61 95 05/23/22 19:59 97.5 F 63 20 179/78 94 L 05/23/22 19:10 90 L 05/23/22 16:00 97.8 F 60 14 155/70 99 Pain Assessment - Last Documented Pain Intensity 0 Intake and Output: Intake & Output 05/22/22 05/23/22 05/24/22 05/25/22 11:59 11:59 11:59 11:59 Intake Total 480 600 Output Total 575 1600 Balance -95 -1000 Weight 72.1 kg Lab Results: Lab Results-Last 24 Hours 05/23/22 05/23/22 05/23/22 Range/Units 15:50 19:05 21:16 WBC (4.0-10.5) x10^3/uL RBC (4.1-5.6) x10^6/uL Hgb (12.5-18.0) g/dL Hct (42-50) % MCV (78-100) fL MCH (26-32) pg MCHC (32-36) g/dL RDW (11.5-14.0) % Plt Count (150-450) x10^3/uL MPV (7.5-11.0) fL Gran % (36.0-66.0) % Immature Gran % (Auto) (0.00-0.4) % Nucleat RBC Rel Count (0.00-0.1) % Eos # (Auto) (0-0.5) x10^3/uL Immature Gran # (Auto) (0.00-0.03) x10^3u/L Absolute Lymphs (auto) (1.0-4.6) x10^3/uL Absolute Monos (auto) (0.0-1.3) x10^3/uL Absolute Nucleated RBC (0.00-0.01) x10^3u/L Lymphocytes % (24.0-44.0) % Monocytes % (0.0-12.0) % Eosinophils % (0.00-5.0) % Basophils % (0.0-0.4) % Absolute Granulocytes (1.4-6.9) x10^3/uL Basophils # (0-0.4) x10^3/uL Sodium (137-145) mmol/L Potassium (3.5-5.1) mmol/L Chloride (98-107) mmol/L Carbon Dioxide (22-30) mmol/L Anion Gap (5-15) MEQ/L BUN (9-20) mg/dL Creatinine (0.66-1.25) mg/dL Estimated GFR ML/MIN Glucose (74-106) mg/dL POC Glucometer 130 H 122 H (74 to 106) mg/dL Hemoglobin A1c 5.32 (4.5-6.0) % Calcium (8.4-10.2) mg/dL Magnesium (1.6-2.3) mg/dL Troponin I (0.000-0.034) ng/mL NT-Pro-B Natriuret Pep (<300) pg/mL 05/24/22 05/24/22 05/24/22 Range/Units 05:30 05:30 05:30 WBC 7.1 (4.0-10.5) x10^3/uL RBC 3.08 L (4.1-5.6) x10^6/uL Hgb 10.0 L (12.5-18.0) g/dL Hct 30.2 L (42-50) % MCV 98.1 (78-100) fL MCH 32.5 H (26-32) pg MCHC 33.1 (32-36) g/dL RDW 12.4 (11.5-14.0) % Plt Count 268 (150-450) x10^3/uL MPV 9.7 (7.5-11.0) fL Gran % 60.1 (36.0-66.0) % Immature Gran % (Auto) 0.4 (0.00-0.4) % Nucleat RBC Rel Count 0.0 (0.00-0.1) % Eos # (Auto) 0.46 (0-0.5) x10^3/uL Immature Gran # (Auto) 0.03 (0.00-0.03) x10^3u/L Absolute Lymphs (auto) 1.43 (1.0-4.6) x10^3/uL Absolute Monos (auto) 0.83 (0.0-1.3) x10^3/uL Absolute Nucleated RBC 0.00 (0.00-0.01) x10^3u/L Lymphocytes % 20.3 L (24.0-44.0) % Monocytes % 11.8 (0.0-12.0) % Eosinophils % 6.5 H (0.00-5.0) % Basophils % 0.9 (0.0-0.4) % Absolute Granulocytes 4.24 (1.4-6.9) x10^3/uL Basophils # 0.06 (0-0.4) x10^3/uL Sodium 140 (137-145) mmol/L Potassium 3.5 (3.5-5.1) mmol/L Chloride 98 (98-107) mmol/L Carbon Dioxide 33 H (22-30) mmol/L Anion Gap 11.7 (5-15) MEQ/L BUN 29 H (9-20) mg/dL Creatinine 1.97 H (0.66-1.25) mg/dL Estimated GFR 34.7 ML/MIN Glucose 105 (74-106) mg/dL POC Glucometer (74 to 106) mg/dL Hemoglobin A1c (4.5-6.0) % Calcium 9.5 (8.4-10.2) mg/dL Magnesium 2.0 (1.6-2.3) mg/dL Troponin I 1.440 H* (0.000-0.034) ng/mL NT-Pro-B Natriuret Pep 7180 (<300) pg/mL 05/24/22 05/24/22 Range/Units 07:07 11:50 WBC (4.0-10.5) x10^3/uL RBC (4.1-5.6) x10^6/uL Hgb (12.5-18.0) g/dL Hct (42-50) % MCV (78-100) fL MCH (26-32) pg MCHC (32-36) g/dL RDW (11.5-14.0) % Plt Count (150-450) x10^3/uL MPV (7.5-11.0) fL Gran % (36.0-66.0) % Immature Gran % (Auto) (0.00-0.4) % Nucleat RBC Rel Count (0.00-0.1) % Eos # (Auto) (0-0.5) x10^3/uL Immature Gran # (Auto) (0.00-0.03) x10^3u/L Absolute Lymphs (auto) (1.0-4.6) x10^3/uL Absolute Monos (auto) (0.0-1.3) x10^3/uL Absolute Nucleated RBC (0.00-0.01) x10^3u/L Lymphocytes % (24.0-44.0) % Monocytes % (0.0-12.0) % Eosinophils % (0.00-5.0) % Basophils % (0.0-0.4) % Absolute Granulocytes (1.4-6.9) x10^3/uL Basophils # (0-0.4) x10^3/uL Sodium (137-145) mmol/L Potassium (3.5-5.1) mmol/L Chloride (98-107) mmol/L Carbon Dioxide (22-30) mmol/L Anion Gap (5-15) MEQ/L BUN (9-20) mg/dL Creatinine (0.66-1.25) mg/dL Estimated GFR ML/MIN Glucose (74-106) mg/dL POC Glucometer 109 H 130 H (74 to 106) mg/dL Hemoglobin A1c (4.5-6.0) % Calcium (8.4-10.2) mg/dL Magnesium (1.6-2.3) mg/dL Troponin I (0.000-0.034) ng/mL NT-Pro-B Natriuret Pep (<300) pg/mL Radiology Exams: Radiology Procedures Category Date Time Status ABDOMEN AND PELVIS W/0 CONTRAS [CT] Stat Exams 05/22/22 20:50 Completed CHEST 1 VIEW (PORTABLE) Stat Exams 05/22/22 22:36 Completed ECHO W/2D AND DOPPLER [US] Routine Exams 05/23/22 14:31 Taken KUB Routine Exams 05/24/22 14:33 Ordered Assessment/Plan (1) CHF (congestive heart failure) Current Visit: Yes Status: Acute Qualifiers: Heart failure type: unspecified Heart failure chronicity: acute on chronic Qualified Code(s): I50.9 - Heart failure, unspecified Assessment & Plan: is on Lasix 40 tid and diuresing,still elevated BNP 7,000- ECHO done and results to be read by Dr Shea Code(s): I50.9 - HEART FAILURE, UNSPECIFIED (2) Abdominal pain Current Visit: Yes Status: Acute Qualifiers: Abdominal location: unspecified location Qualified Code(s): R10.9 - Unspecified abdominal pain Assessment & Plan: KUB,repeat UA Code(s): R10.9 - UNSPECIFIED ABDOMINAL PAIN (3) Elevated troponin Current Visit: Yes Status: Acute Assessment & Plan: asymptomatic ,check another level in AM Code(s): R77.8 - OTHER SPECIFIED ABNORMALITIES OF PLASMA PROTEINS
--- NOTE | 2022-05-24 20:36 | XRAY ---
Indication: Abdominal distention. Fecal retention. Comparison: None KUB nonacute and nonobstructed with mild fecal debris predominantly in the ascending and transverse colon. Left pain pump obscures underlying structures. Visualized solid organs unremarkable. Moderate scattered vascular calcifications, prostatectomy clips, and penile implants. 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 Impression: Negative KUB with chronic features. Comment: Preliminary interpretation made by [facility]. No critical discrepency.
[2022-05-25] MEDS: Lasix 40 MG/4 ML IV SCH (06:47)
[2022-05-25] MEDS: Sodium Chloride 0.9% 10 ML FLUSH Syringe IV SCH (06:47)
[2022-05-25 07:06] LABS: ALBUMIN 3.9 g/dL (3.5-5.0); BILIRUBIN,TOTAL 0.4 mg/dL (0.2-1.3); Calcium 9.4 mg/dL (8.4-10.2); Creatinine 1 2.28 mg/dL (0.66-1.25); EST GLOMERULAR FILTRATION RATE 29.3 ML/MIN; Potassium 3.9 mmol/L (3.5-5.1); TSH, 3RD Generation 0.769 mIU/L (0.47-4.68)
[2022-05-25] MEDS: Cardizem CD PO SCH (08:48)
[2022-05-25] MEDS: Klor Con PO SCH (08:49)
[2022-05-25] MEDS: COREG 12.5 MG PO SCH (08:49)
[2022-05-25] MEDS: Protonix 40MG Tablet PO SCH (08:50)
[2022-05-25] MEDS: Pepcid 20 MG PO SCH (08:50)
[2022-05-25] MEDS: ECOTRIN 81 MG PO SCH (08:50)
[2022-05-25] MEDS: HEPARIN 5000 UNITS/0.5 ML (HIGH RISK MED) SQ SCH (09:31)
[2022-05-25] MEDS: Miralax Powder 17GM PACKET PO SCH (09:34)
[2022-05-25 11:50] VITALS: BP 164/69; PULSE 66; O2SAT 97
--- NOTE | 2022-05-25 13:02 | PCM.DS ---
Discharge Summary Date of Admission: 05/22/22 23:24 Date of Discharge: 05/25/22 Admitting Physician: HILLARY LARA MD Consults: Consults on Case 05/23/22 00:32 Nutritional Consult ROUTINE 05/23/22 00:46 Notify Physician ROUTINE 05/23/22 08:09 Consult Cardiology ROUTINE Primary Care Provider: ARNOLD OLIVAS VICENTE Allergies Allergies doxazosin mesylate [From Cardura] Allergy (Verified 05/22/22 18:23) Itching ezetimibe [From Zetia] Allergy (Verified 05/22/22 18:23) iodine Allergy (Verified 05/22/22 18:23) Hives latex Allergy (Verified 05/22/22 18:23) prednisone Allergy (Verified 05/22/22 18:23) states "homicidal" simvastatin [From Zocor] Allergy (Verified 05/22/22 18:23) [id number]-[id number] Reductase Inhibitor [Zawjosh-Kqt-Hod Reductase Inhibitor] A llergy (Verified 05/22/22 18:23) Joint Aches duloxetine Adverse Reaction (Verified 05/22/22 18:23) milk Adverse Reaction (Verified 05/22/22 18:23) bananas Allergy (Mild, Uncoded 05/22/22 18:23) iv contrast Allergy (Uncoded 05/22/22 18:23) [facility] Summary - Vitals & Intake/Output Vital Signs: Vital Signs Temperature 98.4 F 05/25/22 11:49 Pulse Rate 66 05/25/22 11:49 Respiratory Rate 16 05/25/22 11:49 Blood Pressure 164/69 05/25/22 11:49 O2 Sat by Pulse Oximetry 97 05/25/22 11:49 Intake & Output: Intake & Output 05/23/22 05/24/22 05/25/22 05/26/22 11:59 11:59 11:59 11:59 Intake Total 480 600 240 Output Total 575 1600 Balance -95 -1000 240 Weight 72.1 kg 72.2 kg - Lab Result Diagrams: 05/24/22 05:30 05/25/22 04:35 Lab Results-Last 24 Hrs: Lab Results-Last 24 Hours 05/24/22 05/24/22 05/25/22 Range/Units 16:23 20:49 04:35 Sodium (137-145) mmol/L Potassium (3.5-5.1) mmol/L Chloride (98-107) mmol/L Carbon Dioxide (22-30) mmol/L Anion Gap (5-15) MEQ/L BUN (9-20) mg/dL Creatinine (0.66-1.25) mg/dL Estimated GFR ML/MIN Glucose (74-106) mg/dL POC Glucometer 110 H 132 H (74 to 106) mg/dL Calcium (8.4-10.2) mg/dL Total Bilirubin (0.2-1.3) mg/dL AST (17-59) U/L ALT (0-50) U/L Alkaline Phosphatase (38-126) U/L Troponin I 1.080 H* (0.000-0.034) ng/mL NT-Pro-B Natriuret Pep (<300) pg/mL Serum Total Protein (6.3-8.2) g/dL Albumin (3.5-5.0) g/dL Vitamin B12 (239-931) pg/mL TSH 3rd Generation (0.47-4.68) mIU/L 05/25/22 05/25/22 05/25/22 Range/Units 04:35 07:11 11:33 Sodium 139 (137-145) mmol/L Potassium 3.9 (3.5-5.1) mmol/L Chloride 97 L (98-107) mmol/L Carbon Dioxide 35 H (22-30) mmol/L Anion Gap 11.0 (5-15) MEQ/L BUN 35 H (9-20) mg/dL Creatinine 2.28 H (0.66-1.25) mg/dL Estimated GFR 29.3 ML/MIN Glucose 113 H (74-106) mg/dL POC Glucometer 135 H 116 H (74 to 106) mg/dL Calcium 9.4 (8.4-10.2) mg/dL Total Bilirubin 0.40 (0.2-1.3) mg/dL AST 25 (17-59) U/L ALT 14 (0-50) U/L Alkaline Phosphatase 84 (38-126) U/L Troponin I (0.000-0.034) ng/mL NT-Pro-B Natriuret Pep 4410 (<300) pg/mL Serum Total Protein 7.0 (6.3-8.2) g/dL Albumin 3.9 (3.5-5.0) g/dL Vitamin B12 281 (239-931) pg/mL TSH 3rd Generation 0.769 (0.47-4.68) mIU/L Micro Results-Entire Visit: Accuchecks Date 05/25/22 Date 05/25/22 Date 05/24/22 Date 05/24/22 Time 21:00 Time 16:32 - Radiology Exams Ordered Rad Exams-Entire Visit: Radiology Procedures Category Date Time Status ECHO W/2D AND DOPPLER [US] Routine Exams 05/23/22 14:31 Taken KUB Routine Exams 05/24/22 14:33 Completed - Procedures and Test Procedures and Tests throughout Hospitalization: Therapy Orders & Screens 05/22/22 23:27 Oxygen NASAL CANNULA 2 lpm Comment: Diagnosis: CHF 05/23/22 00:31 EKG REPEAT IN AM Comment: Diagnosis: chf 05/23/22 01:06 PT Eval & Treat ( Order) ONCE Reason for Eval:: DEBILITY Diagnosis: chf Final Diagnosis/Problem List - Final Discharge Diagnosis/Problem (1) CHF (congestive heart failure) Current Visit: Yes Status: Chronic Code(s): I50.9 - HEART FAILURE, UNSPECIFIED (2) Abdominal pain Current Visit: Yes Status: Resolved Code(s): R10.9 - UNSPECIFIED ABDOMINAL PAIN (3) Elevated troponin Current Visit: Yes Status: Acute Code(s): R77.8 - OTHER SPECIFIED ABNORMALITIES OF PLASMA PROTEINS - Discharge Disposition: Home, Self-Care Condition: Stable Prescriptions: Continue Trazodone HCl 50 mg [Desyrel 50 mg] 150 mg PO HS Potassium Chloride 2 tab PO HS Furosemide 40 mg [Lasix 40 MG] 1 tab PO DAILY Aspirin EC 81 mg [Ecotrin 81 mg] 81 mg PO DAILY dilTIAZem HCL [Diltiazem ER] 240 mg PO DAILY Omeprazole 40 mg PO DAILY Carvedilol 12.5 mg [Coreg 12.5 mg] 25 mg PO BID Lutein 1 tab PO DAILY Metformin HCl 500 mg [Glucophage 500 MG] 500 mg PO DAILY Non-Formulary Drug [Non-Formulary Item] 1 each PO DAILY Tramadol HCl 50 mg [Ultram 50 mg] 50 mg PO TID PRN PRN Reason: Pain Additional Instructions: Daughter will call Dr Olivas for hospital follow up appt Follow up with: ARIELLE CASANOVA [CONSULTING PHYSICIAN] -
--- NOTE | 2022-05-26 10:47 | ECHO ---
Transthoracic echocardiographic examination and color Doppler was done on 05/23/2022. INDICATION: Elevated troponin I, shortness of breath, coronary artery disease and hypertension. IMPRESSION: 1) REGIONAL WALL MOTION ABNORMALITY WITH MILD HYPOKINESIA OF THE SEPTAL WALL. ESTIMATED GLOBAL LEFT VENTRICULAR EJECTION FRACTION BETWEEN 45 TO 50%. 2) MILD MITRAL REGURGITATION. 3) MODERATE TRICUSPID REGURGITATION. RIGHT VENTRICULAR SYSTOLIC PRESSURE OF 43 MM OF MERCURY. 4) LEFT VENTRICULAR HYPERTROPHY. 5) PACEMAKER ELECTRODE IN THE RIGHT VENTRICLE. The left ventricle is visualized and demonstrated mild septal hypokinesia. Estimated global left ventricular ejection fraction about 45 to 50%. There is concentric left ventricular hypertrophy. The mitral valve is seen and this opens adequately. There is mild mitral regurgitation. Left atrium is normal. The aortic valve is mildly sclerotic. The peak gradient across the aortic valve is 13 mm of Mercury with a mean gradient of 6. The right side chambers are normal. There is some moderate tricuspid regurgitation. The right ventricular systolic pressure of 42 mm of Mercury. There is a pacemaker electrode in the right ventricle.
== END 2022-05-25 13:59 | disposition home or self-care (01) ==
LOC: ED 18:11 → MED SURG 23:24
PROVIDERS: ADMIT Internal Medicine; ATTEND Family Medicine
DX: I13.0 Hypertensive heart and chronic kidney disease with heart failure and stage 1 through stage 4 chronic kidney disease, or unspecified chronic kidney disease (principal); I50.9 Heart failure, unspecified; E11.22 Type 2 diabetes mellitus with diabetic chronic kidney disease; N18.9 Chronic kidney disease, unspecified; R10.31 Right lower quadrant pain; R77.8 Other specified abnormalities of plasma proteins; R60.0 Localized edema; Z79.899 Other long term (current) drug therapy; Z20.828 Contact with and (suspected) exposure to other viral communicable diseases; Z85.46 Personal history of malignant neoplasm of prostate
CPT/HCPCS: 0241U; 36000; 36415; 71045; 74018; 74176; 80048; 80053; 81001; 82607; 82947; 83036; 83690; 83735; 83880; 84443; 84484; 85025; 85027; 93005; 93041; 93268; 93306; 94760; 94762; 96374; 97161; 99285; G0378; J1644; J1940; A9270-GY

== ENCOUNTER 2022-06-04 18:12 | Emergency (ER) | payer MEDICARE, OTHER ==
[2022-06-04] MEDS ORDERED: Zofran 4 MG/2 ML VIAL IV ONE (18:20)
[2022-06-04] MEDS ORDERED: BABY ASPIRIN 81 MG CHEW PO ONE (18:20)
--- NOTE | 2022-06-04 18:20 | ERPHSYRPT ---
- History of Present Illness Time Seen by Provider: 06/04/22 18:19 Historian: patient, family Exam Limitations: no limitations Physician History: This is an 81-year-old white male patient who was brought into the emergency department through the back door as by private vehicle and his daughter. Patient has a significant cardiac history including pacemaker placement, cardiac stent and angioplasty in the past. He had sudden onset of left-sided chest pain approximately 25 minutes prior to arrival to the emergency department. His machine finisher is Dr. Shea and he has an appointment to see him on 06/06/2022. At the time of my examination the patient states that the left-sided chest pain that was present is now gone. The patient has a history of diabetes, gastroesophageal reflux disease, TIA, hypertension and chronic renal failure. Patient lives alone. Thus far today, the patient is taking his medication as prescribed. This is the third visit to the emergency department within the last 2 to 3 weeks. I reviewed the most recent inpatient stay medical records here at [facility]. I also spoke with the patient's daughter. Both of th adriana sources provided additional history. Therefore, at this time, patient has no complaints and he does not appear to be in any distress. Review of the most recent visit shows that the patient chronically has troponin levels above the level of 1.0. Timing/Duration: today Quality: sharpness, stabbing Location: other (Left side chest anteriorly without radiation.) Severity of Pain-Max: moderate Severity of Pain-Current: none Modifying Factors: Improves With: other (Resolved completely on its own) Associated Symptoms: shortness of breath (Chronic and mild) Prior Chest Pain/Cardiac Workup: cardiac cath, echocardiography Nitro Today/Relief: no nitro taken today Aspirin Treatment Today: no aspirin today Allergies/Adverse Reactions: doxazosin mesylate [From Cardura] Allergy (Verified 06/04/22 18:16) Itching ezetimibe [From Zetia] Allergy (Verified 06/04/22 18:16) iodine Allergy (Verified 06/04/22 18:16) Hives latex Allergy (Verified 06/04/22 18:16) prednisone Allergy (Verified 06/04/22 18:16) states "homicidal" simvastatin [From Zocor] Allergy (Verified 06/04/22 18:16) [place]-YSU-OiN Reductase Inhibitor [Dsckscr-Hpd-Gmw Reductase Inhibitor] Allergy (Verified 06/04/22 18:16) Joint Aches duloxetine Adverse Reaction (Verified 06/04/22 18:16) milk Adverse Reaction (Verified 06/04/22 18:16) bananas Allergy (Mild, Uncoded 06/04/22 18:16) iv contrast Allergy (Uncoded 06/04/22 18:16) Hives Home Medications: Aspirin EC 81 mg [Ecotrin 81 mg] 81 mg PO DAILY 05/23/22 [History] Carvedilol 12.5 mg [Coreg 12.5 mg] 25 mg PO BID 05/23/22 [History] Furosemide 40 mg [Lasix 40 MG] 1 tab PO DAILY 05/23/22 [History] Lutein 1 tab PO DAILY 05/23/22 [History] Metformin HCl 500 mg [Glucophage 500 MG] 500 mg PO DAILY 05/23/22 [History] Non-Formulary Drug [Non-Formulary Item] 1 each PO DAILY 05/23/22 [History] Omeprazole 40 mg PO DAILY 05/23/22 [History] Potassium Chloride 2 tab PO HS 05/23/22 [History] Tramadol HCl 50 mg [Ultram 50 mg] 50 mg PO TID PRN 05/23/22 [History] Trazodone HCl 50 mg [Desyrel 50 mg] 150 mg PO HS 05/23/22 [History] dilTIAZem HCL [Diltiazem ER] 240 mg PO DAILY 05/23/22 [History] Hx Tetanus, Diphtheria Vaccination/Date Given: Yes Hx Influenza Vaccination/Date Given: No (unknown) Hx Pneumococcal Vaccination/Date Given: No Travel Risk - International Travel Have you traveled outside of the country in past 3 weeks: No - Coronavirus Screening Are you exhibiting any of the following symptoms?: No Close contact with a COVID-19 positive Pt in past 14-21 Days: No - Vaccine Status Have you recieved a Covid-19 vaccination: Yes College Recruiter: Unknown - Vaccination Dates Dates if Unknown: un - Review of Systems Constitutional: No Symptoms Eyes: No Symptoms Ears, Nose, & Throat: No Symptoms Respiratory: No Symptoms Cardiac: Chest Pain (Has resolved) Abdominal/Gastrointestinal: No Symptoms Genitourinary Symptoms: No Symptoms Musculoskeletal: No Symptoms Skin: No Symptoms Neurological: No Symptoms Psychological: No Symptoms Endocrine: No Symptoms Hematologic/Lymphatic: No Symptoms Immunological/Allergic: No Symptoms All Other Systems: Reviewed and Negative - Past Medical History Pertinent Past Medical History: Yes Neurological History: TIA ENT History: No Pertinent History Cardiac History: Arrhythmia, Hypertension, Other Respiratory History: No Pertinent History Endocrine Medical History: Diabetes Type II Musculoskeletal History: Arthritis, Osteoarthritis GI Medical History: GERD History: Other Psycho-Social History: No Pertinent History Male Reproductive Disorders: Prostate Cancer Other Medical History: PACEMAKER, PAIN PUMP - Past Surgical History Past Surgical History: Yes Neuro Surgical History: No Pertinent History Cardiac: Angioplasty, Cardiac Stent, Pacemaker Respiratory: Other Gastrointestinal: No Pertinent History Genitourinary: No Pertinent History Musculoskeletal: No Pertinent History Male Surgical History: Prostate Surgery, Vasectomy, Other Other Surgical History: penile implant, back pain pump - Social History Smoking Status: Former smoker Exposure to second hand smoke: No Alcohol Use: None Drug Use: none Patient Lives Alone: Yes Significant Family History: no pertinent family hx - Nursing Vital Signs Nursing Vital Signs: Initial Vital Signs Temperature 97.3 F 06/04/22 18:13 Pulse Rate 62 06/04/22 18:13 Respiratory Rate 18 06/04/22 18:13 Blood Pressure 171/83 06/04/22 18:13 O2 Sat by Pulse Oximetry 97 06/04/22 18:13 Pain Scale Pain Intensity 2 - Physical Exam General Appearance: no apparent distress, alert, other (Patient is pleasant and in no distress. He smiles often) Eye Exam: PERRL/EOMI, eyes nml inspection Ears, Nose, Throat Exam: normal ENT inspection, moist mucous membranes Neck Exam: normal inspection, non-tender, supple, full range of motion Respiratory Exam: normal breath sounds, lungs clear, airway intact, No chest tenderness, No respiratory distress Cardiovascular Exam: regular rate/rhythm, normal heart sounds, normal peripheral pulses Gastrointestinal/Abdomen Exam: soft, normal bowel sounds, No tenderness Rectal Exam: not done Back Exam: normal inspection, normal range of motion, No CVA tenderness, No vertebral tenderness Extremity Exam: normal inspection, normal range of motion, pelvis stable Neurologic Exam: alert, oriented x 3, cooperative, 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 No change from twelve-lead EKG that was performed on 05/22/2022) Ordered Tests: Active Orders 24 hr Category Date Time Status Superintendent [employer] STAT Care 06/04/22 18:21 Active EKG-ER Only STAT Care 06/04/22 18:20 Active IV Insertion STAT Care 06/04/22 18:20 Active Pulse Oximetry (ED) STAT Care 06/04/22 18:20 Active CHEST 1 VIEW (PORTABLE) Stat Exams 06/04/22 18:20 Taken CBC W DIFF Stat Lab 06/04/22 18:20 Completed CMP Stat Lab 06/04/22 18:50 Completed PROTIME WITH INR Stat Lab 06/04/22 18:50 Completed TROPONIN Q4H Lab 06/04/22 18:50 Completed TROPONIN Q4H Lab 06/04/22 22:30 Ordered TROPONIN Q4H Lab 06/05/22 02:30 Ordered Medication Summary Discontinued Medications Generic Name Dose Route Start Last Admin Trade Name Reddq PRN Reason Stop Dose Admin Aspirin 324 mg 06/04/22 18:20 06/04/22 18:36 Aspirin 81 Mg Tab.Chew PO 06/04/22 18:21 324 mg STAT ONE Administration Aspirin Confirm 06/04/22 18:32 Aspirin 81 Mg Tab.Chew Administered 06/04/22 18:33 Dose 324 mg .ROUTE .STK-MED ONE Aspirin Confirm 06/04/22 18:35 Aspirin 81 Mg Tab.Chew Administered 06/04/22 18:36 Dose 324 mg .ROUTE .STK-MED ONE Ondansetron HCl 4 mg 06/04/22 18:20 06/04/22 18:37 Ondansetron Hcl 4 Mg/2 Ml Vial IV 06/04/22 18:21 4 mg STAT ONE Administration Ondansetron HCl Confirm 06/04/22 18:32 Ondansetron Hcl 4 Mg/2 Ml Vial Administered 06/04/22 18:33 Dose 4 mg .ROUTE .STK-MED ONE Ondansetron HCl Confirm 06/04/22 18:35 Ondansetron Hcl 4 Mg/2 Ml Vial Administered 06/04/22 18:36 Dose [address]-MED ONE Lab/Rad Data: Laboratory Result Diagrams 06/04/22 18:20 06/04/22 18:50 Laboratory Results 06/04/22 06/04/22 06/04/22 Range/Units 18:50 18:50 18:50 WBC (4.0-10.5) x10^3/uL RBC (4.1-5.6) x10^6/uL Hgb (12.5-18.0) g/dL Hct (42-50) % MCV (78-100) fL MCH (26-32) pg MCHC (32-36) g/dL RDW (11.5-14.0) % Plt Count (150-450) x10^3/uL MPV (7.5-11.0) fL Gran % (36.0-66.0) % Immature Gran % (Auto) (0.00-0.4) % Nucleat RBC Rel Count (0.00-0.1) % Eos # (Auto) (0-0.5) x10^3/uL Immature Gran # (Auto) (0.00-0.03) x10^3u/L Absolute Lymphs (auto) (1.0-4.6) x10^3/uL Absolute Monos (auto) (0.0-1.3) x10^3/uL Absolute Nucleated RBC (0.00-0.01) x10^3u/L Lymphocytes % (24.0-44.0) % Monocytes % (0.0-12.0) % Eosinophils % (0.00-5.0) % Basophils % (0.0-0.4) % Absolute Granulocytes (1.4-6.9) x10^3/uL Basophils # (0-0.4) x10^3/uL PT 10.3 (9.4-12.5) SECONDS INR 0.94 (0.8-3.0) Sodium 142 (137-145) mmol/L Potassium 4.4 (3.5-5.1) mmol/L Chloride 103 (98-107) mmol/L Carbon Dioxide 28 (22-30) mmol/L Anion Gap 15.6 H (5-15) MEQ/L BUN 27 H (9-20) mg/dL Creatinine 1.74 H (0.66-1.25) mg/dL Estimated GFR 40.0 ML/MIN Glucose 97 (74-106) mg/dL Calcium 9.4 (8.4-10.2) mg/dL Total Bilirubin 0.30 (0.2-1.3) mg/dL AST 27 (17-59) U/L ALT 14 (0-50) U/L Alkaline Phosphatase 112 (38-126) U/L Troponin I < 0.012 (0.000-0.034) ng/mL Serum Total Protein 7.7 (6.3-8.2) g/dL Albumin 4.4 (3.5-5.0) g/dL 06/04/22 Range/Units 18:20 WBC 8.6 (4.0-10.5) x10^3/uL RBC 3.14 L (4.1-5.6) x10^6/uL Hgb 10.0 L (12.5-18.0) g/dL Hct 31.5 L (42-50) % MCV 100.3 H (78-100) fL MCH 31.8 (26-32) pg MCHC 31.7 L (32-36) g/dL RDW 12.1 (11.5-14.0) % Plt Count 344 (150-450) x10^3/uL MPV 9.6 (7.5-11.0) fL Gran % 56.0 (36.0-66.0) % Immature Gran % (Auto) 0.5 H (0.00-0.4) % Nucleat RBC Rel Count 0.0 (0.00-0.1) % Eos # (Auto) 0.98 H (0-0.5) x10^3/uL Immature Gran # (Auto) 0.04 H (0.00-0.03) x10^3u/L Absolute Lymphs (auto) 1.83 (1.0-4.6) x10^3/uL Absolute Monos (auto) 0.81 (0.0-1.3) x10^3/uL Absolute Nucleated RBC 0.00 (0.00-0.01) x10^3u/L Lymphocytes % 21.3 L (24.0-44.0) % Monocytes % 9.4 (0.0-12.0) % Eosinophils % 11.4 H (0.00-5.0) % Basophils % 1.4 (0.0-0.4) % Absolute Granulocytes 4.80 (1.4-6.9) x10^3/uL Basophils # 0.12 (0-0.4) x10^3/uL PT (9.4-12.5) SECONDS INR (0.8-3.0) Sodium (137-145) mmol/L Potassium (3.5-5.1) mmol/L Chloride (98-107) mmol/L Carbon Dioxide (22-30) mmol/L Anion Gap (5-15) MEQ/L BUN (9-20) mg/dL Creatinine (0.66-1.25) mg/dL Estimated GFR ML/MIN Glucose (74-106) mg/dL Calcium (8.4-10.2) mg/dL Total Bilirubin (0.2-1.3) mg/dL AST (17-59) U/L ALT (0-50) U/L Alkaline Phosphatase (38-126) U/L Troponin I (0.000-0.034) ng/mL Serum Total Protein (6.3-8.2) g/dL Albumin (3.5-5.0) g/dL - Progress Progress: improved, re-examined Air Movement: good Progress Note: 06/04/22 20:09 Chest x-ray was interpreted by me. There is no evidence of any acute cardiopulmonary processes. This patient's medical issue is 1 of moderate complexity. The level of complexity in the work-up performed was based on the review of the patient's past medical history, medication list, drug allergy list, history of present illness and physical findings on examination. The work-up performed includes a twelve-lead EKG, intravenous line placement, CBC, CMP, troponin level. I reviewed the results of the work-up. Patient's values are even improved over the last visit in the emergency room and his inpatient hospitalization. Clinically, patient has no chest pain and he is in no distress. Patient has an appointment to see his machine finisher in 2 days. I am discharging him to home with instructions for him to continue his medications as prescribed and follow- up with his machine finisher on 06/06/2022. Blood Culture(s) Obtained: No Antibiotics given: No Counseled pt/family regarding: lab results, diagnosis, need for follow-up, rad results Medical Desision Making - Independent Historian Additional History obtained from: Child - External Record(s) Reviewed Records reviewed as a part of evaluation & management: Inpatient - Discussion of managment Reviewed:: Test results Agreed on:: Treatment plan, need for follow-up - Social Determinants of Health Limited access to: transportation - Diagnostic Testing Radiological Interpretation: Interpreted by me - Risk of complications Low Risk: Low risk of morbidity from additional dx testing or treatment - Departure Departure Disposition: Home Clinical Impression: Non-cardiac chest pain Condition: Stable Critical Care Time: No Referrals: ARNOLD OLIVAS MD [Primary Care Provider] - Follow up/PCP as directed Additional Instructions: Continue medication as prescribed. Follow-up with your machine finisher on 06/06/2022 at your scheduled appointment time.
[2022-06-04] MEDS ORDERED: Zofran 4 MG/2 ML VIAL ONE ×2 (18:32→18:35)
[2022-06-04] MEDS ORDERED: BABY ASPIRIN 81 MG CHEW ONE ×2 (18:32→18:35)
[2022-06-04 18:59] LABS: BASOPHIL % 1.4 % (0.0-0.4); Basophil (Absolute #) 0.12 x10^3/uL (0-0.4); Eosinophil % 11.4 % (0.00-5.0); Eosinophil (Absolute #) 0.98 x10^3/uL (0-0.5); Hematocrit 31.5 % (42-50); IMMATURE GRAN # 0.04 x10^3u/L (0.00-0.03); IMMATURE GRAN % 0.5 % (0.00-0.4); Lymphocyte (Absolute #) 1.83 x10^3/uL (1.0-4.6); Lymphocytes % 21.3 % (24.0-44.0); Mean Cell Volume 100.3 fL (78-100); Mean Corpuscular Hemoglobin 31.8 pg (26-32); Mean Corpuscular Hgb Concent. 31.7 g/dL (32-36); Mean Platelet Volume 9.6 fL (7.5-11.0); Monocyte (Absolute #) 0.81 x10^3/uL (0.0-1.3); Monocytes % 9.4 % (0.0-12.0); Platelet Count 344 x10^3/uL (150-450); Red Blood Count 3.14 x10^6/uL (4.1-5.6); Red Cell Distribution Width 12.1 % (11.5-14.0); White Blood Count 8.6 x10^3/uL (4.0-10.5)
[2022-06-04 19:12] LABS: INR 0.94 (0.8-3.0); PROTIME 10.3 SECONDS (9.4-12.5)
[2022-06-04 19:15] LABS: ALBUMIN 4.4 g/dL (3.5-5.0); ANION GAP 15.6 MEQ/L (5-15); BILIRUBIN,TOTAL 0.3 mg/dL (0.2-1.3); Calcium 9.4 mg/dL (8.4-10.2); Creatinine 1 1.74 mg/dL (0.66-1.25); Potassium 4.4 mmol/L (3.5-5.1); Total Protein 7.7 g/dL (6.3-8.2)
[2022-06-04 20:08] VITALS: BP 150/71; PULSE 63; O2SAT 94
--- NOTE | 2022-06-05 08:34 | XRAY ---
Indication: Chest pain. Comparison: May 22, 2022 Portable chest demonstrates diminished pulmonary edema with stable tiny left base calcified granuloma. No focal infiltrate, consolidation, or large effusion. Heart not enlarged again with left pacemaker. Bony thorax intact again with osteopenia and minimal degenerative changes. Impression: Nonacute chest with chronic features.
== END 2022-06-04 20:21 | disposition home or self-care (01) ==
LOC: ED 18:12
DX: R07.89 Other chest pain (principal); E11.22 Type 2 diabetes mellitus with diabetic chronic kidney disease; I12.9 Hypertensive chronic kidney disease with stage 1 through stage 4 chronic kidney disease, or unspecified chronic kidney disease; N18.9 Chronic kidney disease, unspecified; Z79.84 Long term (current) use of oral hypoglycemic drugs; Z79.891 Long term (current) use of opiate analgesic; Z79.899 Other long term (current) drug therapy; Z86.73 Personal history of transient ischemic attack (TIA), and cerebral infarction without residual deficits
CPT/HCPCS: 36000; 36415; 71045; 80053; 84484; 85025; 85610; 93005; 93041; 94760; 96374; 99284; J2405; A9270-GY